=== PATIENT | female | born 1945 | race Caucasian/White ===

== ENCOUNTER 2018-07-29 05:48 | Day surgery (SDC) | payer MEDICARE, BC ==
[2018-07-29] MEDS ORDERED: DIPRIVAN 200 MG/20 ML IV ONE (05:49)
[2018-07-29] MEDS ORDERED: Lactated Ringers 1,000 ML IV SCH (06:00)
[2018-07-29 07:58] VITALS: BP 134/71; O2SAT 98
--- NOTE | 2018-07-29 08:02 | OP ---
SURGERY DATE/TIME: 07/29/2018 0703 PREOPERATIVE DIAGNOSIS: Screening exam. POSTOPERATIVE DIAGNOSIS: Ascending colon polyp measuring approximately 0.75 x 1.5 cm in the ascending colon. PROCEDURE: Colonoscopy with polypectomy by hot biopsy forceps. SURGEON: Dr. Alicea. ANESTHESIA: MAC. Medications given by anesthesia department. HISTORY: The patient is a 73 year-old white female presenting now for screening colonoscopy. She was appraised of the risks of the procedure including the risk of perforation, phlebitis, untoward reaction to medication, bleeding and missed lesions. The patient verbalized her understanding and desired to have the procedure performed. DESCRIPTION OF PROCEDURE: The patient was given the medications by the anesthesia department. She had continuous pulse oximetry, ECG monitoring, intermittent blood pressure monitoring and tidal CO2 monitoring during the examination. She was placed in the left lateral decubitus position. A digital rectal examination was performed and revealed normal anal sphincter tone and no masses. External hemorrhoids are present. The flexible Olympus pediatric colonoscope was used to intubate the rectum. A view of the colon was developed sequentially to the cecum. Upon insertion and withdrawal there was noted a sessile polyp in the ascending colon this was destroyed using multiple passes with hot biopsy forceps. Upon insertion and withdrawal including retroflex view in the rectum, no other mucosal lesions being encountered. The scope was removed from the patient who tolerated the procedure well and was sent back to OP recovery in good condition. The prep was noted to be fair.
[2018-07-29 08:47] VITALS: PULSE 66
== END 2018-07-29 08:53 | disposition home or self-care (01) ==
LOC: SDC 05:48
PROVIDERS: ATTEND Family Medicine
DX: Z12.11 Encounter for screening for malignant neoplasm of colon (principal); K63.5 Polyp of colon; I25.10 Atherosclerotic heart disease of native coronary artery without angina pectoris; I25.2 Old myocardial infarction
CPT/HCPCS: 88305; 94250; 99100; J2704

== ENCOUNTER 2020-01-05 10:06 | Day surgery (SDC) | payer MEDICARE, BC ==
[~2020-01-05 10:06] MED LIST: ACETAZOLAMIDE 250 MG TABLET PO ONE; Ak-Dilate OPHTHALMIC*** 1.065 ML, Cyclogyl 1% OPHTH SOL 5 ML 1.065 ML, GATIFLOXACIN 0.5... OP ONE; BETADINE 5% OPHTHALMIC 30 ML OP ONE; BSS 500 ML, Fortaz/Tazicef 1 GM** 0.2 G IO ONE; Epinephrine Preservative Free 1 MG/ML INTRAOP ONE; LIDOCAINE HCL 1% AMPUL 5 ML IJ ONE; Lactated Ringers 1,000 ML IV SCH; NON-FORMULARY ITEM OP ONE; TETRACAINE 0.5% STERI-UNIT SOL OP ONE; Zofran 4 MG/2 ML VIAL IV PRN
[2020-01-05] MEDS ORDERED: Lactated Ringers 1,000 ML IV ONE (10:31)
[2020-01-05 10:53] LABS: INR 1.16 (0.8-3.0); PROTIME 13.2 SECONDS (9.95-12.35)
[2020-01-05] MEDS: TETRACAINE 0.5% STERI-UNIT SOL OP ONE ×2 (11:34→12:01)
[2020-01-05] MEDS ORDERED: DIPRIVAN 200 MG/20 ML IV ONE (12:37)
[2020-01-05 13:38] VITALS: BP 159/75; PULSE 79; O2SAT 99
--- NOTE | 2020-01-05 14:00 | OP ---
DATE/TIME OF OPERATION: 01/05/2020 1236 TIME DICTATED: 1256 PREOPERATIVE DIAGNOSIS: Senile cataract of left eye. POSTOPERATIVE DIAGNOSIS: Senile cataract of left eye. SURGEON: Osmar Pang MD SPAR MACHINE OPERATOR HELPER: None. OPERATION: Cataract extraction of left eye with an intraocular lens implant. STANDARD __X___ COMPLEX ANESTHESIA: MAC. ___X___ Monitored anesthesia care in combination with topical and intra-cameral anesthesia (because of the established specific risk of reflux, arrhythmias, or an anxiety attack associated with ocular manipulation as well as difficulty of the job checker to manage such potentially catastrophic events while simultaneously attempting to complete the surgical procedure, it was deemed necessary for the patient's safety to have an anesthesiologist or a nurse supervisory cbp officer present during the procedure whenever possible. The anesthesiologist or the nurse supervisory cbp officer was utilized to monitor and regulate the intravenous sedation of the patient, so the patient was cooperative, relaxed, and comfortable). Topical anesthesia using Tetracaine eye drops together with intra cameral anesthesia using Lidocaine 1% MPF. The nurse was utilized to monitor the patient. ANESTHESIA PROVIDER: Jessee Ríos CRNA. COMPLICATIONS: None. BLOOD LOSS: None. INDICATIONS: The patient is undergoing cataract surgery in the hopes of eliminating the visual complaints and difficulty. PROCEDURE: After arriving at the facility's outpatient surgery area, an IV was started; the patient was given 5 mg of p.o. Versed. (If an anesthesia provider was not monitoring the patient) The patient was then given topical anesthetic Tetracaine eye drops. A cotton pellet was soaked into a solution of a combination of Zymaxid 0.5%, Nitin-Synephrine 2.5% and Ocufen (other drops might have been substituted referenced in the patient's record). The pellet was inserted by the RN into the lower conjunctival cul-de-sac with a sterile forceps and left for 20 minutes. The pellet was then removed by the RN with a sterile forceps before taking the patient to the operating room. The preoperative area nurse identified the patient and marked the correct eye to be operated on. I identified the correct eye to be operated on and marked it appropriately in the outpatient surgery area. The patient was then taken into the operating room. Tetracaine eye drops were installed again in the correct eye. The eyelids and the lashes and the lid margins were scrubbed with Betadine solution. One drop of the diluted Betadine solution was placed in the conjunctival cul-de-sac for 45 seconds and then was irrigated. A drop of Tetracaine Gel was placed in the conjunctival cul-de-sac. The patient's forehead was taped to secure it during the procedure. The patient was monitored. The patient was then draped in the usual way for this procedure. An eye speculum was used to separate the eyelids. The eye was then fixated and a temporal 2.5 mm incision was made in the clear cornea temporally at the limbus. Through the incision, 0.25 cc of 1% non-preserved lidocaine was injected into the anterior chamber for intracameral anesthesia. The anterior chamber was then filled with viscoelastic. The pupil was small. I felt that it would be safer to mechanically dilate the pupil. A Malyugin ring was used at this point which dilated the pupil. That was removed at the end of the procedure prior to aspiration of the viscoelastic from the anterior chamber and posterior to the intraocular lens implant. The cataract had a great amount of cortical changes. That rendered seeing the anterior capsule difficult for a safe performance of an anterior capsulotomy. I injected an air bubble into the anterior chamber. I then injected 1 ML of vision blue solution into the anterior chamber. The vision blue solution was irrigated from the anterior chamber after 30 seconds. The anterior capsule was stained which facilitated performing the anterior capsulotomy safely. After that was completed, a cystotome was introduced into the anterior chamber and a round anterior capsulotomy was performed. The capsule was removed by a forceps. Hydrodissection was next carried utilizing a 25-gauge cannula and balanced salt solution to delineate the cortical material from the capsule and the nucleus from the cortical material. The nucleus was rotated freely into the capsular bag with no difficulty. The phaco tip of the [employer] Phacoemulsifier was introduced into the anterior chamber and two grooves were made into the nucleus 90 degrees apart. Using two spatulas resulted into the nucleus being fractured into four quadrants. The phaco tip was then used to remove each quadrant of the nucleus. Viscoelastic was used during this process to protect the corneal endothelium. Once the entire nucleus was removed, the phaco tip then was removed and the irrigation tip was introduced into the eye and the cortex was removed. The posterior capsule was polished. It was noticed that there was a tear into the posterior capsule with few vitreous strands into the pupil plan. An anterior vitrectomy was performed. An 8.00 diopter, SN60WF, posterior chamber lens implant, was inspected and found to be grossly normal. The implant was inserted into the implant injector cartridge; Viscoelastic again was introduced into the anterior chamber, which filled the capsular bag. The implant injector's cartridge tip was placed at the limbal wound and the posterior chamber implant was released into the capsular bag and rotated appropriately. The implant was found to be into the capsular bag and it was centered. 0.2 ml of Tri-Moxi was introduced via 27 gauge cannula into the vitreous cavity through the ciliary processes. Viscoelastic was aspirated from the anterior chamber and posterior to the intraocular lens implant from the capsular bag using the irrigating tip. The anterior chamber was irrigated and filled with 5 cc antibiotic solution (500 cc of BSS plus 2 ml of Fortaz 100 mg/ml) ( if patient was not allergic to the medication). The lips of the corneal incision were hydrated using BSS solution. The anterior chamber was checked and found to be water tight. ___X___ One drop each of antibiotic, steroid and NSAID drops (refer to chart for drops used) were placed in the conjunctival cul-de-sac of the operated eye. Patient tolerated the procedure quite well and left the operating room in satisfactory condition. DISCHARGE SUMMARY: The patient was released in stable condition. The patient and those with the patient were given an instruction sheet as of how to care for the eye after surgery as well as counseling on any abnormal laboratory studies by the postoperative RN. The patient was also given an appointment card for follow-up in the office and is to call immediately for any difficulties including but not limited to pain in the eye, decreased vision, discharge from the eye, headache and or fever. DISCHARGE DIAGNOSIS: Pseudophakia of left eye.
== END 2020-01-05 13:50 | disposition home or self-care (01) ==
LOC: SDC 10:06
PROVIDERS: ATTEND Ophthalmology
DX: H25.9 Unspecified age-related cataract (principal); I10 Essential (primary) hypertension; I51.9 Heart disease, unspecified; E78.00 Pure hypercholesterolemia, unspecified; Z79.01 Long term (current) use of anticoagulants; Z79.899 Other long term (current) drug therapy
CPT/HCPCS: 36415; 85610; 99100; C1780; J0171; J2704; A9270-GY

== ENCOUNTER 2020-02-02 08:28 | Day surgery (SDC) | payer MEDICARE, BC ==
[~2020-02-02 08:28] MED LIST changes: -ACETAZOLAMIDE 250 MG TABLET PO ONE; -Ak-Dilate OPHTHALMIC*** 1.065 ML, Cyclogyl 1% OPHTH SOL 5 ML 1.065 ML, GATIFLOXACIN 0.5... OP ONE; -BETADINE 5% OPHTHALMIC 30 ML OP ONE; -BSS 500 ML, Fortaz/Tazicef 1 GM** 0.2 G IO ONE; -Epinephrine Preservative Free 1 MG/ML INTRAOP ONE; -LIDOCAINE HCL 1% AMPUL 5 ML IJ ONE; -Lactated Ringers 1,000 ML IV SCH; -TETRACAINE 0.5% STERI-UNIT SOL OP ONE; -Zofran 4 MG/2 ML VIAL IV PRN
[2020-02-02] MEDS ORDERED: Lactated Ringers 1,000 ML IV ONE (08:39)
[2020-02-02] MEDS ORDERED: Ak-Dilate OPHTHALMIC*** 1.065 ML, Cyclogyl 1% OPHTH SOL 5 ML 1.065 ML, GATIFLOXACIN 0.5... OP ONE ×4 (09:30)
[2020-02-02] MEDS ORDERED: Lactated Ringers 1,000 ML IV SCH (09:30)
[2020-02-02] MEDS ORDERED: TETRACAINE 0.5% STERI-UNIT SOL OP ONE ×2 (09:30)
[2020-02-02] MEDS ORDERED: Epinephrine Preservative Free 1 MG/ML INTRAOP ONE (10:00)
[2020-02-02] MEDS ORDERED: BETADINE 5% OPHTHALMIC 30 ML OP ONE (10:00)
[2020-02-02] MEDS ORDERED: ACETAZOLAMIDE 250 MG TABLET PO ONE (10:00)
[2020-02-02] MEDS ORDERED: Zofran 4 MG/2 ML VIAL IV PRN (10:00)
[2020-02-02] MEDS ORDERED: BSS 500 ML, Fortaz/Tazicef 1 GM** 0.2 G IO ONE ×2 (10:00)
[2020-02-02] MEDS ORDERED: LIDOCAINE HCL 1% 50 MG/5 ML VL PF IJ ONE (10:00)
[2020-02-02] MEDS ORDERED: DIPRIVAN 200 MG/20 ML IV ONE (11:20)
[2020-02-02] MEDS ORDERED: Versed 2 MG/2 ML Injection ONE (11:32)
[2020-02-02 12:28] VITALS: BP 153/63; PULSE 75; O2SAT 98
--- NOTE | 2020-02-02 13:53 | OP ---
DATE/TIME OF OPERATION: 02/02/2020 1127 TIME DICTATED: 1256 PREOPERATIVE DIAGNOSIS: Senile cataract of right eye. POSTOPERATIVE DIAGNOSIS: Senile cataract of right eye. SURGEON: Osmar Pang MD STREET SUPERVISOR: None. OPERATION: Cataract extraction of right eye with an intraocular lens implant. STANDARD __X___ COMPLEX ANESTHESIA: MAC. ___X___ Monitored anesthesia care in combination with topical and intra-cameral anesthesia (because of the established specific risk of reflux, arrhythmias, or an anxiety attack associated with ocular manipulation as well as difficulty of the publications sales representative to manage such potentially catastrophic events while simultaneously attempting to complete the surgical procedure, it was deemed necessary for the patient's safety to have an anesthesiologist or a nurse coffee roaster helper present during the procedure whenever possible. The anesthesiologist or the nurse coffee roaster helper was utilized to monitor and regulate the intravenous sedation of the patient, so the patient was cooperative, relaxed, and comfortable). Topical anesthesia using Tetracaine eye drops together with intra cameral anesthesia using Lidocaine 1% MPF. The nurse was utilized to monitor the patient. ANESTHESIA PROVIDER: Peng Suggs CRNA. COMPLICATIONS: None. BLOOD LOSS: None. INDICATIONS: The patient is undergoing cataract surgery in the hopes of eliminating the visual complaints and difficulty. PROCEDURE: After arriving at the facility's outpatient surgery area, an IV was started; the patient was given 5 mg of p.o. Versed. (If an anesthesia provider was not monitoring the patient) The patient was then given topical anesthetic Tetracaine eye drops. A cotton pellet was soaked into a solution of a combination of Zymaxid 0.5%, Nitin-Synephrine 2.5% and Ocufen (other drops might have been substituted referenced in the patient's record). The pellet was inserted by the RN into the lower conjunctival cul-de-sac with a sterile forceps and left for 20 minutes. The pellet was then removed by the RN with a sterile forceps before taking the patient to the operating room. The preoperative area nurse identified the patient and marked the correct eye to be operated on. I identified the correct eye to be operated on and marked it appropriately in the outpatient surgery area. The patient was then taken into the operating room. Tetracaine eye drops were installed again in the correct eye. The eyelids and the lashes and the lid margins were scrubbed with Betadine solution. One drop of the diluted Betadine solution was placed in the conjunctival cul-de-sac for 45 seconds and then was irrigated. A drop of Tetracaine Gel was placed in the conjunctival cul-de-sac. The patient's forehead was taped to secure it during the procedure. The patient was monitored. The patient was then draped in the usual way for this procedure. An eye speculum was used to separate the eyelids. The eye was then fixated and a temporal 2.5 mm incision was made in the clear cornea temporally at the limbus. Through the incision, 0.25 cc of 1% non-preserved lidocaine was injected into the anterior chamber for intracameral anesthesia. The anterior chamber was then filled with viscoelastic. The pupil was small. I felt that it would be safer to mechanically dilate the pupil. A Malyugin ring was used at this point which dilated the pupil. That was removed at the end of the procedure prior to aspiration of the viscoelastic from the anterior chamber and posterior to the intraocular lens implant. The cataract had a great amount of cortical changes. That rendered seeing the anterior capsule difficult for a safe performance of an anterior capsulotomy. I injected an air bubble into the anterior chamber. I then injected 1 ML of vision blue solution into the anterior chamber. The vision blue solution was irrigated from the anterior chamber after 30 seconds. The anterior capsule was stained which facilitated performing the anterior capsulotomy safely. After that was completed, a cystotome was introduced into the anterior chamber and a round anterior capsulotomy was performed. The capsule was removed by a forceps. Hydrodissection was next carried utilizing a 25-gauge cannula and balanced salt solution to delineate the cortical material from the capsule and the nucleus from the cortical material. The nucleus was rotated freely into the capsular bag with no difficulty. The phaco tip of the [employer] Phacoemulsifier was introduced into the anterior chamber and two grooves were made into the nucleus 90 degrees apart. Using two spatulas resulted into the nucleus being fractured into four quadrants. The phaco tip was then used to remove each quadrant of the nucleus. Viscoelastic was used during this process to protect the corneal endothelium. Once the entire nucleus was removed, the phaco tip then was removed and the irrigation tip was introduced into the eye and the cortex was removed. The posterior capsule was polished. It was noticed that there was a tear into the posterior capsule with few vitreous strands into the pupil plan. An anterior vitrectomy was performed. A 8.50 diopter, SN60WF, posterior chamber lens implant, was inspected and found to be grossly normal. The implant was inserted into the implant injector cartridge; Viscoelastic again was introduced into the anterior chamber, which filled the capsular bag. The implant injector's cartridge tip was placed at the limbal wound and the posterior chamber implant was released into the capsular bag and rotated appropriately. The implant was found to be into the capsular bag and it was centered. 0.2 ml of Tri-Moxi was introduced via 27 gauge cannula into the vitreous cavity through the ciliary processes. Viscoelastic was aspirated from the anterior chamber and posterior to the intraocular lens implant from the capsular bag using the irrigating tip. The anterior chamber was irrigated and filled with 5 cc antibiotic solution (500 cc of BSS plus 2 ml of Fortaz 100 mg/ml) ( if patient was not allergic to the medication). The lips of the corneal incision were hydrated using BSS solution. The anterior chamber was checked and found to be water tight. ___X__ One drop each of antibiotic, steroid and NSAID drops (refer to chart for drops used) were placed in the conjunctival cul-de-sac of the operated eye. Patient tolerated the procedure quite well and left the operating room in satisfactory condition. DISCHARGE SUMMARY: The patient was released in stable condition. The patient and those with the patient were given an instruction sheet as of how to care for the eye after surgery as well as counseling on any abnormal laboratory studies by the postoperative RN. The patient was also given an appointment card for follow-up in the office and is to call immediately for any difficulties including but not limited to pain in the eye, decreased vision, discharge from the eye, headache and or fever. DISCHARGE DIAGNOSIS: Pseudophakia of right eye.
== END 2020-02-02 12:30 | disposition hospice, home (50) ==
LOC: SDC 08:28
PROVIDERS: ATTEND Ophthalmology
DX: H25.811 Combined forms of age-related cataract, right eye (principal); I10 Essential (primary) hypertension; E78.00 Pure hypercholesterolemia, unspecified; I51.9 Heart disease, unspecified; Z79.899 Other long term (current) drug therapy
CPT/HCPCS: 99100; C1780; J0171; J2001; J2250; J2704; A9270-GY

== ENCOUNTER 2021-02-21 11:29 | Observation (INO) | payer MEDICARE, BC ==
--- NOTE | 2021-02-21 11:53 | ERPHSYRPT ---
- History of Present Illness Time Seen by Provider: 02/21/21 11:40 Historian: patient Exam Limitations: no limitations Patient Subjective Stated Complaint: Chest pain Triage Nursing Assessment: Patient ambulated back to ED and transferred self to bed. Patient A+O X3. Patient's skin pink, warm and dry. Patient complains of constant dull tight chest discomfort that started last night and hasn't went away. Patient complains of pain into left jaw and in between shoulder blades. Patient's lung clear a/p geena. Heart tones audible. Patient states she is occasional SOB with the pain. Physician History: Patient is a 75-year-old female presents to our ED with complaints of chest pain. Patient states that her symptoms started last night. Pain described as a pressure-like sensation that radiates to her left jaw and between her shoulder blades. Pain is associated with shortness of breath. Patient advised that she has 3 cardiac stents. Stents were placed approximately 9 years ago. Patient is on Xarelto. Patient has been taking all medications as prescribed. Symptoms are moderate in intensity. No specific worsening or improving factors. Patient denies fever. No nausea or vomiting. No diaphoresis. Patient voices no other complaints or concerns at this time. Timing/Duration: yesterday Activities at Onset: none Quality: pressure Location: substernal Chest Pain Radiation: jaw, back Severity of Pain-Max: moderate Severity of Pain-Current: mild Modifying Factors: Improves With: nothing Associated Symptoms: shortness of breath Prior Chest Pain/Cardiac Workup: cardiac cath Nitro Today/Relief: no nitro taken today Aspirin Treatment Today: no aspirin today Allergies/Adverse Reactions: No Known Drug Allergies Allergy (Verified 02/21/21 11:30) Home Medications: Losartan Potassium 100 mg PO HS 12/07/12 [History] Memantine HCl 5 mg [Namenda 5 MG] 5 mg PO DAILY 12/07/12 [History] Ascorbate Calcium [Vitamin C] 500 mg PO DAILY 03/16/13 [History] Atorvastatin Calcium [Lipitor] 40 mg PO HS 03/16/13 [History] Calcium Carbonate/Vitamin D3 [Calcium 600-Vit D3 200 Tablet] 1 each PO BID 03/16/13 [History] Sotalol HCl [Sotalol] 80 mg PO BID 03/16/13 [History] Hx Tetanus, Diphtheria Vaccination/Date Given: Yes Hx Influenza Vaccination/Date Given: Yes Hx Pneumococcal Vaccination/Date Given: No Immunizations Up to Date: Yes Travel Risk - International Travel Have you traveled outside of the country in past 3 weeks: No - Coronavirus Screening Are you exhibiting any of the following symptoms?: No Close contact with a COVID-19 positive Pt in past 14-21 Days: No - Vaccine Status Have you recieved a Covid-19 vaccination: Yes 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 - Vaccination Dates Date of 2cond Vaccination (if applicable): 01/14/2021 - Review of Systems Constitutional: No Symptoms, No Fever, No Chills Eyes: No Symptoms Ears, Nose, & Throat: No Symptoms Respiratory: No Symptoms, No Cough, No Dyspnea Cardiac: No Symptoms, No Chest Pain, No Edema, No Syncope Abdominal/Gastrointestinal: No Symptoms, No Abdominal Pain, No Nausea, No Vomiting, No Diarrhea Genitourinary Symptoms: No Symptoms, No Dysuria Musculoskeletal: No Symptoms, No Back Pain, No Neck Pain Skin: No Symptoms, No Rash Neurological: No Symptoms, No Dizziness, No Focal Weakness, No Sensory Changes Psychological: No Symptoms Endocrine: No Symptoms Hematologic/Lymphatic: No Symptoms Immunological/Allergic: No Symptoms All Other Systems: Reviewed and Negative - Past Medical History Pertinent Past Medical History: Yes Neurological History: No Pertinent History ENT History: No Pertinent History Cardiac History: Arrhythmia, Coronary Artery Disease, Hypertension, Myocardial Infarction (DE) Respiratory History: No Pertinent History Endocrine Medical History: No Pertinent History Musculoskeletal History: No Pertinent History GI Medical History: GERD History: No Pertinent History Psycho-Social History: No Pertinent History Female Reproductive Disorders: Breast Cancer Other Medical History: Hx of DE x 2 in 2012 with cardiac stents x 2. Pt reports hx of a-fib for about 1 year following her DE and is resolved now. Hx of HTN. Pt reports that she has been told that she snores. Denies sleep apnea. Hx of left breast cancer. No labs or b/p in left arm. - Past Surgical History Past Surgical History: Yes Neuro Surgical History: No Pertinent History Cardiac: Cardiac Catheterization, Cardiac Stent Respiratory: No Pertinent History Gastrointestinal: No Pertinent History Genitourinary: No Pertinent History Musculoskeletal: No Pertinent History Female Surgical History: Tubal Ligation, Lumpectomy Other Surgical History: Cath in 2012. Cardiac stents x 3. - Social History Smoking Status: Never smoker Exposure to second hand smoke: No Drug Use: none Patient Lives Alone: No - Female History Hx Now: No - Nursing Vital Signs Nursing Vital Signs: Initial Vital Signs Temperature 97.9 F 02/21/21 11:31 Pulse Rate 95 H 02/21/21 11:31 Respiratory Rate 18 02/21/21 11:31 Blood Pressure 137/102 02/21/21 11:31 O2 Sat by Pulse Oximetry 99 02/21/21 11:31 Pain Scale Pain Intensity 2 - Physical Exam General Appearance: no apparent distress, alert Eye Exam: PERRL/EOMI, eyes nml inspection Ears, Nose, Throat Exam: normal ENT inspection, moist mucous membranes Neck Exam: normal inspection, non-tender, supple, full range of motion Respiratory Exam: normal breath sounds, lungs clear, No respiratory distress Cardiovascular Exam: regular rate/rhythm, normal heart sounds Gastrointestinal/Abdomen Exam: soft, No tenderness, No mass Back Exam: normal inspection, No CVA tenderness, No vertebral tenderness Extremity Exam: normal inspection, normal range of motion Neurologic Exam: alert, oriented x 3, cooperative, normal mood/affect, sensation nml, No motor deficits Skin Exam: normal color, warm, dry SpO2 Interpretation: normal SpO2: 99 O2 Delivery: Room Air - Course Nursing assessment & vital signs reviewed: Yes EKG Interpreted by Me: RATE (107), A-fib, NORMAL AXIS, NORMAL INTERVALS - Radiology Exams Chest X-ray Interpretation: Teleradiologist Report (Heart normal lungs. Bony thorax intact. Axillary node dissection observed.) Ordered Tests: Active Orders 24 hr Category Date Time Status Trap Setter STAT Care 02/21/21 12:12 Active EKG-ER Only STAT Care 02/21/21 12:11 Active IV Insertion STAT Care 02/21/21 12:11 Active Pulse Oximetry (ED) STAT Care 02/21/21 12:11 Active CHEST 1 VIEW (PORTABLE) Stat Exams 02/21/21 12:12 Completed CBC W DIFF Stat Lab 02/21/21 12:11 Completed CMP Stat Lab 02/21/21 12:11 Completed D-DIMER QUANTITATIVE Stat Lab 02/21/21 13:00 Completed MAGNESIUM Stat Lab 02/21/21 12:11 Completed NT PRO BNP Stat Lab 02/21/21 12:11 Completed TROPONIN Q3H Lab 02/21/21 12:11 Completed TROPONIN Q3H Lab 02/21/21 15:15 Ordered TROPONIN Q3H Lab 02/21/21 18:15 Ordered TROPONIN Q3H Lab 02/21/21 21:15 Ordered TROPONIN Q3H Lab 02/22/21 00:15 Ordered UA W/RFX UR CULTURE Stat Lab 02/21/21 13:08 Completed Transfer Order Routine Transfer 02/21/21 Ordered Medication Summary Generic Name Dose Route Start Last Admin Trade Name Freq PRN Reason Stop Dose Admin Furosemide 20 mg 02/21/21 15:05 Lasix 20 Mg/2 Ml IV 02/21/21 15:06 ONCE STA Discontinued Medications Generic Name Dose Route Start Last Admin Trade Name Freq PRN Reason Stop Dose Admin Aspirin 324 mg 02/21/21 12:06 02/21/21 12:18 Baby Aspirin 81 Mg Chew PO 02/21/21 12:07 324 mg STAT ONE Administration Aspirin Confirm 02/21/21 12:10 Baby Aspirin 81 Mg Chew Administered 02/21/21 12:11 Dose 324 mg .ROUTE .STK-MED ONE Nitroglycerin 1 gm 02/21/21 12:06 02/21/21 12:19 Nitro-Bid 2% Ud Packets TOP 02/21/21 12:07 1 gm STAT ONE Administration Nitroglycerin Confirm 02/21/21 12:10 Nitro-Bid 2% Ud Packets Administered 02/21/21 12:11 Dose 1 gm .ROUTE .STK-MED ONE Lab/Rad Data: Laboratory Result Diagrams 02/21/21 12:11 02/21/21 12:11 Laboratory Results 02/21/21 02/21/21 02/21/21 Range/Units 13:55 13:08 13:00 WBC (4.0-10.5) K/mm3 RBC (4.1-5.4) M/mm3 Hgb (12.0-16.0) gm/dl Hct (35-47) % MCV (78-100) fl MCH (26-32) pg MCHC (32-36) g/dl RDW (11.5-14.0) % Plt Count (150-450) K/mm3 MPV (7.5-11.0) fl Gran % (36.0-66.0) % Eos # (Auto) (0-0.5) Absolute Lymphs (auto) (1.0-4.6) Absolute Monos (auto) (0.0-1.3) Lymphocytes % (24.0-44.0) % Monocytes % (0.0-12.0) % Eosinophils % (0.00-5.0) % Basophils % (0.0-0.4) % Absolute Granulocytes (1.4-6.9) Basophils # (0-0.4) D-Dimer < 215 L (215-500) ng/mL Sodium (137-145) mmol/L Potassium (3.5-5.1) mmol/L Chloride (98-107) mmol/L Carbon Dioxide (22-30) mmol/L Anion Gap (5-15) MEQ/L BUN (7-17) mg/dL Creatinine (0.52-1.04) mg/dL Estimated GFR ML/MIN Glucose (74-106) mg/dL Calcium (8.4-10.2) mg/dL Magnesium (1.6-2.3) mg/dL Total Bilirubin (0.2-1.3) mg/dL AST (14-36) U/L ALT (0-35) U/L Alkaline Phosphatase (38-126) U/L Troponin I (0.000-0.034) ng/mL NT-Pro-B Natriuret Pep (0-900) pg/mL Serum Total Protein (6.3-8.2) g/dL Albumin (3.5-5.0) g/dL Urine Color YELLOW (YELLOW) Urine Appearance CLEAR (CLEAR) Urine pH 6.0 (5-6) Ur Specific [place] 1.017 (1.005-1.025) Urine Protein NEGATIVE (Negative) Urine Ketones NEGATIVE (NEGATIVE) Urine Blood NEGATIVE (0-5) Sunny/ul Urine Nitrite NEGATIVE (NEGATIVE) Urine Bilirubin NEGATIVE (NEGATIVE) Urine Urobilinogen NEGATIVE (0-1) mg/dL Ur Leukocyte Esterase SMALL (NEGATIVE) Urine WBC (Auto) 3-5 (0-5) /HPF Urine RBC (Auto) NONE (0-2) /HPF U Epithel Cells (Auto) NONE (FEW) /HPF Urine Bacteria (Auto) NONE (NEGATIVE) /HPF Urine Mucus (Auto) SLIGHT (NEGATIVE) /HPF Urine Culture Reflexed NO (NO) Urine Glucose NEGATIVE (NEGATIVE) mg/dL Influenza Type A Ag NEGATIVE (NEGATIVE) Influenza Type B Ag NEGATIVE (NEGATIVE) RSV (PCR) NEGATIVE (Negative) SARS-CoV-2 (PCR) NEGATIVE (NEGATIVE) 02/21/21 02/21/21 02/21/21 Range/Units 12:11 12:11 12:11 WBC 5.9 (4.0-10.5) K/mm3 RBC 4.26 (4.1-5.4) M/mm3 Hgb 12.4 (12.0-16.0) gm/dl Hct 40.2 (35-47) % MCV 94.4 (78-100) fl MCH 29.1 (26-32) pg MCHC 30.8 L (32-36) g/dl RDW 14.2 H (11.5-14.0) % Plt Count 194 (150-450) K/mm3 MPV 12.4 H (7.5-11.0) fl Gran % 63.3 (36.0-66.0) % Eos # (Auto) 0.10 (0-0.5) Absolute Lymphs (auto) 1.44 (1.0-4.6) Absolute Monos (auto) 0.61 (0.0-1.3) Lymphocytes % 24.4 (24.0-44.0) % Monocytes % 10.3 (0.0-12.0) % Eosinophils % 1.7 (0.00-5.0) % Basophils % 0.3 (0.0-0.4) % Absolute Granulocytes 3.73 (1.4-6.9) Basophils # 0.02 (0-0.4) D-Dimer (215-500) ng/mL Sodium 143 (137-145) mmol/L Potassium 3.7 (3.5-5.1) mmol/L Chloride 106 (98-107) mmol/L Carbon Dioxide 27 (22-30) mmol/L Anion Gap 13.6 (5-15) MEQ/L BUN 25 H (7-17) mg/dL Creatinine 0.60 (0.52-1.04) mg/dL Estimated GFR > 60.0 ML/MIN Glucose 81 (74-106) mg/dL Calcium 10.1 (8.4-10.2) mg/dL Magnesium 1.9 (1.6-2.3) mg/dL Total Bilirubin 0.60 (0.2-1.3) mg/dL AST 24 (14-36) U/L ALT 20 (0-35) U/L Alkaline Phosphatase 53 (38-126) U/L Troponin I < 0.012 (0.000-0.034) ng/mL NT-Pro-B Natriuret Pep 3950 H (0-900) pg/mL Serum Total Protein 7.1 (6.3-8.2) g/dL Albumin 4.3 (3.5-5.0) g/dL Urine Color (YELLOW) Urine Appearance (CLEAR) Urine pH (5-6) Ur Specific [place] (1.005-1.025) Urine Protein (Negative) Urine Ketones (NEGATIVE) Urine Blood (0-5) Sunny/ul Urine Nitrite (NEGATIVE) Urine Bilirubin (NEGATIVE) Urine Urobilinogen (0-1) mg/dL Ur Leukocyte Esterase (NEGATIVE) Urine WBC (Auto) (0-5) /HPF Urine RBC (Auto) (0-2) /HPF U Epithel Cells (Auto) (FEW) /HPF Urine Bacteria (Auto) (NEGATIVE) /HPF Urine Mucus (Auto) (NEGATIVE) /HPF Urine Culture Reflexed (NO) Urine Glucose (NEGATIVE) mg/dL Influenza Type A Ag (NEGATIVE) Influenza Type B Ag (NEGATIVE) RSV (PCR) (Negative) SARS-CoV-2 (PCR) (NEGATIVE) - Progress Progress: improved Air Movement: good Progress Note: Patient reassessed. No active chest pain at this time. X-ray negative for acute pathology. Dr. Milton covering Dr. Arias. D-dimer negative. Covid negative. We will admit patient to the floor. Plan of care discussed with derrick epps. She agrees to admission [facility] for further evaluation and treatment. Dr. Milton accepts admission to observation. Admitting diagnosis acute coronary syndrome. 02/21/21 15:04 02/21/21 15:09 Blood Culture(s) Obtained: No Antibiotics given: No - Departure Departure Disposition: Observation Clinical Impression: ACS (acute coronary syndrome), Chest pain, Elevated brain natriuretic peptide (BNP) level Condition: Stable Critical Care Time: No Referrals: ANTHONY BHANDARI NP [Primary Care Provider] -
[2021-02-21] MEDS ORDERED: BABY ASPIRIN 81 MG CHEW PO ONE (12:06)
[2021-02-21] MEDS ORDERED: NITRO-BID 2% UD PACKETS TOP ONE (12:06)
[2021-02-21] MEDS ORDERED: BABY ASPIRIN 81 MG CHEW ONE (12:10)
[2021-02-21] MEDS ORDERED: NITRO-BID 2% UD PACKETS ONE (12:10)
--- NOTE | 2021-02-21 12:34 | XRAY ---
Indication: Short of breath. Arrhythmia. Comparison: December 17, 2012. Portable chest again demonstrates normal heart and lungs. Bony thorax intact again with left axillary davey dissection. No new/acute findings.
[2021-02-21 12:36] LABS: Absolute Neutrophil Ct (ANC) 3.73 (1.4-6.9); BASOPHIL % 0.3 % (0.0-0.4); Basophil (Absolute #) 0.02 (0-0.4); Eosinophil % 1.7 % (0.00-5.0); Hematocrit 40.2 % (35-47); Hemoglobin 12.4 gm/dl (12.0-16.0); Lymphocyte (Absolute #) 1.44 (1.0-4.6); Lymphocytes % 24.4 % (24.0-44.0); Mean Cell Volume 94.4 fl (78-100); Mean Corpuscular Hemoglobin 29.1 pg (26-32); Mean Corpuscular Hgb Concent. 30.8 g/dl (32-36); Mean Platelet Volume 12.4 fl (7.5-11.0); Monocyte (Absolute #) 0.61 (0.0-1.3); Monocytes % 10.3 % (0.0-12.0); Neutrophil % 63.3 % (36.0-66.0); Platelet Count 194 K/mm3 (150-450); Red Blood Count 4.26 M/mm3 (4.1-5.4); Red Cell Distribution Width 14.2 % (11.5-14.0); White Blood Count 5.9 K/mm3 (4.0-10.5)
[2021-02-21 12:52] LABS: ALBUMIN 4.3 g/dL (3.5-5.0); ALKALINE PHOSPHATASE 53 U/L (38-126); ANION GAP 13.6 MEQ/L (5-15); BLOOD UREA NITROGEN 25 mg/dL (7-17); CHLORIDE 106 mmol/L (98-107); Calcium 10.1 mg/dL (8.4-10.2); Carbon Dioxide 27 mmol/L (22-30); EST GLOMERULAR FILTRATION RATE > 60.0 ML/MIN; Glucose 81 mg/dL (74-106); MAGNESIUM 1.9 mg/dL (1.6-2.3); NT PRO BNP 3950 pg/mL (0-900); Potassium 3.7 mmol/L (3.5-5.1); SGOT/AST 24 U/L (14-36); SGPT/ALT 20 U/L (0-35); SODIUM 143 mmol/L (137-145); Total Protein 7.1 g/dL (6.3-8.2)
[2021-02-21 13:28] LABS: Appearance CLEAR (CLEAR); Bilirubin NEGATIVE (NEGATIVE); Blood NEGATIVE Ery/ul (0-5); Glucose NEGATIVE (NEGATIVE); Ketones NEGATIVE (NEGATIVE); Leukocyte Esterase SMALL (NEGATIVE); Mucus SLIGHT /HPF (NEGATIVE); Nitrite NEGATIVE (NEGATIVE); Protein,Urine Dip NEGATIVE (Negative); Specific Gravity 1.017 (1.005-1.025); Urobilinogen NEGATIVE mg/dL (0-1)
[2021-02-21 14:38] LABS: INFLUENZA A NEGATIVE (NEGATIVE); INFLUENZA B NEGATIVE (NEGATIVE); RESPIRATORY SYNCTIAL VIRUS NEGATIVE (Negative)
[2021-02-21] MEDS ORDERED: Lasix 20 MG/2 ML IV STA (15:05)
[2021-02-21] MEDS ORDERED: Lasix 40 MG/4 ML ONE (15:25)
[2021-02-21] MEDS ORDERED: MAALOX ES 30 ML UNIT DOSE PO PRN (15:37)
[2021-02-21] MEDS ORDERED: TYLENOL 325 MG PO PRN (15:37)
[2021-02-21] MEDS ORDERED: MILK OF MAGNESIA 30 ML PO PRN (15:37)
[2021-02-21] MEDS ORDERED: Senokot-S Tablet PO PRN (15:37)
[2021-02-21] MEDS ORDERED: Betapace 80 MG ONE (17:39)
[2021-02-21] MEDS: Namenda 5 MG PO SCH (21:21)
[2021-02-21] MEDS: LIPITOR 40MG PO SCH (21:21)
[2021-02-21] MEDS: Calcium 500MG W/Vit D Tablet PO SCH (21:21)
[2021-02-21] MEDS ORDERED: Betapace 80 MG PO SCH (22:00)
[2021-02-21] MEDS ORDERED: NON-FORMULARY ITEM (Calcium Carbonate/Vitamin D3 [Calcium 600-Vit D3 200 Tablet] 1 EACH) PO SCH (22:00)
[2021-02-21] MEDS ORDERED: NON-FORMULARY ITEM (Losartan Potassium [Losartan Potassium] 100 MG) PO SCH (22:00)
[2021-02-21] MEDS ORDERED: Cozaar 50 MG PO SCH (22:00)
[2021-02-22] MEDS ORDERED: Betapace 80 MG PO SCH (00:15)
[2021-02-22 05:08] LABS: Risk Ratio 2.6
[2021-02-22] MEDS ORDERED: Lanoxin 0.125MG TABLET PO ONE (09:13)
--- NOTE | 2021-02-22 09:18 | PCM.HP ---
History of Present Illness - Chief Complaint Chief Complaint: ACS History of Present Illness: is a 75 year old female who developed a squeezing sensation in her chest yesterday at rest, she took her bp and noted her heart rate to be 140 so came to ER, she still has some heaviness today but no pain in her chest. She has a history of cardiac arrest, resuscitation with 3 stents subsequently placed 9 years ago. 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 - Review of Systems Constitutional: No Fever, No Chills Respiratory: No Cough, No Short Of Breath Cardiac: Chest Pain Abdominal/Gastrointestinal: No Abdominal Pain, No Nausea, No Vomiting, No Diarrhea Genitourinary Symptoms: No Dysuria Skin: No Rash All Other Systems: Reviewed and Negative Medications & Allergies Home Medications: Home Medication List Losartan Potassium 100 mg PO HS 12/07/12 [History Confirmed 02/21/21] Memantine HCl 5 mg [Namenda 5 MG] 5 mg PO HS 12/07/12 [History Confirmed 02/21/21] Ascorbate Calcium [Vitamin C] 500 mg PO DAILY 03/16/13 [History Confirmed 02/21/21] Atorvastatin Calcium [Lipitor] 40 mg PO HS 03/16/13 [History Confirmed 02/21/21] Calcium Carbonate/Vitamin D3 [Calcium 600-Vit D3 200 Tablet] 1 each PO BID 03/16/13 [History Confirmed 02/21/21] Sotalol HCl [Sotalol] 80 mg PO BID 03/16/13 [History Confirmed 02/21/21] Rivaroxaban [Xarelto] 20 mg PO DAILY #0 07/29/18 [Rx Confirmed 02/21/21] Alendronate Sodium 70 mg [Fosamax 70 MG] 70 mg PO Q7D 02/21/21 [History Confirmed 02/21/21] Allergies/Adverse Reactions: Allergies Allergy/AdvReac Type Severity Reaction Status Date / Time No Known Drug Allergies Allergy Verified 02/21/21 11:30 - Past Medical History Past Medical History: Yes Neurological History: No Pertinent History ENT History: No Pertinent History Cardiac History: Arrhythmia, Coronary Artery Disease, Hypertension, Myocardial Infarction ([place]) Respiratory History: No Pertinent History Endocrine Medical History: No Pertinent History Musculoskelatal History: No Pertinent History GI Medical History: GERD History: No Pertinent History Pyscho-Social History: No Pertinent History Reproductive Disorders: Breast Cancer Comment: Hx of WI x 2 in 2012 with cardiac stents x 2. Pt reports hx of a-fib for about 1 year following her WI and is resolved now. Hx of HTN. Pt reports that she has been told that she snores. Denies sleep apnea. Hx of left breast cancer. No labs or b/p in left arm. - Female History Are you now?: No - Past Surgical History Past Surgical History: Yes Neuro Surgical History: No Pertinent History Cardiac History: Cardiac Catheterization, Cardiac Stent Respiratory Surgery: No Pertinent History GI Surgical History: No Pertinent History Genitourinary Surgical Hx: No Pertinent History Musculskeletal Surgical Hx: No Pertinent History Female Surgical History: Tubal Ligation, Lumpectomy Other Surgical History: Cath in 2011. Cardiac stents x 3. - Social History Smoking Status: Never smoker Exposure to second hand smoke: No Alcohol: None Drug Use: none - Physical Exam Vital Signs: Vital Signs - 24 hr Temp Pulse Resp BP Pulse Ox 02/22/21 07:27 98.1 F 110 H 20 108/78 95 02/22/21 03:48 97.8 F 111 H 16 79/52 93 L 02/21/21 23:44 97.0 F 112 H 18 109/69 95 02/21/21 20:12 95 02/21/21 20:00 95 02/21/21 19:44 96.7 F 98 H 16 118/65 95 02/21/21 16:00 96 02/21/21 15:59 97 02/21/21 15:54 96.0 F 108 H 20 140/80 96 02/21/21 15:20 97.8 F 103 H 20 144/96 98 02/21/21 15:14 99 02/21/21 14:05 123 H 20 118/90 98 02/21/21 13:00 97.8 F 103 H 20 153/95 98 02/21/21 12:25 97 02/21/21 11:31 97.9 F 95 H 18 137/102 99 General Appearance: no apparent distress, alert Respiratory Exam: normal breath sounds, lungs clear, No respiratory distress Cardiovascular Exam: tachycardia, irregular Gastrointestinal/Abdomen Exam: soft, normal bowel sounds, No tenderness, No mass Extremity Exam: normal inspection, normal range of motion, pelvis stable Skin Exam: normal color, warm, dry, No rash Results - Labs Lab/Micro Results: Lab Results-Last 24 Hours 02/21/21 02/21/21 02/21/21 Range/Units 12:11 12:11 12:11 WBC 5.9 (4.0-10.5) K/mm3 RBC 4.26 (4.1-5.4) M/mm3 Hgb 12.4 (12.0-16.0) gm/dl Hct 40.2 (35-47) % MCV 94.4 (78-100) fl MCH 29.1 (26-32) pg MCHC 30.8 L (32-36) g/dl RDW 14.2 H (11.5-14.0) % Plt Count 194 (150-450) K/mm3 MPV 12.4 H (7.5-11.0) fl Gran % 63.3 (36.0-66.0) % Eos # (Auto) 0.10 (0-0.5) Absolute Lymphs (auto) 1.44 (1.0-4.6) Absolute Monos (auto) 0.61 (0.0-1.3) Lymphocytes % 24.4 (24.0-44.0) % Monocytes % 10.3 (0.0-12.0) % Eosinophils % 1.7 (0.00-5.0) % Basophils % 0.3 (0.0-0.4) % Absolute Granulocytes 3.73 (1.4-6.9) Basophils # 0.02 (0-0.4) D-Dimer (215-500) ng/mL Sodium 143 (137-145) mmol/L Potassium 3.7 (3.5-5.1) mmol/L Chloride 106 (98-107) mmol/L Carbon Dioxide 27 (22-30) mmol/L Anion Gap 13.6 (5-15) MEQ/L BUN 25 H (7-17) mg/dL Creatinine 0.60 (0.52-1.04) mg/dL Estimated GFR > 60.0 ML/MIN Glucose 81 (74-106) mg/dL Calcium 10.1 (8.4-10.2) mg/dL Magnesium 1.9 (1.6-2.3) mg/dL Total Bilirubin 0.60 (0.2-1.3) mg/dL AST 24 (14-36) U/L ALT 20 (0-35) U/L Alkaline Phosphatase 53 (38-126) U/L Troponin I < 0.012 (0.000-0.034) ng/mL NT-Pro-B Natriuret Pep 3950 H (0-900) pg/mL Serum Total Protein 7.1 (6.3-8.2) g/dL Albumin 4.3 (3.5-5.0) g/dL Triglycerides (30-150) mg/dL Cholesterol (50-200) mg/dL LDL Cholesterol (30-100) mg/dL HDL Cholesterol (40-60) mg/dL Heart Disease Risk Ratio Urine Color (YELLOW) Urine Appearance (CLEAR) Urine pH (5-6) Ur Specific Sinclair (1.005-1.025) Urine Protein (Negative) Urine Ketones (NEGATIVE) Urine Blood (0-5) Sunny/ul Urine Nitrite (NEGATIVE) Urine Bilirubin (NEGATIVE) Urine Urobilinogen (0-1) mg/dL Ur Leukocyte Esterase (NEGATIVE) Urine WBC (Auto) (0-5) /HPF Urine RBC (Auto) (0-2) /HPF U Epithel Cells (Auto) (FEW) /HPF Urine Bacteria (Auto) (NEGATIVE) /HPF Urine Mucus (Auto) (NEGATIVE) /HPF Urine Culture Reflexed (NO) Urine Glucose (NEGATIVE) mg/dL Influenza Type A Ag (NEGATIVE) Influenza Type B Ag (NEGATIVE) RSV (PCR) (Negative) SARS-CoV-2 (PCR) (NEGATIVE) 02/21/21 02/21/21 02/21/21 Range/Units 13:00 13:08 13:55 WBC (4.0-10.5) K/mm3 RBC (4.1-5.4) M/mm3 Hgb (12.0-16.0) gm/dl Hct (35-47) % MCV (78-100) fl MCH (26-32) pg MCHC (32-36) g/dl RDW (11.5-14.0) % Plt Count (150-450) K/mm3 MPV (7.5-11.0) fl Gran % (36.0-66.0) % Eos # (Auto) (0-0.5) Absolute Lymphs (auto) (1.0-4.6) Absolute Monos (auto) (0.0-1.3) Lymphocytes % (24.0-44.0) % Monocytes % (0.0-12.0) % Eosinophils % (0.00-5.0) % Basophils % (0.0-0.4) % Absolute Granulocytes (1.4-6.9) Basophils # (0-0.4) D-Dimer < 215 L (215-500) ng/mL Sodium (137-145) mmol/L Potassium (3.5-5.1) mmol/L Chloride (98-107) mmol/L Carbon Dioxide (22-30) mmol/L Anion Gap (5-15) MEQ/L BUN (7-17) mg/dL Creatinine (0.52-1.04) mg/dL Estimated GFR ML/MIN Glucose (74-106) mg/dL Calcium (8.4-10.2) mg/dL Magnesium (1.6-2.3) mg/dL Total Bilirubin (0.2-1.3) mg/dL AST (14-36) U/L ALT (0-35) U/L Alkaline Phosphatase (38-126) U/L Troponin I (0.000-0.034) ng/mL NT-Pro-B Natriuret Pep (0-900) pg/mL Serum Total Protein (6.3-8.2) g/dL Albumin (3.5-5.0) g/dL Triglycerides (30-150) mg/dL Cholesterol (50-200) mg/dL LDL Cholesterol (30-100) mg/dL HDL Cholesterol (40-60) mg/dL Heart Disease Risk Ratio Urine Color YELLOW (YELLOW) Urine Appearance CLEAR (CLEAR) Urine pH 6.0 (5-6) Ur Specific Sinclair 1.017 (1.005-1.025) Urine Protein NEGATIVE (Negative) Urine Ketones NEGATIVE (NEGATIVE) Urine Blood NEGATIVE (0-5) Sunny/ul Urine Nitrite NEGATIVE (NEGATIVE) Urine Bilirubin NEGATIVE (NEGATIVE) Urine Urobilinogen NEGATIVE (0-1) mg/dL Ur Leukocyte Esterase SMALL (NEGATIVE) Urine WBC (Auto) 3-5 (0-5) /HPF Urine RBC (Auto) NONE (0-2) /HPF U Epithel Cells (Auto) NONE (FEW) /HPF Urine Bacteria (Auto) NONE (NEGATIVE) /HPF Urine Mucus (Auto) SLIGHT (NEGATIVE) /HPF Urine Culture Reflexed NO (NO) Urine Glucose NEGATIVE (NEGATIVE) mg/dL Influenza Type A Ag NEGATIVE (NEGATIVE) Influenza Type B Ag NEGATIVE (NEGATIVE) RSV (PCR) NEGATIVE (Negative) SARS-CoV-2 (PCR) NEGATIVE (NEGATIVE) 02/21/21 02/21/21 02/21/21 Range/Units 15:20 18:45 21:53 WBC (4.0-10.5) K/mm3 RBC (4.1-5.4) M/mm3 Hgb (12.0-16.0) gm/dl Hct (35-47) % MCV (78-100) fl MCH (26-32) pg MCHC (32-36) g/dl RDW (11.5-14.0) % Plt Count (150-450) K/mm3 MPV (7.5-11.0) fl Gran % (36.0-66.0) % Eos # (Auto) (0-0.5) Absolute Lymphs (auto) (1.0-4.6) Absolute Monos (auto) (0.0-1.3) Lymphocytes % (24.0-44.0) % Monocytes % (0.0-12.0) % Eosinophils % (0.00-5.0) % Basophils % (0.0-0.4) % Absolute Granulocytes (1.4-6.9) Basophils # (0-0.4) D-Dimer (215-500) ng/mL Sodium (137-145) mmol/L Potassium (3.5-5.1) mmol/L Chloride (98-107) mmol/L Carbon Dioxide (22-30) mmol/L Anion Gap (5-15) MEQ/L BUN (7-17) mg/dL Creatinine (0.52-1.04) mg/dL Estimated GFR ML/MIN Glucose (74-106) mg/dL Calcium (8.4-10.2) mg/dL Magnesium (1.6-2.3) mg/dL Total Bilirubin (0.2-1.3) mg/dL AST (14-36) U/L ALT (0-35) U/L Alkaline Phosphatase (38-126) U/L Troponin I < 0.012 < 0.012 < 0.012 (0.000-0.034) ng/mL NT-Pro-B Natriuret Pep (0-900) pg/mL Serum Total Protein (6.3-8.2) g/dL Albumin (3.5-5.0) g/dL Triglycerides (30-150) mg/dL Cholesterol (50-200) mg/dL LDL Cholesterol (30-100) mg/dL HDL Cholesterol (40-60) mg/dL Heart Disease Risk Ratio Urine Color (YELLOW) Urine Appearance (CLEAR) Urine pH (5-6) Ur Specific Sinclair (1.005-1.025) Urine Protein (Negative) Urine Ketones (NEGATIVE) Urine Blood (0-5) Sunny/ul Urine Nitrite (NEGATIVE) Urine Bilirubin (NEGATIVE) Urine Urobilinogen (0-1) mg/dL Ur Leukocyte Esterase (NEGATIVE) Urine WBC (Auto) (0-5) /HPF Urine RBC (Auto) (0-2) /HPF U Epithel Cells (Auto) (FEW) /HPF Urine Bacteria (Auto) (NEGATIVE) /HPF Urine Mucus (Auto) (NEGATIVE) /HPF Urine Culture Reflexed (NO) Urine Glucose (NEGATIVE) mg/dL Influenza Type A Ag (NEGATIVE) Influenza Type B Ag (NEGATIVE) RSV (PCR) (Negative) SARS-CoV-2 (PCR) (NEGATIVE) 02/22/21 02/22/21 Range/Units 00:15 04:30 WBC (4.0-10.5) K/mm3 RBC (4.1-5.4) M/mm3 Hgb (12.0-16.0) gm/dl Hct (35-47) % MCV (78-100) fl MCH (26-32) pg MCHC (32-36) g/dl RDW (11.5-14.0) % Plt Count (150-450) K/mm3 MPV (7.5-11.0) fl Gran % (36.0-66.0) % Eos # (Auto) (0-0.5) Absolute Lymphs (auto) (1.0-4.6) Absolute Monos (auto) (0.0-1.3) Lymphocytes % (24.0-44.0) % Monocytes % (0.0-12.0) % Eosinophils % (0.00-5.0) % Basophils % (0.0-0.4) % Absolute Granulocytes (1.4-6.9) Basophils # (0-0.4) D-Dimer (215-500) ng/mL Sodium (137-145) mmol/L Potassium (3.5-5.1) mmol/L Chloride (98-107) mmol/L Carbon Dioxide (22-30) mmol/L Anion Gap (5-15) MEQ/L BUN (7-17) mg/dL Creatinine (0.52-1.04) mg/dL Estimated GFR ML/MIN Glucose (74-106) mg/dL Calcium (8.4-10.2) mg/dL Magnesium (1.6-2.3) mg/dL Total Bilirubin (0.2-1.3) mg/dL AST (14-36) U/L ALT (0-35) U/L Alkaline Phosphatase (38-126) U/L Troponin I < 0.012 (0.000-0.034) ng/mL NT-Pro-B Natriuret Pep (0-900) pg/mL Serum Total Protein (6.3-8.2) g/dL Albumin (3.5-5.0) g/dL Triglycerides 72 (30-150) mg/dL Cholesterol 91 (50-200) mg/dL LDL Cholesterol 37 (30-100) mg/dL HDL Cholesterol 35 L (40-60) mg/dL Heart Disease Risk Ratio 2.6 Urine Color (YELLOW) Urine Appearance (CLEAR) Urine pH (5-6) Ur Specific Sinclair (1.005-1.025) Urine Protein (Negative) Urine Ketones (NEGATIVE) Urine Blood (0-5) Sunny/ul Urine Nitrite (NEGATIVE) Urine Bilirubin (NEGATIVE) Urine Urobilinogen (0-1) mg/dL Ur Leukocyte Esterase (NEGATIVE) Urine WBC (Auto) (0-5) /HPF Urine RBC (Auto) (0-2) /HPF U Epithel Cells (Auto) (FEW) /HPF Urine Bacteria (Auto) (NEGATIVE) /HPF Urine Mucus (Auto) (NEGATIVE) /HPF Urine Culture Reflexed (NO) Urine Glucose (NEGATIVE) mg/dL Influenza Type A Ag (NEGATIVE) Influenza Type B Ag (NEGATIVE) RSV (PCR) (Negative) SARS-CoV-2 (PCR) (NEGATIVE) - Radiology Impressions Radiology Exams & Impressions: Radiology Procedures Category Date Time Status CHEST 1 VIEW (PORTABLE) Stat Exams 02/21/21 12:12 Completed ECHO W/2D AND DOPPLER [US] Routine Exams 02/21/21 15:37 Taken - Other Procedures and Tests Respiratory Therapy 02/23/21 05:00 EKG ONCE 02/24/21 05:00 EKG ONCE Assessment/Plan (1) Atrial fibrillation with rapid ventricular response Current Visit: Yes Status: Acute Assessment & Plan: adding po digoxin for rate control, beta kimi and calcium channel kimi contraindicated due to relative hypotension. will load with 0.5mg po x 1 then 0.25mg po q6 hours for total of 1.5mg loading to attempt to achieve rate control. Code(s): I48.91 - UNSPECIFIED ATRIAL FIBRILLATION (2) Chest pain Current Visit: Yes Status: Acute Assessment & Plan: WI ruled out, patient is clinically stable Code(s): R07.9 - CHEST PAIN, UNSPECIFIED
[2021-02-22] MEDS: XARELTO 10 MG TABLET PO SCH (09:41)
[2021-02-22] MEDS: Calcium 500MG W/Vit D Tablet PO SCH ×2 (09:41→21:20)
[2021-02-22] MEDS: Vitamin C 500 MG PO SCH (09:42)
[2021-02-22] MEDS ORDERED: NON-FORMULARY ITEM (Ascorbate Calcium [Vitamin C] 500 MG) PO SCH (10:00)
[2021-02-22] MEDS: Lanoxin 0.125MG TABLET PO SCH ×3 (11:56→23:54)
[2021-02-22] MEDS: Namenda 5 MG PO SCH (21:20)
[2021-02-22] MEDS: LIPITOR 40MG PO SCH (21:21)
[2021-02-23 04:14] VITALS: O2SAT 96
[2021-02-23] MEDS: Lanoxin 0.125MG TABLET PO SCH (05:32)
[2021-02-23 07:29] VITALS: BP 138/66; PULSE 70
--- NOTE | 2021-02-23 09:02 | PCM.DS ---
Discharge Summary Date of Admission: 02/21/21 15:35 Admitting Physician: CAYLA WEINBERG DO Primary Care Provider: ANTHONY BHANDARI Allergies Allergies No Known Drug Allergies Allergy (Verified 02/21/21 11:30) Hospital Summary - Hospital Course Hospital Course: patient was admitted with chest pain, UT was ruled out and she was found to be in a fib with RVR, has hx of CAD and cardiac arrest with 3 stents placed. on xarelto on arrival with previous history of a fib, has converted after loading with po digoxin as she was hypotensive mildly with heart rate 130-140. 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 operations support manager in [place] on Saturday - Vitals & Intake/Output Vital Signs: Vital Signs Temperature 98.9 F 02/23/21 07:27 Pulse Rate 70 02/23/21 07:27 Respiratory Rate 16 02/23/21 07:27 Blood Pressure 138/66 02/23/21 07:27 O2 Sat by Pulse Oximetry 96 02/23/21 07:27 Intake & Output: Intake & Output 02/20/21 02/21/21 02/22/21 02/23/21 11:59 11:59 11:59 11:59 Intake Total 480 1300 Output Total 1950 Balance -1470 1300 Weight 64.41 kg 63.9 kg 64.8 kg - Lab Result Diagrams: 02/21/21 12:11 02/21/21 12:11 - Radiology Exams Ordered Rad Exams-Entire Visit: Radiology Procedures Category Date Time Status CHEST 1 VIEW (PORTABLE) Stat Exams 02/21/21 12:12 Completed ECHO W/2D AND DOPPLER [US] Routine Exams 02/21/21 15:37 Taken - Procedures and Test Procedures and Tests throughout Hospitalization: Therapy Orders & Screens 02/21/21 15:37 EKG [id number],PRN Comment: 02/21/21 20:00 EKG ONCE Comment: Diagnosis: ACS 02/22/21 05:00 EKG ONCE Comment: Diagnosis: ACS 02/23/21 05:00 EKG ONCE Comment: Diagnosis: ACS 02/24/21 05:00 EKG ONCE Comment: Diagnosis: ACS Discharge Exam General Appearance: no apparent distress, alert Respiratory Exam: normal breath sounds, lungs clear, No respiratory distress Cardiovascular Exam: regular rate/rhythm, normal heart sounds Gastrointestinal/Abdomen Exam: soft, No tenderness, No mass Extremity Exam: normal inspection, normal range of motion Skin Exam: normal color, warm, dry Final Diagnosis/Problem List - Final Discharge Diagnosis/Problem (1) Atrial fibrillation with rapid ventricular response Current Visit: Yes Status: Acute Assessment & Plan: converted with digoxin, will continue on discharge with cardiology f/u next week Code(s): I48.91 - UNSPECIFIED ATRIAL FIBRILLATION (2) Chest pain Current Visit: Yes Status: Acute Assessment & Plan: UT ruled out, will f/u next week with cardiology Code(s): R07.9 - CHEST PAIN, UNSPECIFIED - Discharge Disposition: Home, Self-Care Condition: Good Prescriptions: New Digoxin 0.125 mg Tablet [Lanoxin 0.125MG TABLET] 0.125 mg PO DAILY #10 tablet Continue Memantine HCl 5 mg [Namenda 5 MG] 5 mg PO HS Calcium Carbonate/Vitamin D3 [Calcium 600-Vit D3 200 Tablet] 1 each PO BID Ascorbate Calcium [Vitamin C] 500 mg PO DAILY Atorvastatin Calcium [Lipitor] 40 mg PO HS Sotalol HCl [Sotalol] 80 mg PO BID Rivaroxaban [Xarelto] 20 mg PO DAILY #0 Alendronate Sodium 70 mg [Fosamax 70 MG] 70 mg PO Q7D Discontinued Losartan Potassium 100 mg PO HS Follow up with: GRICELDA KINNEY MD [ACTIVE STAFF] - 03/02/21 3:30 pm
[2021-02-23] MEDS: XARELTO 10 MG TABLET PO SCH (09:25)
[2021-02-23] MEDS: Vitamin C 500 MG PO SCH (09:25)
[2021-02-23] MEDS: Calcium 500MG W/Vit D Tablet PO SCH (09:25)
--- NOTE | 2021-02-23 11:36 | ECHO ---
Transthoracic echocardiographic examination and color Doppler was done on 02/21/2021. INDICATION: Chest pains, atrial fibrillation. IMPRESSION: 1) NO DEFINITE REGIONAL WALL MOTION ABNORMALITY. ESTIMATED GLOBAL LEFT VENTRICULAR EJECTION FRACTION AROUND 60%. 2) MILD MITRAL REGURGITATION. 3) LEFT VENTRICULAR HYPERTROPHY. 4) LEFT ATRIAL ENLARGEMENT. The left ventricle is visualized and demonstrated adequate motion of all the segments. Estimated global left ventricular ejection fraction around 60%. There is some mild left ventricular hypertrophy. The mitral valve is seen and this opens adequately. There is mild mitral regurgitation. The left atrium is mildly enlarged. The aortic valve opens adequately. There is no significant gradient across the left ventricular outflow tract. The right side chambers appear to be normal.
[2021-02-28] MEDS ORDERED: Fosamax 70 MG PO SCH (06:00)
== END 2021-02-23 10:38 | disposition home or self-care (01) ==
LOC: ED 11:29 → MED SURG 15:35
PROVIDERS: ADMIT Family Medicine; ATTEND Family Medicine
DX: I48.91 Unspecified atrial fibrillation (principal); R07.9 Chest pain, unspecified; R06.02 Shortness of breath; Z79.899 Other long term (current) drug therapy; Z85.3 Personal history of malignant neoplasm of breast; I10 Essential (primary) hypertension; I25.2 Old myocardial infarction; Z20.822 Contact with and (suspected) exposure to COVID-19; Z86.74 Personal history of sudden cardiac arrest
CPT/HCPCS: 0241U; 36000; 36415; 71045; 80053; 80061; 81001; 83721; 83735; 83880; 84484; 85025; 85379; 93005; 93041; 93268; 93306; 94760; 96374; 99285; G0378; 96375; J1940; A9270-GY

== ENCOUNTER 2021-07-16 09:21 | Emergency (ER) | payer MEDICARE, BC ==
--- NOTE | 2021-07-16 09:50 | ERPHSYRPT ---
- History of Present Illness Time Seen by Provider: 07/16/21 09:47 Source: patient, family Exam Limitations: no limitations Patient Subjective Stated Complaint: Complications after hysterectomy Triage Nursing Assessment: Patient ambulated slowly back to ED and transferred to bed. Patient A+O X3. Patient's skin pink, warm and dry. Patient states she had hysterectomy with bladder tie up on 07/07/[address] Trevin Bedolla. Patient has steri strips to lower abdomen. Patient's daughter states yesterday her bandage was saturated with bright red blood. Patient complains of occasional sharp pain when walking to lower abdomen. Patient started having bloody drainage yesterday. Steri strips noted to be blood soaked to left side of abdomen. Patient also complains of constipation. Physician History: Patient states she had hysterectomy with bladder tie up on 07/07/[address] Trevin Bedolla. Patient has steri strips to lower abdomen. Patient's daughter states yesterday her bandage was saturated with bright red blood. Patient complains of occasional sharp pain when walking to lower abdomen. Patient started having bloody drainage yesterday. Steri strips noted to be blood soaked to left side of abdomen. Patient also complains of constipation. Denies any fever, chills, nausea vomiting. C/o tenderness on right side of s utures site Severity: moderate Associated Symptoms: denies symptoms Allergies/Adverse Reactions: No Known Drug Allergies Allergy (Verified 07/16/21 09:30) Home Medications: Memantine HCl 5 mg [Namenda 5 MG] 5 mg PO HS 12/07/12 [History] Ascorbate Calcium [Vitamin C] 500 mg PO DAILY 03/16/13 [History] Atorvastatin Calcium [Lipitor] 40 mg PO HS 03/16/13 [History] Calcium Carbonate/Vitamin D3 [Calcium 600-Vit D3 200 Tablet] 1 each PO BID 03/16/13 [History] Sotalol HCl [Sotalol] 80 mg PO BID 03/16/13 [History] Alendronate Sodium 70 mg [Fosamax 70 MG] 70 mg PO Q7D 02/21/21 [History] Hx Tetanus, Diphtheria Vaccination/Date Given: Yes Hx Influenza Vaccination/Date Given: Yes Hx Pneumococcal Vaccination/Date Given: No Immunizations Up to Date: Yes Travel Risk - International Travel Have you traveled outside of the country in past 3 weeks: No - Coronavirus Screening Are you exhibiting any of the following symptoms?: No Close contact with a COVID-19 positive Pt in past 14-21 Days: No - Vaccine Status Have you recieved a Covid-19 vaccination: Yes Sm[employer]house [employer]: Moderna - Vaccination Dates Date of 2cond Vaccination (if applicable): 01/14/2021 - Review of Systems Constitutional: No Fever, No Chills Eyes: No Symptoms Ears, Nose, & Throat: No Symptoms Respiratory: No Cough, No Dyspnea Cardiac: No Chest Pain, No Edema, No Syncope Abdominal/Gastrointestinal: No Abdominal Pain, No Nausea, No Vomiting, No Diarrhea Genitourinary Symptoms: No Dysuria Musculoskeletal: No Back Pain, No Neck Pain Skin: No Rash Neurological: No Dizziness, No Focal Weakness, No Sensory Changes Psychological: No Symptoms Endocrine: No Symptoms All Other Systems: Reviewed and Negative - Past Medical History Pertinent Past Medical History: Yes Neurological History: No Pertinent History ENT History: No Pertinent History Cardiac History: Arrhythmia, Coronary Artery Disease, Hypertension, Myocardial Infarction (DE) Respiratory History: No Pertinent History Endocrine Medical History: No Pertinent History Musculoskeletal History: No Pertinent History GI Medical History: GERD History: No Pertinent History Psycho-Social History: No Pertinent History Female Reproductive Disorders: Breast Cancer Other Medical History: Hx of DE x 2 in 2012 with cardiac stents x 2. Pt reports hx of a-fib for about 1 year following her DE and is resolved now. Hx of HTN. Pt reports that she has been told that she snores. Denies sleep apnea. Hx of left breast cancer. No labs or b/p in left arm. - Past Surgical History Past Surgical History: Yes Neuro Surgical History: No Pertinent History Cardiac: Cardiac Catheterization, Cardiac Stent Respiratory: No Pertinent History Gastrointestinal: No Pertinent History Genitourinary: No Pertinent History Musculoskeletal: No Pertinent History Female Surgical History: Hysterectomy, Tubal Ligation, Lumpectomy Other Surgical History: Cath in 2011. Cardiac stents x 3. hysterctomy with bladder tie up 07/07/2021 - Social History Smoking Status: Never smoker Exposure to second hand smoke: No Drug Use: none Patient Lives Alone: Yes - Female History Hx Now: No - Nursing Vital Signs Nursing Vital Signs: Initial Vital Signs Temperature 97.9 F 07/16/21 09:32 Pulse Rate 91 H 08/29/21 09:32 Respiratory Rate 18 07/16/21 09:32 Blood Pressure 175/73 07/16/21 09:32 O2 Sat by Pulse Oximetry 99 07/16/21 09:32 Pain Scale Pain Intensity 3 - Physical Exam General Appearance: no apparent distress, alert Eye Exam: PERRL/EOMI, eyes nml inspection Ears, Nose, Throat Exam: normal ENT inspection, TMs normal, pharynx normal, moist mucous membranes Neck Exam: normal inspection, non-tender, supple, full range of motion Respiratory Exam: normal breath sounds, lungs clear, No respiratory distress Cardiovascular Exam: regular rate/rhythm, normal heart sounds, normal peripheral pulses Gastrointestinal/Abdomen Exam: soft, normal bowel sounds, tenderness (around right side of sutures area), No mass Back Exam: normal inspection, normal range of motion, No CVA tenderness, No vertebral tenderness Extremity Exam: normal inspection, normal range of motion, pelvis stable Neurologic Exam: alert, oriented x 3, cooperative, normal mood/affect, nml cerebellar function, nml station & gait, sensation nml, No motor deficits Skin Exam: normal color, warm, dry, No rash Lymphatic Exam: No adenopathy SpO2: 99 - Course Nursing assessment & vital signs reviewed: Yes - CT Exams Abdomen/Pelvis CT Interpretation: Tele-radiologist Report Ordered Tests: Active Orders 24 hr Category Date Time Status ABDOMEN AND PELVIS W/0 CONTRAS [CT] Stat Exams 07/16/21 09:51 Taken CBC W DIFF Stat Lab 07/16/21 09:51 Completed CMP Stat Lab 07/16/21 09:51 Completed Lab/Rad Data: Laboratory Result Diagrams 07/16/21 09:51 07/16/21 09:51 Laboratory Results 07/16/21 07/16/21 Range/Units 09:51 09:51 WBC 9.3 (4.0-10.5) K/mm3 RBC 2.97 L (4.1-5.4) M/mm3 Hgb 9.0 L (12.0-16.0) gm/dl Hct 29.4 L (35-47) % MCV 99.0 (78-100) fl MCH 30.3 (26-32) pg MCHC 30.6 L (32-36) g/dl RDW 16.7 H (11.5-14.0) % Plt Count 228 (150-450) K/mm3 MPV 11.8 H (7.5-11.0) fl Gran % 76.8 H (36.0-66.0) % Eos # (Auto) 0.15 (0-0.5) Absolute Lymphs (auto) 1.02 (1.0-4.6) Absolute Monos (auto) 0.97 (0.0-1.3) Lymphocytes % 11.0 L (24.0-44.0) % Monocytes % 10.4 (0.0-12.0) % Eosinophils % 1.6 (0.00-5.0) % Basophils % 0.2 (0.0-0.4) % Absolute Granulocytes 7.14 H (1.4-6.9) Basophils # 0.02 (0-0.4) Sodium 136 L (137-145) mmol/L Potassium 4.5 (3.5-5.1) mmol/L Chloride 103 (98-107) mmol/L Carbon Dioxide 25 (22-30) mmol/L Anion Gap 13.2 (5-15) MEQ/L BUN 18 H (7-17) mg/dL Creatinine 0.41 L (0.52-1.04) mg/dL Estimated GFR > 60.0 ML/MIN Glucose 119 H (74-106) mg/dL Calcium 8.7 (8.4-10.2) mg/dL Total Bilirubin 2.30 H (0.2-1.3) mg/dL AST 39 H (14-36) U/L ALT 18 (0-35) U/L Alkaline Phosphatase 49 (38-126) U/L Serum Total Protein 6.6 (6.3-8.2) g/dL Albumin 3.8 (3.5-5.0) g/dL - Progress Progress: improved, pain not gone completely Progress Note: 07/16/21 12:01 Patient and her daughter informed about CAT scan report which is preliminary. She is advised to notify Dr. Bedolla about getting the final report at the time of appointment so that he can review with him. Preliminary report does show some hematoma and rectal wall thickening as well as large hiatal hernia. 07/16/21 12:02 Patient is advised to continue Xarelto for now. Advised to keep dry dressing. Advised to put some ice pack. She is also advised to take Metamucil 1 tablespoon with water twice a day to prevent further constipation. Counseled pt/family regarding: lab results, diagnosis, need for follow-up, rad results - Departure Departure Disposition: Home Clinical Impression: Postprocedural hematoma of abdominal wall Condition: Stable Critical Care Time: Yes Critical Care Time(excluding separately billable procedures): Critical 30-74 mins Referrals: ANTHONY BHANDARI, CHANDLER [Primary Care Provider] - Follow Up with PCP/3 days TREVIN BEDOLLA [ACTIVE STAFF] - Follow Up with PCP/3 days Instructions: Bleeding After Surgery, Managing Pain After Surgery Additional Instructions: Patient and her daughter informed about CAT scan report which is preliminary. She is advised to notify Dr. Bedolla about getting the final report at the time of appointment so that he can review with him. Preliminary report does show some hematoma and rectal wall thickening as well as large hiatal hernia. Patient is advised to continue Xarelto for now. Advised to keep dry dressing. Advised to put some ice pack. She is also advised to take Metamucil 1 tablespoo n with water twice a day to prevent further constipation. Discharge/Care Plan MAURICIO SINGH was seen on 07/16/21 in the Emergency Room. The patient was counseled regarding Diagnosis,Lab results, Imaging studies, need for follow up and when to return to the Emergency Room. Prescriptions given: Discharge Note I have spoken with the patient and/or caregivers. I have explained the patient's condition, diagnosis and treatment plan based on the information available to me at this time. I have answered the patient's and/or caregiver's questions and addressed any concerns. The patient and/or caregivers have as good understanding of the patient's diagnosis, condition and treatment plan as can be expected at this point. The vital signs have been stable. The patient's condition is stable and appropriate for discharge from the emergency department. The patient will pursue further outpatient evaluation with the primary care physician or other designated or consulting physician as outlined in the discharge instructions. The patient and/or caregivers are agreeable to this plan of care and follow-up instructions have been explained in detail. The patient an d/or caregivers have received these instruction. The patient/and or caregivers are aware that any significant change in condition or worsening of symptoms should prompt an immediate return to this or the closest emergency department or call 911. MAURICIO SINGH was seen on 07/16/21 n the Emergency Room. At that time you were treated for an emergent condition, during your visit Laboratory, Radiology and/or other procedures may have been ordered. It is very important that you follow-up with your Primary Care Physician ANTHONY BHANDARI within the next 24-48 hours to review your Emergency Room visit and the final results of testing that was ordered. Some test results such as Urine Cultures, Blood Cultures, and other cultures if ordered will not be finalized for 24-48 hours. If you do not have a Primary Care Provider please call the medical records department at [phone] to obtain a copy of your results or you may sign into our patient portal to obtain these results by visiting us @ [email or web address] and completing the following steps: 1. Click on the Patient Portal link 2. Click the Patient Self Enrollment Link to complete the enrollment form and entering your 3. Once the enrollment form is completed you will receive an email with a temporary ID and password at the email address you provided. 4. Next choose a user name and password. Your user name must be at least 4 characters long and your password must be at least 4 characters long. 5. Choose a security question from the list and provide your answer to the question. If you already have signed into the Health Portal you may access your Health Care Information 10/06 by the following steps: 1. Login to our website @ [email or web address] 2. Enter your original user name and password. FAQS The [facility] Health Portal is an online tool that contains your Lab Results, Radiology Reports, Visit History, Discharge Instructions and Health Summary Lab and Radiology Results will not be available for 72 hours on the portal. The Portal is a secure site, passwords are encryted and URLs are re-written so they cannot be copied and pasted. You and authorized family members are the only ones who can access your Portal. Also there is a timeout feature that protects your information if you leave the Portal page open. If you have technical difficulty please use the Contact Us link on the page this will allow you to submit any questions you have regarding the Portal or you may contact the Medical Record Department at [phone].
[2021-07-16 10:33] LABS: Absolute Neutrophil Ct (ANC) 7.14 (1.4-6.9); BASOPHIL % 0.2 % (0.0-0.4); Basophil (Absolute #) 0.02 (0-0.4); Eosinophil % 1.6 % (0.00-5.0); Eosinophil (Absolute #) 0.15 (0-0.5); Hematocrit 29.4 % (35-47); Lymphocyte (Absolute #) 1.02 (1.0-4.6); Mean Corpuscular Hemoglobin 30.3 pg (26-32); Mean Corpuscular Hgb Concent. 30.6 g/dl (32-36); Mean Platelet Volume 11.8 fl (7.5-11.0); Monocyte (Absolute #) 0.97 (0.0-1.3); Monocytes % 10.4 % (0.0-12.0); Neutrophil % 76.8 % (36.0-66.0); Platelet Count 228 K/mm3 (150-450); Red Blood Count 2.97 M/mm3 (4.1-5.4); Red Cell Distribution Width 16.7 % (11.5-14.0); White Blood Count 9.3 K/mm3 (4.0-10.5)
[2021-07-16 10:41] LABS: ALBUMIN 3.8 g/dL (3.5-5.0); ALKALINE PHOSPHATASE 49 U/L (38-126); ANION GAP 13.2 MEQ/L (5-15); BLOOD UREA NITROGEN 18 mg/dL (7-17); CHLORIDE 103 mmol/L (98-107); Calcium 8.7 mg/dL (8.4-10.2); Carbon Dioxide 25 mmol/L (22-30); Creatinine 1 0.41 mg/dL (0.52-1.04); EST GLOMERULAR FILTRATION RATE > 60.0 ML/MIN; Glucose 119 mg/dL (74-106); Potassium 4.5 mmol/L (3.5-5.1); SGOT/AST 39 U/L (14-36); SGPT/ALT 18 U/L (0-35); SODIUM 136 mmol/L (137-145); Total Protein 6.6 g/dL (6.3-8.2)
[2021-07-16 12:06] VITALS: BP 146/79; PULSE 83; O2SAT 99
--- NOTE | 2021-07-16 18:44 | XRAY ---
Indication: Right lower quadrant pain. Status post hysterectomy July 07, 2021. Multiple contiguous axial images obtained through the abdomen and pelvis without contrast. Comparison: None. Lung bases demonstrates 5 mm right lower lobe noncalcified nodule. No infiltrate or effusion. Heart not enlarged. Moderate size hiatal hernia. Noncontrasted stomach and bowel loops appear nonobstructed. Small descending duodenal diverticulum. Normal appendix. A few bilateral renal cysts. Small pelvic free fluid presumed related to clinically reported hysterectomy. The anterior abdominal wall demonstrates a large 15.4 x 5.2 x 5.6 cm subcutaneous hematoma and tiny subcutaneous air presumed postsurgical. Remaining liver, gallbladder, pancreas, spleen, adrenal glands, kidneys, ureters, and bladder are unremarkable for noncontrast exam. Minimal aortoiliac calcifications without AAA. Osseous structures intact with bilateral L5 spondylolysis and minimal 2 mm spondylolisthesis. Also mild L5-S1 degenerative disc disease. Impression: 1. Status post hysterectomy with small pelvic free fluid. Large intra-abdominal wall hematoma with tiny subcutaneous air presumed postoperative. 2. 5 mm right lower lobe noncalcified nodule. Finding unchanged with respect to CT chest January 18, 2012 and favored to be benign. 3. Incidental moderate size hiatal hernia, small duodenal diverticulum, and chronic bony findings. Comment: Preliminary interpretation made by [facility]. No critical discrepancy.
== END 2021-07-16 12:22 | disposition home or self-care (01) ==
LOC: ED 09:21
DX: K91.871 Postprocedural hematoma of a digestive system organ or structure following other procedure (principal); Z90.710 Acquired absence of both cervix and uterus
CPT/HCPCS: 36415; 74176; 80053; 85025; 99284; 99291; L0625

== ENCOUNTER 2021-07-20 16:28 | Observation (INO) | payer MEDICARE, BC ==
--- NOTE | 2021-07-20 17:17 | ERPHSYRPT ---
- History of Present Illness Time Seen by Provider: 07/20/21 16:35 Historian: patient, family Patient Subjective Stated Complaint: PT states "I had a hysterectomy on the and a bladder lift and I was at Dr. Bedolla office today and I was having chest pain again. IT hurts when I breath and it goes through to my back." Triage Nursing Assessment: Pt presented alert and oriented X 3, skin pwd Pt ambulates with an upright slow gait, able to speak in clear full sentences pt in no apparent respiratory distress. Pt resting comfortably on the bed. Physician History: Patient is a 76-year-old white female presents with a complaint of chest pain w hich is substernal in location going through to the back. She was at her surgeon's office today for a postop visit after a hysterectomy and bladder suspension surgery she also has a complication of a hematoma on the abdominal incision. She developed atrial fib while in the hospital was treated with a Cardizem drip and discharged home a normal sinus rhythm she has been having chest tightness on and off for 2 to 3 days been short of breath for a week she has had decreased p.o. intake and she has nausea that has been present since the time of her surgery. Timing/Duration: today Activities at Onset: none Quality: pressure Location: substernal Chest Pain Radiation: back Severity of Pain-Max: moderate Severity of Pain-Current: moderate Modifying Factors: Improves With: breathing, movement Associated Symptoms: hurts to breathe Prior Chest Pain/Cardiac Workup: recently seen/treated, recent hospitalization Nitro Today/Relief: no nitro taken today Aspirin Treatment Today: no aspirin today Allergies/Adverse Reactions: No Known Drug Allergies Allergy (Verified 07/16/21 09:30) Home Medications: Memantine HCl 5 mg [Namenda 5 MG] 5 mg PO HS 12/07/12 [History] Ascorbate Calcium [Vitamin C] 500 mg PO DAILY 03/16/13 [History] Atorvastatin Calcium [Lipitor] 40 mg PO HS 03/16/13 [History] Calcium Carbonate/Vitamin D3 [Calcium 600-Vit D3 200 Tablet] 1 each PO BID 03/16/13 [History] Sotalol HCl [Sotalol] 80 mg PO BID 03/16/13 [History] Alendronate Sodium 70 mg [Fosamax 70 MG] 70 mg PO Q7D 02/21/21 [History] Hx Tetanus, Diphtheria Vaccination/Date Given: Yes Hx Influenza Vaccination/Date Given: Yes Hx Pneumococcal Vaccination/Date Given: No Immunizations Up to Date: Yes Travel Risk - International Travel Have you traveled outside of the country in past 3 weeks: No - Coronavirus Screening Are you exhibiting any of the following symptoms?: No Close contact with a COVID-19 positive Pt in past 14-21 Days: No - Vaccine Status Have you recieved a Covid-19 vaccination: Yes [employer]: Moderna - Vaccination Dates Date of 2cond Vaccination (if applicable): 01/14/2021 - Review of Systems Constitutional: No Fever, No Chills Eyes: No Symptoms Ears, Nose, & Throat: No Symptoms Respiratory: Dyspnea, Dyspnea on Exertion (OLIVERA), No Cough Cardiac: Chest Pain, Palpitations, No Edema, No Syncope Abdominal/Gastrointestinal: Abdominal Pain, Nausea, Appetite Changes, No Vomiting, No Diarrhea Genitourinary Symptoms: No Dysuria Musculoskeletal: No Back Pain, No Neck Pain Skin: No Rash Neurological: No Dizziness, No Focal Weakness, No Sensory Changes Psychological: No Symptoms Endocrine: No Symptoms All Other Systems: Reviewed and Negative - Past Medical History Pertinent Past Medical History: Yes Neurological History: No Pertinent History ENT History: No Pertinent History Cardiac History: Arrhythmia, Coronary Artery Disease, Hypertension, Myocardial Infarction (MN) Respiratory History: No Pertinent History Endocrine Medical History: No Pertinent History Musculoskeletal History: No Pertinent History GI Medical History: GERD History: No Pertinent History Psycho-Social History: No Pertinent History Female Reproductive Disorders: Breast Cancer Other Medical History: Hx of MN x 2 in 2012 with cardiac stents x 2. Pt reports hx of a-fib for about 1 year following her MN and is resolved now. Hx of HTN. Pt reports that she has been told that she snores. Denies sleep apnea. Hx of left breast cancer. No labs or b/p in left arm. - Past Surgical History Past Surgical History: Yes Neuro Surgical History: No Pertinent History Cardiac: Cardiac Catheterization, Cardiac Stent Respiratory: No Pertinent History Gastrointestinal: No Pertinent History Genitourinary: No Pertinent History Musculoskeletal: No Pertinent History Female Surgical History: Hysterectomy, Tubal Ligation, Lumpectomy Other Surgical History: Cath in 2011. Cardiac stents x 3. hysterctomy with bladder tie up 07/07/2021 - Social History Smoking Status: Never smoker Exposure to second hand smoke: No Drug Use: none Patient Lives Alone: Yes - Nursing Vital Signs Nursing Vital Signs: Initial Vital Signs Temperature 97.8 F 07/20/21 16:29 Pulse Rate 84 07/20/21 16:29 Respiratory Rate 20 07/20/21 16:29 Blood Pressure 179/81 07/20/21 16:29 O2 Sat by Pulse Oximetry 96 07/20/21 16:29 Pain Scale Pain Intensity 3 - Physical Exam General Appearance: mild distress, alert Eye Exam: PERRL/EOMI, eyes nml inspection, pale conjunctivae Ears, Nose, Throat Exam: normal ENT inspection, moist mucous membranes Neck Exam: normal inspection, non-tender, supple, full range of motion Respiratory Exam: respiratory distress (Mild), crackles/rales Cardiovascular Exam: regular rate/rhythm, normal heart sounds Gastrointestinal/Abdomen Exam: soft, normal bowel sounds, tenderness, other (Hematoma palpable in incision), No mass Back Exam: normal inspection, No CVA tenderness, No vertebral tenderness Extremity Exam: normal inspection, normal range of motion Neurologic Exam: alert, oriented x 3, cooperative, normal mood/affect, sensation nml, No motor deficits Skin Exam: normal color, warm, dry SpO2: 96 Ordered Tests: Active Orders 24 hr Category Date Time Status EKG-ER Only STAT Care 07/20/21 17:12 Active IV Insertion STAT Care 07/20/21 17:12 Active ABDOMEN AND PELVIS W CONTRAST [CT] Stat Exams 07/20/21 17:11 Taken CHEST WITH CONTRAST [CT] Stat Exams 07/20/21 17:11 Taken AMYLASE Stat Lab 07/20/21 17:28 Completed CBC W DIFF Stat Lab 07/20/21 17:28 Completed CMP Stat Lab 07/20/21 17:28 Completed D-DIMER QUANTITATIVE Stat Lab 07/20/21 20:08 Ordered LIPASE Stat Lab 07/20/21 17:28 Completed Lactic Acid Stat Lab 07/20/21 17:12 Completed MAGNESIUM Stat Lab 07/20/21 17:28 Completed NT PRO BNP Stat Lab 07/20/21 17:28 Completed PROTIME WITH INR Stat Lab 07/20/21 17:28 Completed PTT Stat Lab 07/20/21 17:28 Completed TROPONIN Q3H Lab 07/20/21 17:28 Completed TROPONIN Q3H Lab 07/20/21 20:15 Ordered TROPONIN Q3H Lab 07/20/21 23:15 Ordered TROPONIN Q3H Lab 07/21/21 02:15 Ordered TROPONIN Q3H Lab 07/21/21 05:15 Ordered UA W/RFX UR CULTURE Stat Lab 07/20/21 18:09 Completed Medication Summary Generic Name Dose Route Start Last Admin Trade Name Adis PRN Reason Stop Dose Admin Sodium Chloride 1,000 mls @ 100 mls/hr 07/20/21 17:15 07/20/21 17:25 Sodium Chloride 0.9% 1000 Ml IV 08/19/21 17:14 100 mls/hr .Q10H PINO Administration Lab/Rad Data: Laboratory Result Diagrams 07/20/21 17:28 07/20/21 17:28 Laboratory Results 07/20/21 07/20/21 07/20/21 Range/Units 18:09 17:28 17:28 WBC (4.0-10.5) K/mm3 RBC (4.1-5.4) M/mm3 Hgb (12.0-16.0) gm/dl Hct (35-47) % MCV (78-100) fl MCH (26-32) pg MCHC (32-36) g/dl RDW (11.5-14.0) % Plt Count (150-450) K/mm3 MPV (7.5-11.0) fl Gran % (36.0-66.0) % Eos # (Auto) (0-0.5) Absolute Lymphs (auto) (1.0-4.6) Absolute Monos (auto) (0.0-1.3) Lymphocytes % (24.0-44.0) % Monocytes % (0.0-12.0) % Eosinophils % (0.00-5.0) % Basophils % (0.0-0.4) % Absolute Granulocytes (1.4-6.9) Basophils # (0-0.4) PT 31.0 H (9.4-12.5) SECONDS INR 2.63 (0.8-3.0) APTT 40.0 H (25.1-36.5) SECONDS Sodium (137-145) mmol/L Potassium (3.5-5.1) mmol/L Chloride (98-107) mmol/L Carbon Dioxide (22-30) mmol/L Anion Gap (5-15) MEQ/L BUN (7-17) mg/dL Creatinine (0.52-1.04) mg/dL Estimated GFR ML/MIN Glucose (74-106) mg/dL Lactic Acid (0.4-2.0) Calcium (8.4-10.2) mg/dL Magnesium (1.6-2.3) mg/dL Total Bilirubin (0.2-1.3) mg/dL AST (14-36) U/L ALT (0-35) U/L Alkaline Phosphatase (38-126) U/L Troponin I < 0.012 (0.000-0.034) ng/mL NT-Pro-B Natriuret Pep (0-900) pg/mL Serum Total Protein (6.3-8.2) g/dL Albumin (3.5-5.0) g/dL Amylase (30-110) U/L Lipase (23-300) U/L Urine Color YELLOW (YELLOW) Urine Appearance SLIGHTLY CLOUDY (CLEAR) Urine pH 7.0 (5-6) Ur Specific Marcella 1.016 (1.005-1.025) Urine Protein NEGATIVE (Negative) Urine Ketones MODERATE (NEGATIVE) Urine Blood NEGATIVE (0-5) Sunny/ul Urine Nitrite NEGATIVE (NEGATIVE) Urine Bilirubin NEGATIVE (NEGATIVE) Urine Urobilinogen NEGATIVE (0-1) mg/dL Ur Leukocyte Esterase NEGATIVE (NEGATIVE) Urine WBC (Auto) 0-2 (0-5) /HPF Urine RBC (Auto) NONE (0-2) /HPF U Epithel Cells (Auto) RARE (FEW) /HPF Urine Mucus (Auto) SLIGHT (NEGATIVE) /HPF Urine Culture Reflexed NO (NO) Urine Glucose NEGATIVE (NEGATIVE) mg/dL 07/20/21 07/20/21 07/20/21 Range/Units 17:28 17:28 17:12 WBC 8.2 (4.0-10.5) K/mm3 RBC 2.86 L (4.1-5.4) M/mm3 Hgb 8.6 L (12.0-16.0) gm/dl Hct 28.8 L (35-47) % MCV 100.7 H (78-100) fl MCH 30.1 (26-32) pg MCHC 29.9 L (32-36) g/dl RDW 17.7 H (11.5-14.0) % Plt Count 316 (150-450) K/mm3 MPV 11.2 H (7.5-11.0) fl Gran % 78.9 H (36.0-66.0) % Eos # (Auto) 0.10 (0-0.5) Absolute Lymphs (auto) 0.99 L (1.0-4.6) Absolute Monos (auto) 0.63 (0.0-1.3) Lymphocytes % 12.0 L (24.0-44.0) % Monocytes % 7.7 (0.0-12.0) % Eosinophils % 1.2 (0.00-5.0) % Basophils % 0.2 (0.0-0.4) % Absolute Granulocytes 6.48 (1.4-6.9) Basophils # 0.02 (0-0.4) PT (9.4-12.5) SECONDS INR (0.8-3.0) APTT (25.1-36.5) SECONDS Sodium 139 (137-145) mmol/L Potassium 4.7 (3.5-5.1) mmol/L Chloride 105 (98-107) mmol/L Carbon Dioxide 28 (22-30) mmol/L Anion Gap 11.6 (5-15) MEQ/L BUN 17 (7-17) mg/dL Creatinine 0.51 L (0.52-1.04) mg/dL Estimated GFR > 60.0 ML/MIN Glucose 95 (74-106) mg/dL Lactic Acid 0.9 (0.4-2.0) Calcium 9.3 (8.4-10.2) mg/dL Magnesium 2.0 (1.6-2.3) mg/dL Total Bilirubin 1.50 H (0.2-1.3) mg/dL AST 44 H (14-36) U/L ALT 22 (0-35) U/L Alkaline Phosphatase 60 (38-126) U/L Troponin I (0.000-0.034) ng/mL NT-Pro-B Natriuret Pep 745 (0-900) pg/mL Serum Total Protein 6.6 (6.3-8.2) g/dL Albumin 3.8 (3.5-5.0) g/dL Amylase 31 (30-110) U/L Lipase 22 L (23-300) U/L Urine Color (YELLOW) Urine Appearance (CLEAR) Urine pH (5-6) Ur Specific Marcella (1.005-1.025) Urine Protein (Negative) Urine Ketones (NEGATIVE) Urine Blood (0-5) Sunny/ul Urine Nitrite (NEGATIVE) Urine Bilirubin (NEGATIVE) Urine Urobilinogen (0-1) mg/dL Ur Leukocyte Esterase (NEGATIVE) Urine WBC (Auto) (0-5) /HPF Urine RBC (Auto) (0-2) /HPF U Epithel Cells (Auto) (FEW) /HPF Urine Mucus (Auto) (NEGATIVE) /HPF Urine Culture Reflexed (NO) Urine Glucose (NEGATIVE) mg/dL - Progress Will see patient in: hospital (observation) - Departure Departure Disposition: Observation Clinical Impression: Chest pain, Chest pain, rule out acute myocardial infarction Condition: Fair Critical Care Time: Yes Critical Care Time(excluding separately billable procedures): Critical 30-74 mins Referrals: ANTHONY BHANDARI NP [Primary Care Provider] -
[2021-07-20] MEDS: Sodium Chloride 0.9% 1000 ML 1,000 ML IV SCH (17:25)
[2021-07-20 17:43] LABS: Absolute Neutrophil Ct (ANC) 6.48 (1.4-6.9); BASOPHIL % 0.2 % (0.0-0.4); Basophil (Absolute #) 0.02 (0-0.4); Eosinophil % 1.2 % (0.00-5.0); Hematocrit 28.8 % (35-47); Hemoglobin 8.6 gm/dl (12.0-16.0); INR 2.63 (0.8-3.0); Lymphocyte (Absolute #) 0.99 (1.0-4.6); Mean Cell Volume 100.7 fl (78-100); Mean Corpuscular Hemoglobin 30.1 pg (26-32); Mean Corpuscular Hgb Concent. 29.9 g/dl (32-36); Mean Platelet Volume 11.2 fl (7.5-11.0); Monocyte (Absolute #) 0.63 (0.0-1.3); Monocytes % 7.7 % (0.0-12.0); Neutrophil % 78.9 % (36.0-66.0); Platelet Count 316 K/mm3 (150-450); Red Blood Count 2.86 M/mm3 (4.1-5.4); Red Cell Distribution Width 17.7 % (11.5-14.0); White Blood Count 8.2 K/mm3 (4.0-10.5)
[2021-07-20 17:58] LABS: ALBUMIN 3.8 g/dL (3.5-5.0); ALKALINE PHOSPHATASE 60 U/L (38-126); AMYLASE 31 U/L (30-110); ANION GAP 11.6 MEQ/L (5-15); BLOOD UREA NITROGEN 17 mg/dL (7-17); CHLORIDE 105 mmol/L (98-107); Calcium 9.3 mg/dL (8.4-10.2); Carbon Dioxide 28 mmol/L (22-30); Creatinine 1 0.51 mg/dL (0.52-1.04); EST GLOMERULAR FILTRATION RATE > 60.0 ML/MIN; Glucose 95 mg/dL (74-106); LIPASE 22 U/L (23-300); NT PRO BNP 745 pg/mL (0-900); Potassium 4.7 mmol/L (3.5-5.1); SGOT/AST 44 U/L (14-36); SGPT/ALT 22 U/L (0-35); SODIUM 139 mmol/L (137-145); Total Protein 6.6 g/dL (6.3-8.2)
[2021-07-20 18:27] LABS: Appearance SLIGHTLY CLOUDY (CLEAR); Bilirubin NEGATIVE (NEGATIVE); Blood NEGATIVE Ery/ul (0-5); Epithelial Cells RARE /HPF (FEW); Glucose NEGATIVE (NEGATIVE); Ketones MODERATE (NEGATIVE); Leukocyte Esterase NEGATIVE (NEGATIVE); Mucus SLIGHT /HPF (NEGATIVE); Nitrite NEGATIVE (NEGATIVE); Protein,Urine Dip NEGATIVE (Negative); Specific Gravity 1.016 (1.005-1.025); Urobilinogen NEGATIVE mg/dL (0-1); WBC 0-2 /HPF (0-5)
[2021-07-20] MEDS ORDERED: Senokot-S Tablet PO PRN (20:13)
[2021-07-20] MEDS ORDERED: MAALOX ES 30 ML UNIT DOSE PO PRN (20:13)
[2021-07-20] MEDS ORDERED: TYLENOL 325 MG PO PRN (20:13)
[2021-07-20] MEDS ORDERED: Nitrostat 0.4 MG Tablet SL PRN (20:13)
[2021-07-20] MEDS ORDERED: MILK OF MAGNESIA 30 ML PO PRN (20:13)
[2021-07-20] MEDS ORDERED: Zofran 4 MG/2 ML VIAL IV PRN (20:13)
[2021-07-20] MEDS ORDERED: Sodium Chloride 0.9% 500 ML 500 ML IV SCH (20:15)
[2021-07-20] MEDS ORDERED: Betapace 80 MG PO ONE (20:19)
[2021-07-20] MEDS ORDERED: BENADRYL 50 MG/ML IV ONE (20:57)
[2021-07-20] MEDS ORDERED: BENADRYL 50 MG/ML ONE (20:58)
[2021-07-20 23:09] VITALS: O2SAT 96
[2021-07-20] MEDS ORDERED: Namenda 5 MG PO ONE (23:35)
[2021-07-20] MEDS ORDERED: ZOCOR 20MG PO ONE (23:36)
[2021-07-20] MEDS ORDERED: Vitamin C 500 MG PO ONE (23:37)
[2021-07-20] MEDS: Pepcid 20 MG PO SCH (23:49)
[2021-07-20] MEDS: xanAX 0.5 MG PO PRN (23:50)
[2021-07-21 03:43] LABS: Cholesterol 70 mg/dL (50-200); HDL CHOLESTEROL 24 mg/dL (40-60); LDL, DIRECT < 36 mg/dL (30-100); Risk Ratio 2.9; TRIGLYCERIDE 82 mg/dL (30-150)
[2021-07-21] MEDS ORDERED: Sodium Chloride 0.9% 1000 ML 1,000 ML ONE (05:23)
[2021-07-21] MEDS: Sodium Chloride 0.9% 1000 ML 1,000 ML IV SCH (05:24)
[2021-07-21 08:41] VITALS: BP 151/69; PULSE 84
--- NOTE | 2021-07-21 08:59 | XRAY ---
Indication: Chest tightness and short of breath. History of breast cancer. Multiple contiguous images obtained through the chest using 100 cc Isovue 370 contrast and PE protocol. Comparison: January 18, 2012. Good opacification of the pulmonary arteries to include the lobar and segmental branches. No pulmonary embolus. Heart is not enlarged. Aorta is normal in course and caliber with again minimal arteriosclerotic calcifications. No pathologic mediastinal/hilar lymphadenopathy. New moderate sized hiatal hernia. Lungs again demonstrates minimal biapical pleural-parenchymal scarring/thickening and 5 mm benign right lower lobe noncalcified nodule. No new pulmonary mass/nodule, infiltrate, or effusion. Bony thorax intact with minimal degenerative changes throughout the spine. CT abdomen/pelvis reported separately. Impression: 1. Continued negative pulmonary embolus. No acute cardiopulmonary abnormalities. 2. New moderate size hiatal hernia. 3. Stable biapical scarring/thickening and benign right lower lobe noncalcified micronodule.
--- NOTE | 2021-07-21 09:03 | XRAY ---
Indication: Pelvic pain. Status post hysterectomy. Multiple contiguous axial images obtained through the abdomen and pelvis using 100 cc Isovue 370 contrast. Comparison: July 16, 2021. CT chest reported separately. Pelvis demonstrates stable postsurgical changes related to hysterectomy. Specifically stable tiny pelvic free fluid and large anterior abdominal wall subcutaneous/left rectus abdominis hematomas with tiny subcutaneous air. Noncontrasted stomach and bowel loops nonobstructed again with small duodenal diverticulum and normal appendix. Both kidneys enhance and excrete with stable bilateral renal cysts. Remaining liver, gallbladder, pancreas, spleen, adrenal glands, kidneys, ureters, and bladder are unremarkable. Stable minimal aortoiliac calcifications without AAA. No pathologic retroperitoneal lymphadenopathy. Impression: 1. Stable postsurgical changes related to recent hysterectomy including a tiny pelvic free fluid and large abdominal wall hematomas. 2. Again incidental duodenal diverticulum and bilateral renal cysts. 3. No new intra-abdominal/pelvic abnormalities.
--- NOTE | 2021-07-21 09:30 | SSS ---
ADMISSION DIAGNOSES: 1) Chest pain. 2) Postoperative status post hysterectomy. 3) Atrial fibrillation. DISCHARGE DIAGNOSES: 1) CHEST PAIN. 2) POSTOPERATIVE STATUS POST HYSTERECTOMY. 3) ATRIAL FIBRILLATION. HOSPITAL COURSE: This patient is a 76-year-old female who is normally followed by Jeanne Bullock NP in the office. On 07/07/2021, she underwent total abdominal hysterectomy with bladder lift by Dr. Bedolla. She has had a complicated postoperative course where she developed atrial fibrillation and has a large hematoma in the incisional area. She was apparently seen in the office yesterday complaining of chest pain which she had previously. She reported it hurt when she took a deep breath and goes through to her back. Therefore, he directed her to the emergency department. She was found to be in sinus rhythm and work up was essentially negative in emergency department but she was admitted for myocardial infarction rule out and further care. PAST MEDICAL HISTORY: Includes atrial fibrillation, recent hysterectomy, hyperlipidemia, coronary artery disease, prior history of myocardial infarction, history of breast cancer, hypertension. PAST SURGICAL HISTORY: She has history of cardiac stent placement with past catheterization. She has a history of total hysterectomy recently. History of lumpectomy. SOCIAL HISTORY: She is a nonsmoker. She lives independently and cares for herself. CURRENT MEDICATIONS: Fosamax 70 mg weekly, vitamin C 500 mg daily, Lipitor 40 mg at bedtime, calcium with vitamin D 1 tablet twice a day, digoxin 0.125 mg p.o. daily, memantine 5 mg p.o. q.h.s., Xarelto 20 mg p.o. daily, Sotalol 80 mg p.o. b.i.d. REVIEW OF SYSTEMS: She has reported chest pain on arrival which has resolved since admission. She has some postoperative incisional abdominal pain which is currently well controlled. She is tolerating p.o. intake. She is able to ambulate and has no pain in her chest. No cough. No other complaints today. PHYSICAL EXAM: She is alert. She is no apparent distress. CVS: Regular rate and rhythm. No murmur, gallop or rub. RESPIRATORY: Clear to auscultation bilaterally. ABDOMEN: She has a large hematoma with healing incision. No fluctuance, warmth or drainage present. Abdomen is soft with good bowel sounds. EXTREMITIES: She has no significant clubbing, cyanosis or edema. LAB DATA AND TESTS: On review of labs the troponin I is negative less than 0.012 x4. Total cholesterol was 70, LDL 24, triglycerides 82. COVID swab was negative. Renal functions are good. INR 2.63. CT of the chest is negative for pulmonary embolism. CT abdomen and pelvis with no acute changes per Dr. Ovidio Sol, Radiologist. EKG showed sinus rhythm, no acute ST or T wave changes. Her rate has been controlled in a sinus rhythm with telemetry. ASSESSMENT AND PLAN: Lamar Arcos has a history of atrial fibrillation admitted with chest pain and postoperative hematoma. 1) Chest pain. Myocardial infarction has been ruled out. She has no pulmonary embolism on chest CT. Her pain appears to be pleuritic and noncardiac per the history and negative work up. She will be discharged home today. Advised her to follow up with her head animal keeper. 2) Postoperative incisional hematoma. Does not appear to require any intervention at this time. She was seen by the surgeon yesterday and will continue to follow with him. 3) Atrial fibrillation. She is currently in sinus rhythm. I have made no changes to her current medication. She is fully anticoagulated on her Xarelto currently and I have made no changes.
[2021-07-21] MEDS ORDERED: Calcium 500MG W/Vit D Tablet PO SCH (10:00)
[2021-07-21] MEDS ORDERED: NON-FORMULARY ITEM (Calcium Carbonate/Vitamin D3 [Calcium 600-Vit D3 200 Tablet] 1 EACH) PO SCH (10:00)
[2021-07-21] MEDS ORDERED: NON-FORMULARY ITEM (Ascorbate Calcium [Vitamin C] 500 MG) PO SCH (10:00)
[2021-07-21] MEDS ORDERED: Fosamax 70 MG PO SCH (10:00)
[2021-07-21] MEDS ORDERED: XARELTO 10 MG TABLET PO SCH (10:00)
[2021-07-21] MEDS ORDERED: Betapace 80 MG PO SCH (10:00)
[2021-07-21] MEDS ORDERED: Vitamin C 500 MG PO SCH (10:00)
[2021-07-21] MEDS ORDERED: Lanoxin 0.125MG TABLET PO SCH (10:00)
[2021-07-21] MEDS: Pepcid 20 MG PO SCH (11:16)
[2021-07-21] MEDS: xanAX 0.5 MG PO PRN (13:04)
[2021-07-21] MEDS ORDERED: Namenda 5 MG PO SCH (22:00)
[2021-07-21] MEDS ORDERED: LIPITOR 40MG PO SCH (22:00)
[2021-07-21] MEDS ORDERED: ZOCOR 20MG PO SCH (22:00)
== END 2021-07-21 13:20 | disposition home or self-care (01) ==
LOC: ED 16:28 → MED SURG 22:37
PROVIDERS: ADMIT Family Medicine; ATTEND Family Medicine
DX: R07.9 Chest pain, unspecified (principal); Z98.890 Other specified postprocedural states; R06.02 Shortness of breath; Z79.899 Other long term (current) drug therapy; I10 Essential (primary) hypertension; Z85.3 Personal history of malignant neoplasm of breast; I48.91 Unspecified atrial fibrillation; Z79.01 Long term (current) use of anticoagulants; L76.32 Postprocedural hematoma of skin and subcutaneous tissue following other procedure; Z20.822 Contact with and (suspected) exposure to COVID-19
CPT/HCPCS: 36000; 36415; 71260; 74177; 80053; 80061; 81001; 82150; 83605; 83690; 83721; 83735; 83880; 84484; 85025; 85379; 85610; 85730; 93005; 96374; 96375; 99285; U0003; 93268; J1200; J2405; A9270-GY; G0378

== ENCOUNTER 2022-02-01 06:26 | Day surgery (SDC) | payer MEDICARE, BC ==
--- NOTE | 2021-12-15 14:52 | HP ---
DATE OF SURGERY: 12/21/2021 HISTORY OF PRESENT ILLNESS: The patient presents for a three year follow up colonoscopy. The patient has a twin brother that had colon cancer at age 63. The patient denies any GI signs and symptoms at this time. I do not believe the patient had any polyps on her last exam. PAST MEDICAL HISTORY: Hyperlipidemia, atrial fibrillation, osteoporosis. PAST SURGICAL HISTORY: Total abdominal hysterectomy with vaginal sacropexy with mesh. Haile. Breast surgery. ALLERGIES: NKDA. MEDICATIONS: Atorvastatin, calcium, vitamin C, Sotalol, Fosamax, Xarelto. FAMILY HISTORY: Colon cancer. Heart disease. SOCIAL HISTORY: None reported. REVIEW OF SYSTEMS: CONSTITUTIONAL: Denies fever or chills. CHEST: Denies shortness of breath. CVS: Denies chest pain. ABDOMEN: Denies abdominal pain, nausea, vomiting, diarrhea, constipation or rectal bleeding. PHYSICAL EXAMINATION: GENERAL: No acute distress. CHEST: Nonlabored. No shortness of breath. CVS: Regular rate and rhythm. ABDOMEN: Soft, nontender. IMPRESSION: Screening and positive family history of colon cancer. PLAN: Colonoscopy with Dr. Leonardo Bedolla. As dictated by Estefany Correa NP.
--- NOTE | 2022-01-26 11:53 | HP ---
DATE OF SURGERY: 02/01/2022 HISTORY OF PRESENT ILLNESS: The patient presents for colonoscopy. The last scope was three years ago. The patient denies any GI signs and symptoms at this time. The patient has a twin brother with colon cancer diagnosed at age 53. I do not believe the patient had any polyps on her last exam. PAST MEDICAL HISTORY: Hypertension, hyperlipidemia, atrial fibrillation. PAST SURGICAL HISTORY: Total abdominal hysterectomy bilateral salpingo-oophorectomy. Haile. Breast procedure for breast cancer. ALLERGIES: NKDA. MEDICATIONS: Losartan, iron, atorvastatin, calcium, Sotalol, Xarelto. FAMILY HISTORY: Colon cancer. Heart disease. SOCIAL HISTORY: None. REVIEW OF SYSTEMS: CONSTITUTIONAL: Denies fever or chills. CHEST: Denies shortness of breath. CVS: Denies chest pain. ABDOMEN: Denies abdominal pain, nausea, vomiting, diarrhea, constipation or rectal bleeding. PHYSICAL EXAMINATION: GENERAL: No acute distress. CHEST: Nonlabored. No shortness of breath. CVS: Regular rate and rhythm. ABDOMEN: Soft, nontender. IMPRESSION: Screening and positive family history of colon cancer. PLAN: Colonoscopy with Dr. Leonardo Bedolla. As dictated by Estefany Correa NP.
[~2022-02-01 06:26] MED LIST changes: +Lactated Ringers 1,000 ML IV SCH; -NON-FORMULARY ITEM OP ONE
[2022-02-01] MEDS ORDERED: DIPRIVAN 200 MG/20 ML IV ONE (09:53)
[2022-02-01] MEDS ORDERED: Versed 2 MG/2 ML Injection ONE (09:53)
[2022-02-01 11:02] VITALS: BP 157/77; PULSE 78; O2SAT 97
--- NOTE | 2022-02-01 13:04 | OP ---
SURGERY DATE/TIME: 02/01/2022 0955 PREOPERATIVE DIAGNOSIS: Follow up, screening. The patient has a personal history of polyps. She has a family history of colon cancer with brother dying of colon cancer. POSTOPERATIVE DIAGNOSIS: Moderate internal hemorrhoids, moderate diverticulosis. No mucosal lesions. Excellent prep. Satisfactory exam. Satisfactory withdrawal. The appendiceal orifice is clearly identified. Ileocecal valve clearly identified. PROCEDURE: Colonoscopy complete to cecum. SURGEON: Leonardo Bedolla M.D. ANESTHESIA: MAC. COMPLICATIONS: None. INDICATION: A patient with the above noted. DESCRIPTION OF PROCEDURE: Taken to endoscopy. Left lateral decubitus position. Anal digital examination. There is no anal tone. Scope introduced. The scope advanced to the cecum. Base of the cecum, ileocecal valve, appendiceal orifice all normal. Ascending, hepatic, transverse, splenic, descending normal. Moderate diverticulosis sigmoid. Moderate internal hemorrhoids. No bleeding. No mucosal lesions. The patient is 76 and 81 would be the next thought of exam. I think she is ready to stop having screening exams. I think this is quite appropriate. PLAN: Follow up C-scope only with symptoms or patient/physician concern.
== END 2022-02-01 11:18 | disposition home or self-care (01) ==
LOC: SDC 06:26
PROVIDERS: ATTEND Surgery
DX: Z12.11 Encounter for screening for malignant neoplasm of colon (principal); Z09 Encounter for follow-up examination after completed treatment for conditions other than malignant neoplasm; Z86.010 Personal history of colon polyps; Z80.0 Family history of malignant neoplasm of digestive organs; K64.8 Other hemorrhoids; K57.30 Diverticulosis of large intestine without perforation or abscess without bleeding
CPT/HCPCS: 93005; G0121; 99100; J2250; J2704

== ENCOUNTER 2022-03-19 08:13 | Observation (INO) | payer MEDICARE, BC ==
--- NOTE | 2022-03-19 08:27 | ERPHSYRPT ---
- History of Present Illness Time Seen by Provider: 03/19/22 08:22 Historian: patient Exam Limitations: no limitations Physician History: Patient is a 76-year-old white female who presents with a complaint of not feeling well for 1 week. Initially her symptoms consisted of head congestion and cough and [facility] and was given a steroid shot at t hat time she did test negative for COVID and flu. This morning she started with tightness in the chest she has had some shortness of breath some nausea and some diaphoresis. She is followed by Dr. Mccord, a bias binding cutter, in [place]. 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 Risk factors include hypertension hyperlipidemia but is negative for family history of smoking or diabetes. She has not taken any aspirin today but she is on Xarelto. The daughter states that while she is normally very active in the last few days she has not gotten out of her pajamas to dress and she has had a 5 pound weight loss over the past week. Timing/Duration: week(s) (1) Activities at Onset: none Quality: tightness Location: substernal Chest Pain Radiation: no radiation Severity of Pain-Max: moderate Severity of Pain-Current: moderate Associated Symptoms: nausea, shortness of breath, diaphoresis Prior Chest Pain/Cardiac Workup: heart attack Nitro Today/Relief: no nitro taken today Aspirin Treatment Today: no aspirin today Allergies/Adverse Reactions: No Known Drug Allergies Allergy (Verified 03/19/22 08:23) Home Medications: Memantine HCl 5 mg [Namenda 5 MG] 5 mg PO HS 12/07/12 [History] Ascorbate Calcium [Vitamin C] 500 mg PO DAILY 03/16/13 [History] Atorvastatin Calcium [Lipitor] 40 mg PO HS 03/16/13 [History] Calcium Carbonate/Vitamin D3 [Calcium 600-Vit D3 200 Tablet] 1 each PO BID 03/16/13 [History] Alendronate Sodium 70 mg [Fosamax 70 MG] 70 mg PO Q7D 02/21/21 [History] Losartan Potassium [Cozaar] 50 mg PO DAILY 12/15/21 [History] Nitroglycerin 0.4 mg Tablet [Nitrostat 0.4 MG Tablet] 0.4 mg SL UD 12/15/21 [History] Hx Tetanus, Diphtheria Vaccination/Date Given: Yes Hx Influenza Vaccination/Date Given: Yes Hx Pneumococcal Vaccination/Date Given: No Travel Risk - Vaccine Status Have you recieved a Covid-19 vaccination: Yes Postpartum Nurse: Moderna - Vaccination Dates Date of 2cond Vaccination (if applicable): 01/14/2021 - Review of Systems Constitutional: No Fever, No Chills Eyes: No Symptoms Ears, Nose, & Throat: Nose Congestion Respiratory: Cough, No Dyspnea Cardiac: No Chest Pain, No Edema, No Syncope Abdominal/Gastrointestinal: Nausea, No Abdominal Pain, No Vomiting, No Diarrhea Genitourinary Symptoms: No Dysuria Musculoskeletal: No Back Pain, No Neck Pain Skin: No Rash Neurological: No Dizziness, No Focal Weakness, No Sensory Changes Psychological: No Symptoms Endocrine: No Symptoms All Other Systems: Reviewed and Negative - Past Medical History Pertinent Past Medical History: Yes Neurological History: Stroke ENT History: No Pertinent History Cardiac History: Coronary Artery Disease, High Cholesterol, Hypertension, Myocardial Infarction ([place]) Respiratory History: No Pertinent History Endocrine Medical History: No Pertinent History Musculoskeletal History: No Pertinent History GI Medical History: GERD History: No Pertinent History Psycho-Social History: No Pertinent History Female Reproductive Disorders: Breast Cancer Other Medical History: [place] WITH CVA IN 2011; - Past Surgical History Past Surgical History: Yes Neuro Surgical History: No Pertinent History Cardiac: Cardiac Catheterization, Cardiac Stent Respiratory: No Pertinent History Gastrointestinal: No Pertinent History Genitourinary: No Pertinent History Musculoskeletal: No Pertinent History Female Surgical History: Hysterectomy, Tubal Ligation, Lumpectomy Other Surgical History: Cath in 2011. Cardiac stents x 3. hysterctomy with bladder tie up 07/07/2021 - Social History Smoking Status: Never smoker Exposure to second hand smoke: No Drug Use: none Patient Lives Alone: Yes - Nursing Vital Signs Nursing Vital Signs: Initial Vital Signs Pulse Rate 70 03/19/22 08:14 Pain Scale Pain Intensity 6 - Physical Exam General Appearance: mild distress, alert Eye Exam: PERRL/EOMI, eyes nml inspection Ears, Nose, Throat Exam: normal ENT inspection, moist mucous membranes Neck Exam: normal inspection, non-tender, supple, full range of motion Respiratory Exam: normal breath sounds, lungs clear, No respiratory distress Cardiovascular Exam: regular rate/rhythm, normal heart sounds Gastrointestinal/Abdomen Exam: soft, No tenderness, No mass Back Exam: normal inspection, No CVA tenderness, No vertebral tenderness Extremity Exam: normal inspection, normal range of motion Neurologic Exam: alert, oriented x 3, cooperative, normal mood/affect, sensation nml, No motor deficits Skin Exam: normal color, warm, dry - Course Nursing assessment & vital signs reviewed: Yes EKG Interpreted by Me: RATE ([id number]), Sinus Rhythm, NORMAL AXIS, NORMAL INTERVALS, NORMAL QRS, NORMAL ST-T - Radiology Exams Chest X-ray Interpretation: Negative Ordered Tests: Active Orders 24 hr Category Date Time Status Rapid Outsole Stitcher STAT Care 03/19/22 08:18 Active EKG-ER Only STAT Care 03/19/22 08:17 Active IV Insertion STAT Care 03/19/22 08:17 Active CHEST 1 VIEW (PORTABLE) Stat Exams 03/19/22 08:53 Completed AMYLASE Stat Lab 03/19/22 08:45 Completed BLOOD CULTURE Stat Lab 03/19/22 10:25 Received CBC W DIFF Stat Lab 03/19/22 08:45 Completed CMP Stat Lab 03/19/22 08:45 Completed D-DIMER QUANTITATIVE Stat Lab 03/19/22 08:45 Completed Erythrocyte Sedimentation Rate Stat Lab 03/19/22 08:45 Completed LIPASE Stat Lab 03/19/22 08:45 Completed Lactic Acid Stat Lab 03/19/22 08:45 Completed MAGNESIUM Stat Lab 03/19/22 08:45 Completed NT PRO BNP Stat Lab 03/19/22 08:45 Completed PROTIME WITH INR Stat Lab 03/19/22 08:45 Completed PTT Stat Lab 03/19/22 08:45 Completed TROPONIN Q3H Lab 03/19/22 08:45 Completed TROPONIN Q3H Lab 03/19/22 11:20 Received TROPONIN Q3H Lab 03/19/22 14:30 Ordered TROPONIN Q3H Lab 03/19/22 17:30 Ordered TROPONIN Q3H Lab 03/19/22 20:30 Ordered UA W/RFX CULTURE Stat Lab 03/19/22 09:43 Completed Medication Summary Generic Name Dose Route Start Last Admin Trade Name Freq PRN Reason Stop Dose Admin Sodium Chloride 1,000 mls @ 200 mls/hr 03/19/22 10:30 03/19/22 10:19 Sodium Chloride 0.9% 1000 Ml IV 04/18/22 10:29 200 mls/hr .Q5H PINO Administration Lab/Rad Data: Laboratory Result Diagrams 03/19/22 08:45 03/19/22 08:45 Laboratory Results 03/19/22 03/19/22 03/19/22 Range/Units 09:43 08:45 08:45 WBC (4.0-10.5) K/mm3 RBC (4.1-5.4) M/mm3 Hgb (12.0-16.0) gm/dl Hct (35-47) % MCV (78-100) fl MCH (26-32) pg MCHC (32-36) g/dl RDW (11.5-14.0) % Plt Count (150-450) K/mm3 MPV (7.5-11.0) fl Gran % (36.0-66.0) % Eos # (Auto) (0-0.5) Absolute Lymphs (auto) (1.0-4.6) Absolute Monos (auto) (0.0-1.3) Lymphocytes % (24.0-44.0) % Monocytes % (0.0-12.0) % Eosinophils % (0.00-5.0) % Basophils % (0.0-0.4) % Absolute Granulocytes (1.4-6.9) Basophils # (0-0.4) ESR (0-20) mm/hr PT 15.9 H (9.4-12.5) SECONDS INR 1.35 (0.8-3.0) APTT 38.3 H (25.1-36.5) SECONDS D-Dimer < 215 L (215-500) ng/mL Sodium (137-145) mmol/L Potassium (3.5-5.1) mmol/L Chloride (98-107) mmol/L Carbon Dioxide (22-30) mmol/L Anion Gap (5-15) MEQ/L BUN (7-17) mg/dL Creatinine (0.52-1.04) mg/dL Estimated GFR ML/MIN Glucose (74-106) mg/dL Lactic Acid (0.4-2.0) Calcium (8.4-10.2) mg/dL Magnesium (1.6-2.3) mg/dL Total Bilirubin (0.2-1.3) mg/dL AST (14-36) U/L ALT (0-35) U/L Alkaline Phosphatase (38-126) U/L Troponin I < 0.012 (0.000-0.034) ng/mL NT-Pro-B Natriuret Pep (0-900) pg/mL Serum Total Protein (6.3-8.2) g/dL Albumin (3.5-5.0) g/dL Amylase (30-110) U/L Lipase (23-300) U/L Urinalys Dipstick Clnc MAIN LAB Urine Color YELLOW (YELLOW) Urine Appearance CLEAR (CLEAR) Urine pH 7.0 (5-6) Ur Specific [place] 1.025 (1.005-1.025) POC Urine Protein Conf NEGATIVE (Negative) Urine Ketones NEGATIVE (NEGATIVE) Urine Nitrite NEGATIVE (NEGATIVE) Urine Bilirubin NEGATIVE (NEGATIVE) Urine Urobilinogen 0.2 (0-1) mg/dL Urine Leukocytes NEGATIVE (NEGATIVE) Urine WBC (Auto) 0-2 (0-5) /HPF Urine RBC (Auto) NONE (0-2) /HPF U Epithel Cells (Auto) RARE (FEW) /HPF Urine Bacteria (Auto) NONE (NEGATIVE) /HPF Urine RBC NEGATIVE (0-5) Sunny/ul Urine Mucus (Auto) SLIGHT (NEGATIVE) /HPF Ur Culture Indicated? NO Urine Glucose NEGATIVE (NEGATIVE) mg/dL Influenza Type A Ag (NEGATIVE) Influenza Type B Ag (NEGATIVE) RSV (PCR) (Negative) SARS-CoV-2 (PCR) (NEGATIVE) 03/19/22 03/19/22 03/19/22 Range/Units 08:45 08:45 08:45 WBC 11.5 H (4.0-10.5) K/mm3 RBC 4.43 (4.1-5.4) M/mm3 Hgb 13.5 (12.0-16.0) gm/dl Hct 42.5 (35-47) % MCV 95.9 (78-100) fl MCH 30.5 (26-32) pg MCHC 31.8 L (32-36) g/dl RDW 13.3 (11.5-14.0) % Plt Count 235 (150-450) K/mm3 MPV 11.4 H (7.5-11.0) fl Gran % 80.6 H (36.0-66.0) % Eos # (Auto) 0.17 (0-0.5) Absolute Lymphs (auto) 1.15 (1.0-4.6) Absolute Monos (auto) 0.89 (0.0-1.3) Lymphocytes % 10.0 L (24.0-44.0) % Monocytes % 7.7 (0.0-12.0) % Eosinophils % 1.5 (0.00-5.0) % Basophils % 0.2 (0.0-0.4) % Absolute Granulocytes 9.30 H (1.4-6.9) Basophils # 0.02 (0-0.4) ESR 10 (0-20) mm/hr PT (9.4-12.5) SECONDS INR (0.8-3.0) APTT (25.1-36.5) SECONDS D-Dimer (215-500) ng/mL Sodium 143 (137-145) mmol/L Potassium 4.1 (3.5-5.1) mmol/L Chloride 109 H (98-107) mmol/L Carbon Dioxide 26 (22-30) mmol/L Anion Gap 10.8 (5-15) MEQ/L BUN 22 H (7-17) mg/dL Creatinine 0.51 L (0.52-1.04) mg/dL Estimated GFR > 60.0 ML/MIN Glucose 112 H (74-106) mg/dL Lactic Acid 1.2 (0.4-2.0) Calcium 9.8 (8.4-10.2) mg/dL Magnesium 1.9 (1.6-2.3) mg/dL Total Bilirubin 0.80 (0.2-1.3) mg/dL AST 22 (14-36) U/L ALT 17 (0-35) U/L Alkaline Phosphatase 64 (38-126) U/L Troponin I (0.000-0.034) ng/mL NT-Pro-B Natriuret Pep 300 (0-900) pg/mL Serum Total Protein 6.6 (6.3-8.2) g/dL Albumin 4.1 (3.5-5.0) g/dL Amylase 48 (30-110) U/L Lipase 35 (23-300) U/L Urinalys Dipstick Clnc Urine Color (YELLOW) Urine Appearance (CLEAR) Urine pH (5-6) Ur Specific [place] (1.005-1.025) POC Urine Protein Conf (Negative) Urine Ketones (NEGATIVE) Urine Nitrite (NEGATIVE) Urine Bilirubin (NEGATIVE) Urine Urobilinogen (0-1) mg/dL Urine Leukocytes (NEGATIVE) Urine WBC (Auto) (0-5) /HPF Urine RBC (Auto) (0-2) /HPF U Epithel Cells (Auto) (FEW) /HPF Urine Bacteria (Auto) (NEGATIVE) /HPF Urine RBC (0-5) Sunny/ul Urine Mucus (Auto) (NEGATIVE) /HPF Ur Culture Indicated? Urine Glucose (NEGATIVE) mg/dL Influenza Type A Ag (NEGATIVE) Influenza Type B Ag (NEGATIVE) RSV (PCR) (Negative) SARS-CoV-2 (PCR) (NEGATIVE) 03/19/22 Range/Units 08:40 WBC (4.0-10.5) K/mm3 RBC (4.1-5.4) M/mm3 Hgb (12.0-16.0) gm/dl Hct (35-47) % MCV (78-100) fl MCH (26-32) pg MCHC (32-36) g/dl RDW (11.5-14.0) % Plt Count (150-450) K/mm3 MPV (7.5-11.0) fl Gran % (36.0-66.0) % Eos # (Auto) (0-0.5) Absolute Lymphs (auto) (1.0-4.6) Absolute Monos (auto) (0.0-1.3) Lymphocytes % (24.0-44.0) % Monocytes % (0.0-12.0) % Eosinophils % (0.00-5.0) % Basophils % (0.0-0.4) % Absolute Granulocytes (1.4-6.9) Basophils # (0-0.4) ESR (0-20) mm/hr PT (9.4-12.5) SECONDS INR (0.8-3.0) APTT (25.1-36.5) SECONDS D-Dimer (215-500) ng/mL Sodium (137-145) mmol/L Potassium (3.5-5.1) mmol/L Chloride (98-107) mmol/L Carbon Dioxide (22-30) mmol/L Anion Gap (5-15) MEQ/L BUN (7-17) mg/dL Creatinine (0.52-1.04) mg/dL Estimated GFR ML/MIN Glucose (74-106) mg/dL Lactic Acid (0.4-2.0) Calcium (8.4-10.2) mg/dL Magnesium (1.6-2.3) mg/dL Total Bilirubin (0.2-1.3) mg/dL AST (14-36) U/L ALT (0-35) U/L Alkaline Phosphatase (38-126) U/L Troponin I (0.000-0.034) ng/mL NT-Pro-B Natriuret Pep (0-900) pg/mL Serum Total Protein (6.3-8.2) g/dL Albumin (3.5-5.0) g/dL Amylase (30-110) U/L Lipase (23-300) U/L Urinalys Dipstick Clnc Urine Color (YELLOW) Urine Appearance (CLEAR) Urine pH (5-6) Ur Specific [place] (1.005-1.025) POC Urine Protein Conf (Negative) Urine Ketones (NEGATIVE) Urine Nitrite (NEGATIVE) Urine Bilirubin (NEGATIVE) Urine Urobilinogen (0-1) mg/dL Urine Leukocytes (NEGATIVE) Urine WBC (Auto) (0-5) /HPF Urine RBC (Auto) (0-2) /HPF U Epithel Cells (Auto) (FEW) /HPF Urine Bacteria (Auto) (NEGATIVE) /HPF Urine RBC (0-5) Sunny/ul Urine Mucus (Auto) (NEGATIVE) /HPF Ur Culture Indicated? Urine Glucose (NEGATIVE) mg/dL Influenza Type A Ag NEGATIVE (NEGATIVE) Influenza Type B Ag NEGATIVE (NEGATIVE) RSV (PCR) NEGATIVE (Negative) SARS-CoV-2 (PCR) NEGATIVE (NEGATIVE) - Progress Progress: unchanged Air Movement: fair Blood Culture(s) Obtained: Yes Antibiotics given: No Discussed with DrAyleen: Rachel Will see patient in: hospital (observation) - Departure Departure Disposition: Observation Clinical Impression: Weight loss, Weakness, Chest pain Condition: Stable Critical Care Time: No Referrals: ANTHONY BHANDARI, IT PROGRAM AUDITOR [Primary Care Provider] - Follow up/PCP as directed
[2022-03-19 09:00] LABS: INR 1.35 (0.8-3.0); PROTIME 15.9 SECONDS (9.4-12.5)
[2022-03-19 09:03] LABS: PTT 38.3 SECONDS (25.1-36.5)
[2022-03-19 09:04] LABS: Basophil (Absolute #) 0.02 (0-0.4); Eosinophil % 1.5 % (0.00-5.0); Eosinophil (Absolute #) 0.17 (0-0.5); Hematocrit 42.5 % (35-47); Hemoglobin 13.5 gm/dl (12.0-16.0); Lymphocyte (Absolute #) 1.15 (1.0-4.6); Mean Cell Volume 95.9 fl (78-100); Mean Corpuscular Hemoglobin 30.5 pg (26-32); Mean Corpuscular Hgb Concent. 31.8 g/dl (32-36); Mean Platelet Volume 11.4 fl (7.5-11.0); Monocyte (Absolute #) 0.89 (0.0-1.3); Monocytes % 7.7 % (0.0-12.0); Neutrophil % 80.6 % (36.0-66.0); Platelet Count 235 K/mm3 (150-450); Red Blood Count 4.43 M/mm3 (4.1-5.4); Red Cell Distribution Width 13.3 % (11.5-14.0); White Blood Count 11.5 K/mm3 (4.0-10.5)
[2022-03-19 09:06] LABS: ALBUMIN 4.1 g/dL (3.5-5.0); ALKALINE PHOSPHATASE 64 U/L (38-126); AMYLASE 48 U/L (30-110); ANION GAP 10.8 MEQ/L (5-15); BLOOD UREA NITROGEN 22 mg/dL (7-17); CHLORIDE 109 mmol/L (98-107); Calcium 9.8 mg/dL (8.4-10.2); Carbon Dioxide 26 mmol/L (22-30); Creatinine 1 0.51 mg/dL (0.52-1.04); EST GLOMERULAR FILTRATION RATE > 60.0 ML/MIN; Glucose 112 mg/dL (74-106); LIPASE 35 U/L (23-300); MAGNESIUM 1.9 mg/dL (1.6-2.3); Potassium 4.1 mmol/L (3.5-5.1); SGOT/AST 22 U/L (14-36); SGPT/ALT 17 U/L (0-35); SODIUM 143 mmol/L (137-145); Total Protein 6.6 g/dL (6.3-8.2)
[2022-03-19 09:08] LABS: D-DIMER QUANTITATIVE < 215 ng/mL (215-500)
[2022-03-19 09:14] LABS: NT PRO BNP 300 pg/mL (0-900)
--- NOTE | 2022-03-19 09:16 | XRAY ---
Indication: Cough, chest pain, and weakness. Comparison: February 21, 2021. Portable chest remains clear with incidental tiny left base calcified granuloma. Heart not enlarged again with coronary stent graft. Bony thorax intact again with mild osteopenia, scoliosis, and left axillary davey dissection. Impression: Continued nonacute chest with chronic features.
[2022-03-19 09:32] LABS: INFLUENZA A NEGATIVE (NEGATIVE); INFLUENZA B NEGATIVE (NEGATIVE); RESPIRATORY SYNCTIAL VIRUS NEGATIVE (Negative); SARS-CoV-2 Xpert Express NEGATIVE (NEGATIVE)
[2022-03-19 09:51] LABS: Appearance CLEAR (CLEAR); Bilirubin NEGATIVE (NEGATIVE); Dipstick done @ ? MAIN LAB; Glucose NEGATIVE (NEGATIVE); Ketones NEGATIVE (NEGATIVE); Nitrite NEGATIVE (NEGATIVE); Protein,Urine Dip NEGATIVE (Negative); RBC NEGATIVE Ery/ul (0-5); Specific Gravity 1.025 (1.005-1.025); Urobilinogen 0.2 mg/dL (0-1)
[2022-03-19 09:53] LABS: Epithelial Cells RARE /HPF (FEW); Mucus SLIGHT /HPF (NEGATIVE); WBC 0-2 /HPF (0-5)
[2022-03-19 09:55] LABS: Erythrocyte Sedimentation Rate 10 mm/hr (0-20)
[2022-03-19] MEDS: Sodium Chloride 0.9% 1000 ML 1,000 ML IV SCH ×3 (10:19→20:39)
[2022-03-19 11:12] LABS: Urine Cultured Indicated? NO
[2022-03-19] MEDS ORDERED: Sodium Chloride 0.9% 1000 ML 1,000 ML IV SCH (11:45)
[2022-03-19] MEDS ORDERED: NORCO 5/325 MG PO PRN (16:07)
[2022-03-19] MEDS ORDERED: Nitrostat 0.4 MG Tablet SL PRN (16:15)
--- NOTE | 2022-03-19 16:49 | PCM.HP ---
History of Present Illness - Chief Complaint Chief Complaint: Chest Pain History of Present Illness: is a 76 year old female admitted with chest pain, she relays a 2 week history of illness, she has had sinus symptoms with cough and congested, seen in [facility] care 1 week ago and got a steroid shot and advised to take mucinex, now feels tight in her chest, dry nonproductive cough, no fever. if she takes a deep breath she coughs and feels tight in her chest. no pnd or orthopnea, no di aphoresis, pain is sharp. - Review of Systems Constitutional: No Fever, No Chills Respiratory: Cough, Short Of Breath Cardiac: No Chest Pain, No Edema, No Syncope Abdominal/Gastrointestinal: No Abdominal Pain, No Nausea, No Vomiting, No Diarrhea Genitourinary Symptoms: No Dysuria Skin: No Rash All Other Systems: Reviewed and Negative Medications & Allergies Home Medications: Home Medication List Memantine HCl 5 mg [Namenda 5 MG] 5 mg PO HS 12/07/12 [History Confirmed 03/19/22] Ascorbate Calcium [Vitamin C] 500 mg PO DAILY 03/16/13 [History Confirmed 03/19] Atorvastatin Calcium [Lipitor] 40 mg PO HS 03/16/13 [History Confirmed 03/19/22] Calcium Carbonate/Vitamin D3 [Calcium 600-Vit D3 200 Tablet] 1 each PO BID 03/16/13 [History Confirmed 03/19/22] Alendronate Sodium 70 mg [Fosamax 70 MG] 70 mg PO Q7D 02/21/21 [History Confirmed 03/19/22] Losartan Potassium [Cozaar] 100 mg PO DAILY 12/15/21 [History Confirmed 03/19/22] Nitroglycerin 0.4 mg Tablet [Nitrostat 0.4 MG Tablet] 0.4 mg SL UD 12/15/21 [History Confirmed 03/19/22] Rivaroxaban [Xarelto] 20 mg PO DAILY #0 02/01/22 [Rx Confirmed 03/19/22] Hydrocodone/Acetaminophen [Hydrocodone-Acetamin 5-325 mg] 1 tab PO Q6HPRN PRN MDD 4 03/19/22 [History Confirmed 03/19/22] Sotalol HCl 80 mg [Betapace 80 MG] 80 mg PO BID 03/19/22 [History Confirmed 03/19/22] Allergies/Adverse Reactions: Allergies Allergy/AdvReac Type Severity Reaction Status Date / Time No Known Drug Allergies Allergy Verified 03/19/22 08:23 - Past Medical History Past Medical History: Yes Neurological History: Stroke ENT History: No Pertinent History Cardiac History: Coronary Artery Disease, High Cholesterol, Hypertension, Myocardial Infarction ([place]) Respiratory History: No Pertinent History Endocrine Medical History: No Pertinent History Musculoskelatal History: No Pertinent History GI Medical History: GERD History: No Pertinent History Pyscho-Social History: No Pertinent History Reproductive Disorders: Breast Cancer Comment: [place] WITH CVA IN 2011; - Female History Are you now?: No - Past Surgical History Past Surgical History: Yes Neuro Surgical History: No Pertinent History Cardiac History: Cardiac Catheterization, Cardiac Stent Respiratory Surgery: No Pertinent History GI Surgical History: No Pertinent History Genitourinary Surgical Hx: No Pertinent History Musculskeletal Surgical Hx: No Pertinent History Female Surgical History: Hysterectomy, Tubal Ligation, Lumpectomy Other Surgical History: Cath in 2011. Cardiac stents x 3. hysterctomy with bladder tie up 07/07/2021 - Social History Smoking Status: Never smoker Exposure to second hand smoke: No Alcohol: None Drug Use: none - Physical Exam Vital Signs: Vital Signs - 24 hr Temp Pulse Pulse Resp BP Pulse Ox 03/19/22 16:00 97.9 F 75 16 178/86 96 03/19/22 12:01 98.0 F 73 16 194/85 98 03/19/22 11:51 98.0 F 73 16 194/85 98 03/19/22 11:32 98.0 F 73 16 194/85 98 03/19/22 11:11 68 15 169/78 97 03/19/22 10:06 71 15 156/90 96 03/19/22 09:59 70 16 163/88 98 03/19/22 08:47 75 16 97 03/19/22 08:14 70 General Appearance: no apparent distress Neurologic Exam: alert, oriented x 3, cooperative Respiratory Exam: lungs clear, No respiratory distress, No rhonchi, No wheezing Cardiovascular Exam: regular rate/rhythm, normal heart sounds, normal peripheral pulses Gastrointestinal/Abdomen Exam: soft, normal bowel sounds, No tenderness, No mass Extremity Exam: normal inspection, normal range of motion, pelvis stable Skin Exam: normal color, warm, dry, No rash Results - Labs Lab/Micro Results: Lab Results-Last 24 Hours 03/19/22 03/19/22 03/19/22 Range/Units 08:40 08:45 08:45 WBC 11.5 H (4.0-10.5) K/mm3 RBC 4.43 (4.1-5.4) M/mm3 Hgb 13.5 (12.0-16.0) gm/dl Hct 42.5 (35-47) % MCV 95.9 (78-100) fl MCH 30.5 (26-32) pg MCHC 31.8 L (32-36) g/dl RDW 13.3 (11.5-14.0) % Plt Count 235 (150-450) K/mm3 MPV 11.4 H (7.5-11.0) fl Gran % 80.6 H (36.0-66.0) % Eos # (Auto) 0.17 (0-0.5) Absolute Lymphs (auto) 1.15 (1.0-4.6) Absolute Monos (auto) 0.89 (0.0-1.3) Lymphocytes % 10.0 L (24.0-44.0) % Monocytes % 7.7 (0.0-12.0) % Eosinophils % 1.5 (0.00-5.0) % Basophils % 0.2 (0.0-0.4) % Absolute Granulocytes 9.30 H (1.4-6.9) Basophils # 0.02 (0-0.4) ESR 10 (0-20) mm/hr PT (9.4-12.5) SECONDS INR (0.8-3.0) APTT (25.1-36.5) SECONDS D-Dimer (215-500) ng/mL Sodium (137-145) mmol/L Potassium (3.5-5.1) mmol/L Chloride (98-107) mmol/L Carbon Dioxide (22-30) mmol/L Anion Gap (5-15) MEQ/L BUN (7-17) mg/dL Creatinine (0.52-1.04) mg/dL Estimated GFR ML/MIN Glucose (74-106) mg/dL Lactic Acid 1.2 (0.4-2.0) Calcium (8.4-10.2) mg/dL Magnesium (1.6-2.3) mg/dL Total Bilirubin (0.2-1.3) mg/dL AST (14-36) U/L ALT (0-35) U/L Alkaline Phosphatase (38-126) U/L Troponin I (0.000-0.034) ng/mL NT-Pro-B Natriuret Pep (0-900) pg/mL Serum Total Protein (6.3-8.2) g/dL Albumin (3.5-5.0) g/dL Amylase (30-110) U/L Lipase (23-300) U/L Urinalys Dipstick Clnc Urine Color (YELLOW) Urine Appearance (CLEAR) Urine pH (5-6) Ur Specific [place] (1.005-1.025) POC Urine Protein Conf (Negative) Urine Ketones (NEGATIVE) Urine Nitrite (NEGATIVE) Urine Bilirubin (NEGATIVE) Urine Urobilinogen (0-1) mg/dL Urine Leukocytes (NEGATIVE) Urine WBC (Auto) (0-5) /HPF Urine RBC (Auto) (0-2) /HPF U Epithel Cells (Auto) (FEW) /HPF Urine Bacteria (Auto) (NEGATIVE) /HPF Urine RBC (0-5) Sunny/ul Urine Mucus (Auto) (NEGATIVE) /HPF Ur Culture Indicated? Urine Glucose (NEGATIVE) mg/dL Influenza Type A Ag NEGATIVE (NEGATIVE) Influenza Type B Ag NEGATIVE (NEGATIVE) RSV (PCR) NEGATIVE (Negative) SARS-CoV-2 (PCR) NEGATIVE (NEGATIVE) 03/19/22 03/19/22 03/19/22 Range/Units 08:45 08:45 08:45 WBC (4.0-10.5) K/mm3 RBC (4.1-5.4) M/mm3 Hgb (12.0-16.0) gm/dl Hct (35-47) % MCV (78-100) fl MCH (26-32) pg MCHC (32-36) g/dl RDW (11.5-14.0) % Plt Count (150-450) K/mm3 MPV (7.5-11.0) fl Gran % (36.0-66.0) % Eos # (Auto) (0-0.5) Absolute Lymphs (auto) (1.0-4.6) Absolute Monos (auto) (0.0-1.3) Lymphocytes % (24.0-44.0) % Monocytes % (0.0-12.0) % Eosinophils % (0.00-5.0) % Basophils % (0.0-0.4) % Absolute Granulocytes (1.4-6.9) Basophils # (0-0.4) ESR (0-20) mm/hr PT 15.9 H (9.4-12.5) SECONDS INR 1.35 (0.8-3.0) APTT 38.3 H (25.1-36.5) SECONDS D-Dimer < 215 L (215-500) ng/mL Sodium 143 (137-145) mmol/L Potassium 4.1 (3.5-5.1) mmol/L Chloride 109 H (98-107) mmol/L Carbon Dioxide 26 (22-30) mmol/L Anion Gap 10.8 (5-15) MEQ/L BUN 22 H (7-17) mg/dL Creatinine 0.51 L (0.52-1.04) mg/dL Estimated GFR > 60.0 ML/MIN Glucose 112 H (74-106) mg/dL Lactic Acid (0.4-2.0) Calcium 9.8 (8.4-10.2) mg/dL Magnesium 1.9 (1.6-2.3) mg/dL Total Bilirubin 0.80 (0.2-1.3) mg/dL AST 22 (14-36) U/L ALT 17 (0-35) U/L Alkaline Phosphatase 64 (38-126) U/L Troponin I < 0.012 (0.000-0.034) ng/mL NT-Pro-B Natriuret Pep 300 (0-900) pg/mL Serum Total Protein 6.6 (6.3-8.2) g/dL Albumin 4.1 (3.5-5.0) g/dL Amylase 48 (30-110) U/L Lipase 35 (23-300) U/L Urinalys Dipstick Clnc Urine Color (YELLOW) Urine Appearance (CLEAR) Urine pH (5-6) Ur Specific [place] (1.005-1.025) POC Urine Protein Conf (Negative) Urine Ketones (NEGATIVE) Urine Nitrite (NEGATIVE) Urine Bilirubin (NEGATIVE) Urine Urobilinogen (0-1) mg/dL Urine Leukocytes (NEGATIVE) Urine WBC (Auto) (0-5) /HPF Urine RBC (Auto) (0-2) /HPF U Epithel Cells (Auto) (FEW) /HPF Urine Bacteria (Auto) (NEGATIVE) /HPF Urine RBC (0-5) Sunny/ul Urine Mucus (Auto) (NEGATIVE) /HPF Ur Culture Indicated? Urine Glucose (NEGATIVE) mg/dL Influenza Type A Ag (NEGATIVE) Influenza Type B Ag (NEGATIVE) RSV (PCR) (Negative) SARS-CoV-2 (PCR) (NEGATIVE) 03/19/22 03/19/22 03/19/22 Range/Units 09:43 11:20 15:05 WBC (4.0-10.5) K/mm3 RBC (4.1-5.4) M/mm3 Hgb (12.0-16.0) gm/dl Hct (35-47) % MCV (78-100) fl MCH (26-32) pg MCHC (32-36) g/dl RDW (11.5-14.0) % Plt Count (150-450) K/mm3 MPV (7.5-11.0) fl Gran % (36.0-66.0) % Eos # (Auto) (0-0.5) Absolute Lymphs (auto) (1.0-4.6) Absolute Monos (auto) (0.0-1.3) Lymphocytes % (24.0-44.0) % Monocytes % (0.0-12.0) % Eosinophils % (0.00-5.0) % Basophils % (0.0-0.4) % Absolute Granulocytes (1.4-6.9) Basophils # (0-0.4) ESR (0-20) mm/hr PT (9.4-12.5) SECONDS INR (0.8-3.0) APTT (25.1-36.5) SECONDS D-Dimer (215-500) ng/mL Sodium (137-145) mmol/L Potassium (3.5-5.1) mmol/L Chloride (98-107) mmol/L Carbon Dioxide (22-30) mmol/L Anion Gap (5-15) MEQ/L BUN (7-17) mg/dL Creatinine (0.52-1.04) mg/dL Estimated GFR ML/MIN Glucose (74-106) mg/dL Lactic Acid (0.4-2.0) Calcium (8.4-10.2) mg/dL Magnesium (1.6-2.3) mg/dL Total Bilirubin (0.2-1.3) mg/dL AST (14-36) U/L ALT (0-35) U/L Alkaline Phosphatase (38-126) U/L Troponin I < 0.012 < 0.012 (0.000-0.034) ng/mL NT-Pro-B Natriuret Pep (0-900) pg/mL Serum Total Protein (6.3-8.2) g/dL Albumin (3.5-5.0) g/dL Amylase (30-110) U/L Lipase (23-300) U/L Urinalys Dipstick Clnc MAIN LAB Urine Color YELLOW (YELLOW) Urine Appearance CLEAR (CLEAR) Urine pH 7.0 (5-6) Ur Specific Dorris 1.025 (1.005-1.025) POC Urine Protein Conf NEGATIVE (Negative) Urine Ketones NEGATIVE (NEGATIVE) Urine Nitrite NEGATIVE (NEGATIVE) Urine Bilirubin NEGATIVE (NEGATIVE) Urine Urobilinogen 0.2 (0-1) mg/dL Urine Leukocytes NEGATIVE (NEGATIVE) Urine WBC (Auto) 0-2 (0-5) /HPF Urine RBC (Auto) NONE (0-2) /HPF U Epithel Cells (Auto) RARE (FEW) /HPF Urine Bacteria (Auto) NONE (NEGATIVE) /HPF Urine RBC NEGATIVE (0-5) Sunny/ul Urine Mucus (Auto) SLIGHT (NEGATIVE) /HPF Ur Culture Indicated? NO Urine Glucose NEGATIVE (NEGATIVE) mg/dL Influenza Type A Ag (NEGATIVE) Influenza Type B Ag (NEGATIVE) RSV (PCR) (Negative) SARS-CoV-2 (PCR) (NEGATIVE) - Radiology Impressions Radiology Exams & Impressions: Radiology Procedures Category Date Time Status CHEST 1 VIEW (PORTABLE) Stat Exams 03/19/22 08:53 Completed Assessment/Plan (1) Chest pain Current Visit: Yes Status: Acute Assessment & Plan: seems pleuritic/noncardiac. previous NV, will r/o NV and treat for bronchitis. Code(s): R07.9 - CHEST PAIN, UNSPECIFIED (2) Acute bronchitis Current Visit: Yes Status: Acute Assessment & Plan: start on levaquin po and po prednisone. Code(s): J20.9 - ACUTE BRONCHITIS, UNSPECIFIED
[2022-03-19] MEDS: XARELTO 10 MG TABLET PO SCH (17:51)
[2022-03-19] MEDS: Cozaar 50 MG PO SCH (17:51)
[2022-03-19] MEDS: DELTASONE 20 MG PO SCH (17:52)
[2022-03-19] MEDS ORDERED: Levofloxacin 250MG Tablet PO SCH (18:00)
[2022-03-19] MEDS: Betapace 80 MG PO SCH (21:47)
[2022-03-19] MEDS ORDERED: ZOCOR 20MG PO SCH (22:00)
[2022-03-19] MEDS ORDERED: Namenda 5 MG PO SCH (22:00)
[2022-03-19] MEDS ORDERED: LIPITOR 40MG PO SCH (22:00)
[2022-03-20] MEDS: Sodium Chloride 0.9% 1000 ML 1,000 ML IV SCH ×2 (01:40→06:36)
[2022-03-20 04:59] LABS: Absolute Neutrophil Ct (ANC) 11.66 (1.4-6.9); Basophil (Absolute #) 0 (0-0.4); Eosinophil (Absolute #) 0 (0-0.5); Hematocrit 38.8 % (35-47); Hemoglobin 12.2 gm/dl (12.0-16.0); Lymphocyte (Absolute #) 0.63 (1.0-4.6); Mean Corpuscular Hemoglobin 30.8 pg (26-32); Mean Corpuscular Hgb Concent. 31.4 g/dl (32-36); Monocyte (Absolute #) 0.38 (0.0-1.3); Platelet Count 204 K/mm3 (150-450); Red Blood Count 3.96 M/mm3 (4.1-5.4); Red Cell Distribution Width 13.1 % (11.5-14.0); White Blood Count 12.7 K/mm3 (4.0-10.5)
[2022-03-20 05:18] LABS: ALBUMIN 3.4 g/dL (3.5-5.0); ALKALINE PHOSPHATASE 51 U/L (38-126); ANION GAP 12.9 MEQ/L (5-15); BLOOD UREA NITROGEN 15 mg/dL (7-17); CHLORIDE 111 mmol/L (98-107); Calcium 8.4 mg/dL (8.4-10.2); Carbon Dioxide 19 mmol/L (22-30); Creatinine 1 0.44 mg/dL (0.52-1.04); EST GLOMERULAR FILTRATION RATE > 60.0 ML/MIN; Glucose 144 mg/dL (74-106); Potassium 4.2 mmol/L (3.5-5.1); SGOT/AST 21 U/L (14-36); SGPT/ALT 17 U/L (0-35); SODIUM 139 mmol/L (137-145); Total Protein 5.9 g/dL (6.3-8.2)
[2022-03-20 07:05] VITALS: O2SAT 98
[2022-03-20] MEDS ORDERED: Robitussin AC Syrup Unit Dose Cup PO PRN (08:29)
[2022-03-20] MEDS ORDERED: APRESOLINE 20 MG/ML INJ IV PRN (08:34)
--- NOTE | 2022-03-20 08:34 | PCM.NOTE ---
Date and Time: 03/20/22829 Subjective Assessment: Pt is not feeling well, states "I have no energy - none." Is up to bathroom by herself. Liliya po. Lives at home alone - interested in [facility] (daughter works for visiting nurses in ). C/o cough, difficult to produce any sputum. Some BP to 190s yesterday. - Review of Systems Constitutional: Weakness, No Fever Respiratory: Cough All Other Systems: Reviewed and Negative Objective Exam General Appearance: no apparent distress, alert Neurologic Exam: oriented x 3, cooperative Skin Exam: normal color, warm, dry, No rash Eye Exam: eyes nml inspection Ears, Nose, Throat Exam: moist mucous membranes Neck Exam: normal inspection Respiratory Exam: normal breath sounds, lungs clear, No crackles/rales, No rhonchi, No wheezing Cardiovascular Exam: regular rate/rhythm, normal heart sounds, No murmur Gastrointestinal/Abdomen Exam: soft, normal bowel sounds, No tenderness, No distention, No mass, No guarding, No rebound Extremity Exam: normal inspection, No pedal edema, No swelling Back Exam: normal inspection, No rash OBJECTIVE DATA Vital Signs: Vital Signs - 24 hr Temp Pulse Resp BP Pulse Ox 03/20/22 07:04 97.7 F 84 16 124/58 98 03/20/22 04:00 98.9 F 74 15 142/68 97 03/19/22 23:31 98.3 F 75 18 156/74 03/19/22 19:53 97.2 F 80 148/68 95 03/19/22 16:00 97.9 F 75 16 178/86 96 03/19/22 12:01 98.0 F 73 16 194/85 98 03/19/22 11:51 98.0 F 73 16 194/85 98 03/19/22 11:32 98.0 F 73 16 194/85 98 03/19/22 11:11 68 15 169/78 97 03/19/22 10:06 71 15 156/90 96 03/19/22 09:59 70 16 163/88 98 03/19/22 08:47 75 16 97 Pain Assessment - Last Documented Pain Intensity 0 Intake and Output: Intake & Output 03/17/22 03/18/22 03/19/22 03/20/22 11:59 11:59 11:59 11:59 Intake Total 1925 Balance 1925 Weight 59.9 kg 60 kg Lab Results: Lab Results-Last 24 Hours 03/19/22 03/19/22 03/19/22 Range/Units 08:40 08:45 08:45 WBC 11.5 H (4.0-10.5) K/mm3 RBC 4.43 (4.1-5.4) M/mm3 Hgb 13.5 (12.0-16.0) gm/dl Hct 42.5 (35-47) % MCV 95.9 (78-100) fl MCH 30.5 (26-32) pg MCHC 31.8 L (32-36) g/dl RDW 13.3 (11.5-14.0) % Plt Count 235 (150-450) K/mm3 MPV 11.4 H (7.5-11.0) fl Gran % 80.6 H (36.0-66.0) % Eos # (Auto) 0.17 (0-0.5) Absolute Lymphs (auto) 1.15 (1.0-4.6) Absolute Monos (auto) 0.89 (0.0-1.3) Lymphocytes % 10.0 L (24.0-44.0) % Monocytes % 7.7 (0.0-12.0) % Eosinophils % 1.5 (0.00-5.0) % Basophils % 0.2 (0.0-0.4) % Absolute Granulocytes 9.30 H (1.4-6.9) Basophils # 0.02 (0-0.4) ESR 10 (0-20) mm/hr PT (9.4-12.5) SECONDS INR (0.8-3.0) APTT (25.1-36.5) SECONDS D-Dimer (215-500) ng/mL Sodium (137-145) mmol/L Potassium (3.5-5.1) mmol/L Chloride (98-107) mmol/L Carbon Dioxide (22-30) mmol/L Anion Gap (5-15) MEQ/L BUN (7-17) mg/dL Creatinine (0.52-1.04) mg/dL Estimated GFR ML/MIN Glucose (74-106) mg/dL Lactic Acid 1.2 (0.4-2.0) Calcium (8.4-10.2) mg/dL Magnesium (1.6-2.3) mg/dL Total Bilirubin (0.2-1.3) mg/dL AST (14-36) U/L ALT (0-35) U/L Alkaline Phosphatase (38-126) U/L Troponin I (0.000-0.034) ng/mL NT-Pro-B Natriuret Pep (0-900) pg/mL Serum Total Protein (6.3-8.2) g/dL Albumin (3.5-5.0) g/dL Amylase (30-110) U/L Lipase (23-300) U/L Urinalys Dipstick Clnc Urine Color (YELLOW) Urine Appearance (CLEAR) Urine pH (5-6) Ur Specific [place] (1.005-1.025) POC Urine Protein Conf (Negative) Urine Ketones (NEGATIVE) Urine Nitrite (NEGATIVE) Urine Bilirubin (NEGATIVE) Urine Urobilinogen (0-1) mg/dL Urine Leukocytes (NEGATIVE) Urine WBC (Auto) (0-5) /HPF Urine RBC (Auto) (0-2) /HPF U Epithel Cells (Auto) (FEW) /HPF Urine Bacteria (Auto) (NEGATIVE) /HPF Urine RBC (0-5) Sunny/ul Urine Mucus (Auto) (NEGATIVE) /HPF Ur Culture Indicated? Urine Glucose (NEGATIVE) mg/dL Influenza Type A Ag NEGATIVE (NEGATIVE) Influenza Type B Ag NEGATIVE (NEGATIVE) RSV (PCR) NEGATIVE (Negative) SARS-CoV-2 (PCR) NEGATIVE (NEGATIVE) 03/19/22 03/19/22 03/19/22 Range/Units 08:45 08:45 08:45 WBC (4.0-10.5) K/mm3 RBC (4.1-5.4) M/mm3 Hgb (12.0-16.0) gm/dl Hct (35-47) % MCV (78-100) fl MCH (26-32) pg MCHC (32-36) g/dl RDW (11.5-14.0) % Plt Count (150-450) K/mm3 MPV (7.5-11.0) fl Gran % (36.0-66.0) % Eos # (Auto) (0-0.5) Absolute Lymphs (auto) (1.0-4.6) Absolute Monos (auto) (0.0-1.3) Lymphocytes % (24.0-44.0) % Monocytes % (0.0-12.0) % Eosinophils % (0.00-5.0) % Basophils % (0.0-0.4) % Absolute Granulocytes (1.4-6.9) Basophils # (0-0.4) ESR (0-20) mm/hr PT 15.9 H (9.4-12.5) SECONDS INR 1.35 (0.8-3.0) APTT 38.3 H (25.1-36.5) SECONDS D-Dimer < 215 L (215-500) ng/mL Sodium 143 (137-145) mmol/L Potassium 4.1 (3.5-5.1) mmol/L Chloride 109 H (98-107) mmol/L Carbon Dioxide 26 (22-30) mmol/L Anion Gap 10.8 (5-15) MEQ/L BUN 22 H (7-17) mg/dL Creatinine 0.51 L (0.52-1.04) mg/dL Estimated GFR > 60.0 ML/MIN Glucose 112 H (74-106) mg/dL Lactic Acid (0.4-2.0) Calcium 9.8 (8.4-10.2) mg/dL Magnesium 1.9 (1.6-2.3) mg/dL Total Bilirubin 0.80 (0.2-1.3) mg/dL AST 22 (14-36) U/L ALT 17 (0-35) U/L Alkaline Phosphatase 64 (38-126) U/L Troponin I < 0.012 (0.000-0.034) ng/mL NT-Pro-B Natriuret Pep 300 (0-900) pg/mL Serum Total Protein 6.6 (6.3-8.2) g/dL Albumin 4.1 (3.5-5.0) g/dL Amylase 48 (30-110) U/L Lipase 35 (23-300) U/L Urinalys Dipstick Clnc Urine Color (YELLOW) Urine Appearance (CLEAR) Urine pH (5-6) Ur Specific [place] (1.005-1.025) POC Urine Protein Conf (Negative) Urine Ketones (NEGATIVE) Urine Nitrite (NEGATIVE) Urine Bilirubin (NEGATIVE) Urine Urobilinogen (0-1) mg/dL Urine Leukocytes (NEGATIVE) Urine WBC (Auto) (0-5) /HPF Urine RBC (Auto) (0-2) /HPF U Epithel Cells (Auto) (FEW) /HPF Urine Bacteria (Auto) (NEGATIVE) /HPF Urine RBC (0-5) Sunny/ul Urine Mucus (Auto) (NEGATIVE) /HPF Ur Culture Indicated? Urine Glucose (NEGATIVE) mg/dL Influenza Type A Ag (NEGATIVE) Influenza Type B Ag (NEGATIVE) RSV (PCR) (Negative) SARS-CoV-2 (PCR) (NEGATIVE) 03/19/22 03/19/22 03/19/22 Range/Units 09:43 11:20 15:05 WBC (4.0-10.5) K/mm3 RBC (4.1-5.4) M/mm3 Hgb (12.0-16.0) gm/dl Hct (35-47) % MCV (78-100) fl MCH (26-32) pg MCHC (32-36) g/dl RDW (11.5-14.0) % Plt Count (150-450) K/mm3 MPV (7.5-11.0) fl Gran % (36.0-66.0) % Eos # (Auto) (0-0.5) Absolute Lymphs (auto) (1.0-4.6) Absolute Monos (auto) (0.0-1.3) Lymphocytes % (24.0-44.0) % Monocytes % (0.0-12.0) % Eosinophils % (0.00-5.0) % Basophils % (0.0-0.4) % Absolute Granulocytes (1.4-6.9) Basophils # (0-0.4) ESR (0-20) mm/hr PT (9.4-12.5) SECONDS INR (0.8-3.0) APTT (25.1-36.5) SECONDS D-Dimer (215-500) ng/mL Sodium (137-145) mmol/L Potassium (3.5-5.1) mmol/L Chloride (98-107) mmol/L Carbon Dioxide (22-30) mmol/L Anion Gap (5-15) MEQ/L BUN (7-17) mg/dL Creatinine (0.52-1.04) mg/dL Estimated GFR ML/MIN Glucose (74-106) mg/dL Lactic Acid (0.4-2.0) Calcium (8.4-10.2) mg/dL Magnesium (1.6-2.3) mg/dL Total Bilirubin (0.2-1.3) mg/dL AST (14-36) U/L ALT (0-35) U/L Alkaline Phosphatase (38-126) U/L Troponin I < 0.012 < 0.012 (0.000-0.034) ng/mL NT-Pro-B Natriuret Pep (0-900) pg/mL Serum Total Protein (6.3-8.2) g/dL Albumin (3.5-5.0) g/dL Amylase (30-110) U/L Lipase (23-300) U/L Urinalys Dipstick Clnc MAIN LAB Urine Color YELLOW (YELLOW) Urine Appearance CLEAR (CLEAR) Urine pH 7.0 (5-6) Ur Specific [place] 1.025 (1.005-1.025) POC Urine Protein Conf NEGATIVE (Negative) Urine Ketones NEGATIVE (NEGATIVE) Urine Nitrite NEGATIVE (NEGATIVE) Urine Bilirubin NEGATIVE (NEGATIVE) Urine Urobilinogen 0.2 (0-1) mg/dL Urine Leukocytes NEGATIVE (NEGATIVE) Urine WBC (Auto) 0-2 (0-5) /HPF Urine RBC (Auto) NONE (0-2) /HPF U Epithel Cells (Auto) RARE (FEW) /HPF Urine Bacteria (Auto) NONE (NEGATIVE) /HPF Urine RBC NEGATIVE (0-5) Sunny/ul Urine Mucus (Auto) SLIGHT (NEGATIVE) /HPF Ur Culture Indicated? NO Urine Glucose NEGATIVE (NEGATIVE) mg/dL Influenza Type A Ag (NEGATIVE) Influenza Type B Ag (NEGATIVE) RSV (PCR) (Negative) SARS-CoV-2 (PCR) (NEGATIVE) 03/19/22 03/20/22 03/20/22 Range/Units 17:45 04:35 04:35 WBC 12.7 H (4.0-10.5) K/mm3 RBC 3.96 L (4.1-5.4) M/mm3 Hgb 12.2 (12.0-16.0) gm/dl Hct 38.8 (35-47) % MCV 98.0 (78-100) fl MCH 30.8 (26-32) pg MCHC 31.4 L (32-36) g/dl RDW 13.1 (11.5-14.0) % Plt Count 204 (150-450) K/mm3 MPV 12.0 H (7.5-11.0) fl Gran % 92.0 H (36.0-66.0) % Eos # (Auto) 0 (0-0.5) Absolute Lymphs (auto) 0.63 L (1.0-4.6) Absolute Monos (auto) 0.38 (0.0-1.3) Lymphocytes % 5.0 L (24.0-44.0) % Monocytes % 3.0 (0.0-12.0) % Eosinophils % 0.0 (0.00-5.0) % Basophils % 0.0 (0.0-0.4) % Absolute Granulocytes 11.66 H (1.4-6.9) Basophils # 0 (0-0.4) ESR (0-20) mm/hr PT (9.4-12.5) SECONDS INR (0.8-3.0) APTT (25.1-36.5) SECONDS D-Dimer (215-500) ng/mL Sodium 139 (137-145) mmol/L Potassium 4.2 (3.5-5.1) mmol/L Chloride 111 H (98-107) mmol/L Carbon Dioxide 19 L (22-30) mmol/L Anion Gap 12.9 (5-15) MEQ/L BUN 15 (7-17) mg/dL Creatinine 0.44 L (0.52-1.04) mg/dL Estimated GFR > 60.0 ML/MIN Glucose 144 H (74-106) mg/dL Lactic Acid (0.4-2.0) Calcium 8.4 (8.4-10.2) mg/dL Magnesium (1.6-2.3) mg/dL Total Bilirubin 0.50 (0.2-1.3) mg/dL AST 21 (14-36) U/L ALT 17 (0-35) U/L Alkaline Phosphatase 51 (38-126) U/L Troponin I < 0.012 (0.000-0.034) ng/mL NT-Pro-B Natriuret Pep (0-900) pg/mL Serum Total Protein 5.9 L (6.3-8.2) g/dL Albumin 3.4 L (3.5-5.0) g/dL Amylase (30-110) U/L Lipase (23-300) U/L Urinalys Dipstick Clnc Urine Color (YELLOW) Urine Appearance (CLEAR) Urine pH (5-6) Ur Specific [place] (1.005-1.025) POC Urine Protein Conf (Negative) Urine Ketones (NEGATIVE) Urine Nitrite (NEGATIVE) Urine Bilirubin (NEGATIVE) Urine Urobilinogen (0-1) mg/dL Urine Leukocytes (NEGATIVE) Urine WBC (Auto) (0-5) /HPF Urine RBC (Auto) (0-2) /HPF U Epithel Cells (Auto) (FEW) /HPF Urine Bacteria (Auto) (NEGATIVE) /HPF Urine RBC (0-5) Sunny/ul Urine Mucus (Auto) (NEGATIVE) /HPF Ur Culture Indicated? Urine Glucose (NEGATIVE) mg/dL Influenza Type A Ag (NEGATIVE) Influenza Type B Ag (NEGATIVE) RSV (PCR) (Negative) SARS-CoV-2 (PCR) (NEGATIVE) 03/20/22 Range/Units 05:00 WBC (4.0-10.5) K/mm3 RBC (4.1-5.4) M/mm3 Hgb (12.0-16.0) gm/dl Hct (35-47) % MCV (78-100) fl MCH (26-32) pg MCHC (32-36) g/dl RDW (11.5-14.0) % Plt Count (150-450) K/mm3 MPV (7.5-11.0) fl Gran % (36.0-66.0) % Eos # (Auto) (0-0.5) Absolute Lymphs (auto) (1.0-4.6) Absolute Monos (auto) (0.0-1.3) Lymphocytes % (24.0-44.0) % Monocytes % (0.0-12.0) % Eosinophils % (0.00-5.0) % Basophils % (0.0-0.4) % Absolute Granulocytes (1.4-6.9) Basophils # (0-0.4) ESR (0-20) mm/hr PT (9.4-12.5) SECONDS INR (0.8-3.0) APTT (25.1-36.5) SECONDS D-Dimer (215-500) ng/mL Sodium (137-145) mmol/L Potassium (3.5-5.1) mmol/L Chloride (98-107) mmol/L Carbon Dioxide (22-30) mmol/L Anion Gap (5-15) MEQ/L BUN (7-17) mg/dL Creatinine (0.52-1.04) mg/dL Estimated GFR ML/MIN Glucose (74-106) mg/dL Lactic Acid 1.8 (0.4-2.0) Calcium (8.4-10.2) mg/dL Magnesium (1.6-2.3) mg/dL Total Bilirubin (0.2-1.3) mg/dL AST (14-36) U/L ALT (0-35) U/L Alkaline Phosphatase (38-126) U/L Troponin I (0.000-0.034) ng/mL NT-Pro-B Natriuret Pep (0-900) pg/mL Serum Total Protein (6.3-8.2) g/dL Albumin (3.5-5.0) g/dL Amylase (30-110) U/L Lipase (23-300) U/L Urinalys Dipstick Clnc Urine Color (YELLOW) Urine Appearance (CLEAR) Urine pH (5-6) Ur Specific [place] (1.005-1.025) POC Urine Protein Conf (Negative) Urine Ketones (NEGATIVE) Urine Nitrite (NEGATIVE) Urine Bilirubin (NEGATIVE) Urine Urobilinogen (0-1) mg/dL Urine Leukocytes (NEGATIVE) Urine WBC (Auto) (0-5) /HPF Urine RBC (Auto) (0-2) /HPF U Epithel Cells (Auto) (FEW) /HPF Urine Bacteria (Auto) (NEGATIVE) /HPF Urine RBC (0-5) Sunny/ul Urine Mucus (Auto) (NEGATIVE) /HPF Ur Culture Indicated? Urine Glucose (NEGATIVE) mg/dL Influenza Type A Ag (NEGATIVE) Influenza Type B Ag (NEGATIVE) RSV (PCR) (Negative) SARS-CoV-2 (PCR) (NEGATIVE) Radiology Exams: Radiology Procedures Category Date Time Status CHEST 1 VIEW (PORTABLE) Stat Exams 03/19/22 08:53 Completed Assessment/Plan (1) Atypical pneumonia Current Visit: Yes Status: Acute Assessment & Plan: on levaquin po and prednisone. WBC mildly elevated today, which could be d/t the prednisone. Code(s): J18.9 - PNEUMONIA, UNSPECIFIED ORGANISM (2) Weakness Current Visit: Yes Status: Acute Assessment & Plan: consult PT. Code(s): R53.1 - WEAKNESS (3) Chest pain Current Visit: Yes Status: Acute Qualifiers: Chest pain type: other chest pain Qualified Code(s): R07.89 - Other chest pain; R07.8 - Other chest pain Assessment & Plan: Likely related to her current illness. [place] ruled out. Code(s): R07.9 - CHEST PAIN, UNSPECIFIED (4) CAD (coronary artery disease) Current Visit: Yes Status: Chronic Code(s): I25.10 - ATHSCL HEART DISEASE OF [place] CORONARY ARTERY W/O ANG PCTRS (5) HTN (hypertension) Current Visit: Yes Status: Chronic Qualifiers: Hypertension type: primary hypertension Qualified Code(s): I10 - Essential (primary) hypertension Assessment & Plan: Will add prn bp meds Code(s): I10 - ESSENTIAL (PRIMARY) HYPERTENSION
[2022-03-20] MEDS: Cozaar 50 MG PO SCH (09:26)
[2022-03-20] MEDS: DELTASONE 20 MG PO SCH (09:26)
[2022-03-20] MEDS: Betapace 80 MG PO SCH (09:26)
[2022-03-20] MEDS: XARELTO 10 MG TABLET PO SCH (09:28)
[2022-03-20] MEDS ORDERED: Levofloxacin 500 MG Tablet PO SCH (10:00)
[2022-03-20] MEDS ORDERED: NON-FORMULARY ITEM (Losartan Potassium [Cozaar] 100 MG Tablet) PO SCH (10:00)
[2022-03-20] MEDS ORDERED: NON-FORMULARY ITEM (Rivaroxaban [Xarelto] 20 MG Tablet) PO SCH (10:00)
[2022-03-20 11:13] VITALS: BP 147/67; PULSE 70
--- NOTE | 2022-03-20 14:11 | PCM.DS ---
Discharge Summary Date of Admission: 03/19/22 11:47 Admitting Physician: GRICELDA KINNEY Primary Care Provider: ANTHONY BHANDARI Allergies Allergies No Known Drug Allergies Allergy (Verified 03/19/22 08:23) Hospital Summary - Hospital Course Hospital Course: Pt is 76 yo female pt with hx CAD and IN, dementia, HTN, and hyperlipidemia admitted through ER with cough and chest tightness. [place] ruled out. CXR nonacute. Pt was started tx for atypical pneumonia/bronchitis with po steroid and po levofloxacin. This morning she was complaining of extreme weakness but was able to ambulate to the bathroom without any assistance. She was tolerating po. C/o cough; was prescribed cough med but never asked for any. PT saw pt and was concerned about early onset Parkinson's disease. Will be discharged to home on po levaquin and po prednisone. - Vitals & Intake/Output Vital Signs: Vital Signs Temperature 97.9 F 03/20/22 11:11 Pulse Rate 70 03/20/22 11:11 Respiratory Rate 16 03/20/22 11:11 Blood Pressure 147/67 03/20/22 11:11 O2 Sat by Pulse Oximetry 98 03/20/22 11:11 Intake & Output: Intake & Output 03/18/22 03/19/22 03/20/22 03/21/22 11:59 11:59 11:59 11:59 Intake Total 2406 240 Balance 2406 240 Weight 59.9 kg 60 kg - Lab Result Diagrams: 03/20/22 04:35 03/20/22 04:35 Lab Results-Last 24 Hrs: Lab Results-Last 24 Hours 03/19/22 03/19/22 03/20/22 Range/Units 15:05 17:45 04:35 WBC 12.7 H (4.0-10.5) K/mm3 RBC 3.96 L (4.1-5.4) M/mm3 Hgb 12.2 (12.0-16.0) gm/dl Hct 38.8 (35-47) % MCV 98.0 (78-100) fl MCH 30.8 (26-32) pg MCHC 31.4 L (32-36) g/dl RDW 13.1 (11.5-14.0) % Plt Count 204 (150-450) K/mm3 MPV 12.0 H (7.5-11.0) fl Gran % 92.0 H (36.0-66.0) % Eos # (Auto) 0 (0-0.5) Absolute Lymphs (auto) 0.63 L (1.0-4.6) Absolute Monos (auto) 0.38 (0.0-1.3) Lymphocytes % 5.0 L (24.0-44.0) % Monocytes % 3.0 (0.0-12.0) % Eosinophils % 0.0 (0.00-5.0) % Basophils % 0.0 (0.0-0.4) % Absolute Granulocytes 11.66 H (1.4-6.9) Basophils # 0 (0-0.4) Sodium (137-145) mmol/L Potassium (3.5-5.1) mmol/L Chloride (98-107) mmol/L Carbon Dioxide (22-30) mmol/L Anion Gap (5-15) MEQ/L BUN (7-17) mg/dL Creatinine (0.52-1.04) mg/dL Estimated GFR ML/MIN Glucose (74-106) mg/dL Lactic Acid (0.4-2.0) Calcium (8.4-10.2) mg/dL Total Bilirubin (0.2-1.3) mg/dL AST (14-36) U/L ALT (0-35) U/L Alkaline Phosphatase (38-126) U/L Troponin I < 0.012 < 0.012 (0.000-0.034) ng/mL Serum Total Protein (6.3-8.2) g/dL Albumin (3.5-5.0) g/dL 03/20/22 03/20/22 Range/Units 04:35 05:00 WBC (4.0-10.5) K/mm3 RBC (4.1-5.4) M/mm3 Hgb (12.0-16.0) gm/dl Hct (35-47) % MCV (78-100) fl MCH (26-32) pg MCHC (32-36) g/dl RDW (11.5-14.0) % Plt Count (150-450) K/mm3 MPV (7.5-11.0) fl Gran % (36.0-66.0) % Eos # (Auto) (0-0.5) Absolute Lymphs (auto) (1.0-4.6) Absolute Monos (auto) (0.0-1.3) Lymphocytes % (24.0-44.0) % Monocytes % (0.0-12.0) % Eosinophils % (0.00-5.0) % Basophils % (0.0-0.4) % Absolute Granulocytes (1.4-6.9) Basophils # (0-0.4) Sodium 139 (137-145) mmol/L Potassium 4.2 (3.5-5.1) mmol/L Chloride 111 H (98-107) mmol/L Carbon Dioxide 19 L (22-30) mmol/L Anion Gap 12.9 (5-15) MEQ/L BUN 15 (7-17) mg/dL Creatinine 0.44 L (0.52-1.04) mg/dL Estimated GFR > 60.0 ML/MIN Glucose 144 H (74-106) mg/dL Lactic Acid 1.8 (0.4-2.0) Calcium 8.4 (8.4-10.2) mg/dL Total Bilirubin 0.50 (0.2-1.3) mg/dL AST 21 (14-36) U/L ALT 17 (0-35) U/L Alkaline Phosphatase 51 (38-126) U/L Troponin I (0.000-0.034) ng/mL Serum Total Protein 5.9 L (6.3-8.2) g/dL Albumin 3.4 L (3.5-5.0) g/dL - Radiology Exams Ordered Rad Exams-Entire Visit: Radiology Procedures Category Date Time Status CHEST 1 VIEW (PORTABLE) Stat Exams 03/19/22 08:53 Completed - Procedures and Test Procedures and Tests throughout Hospitalization: Therapy Orders & Screens 03/20/22 08:28 PT Eval & Treat ( Order) ONCE Reason for Eval:: pt feels weak Diagnosis: Chest Pain Discharge Exam General Appearance: no apparent distress, alert, other (exam done this morning) Neurologic Exam: oriented x 3, cooperative Eye Exam: eyes nml inspection Ears, Nose, Throat Exam: moist mucous membranes Neck Exam: normal inspection Respiratory Exam: normal breath sounds, lungs clear, No crackles/rales, No rhonchi, No wheezing Cardiovascular Exam: regular rate/rhythm, normal heart sounds, No murmur Gastrointestinal/Abdomen Exam: soft, normal bowel sounds, No tenderness, No distention, No mass, No guarding, No rebound Back Exam: normal inspection, No rash Extremity Exam: normal inspection, No pedal edema, No swelling Skin Exam: normal color, warm, dry, No rash Final Diagnosis/Problem List - Final Discharge Diagnosis/Problem (1) Atypical pneumonia Current Visit: Yes Status: Acute Assessment & Plan: Home on levaquin to finish 7d (5 more days) and prednisone 20mg/d x 5 more days. Code(s): J18.9 - PNEUMONIA, UNSPECIFIED ORGANISM (2) Weakness Current Visit: Yes Status: Resolved Assessment & Plan: Pt was complaining but was seen by me up to bathroom by herself, noted by staff to be doing well, & eval by PT. Code(s): R53.1 - WEAKNESS (3) Chest pain Current Visit: Yes Status: Acute Assessment & Plan: Likely related to current illness. Needs to continue regular f/u with cardiology. Code(s): R07.9 - CHEST PAIN, UNSPECIFIED (4) CAD (coronary artery disease) Current Visit: Yes Status: Chronic Code(s): I25.10 - ATHSCL HEART DISEASE OF [place] CORONARY ARTERY W/O ANG PCTRS (5) HTN (hypertension) Current Visit: Yes Status: Chronic Code(s): I10 - ESSENTIAL (PRIMARY) HYPERTENSION - Discharge Disposition: Home, Self-Care Condition: Stable Prescriptions: New Prednisone 20 mg [Deltasone 20 mg] 20 mg PO DAILY #5 tablet Lactobacillus Acidophilus [Acidophilus TABLET] 1 tab PO TID #30 tablet Amox Tr/Potass Clav. 875 mg [Augmentin 875-125 Tablet] 875 mg PO BID #10 tablet Continue Memantine HCl 5 mg [Namenda 5 MG] 5 mg PO HS Calcium Carbonate/Vitamin D3 [Calcium 600-Vit D3 200 Tablet] 1 each PO BID Ascorbate Calcium [Vitamin C] 500 mg PO DAILY Atorvastatin Calcium [Lipitor] 40 mg PO HS Alendronate Sodium 70 mg [Fosamax 70 MG] 70 mg PO Q7D Losartan Potassium [Cozaar] 100 mg PO DAILY Nitroglycerin 0.4 mg Tablet [Nitrostat 0.4 MG Tablet] 0.4 mg SL UD Rivaroxaban [Xarelto] 20 mg PO DAILY #0 Hydrocodone/Acetaminophen [Hydrocodone-Acetamin 5-325 mg] 1 tab PO Q6HPRN PRN MDD 4 PRN Reason: Pain Sotalol HCl 80 mg [Betapace 80 MG] 80 mg PO BID Additional Instructions: REFERRAL SENT TO [facility]. THEY WILL MAKE CONTACT TO COME SEE YOU. THEIR PHONE NUMBER IS [phone] Follow up with: GRICELDA KINNEY MD [ACTIVE STAFF] - 03/30/22 9:45 am
== END 2022-03-20 14:41 | disposition home health service (06) ==
LOC: ED 08:13 → MED SURG 11:47
PROVIDERS: ADMIT Family Medicine; ATTEND Family Medicine
DX: J18.9 Pneumonia, unspecified organism (principal); R53.1 Weakness; R07.9 Chest pain, unspecified; J02.9 Acute pharyngitis, unspecified; I25.10 Atherosclerotic heart disease of native coronary artery without angina pectoris; I10 Essential (primary) hypertension; E78.00 Pure hypercholesterolemia, unspecified; I25.2 Old myocardial infarction; Z79.899 Other long term (current) drug therapy; Z20.828 Contact with and (suspected) exposure to other viral communicable diseases
CPT/HCPCS: 0241U; 36000; 36415; 71045; 80053; 81015; 82150; 83605; 83690; 83735; 83880; 84484; 85025; 85379; 85610; 85652; 85730; 87040; 93005; 93041; 93268; 97161; 99285; G0378; A9270-GY

== ENCOUNTER 2022-07-17 08:02 | Emergency (ER) | payer MEDICARE, BC ==
[2022-07-17 08:44] LABS: Absolute Neutrophil Ct (ANC) 4.79 x10^3/uL (1.4-6.9); Basophil (Absolute #) 0.03 x10^3/uL (0-0.4); Eosinophil % 1.1 % (0.00-5.0); Eosinophil (Absolute #) 0.07 x10^3/uL (0-0.5); Hematocrit 39.2 % (35-47); Hemoglobin 12.3 g/dL (12.0-16.0); Lymphocyte (Absolute #) 1.07 x10^3/uL (1.0-4.6); Lymphocytes % 16.5 % (24.0-44.0); Mean Cell Volume 98.2 fL (78-100); Mean Corpuscular Hemoglobin 30.8 pg (26-32); Mean Corpuscular Hgb Concent. 31.4 g/dL (32-36); Mean Platelet Volume 11.7 fL (7.5-11.0); Monocyte (Absolute #) 0.49 x10^3/uL (0.0-1.3); Monocytes % 7.6 % (0.0-12.0); Platelet Count 173 x10^3/uL (150-450); Red Blood Count 3.99 x10^6/uL (4.1-5.4); Red Cell Distribution Width 13.5 % (11.5-14.0); White Blood Count 6.5 x10^3/uL (4.0-10.5)
--- NOTE | 2022-07-17 08:52 | ERPHSYRPT ---
- History of Present Illness Source: patient Exam Limitations: other (Poor historian) Patient Subjective Stated Complaint: SOB Triage Nursing Assessment: Patient brought back to ED and transferred self to bed. Patient A+OX 3. Patient's skin pink, warm and dry. Patient complains of increased SOB that started at 0200. Patient has hx of Afib and states he heart has been "pounding". Patient complains of intermittent chest tightness 2/10. Lungs clear a/p geena. Physician History: 77 yo wf cc of chronic dyspnea which is worse x1 day. Pt states that dyspnea is worse w exertion. She has a h/o chronic Afib which she states that the rate has been somewhat uncontrolled. Pt also has some mid-sternal chest tightness w radiation to her back which she currently rates 6/10. She has had some nausea wo vomiting/diaphoresis. Cough/coryza/melena/hematochezia/fever are all denied. Timing/Duration: yesterday Activities at Onset: rest Severity of Dyspnea-Max: moderate Severity of Dyspnea-Current: mild Possible Cause: chronic episodes (Pt has chronic dyspnea) Modifying Factors: Improves With: activity Associated Symptoms: chest pain/discomfort, tightness, No anxiety, No cough, No edema, No fever, No insomnia, No loss of appetite, No lightheadedness, No wheezing, No weakness, No ankle swelling, No chills, No hemoptysis, No calf pain, No dizziness, No heaviness, No heart racing, No lightheadedness, No leg swelling, No muscle spasms feet, No muscle spasms hands, No painful breathing, No productive cough, No sweating, No tingling face, No tingling hands Allergies/Adverse Reactions: No Known Drug Allergies Allergy (Verified 07/17/22 08:06) Home Medications: Memantine HCl 5 mg [Namenda 5 MG] 5 mg PO HS 12/07/12 [History] Ascorbate Calcium [Vitamin C] 500 mg PO DAILY 03/16/13 [History] Atorvastatin Calcium [Lipitor] 40 mg PO HS 03/16/13 [History] Calcium Carbonate/Vitamin D3 [Calcium 600-Vit D3 200 Tablet] 1 each PO BID 03/16/13 [History] Alendronate Sodium 70 mg [Fosamax 70 MG] 70 mg PO Q7D 02/21/21 [History] Losartan Potassium [Cozaar] 100 mg PO DAILY 12/15/21 [History] Nitroglycerin 0.4 mg Tablet [Nitrostat 0.4 MG Tablet] 0.4 mg SL UD 12/15/21 [History] Hydrocodone/Acetaminophen [Hydrocodone-Acetamin 5-325 mg] 1 tab PO Q6HPRN PRN MDD 4 03/19/22 [History] Sotalol HCl 80 mg [Betapace 80 MG] 80 mg PO BID 03/19/22 [History] Hx Tetanus, Diphtheria Vaccination/Date Given: Yes Hx Influenza Vaccination/Date Given: Yes Hx Pneumococcal Vaccination/Date Given: No Immunizations Up to Date: Yes Travel Risk - International Travel Have you traveled outside of the country in past 3 weeks: No - Coronavirus Screening Are you exhibiting any of the following symptoms?: No Close contact with a COVID-19 positive Pt in past 14-21 Days: No - Vaccine Status Have you recieved a Covid-19 vaccination: Yes [place]: Moderna - Vaccination Dates Date of 2cond Vaccination (if applicable): Dec 2020 - Review of Systems Constitutional: No Symptoms, Fatigue, Lethargy, Malaise Eyes: No Symptoms Ears, Nose, & Throat: No Symptoms Respiratory: No Symptoms, Dyspnea, Dyspnea on Exertion ([place]) Cardiac: No Symptoms, Chest Pain Abdominal/Gastrointestinal: No Symptoms, Nausea Genitourinary Symptoms: No Symptoms Musculoskeletal: No Symptoms Skin: No Symptoms Neurological: No Symptoms Psychological: No Symptoms Endocrine: No Symptoms Hematologic/Lymphatic: No Symptoms Immunological/Allergic: No Symptoms - Past Medical History Pertinent Past Medical History: Yes Neurological History: Stroke ENT History: No Pertinent History Cardiac History: Coronary Artery Disease, High Cholesterol, Hypertension, Myocardial Infarction ([place]) Respiratory History: No Pertinent History Endocrine Medical History: No Pertinent History Musculoskeletal History: No Pertinent History GI Medical History: GERD History: No Pertinent History Psycho-Social History: No Pertinent History Female Reproductive Disorders: Breast Cancer Other Medical History: [place] WITH CVA IN 2011;. issues with thyroid going on. Seeing endocrinlogist next week Jul 2022 - Past Surgical History Past Surgical History: Yes Neuro Surgical History: No Pertinent History Cardiac: Cardiac Catheterization, Cardiac Stent Respiratory: No Pertinent History Gastrointestinal: No Pertinent History Genitourinary: No Pertinent History Musculoskeletal: No Pertinent History Female Surgical History: Hysterectomy, Tubal Ligation, Lumpectomy Other Surgical History: Cath in 2012. Cardiac stents x 3. hysterctomy with bladder tie up 07/07/2021 - Social History Smoking Status: Never smoker Exposure to second hand smoke: No Drug Use: none Patient Lives Alone: Yes - Nursing Vital Signs Nursing Vital Signs: Initial Vital Signs Pulse Rate 111 H 07/17/22 08:06 Respiratory Rate 15 07/17/22 08:06 Blood Pressure 117/79 07/17/22 08:06 O2 Sat by Pulse Oximetry 100 07/17/22 08:06 Pain Scale Pain Intensity 0 Tachy - Physical Exam General Appearance: no apparent distress, anxiety Eye Exam: PERRL/EOMI, eyes nml inspection Ears, Nose, Throat Exam: hearing grossly normal, normal ENT inspection, normal pharynx, No abnormal TM (R), No abnormal TM (L) Neck Exam: normal inspection, non-tender, supple, full range of motion, No Brudzinski, No Kernig's, No meningismus, No carotid bruit Respiratory Exam: airway intact, crackles/rales (Very faint rales at R base) Cardiovascular/Chest Exam: tachycardia (Afib), No murmur Abdominal/Gastrointestinal Exam: soft, normal bowel sounds, No tenderness Extremity Exam: non-tender, normal range of motion, normal inspection, normal capillary refill, no calf tenderness, no pedal edema Peripheral Pulses Exam: carotid (R): 2+, carotid (L): 2+ Neurologic Exam: alert, oriented x 3, cooperative, staff readiness officer II-XII nml as tested, normal mood/affect, nml station & gait, sensation nml, No motor deficits, No sensory deficit Skin Exam: normal color, warm, dry Lymphatic Exam: No adenopathy SpO2 Interpretation: normal SpO2: 100 O2 Delivery: Room Air - Course Nursing assessment & vital signs reviewed: Yes EKG Interpreted by Me: RATE (Afib/Rate 107/Prolonged QTc/Low voltage/Flat Twaves/No acute ST changes) - Radiology Exams Chest X-ray Interpretation: Discussed w/ radiologist (CXR-nothing acute) Ordered Tests: Active Orders 24 hr Category Date Time Status EKG-ER Only STAT Care 07/17/22 08:20 Completed CHEST 1 VIEW (PORTABLE) Stat Exams 07/17/22 08:21 Completed CBC W DIFF Stat Lab 07/17/22 08:34 Completed CMP Stat Lab 07/17/22 08:34 Completed D-DIMER QUANTITATIVE Stat Lab 07/17/22 08:34 Completed MAGNESIUM Stat Lab 07/17/22 08:34 Completed NT PRO BNP Stat Lab 07/17/22 08:34 Completed PROTIME WITH INR Stat Lab 07/17/22 08:34 Completed PTT Stat Lab 07/17/22 08:34 Completed TROPONIN Q4H Lab 07/17/22 08:34 Completed TROPONIN Q4H Lab 07/17/22 10:18 Completed Medication Summary Discontinued Medications Generic Name Dose Route Start Last Admin Trade Name Freq PRN Reason Stop Dose Admin Diltiazem HCl 15 mg 07/17/22 10:57 07/17/22 11:04 Diltiazem Hcl Iv 5 Mg/Ml Vial IV 07/17/22 10:58 Not Given STAT ONE Diltiazem HCl 100 mls @ 5 mls/hr 07/17/22 10:57 Cardizem Drip 100 Mg/100 Ml D5w IV 08/16/22 10:56 .Q20H PRN HEART RATE/ A-FIB Protocol 5 MG/HR Lab/Rad Data: Laboratory Result Diagrams 07/17/22 08:34 07/17/22 08:34 Laboratory Results 07/17/22 07/17/22 07/17/22 Range/Units 10:18 08:34 08:34 WBC (4.0-10.5) x10^3/uL RBC (4.1-5.4) x10^6/uL Hgb (12.0-16.0) g/dL Hct (35-47) % MCV (78-100) fL MCH (26-32) pg MCHC (32-36) g/dL RDW (11.5-14.0) % Plt Count (150-450) x10^3/uL MPV (7.5-11.0) fL Gran % (36.0-66.0) % Immature Gran % (Auto) (0.00-0.4) % Nucleat RBC Rel Count (0.00-0.1) % Eos # (Auto) (0-0.5) x10^3/uL Immature Gran # (Auto) (0.00-0.03) x10^3u/L Absolute Lymphs (auto) (1.0-4.6) x10^3/uL Absolute Monos (auto) (0.0-1.3) x10^3/uL Absolute Nucleated RBC (0.00-0.01) x10^3u/L Lymphocytes % (24.0-44.0) % Monocytes % (0.0-12.0) % Eosinophils % (0.00-5.0) % Basophils % (0.0-0.4) % Absolute Granulocytes (1.4-6.9) x10^3/uL Basophils # (0-0.4) x10^3/uL PT (9.4-12.5) SECONDS INR (0.8-3.0) APTT (25.1-36.5) SECONDS D-Dimer < 0.19 (0.0-0.50) mg/L Sodium (137-145) mmol/L Potassium (3.5-5.1) mmol/L Chloride (98-107) mmol/L Carbon Dioxide (22-30) mmol/L Anion Gap (5-15) MEQ/L BUN (7-17) mg/dL Creatinine (0.52-1.04) mg/dL Estimated GFR ML/MIN Glucose (74-106) mg/dL Calcium (8.4-10.2) mg/dL Magnesium (1.6-2.3) mg/dL Total Bilirubin (0.2-1.3) mg/dL AST (14-36) U/L ALT (0-35) U/L Alkaline Phosphatase (38-126) U/L Troponin I < 0.012 (0.000-0.034) ng/mL NT-Pro-B Natriuret Pep (0-1800) pg/mL Serum Total Protein (6.3-8.2) g/dL Albumin (3.5-5.0) g/dL Influenza Type A Ag NEGATIVE (NEGATIVE) Influenza Type B Ag NEGATIVE (NEGATIVE) RSV (PCR) NEGATIVE (Negative) SARS-CoV-2 (PCR) NEGATIVE (NEGATIVE) 07/17/22 07/17/22 07/17/22 Range/Units 08:34 08:34 08:34 WBC (4.0-10.5) x10^3/uL RBC (4.1-5.4) x10^6/uL Hgb (12.0-16.0) g/dL Hct (35-47) % MCV (78-100) fL MCH (26-32) pg MCHC (32-36) g/dL RDW (11.5-14.0) % Plt Count (150-450) x10^3/uL MPV (7.5-11.0) fL Gran % (36.0-66.0) % Immature Gran % (Auto) (0.00-0.4) % Nucleat RBC Rel Count (0.00-0.1) % Eos # (Auto) (0-0.5) x10^3/uL Immature Gran # (Auto) (0.00-0.03) x10^3u/L Absolute Lymphs (auto) (1.0-4.6) x10^3/uL Absolute Monos (auto) (0.0-1.3) x10^3/uL Absolute Nucleated RBC (0.00-0.01) x10^3u/L Lymphocytes % (24.0-44.0) % Monocytes % (0.0-12.0) % Eosinophils % (0.00-5.0) % Basophils % (0.0-0.4) % Absolute Granulocytes (1.4-6.9) x10^3/uL Basophils # (0-0.4) x10^3/uL PT 12.5 (9.4-12.5) SECONDS INR 1.20 (0.8-3.0) APTT 30.6 (25.1-36.5) SECONDS D-Dimer (0.0-0.50) mg/L Sodium 142 (137-145) mmol/L Potassium 4.5 (3.5-5.1) mmol/L Chloride 108 H (98-107) mmol/L Carbon Dioxide 26 (22-30) mmol/L Anion Gap 11.3 (5-15) MEQ/L BUN 28 H (7-17) mg/dL Creatinine 0.58 (0.52-1.04) mg/dL Estimated GFR > 60.0 ML/MIN Glucose 114 H (74-106) mg/dL Calcium 9.3 (8.4-10.2) mg/dL Magnesium 1.9 (1.6-2.3) mg/dL Total Bilirubin 0.60 (0.2-1.3) mg/dL AST 31 (14-36) U/L ALT 35 (0-35) U/L Alkaline Phosphatase 56 (38-126) U/L Troponin I < 0.012 (0.000-0.034) ng/mL NT-Pro-B Natriuret Pep 2980 H (0-1800) pg/mL Serum Total Protein 6.5 (6.3-8.2) g/dL Albumin 4.1 (3.5-5.0) g/dL Influenza Type A Ag (NEGATIVE) Influenza Type B Ag (NEGATIVE) RSV (PCR) (Negative) SARS-CoV-2 (PCR) (NEGATIVE) 07/17/22 Range/Units 08:34 WBC 6.5 (4.0-10.5) x10^3/uL RBC 3.99 L (4.1-5.4) x10^6/uL Hgb 12.3 (12.0-16.0) g/dL Hct 39.2 (35-47) % MCV 98.2 (78-100) fL MCH 30.8 (26-32) pg MCHC 31.4 L (32-36) g/dL RDW 13.5 (11.5-14.0) % Plt Count 173 (150-450) x10^3/uL MPV 11.7 H (7.5-11.0) fL Gran % 74.0 H (36.0-66.0) % Immature Gran % (Auto) 0.3 (0.00-0.4) % Nucleat RBC Rel Count 0.0 (0.00-0.1) % Eos # (Auto) 0.07 (0-0.5) x10^3/uL Immature Gran # (Auto) 0.02 (0.00-0.03) x10^3u/L Absolute Lymphs (auto) 1.07 (1.0-4.6) x10^3/uL Absolute Monos (auto) 0.49 (0.0-1.3) x10^3/uL Absolute Nucleated RBC 0.00 (0.00-0.01) x10^3u/L Lymphocytes % 16.5 L (24.0-44.0) % Monocytes % 7.6 (0.0-12.0) % Eosinophils % 1.1 (0.00-5.0) % Basophils % 0.5 (0.0-0.4) % Absolute Granulocytes 4.79 (1.4-6.9) x10^3/uL Basophils # 0.03 (0-0.4) x10^3/uL PT (9.4-12.5) SECONDS INR (0.8-3.0) APTT (25.1-36.5) SECONDS D-Dimer (0.0-0.50) mg/L Sodium (137-145) mmol/L Potassium (3.5-5.1) mmol/L Chloride (98-107) mmol/L Carbon Dioxide (22-30) mmol/L Anion Gap (5-15) MEQ/L BUN (7-17) mg/dL Creatinine (0.52-1.04) mg/dL Estimated GFR ML/MIN Glucose (74-106) mg/dL Calcium (8.4-10.2) mg/dL Magnesium (1.6-2.3) mg/dL Total Bilirubin (0.2-1.3) mg/dL AST (14-36) U/L ALT (0-35) U/L Alkaline Phosphatase (38-126) U/L Troponin I (0.000-0.034) ng/mL NT-Pro-B Natriuret Pep (0-1800) pg/mL Serum Total Protein (6.3-8.2) g/dL Albumin (3.5-5.0) g/dL Influenza Type A Ag (NEGATIVE) Influenza Type B Ag (NEGATIVE) RSV (PCR) (Negative) SARS-CoV-2 (PCR) (NEGATIVE) - Progress Progress: improved Progress Note: 07/17/22 13:[address] 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 Flex MOSER Return to ER for increasing chest pain, increasing shortness of breath, or sustained heart rat greater than 115 Prescriptions: Sotalol HCl [Betapace] 120 mg PO BID #60 tablet
[2022-07-17 08:54] LABS: INR 1.2 (0.8-3.0); PROTIME 12.5 SECONDS (9.4-12.5); PTT 30.6 SECONDS (25.1-36.5)
[2022-07-17 09:00] LABS: ALBUMIN 4.1 g/dL (3.5-5.0); ALKALINE PHOSPHATASE 56 U/L (38-126); ANION GAP 11.3 MEQ/L (5-15); BLOOD UREA NITROGEN 28 mg/dL (7-17); CHLORIDE 108 mmol/L (98-107); Calcium 9.3 mg/dL (8.4-10.2); Carbon Dioxide 26 mmol/L (22-30); Creatinine 1 0.58 mg/dL (0.52-1.04); EST GLOMERULAR FILTRATION RATE > 60.0 ML/MIN; Glucose 114 mg/dL (74-106); MAGNESIUM 1.9 mg/dL (1.6-2.3); NT PRO BNP 2980 pg/mL (0-1800); Potassium 4.5 mmol/L (3.5-5.1); SGOT/AST 31 U/L (14-36); SGPT/ALT 35 U/L (0-35); SODIUM 142 mmol/L (137-145); Total Protein 6.5 g/dL (6.3-8.2)
[2022-07-17 09:17] LABS: INFLUENZA A NEGATIVE (NEGATIVE); INFLUENZA B NEGATIVE (NEGATIVE); RESPIRATORY SYNCTIAL VIRUS NEGATIVE (Negative); SARS-CoV-2 Xpert Express NEGATIVE (NEGATIVE)
--- NOTE | 2022-07-17 09:18 | XRAY ---
Indication: Tachycardia and short of breath. History atrial fibrillation. Comparison: July 10, 2022 Portable chest unchanged again inflated and clear. Heart not enlarged again with coronary stent. No new/acute cardiopulmonary abnormalities.
[2022-07-17] MEDS ORDERED: Cardizem IV 50 MG/10 ML IV ONE (10:57)
[2022-07-17] MEDS ORDERED: CARDIZEM DRIP 100 MG/100 ML D5W 100 ML IV PRN (10:57)
[2022-07-17 13:03] VITALS: BP 100/77; PULSE 125
[2022-07-17 13:30] VITALS: O2SAT 100
== END 2022-07-17 13:38 | disposition home or self-care (01) ==
LOC: ED 08:02
DX: I48.91 Unspecified atrial fibrillation (principal); Z79.01 Long term (current) use of anticoagulants; R06.00 Dyspnea, unspecified; R07.9 Chest pain, unspecified; R11.0 Nausea; E78.5 Hyperlipidemia, unspecified; I10 Essential (primary) hypertension; Z79.899 Other long term (current) drug therapy; Z20.828 Contact with and (suspected) exposure to other viral communicable diseases
CPT/HCPCS: 0241U; 36415; 71045; 80053; 83735; 83880; 84484; 85025; 85379; 85610; 85730; 93005; 99283

== ENCOUNTER 2023-05-27 11:04 | Emergency (ER) | payer MEDICARE, BC ==
--- NOTE | 2023-05-27 11:47 | ERPHSYRPT ---
- History of Present Illness Source: patient, other (Daughter) Exam Limitations: other (Poor historian) Patient Subjective Stated Complaint: PT states "I am getting weaker and weaker. I can barely lift my legs when I lay down or sit, my voice is off and I am just weak and tired." Triage Nursing Assessment: Pt presented alert and oriented X 3, skin pwd. Pt ambulates with a slow shuffling hunched over gait. pt able to move all extremities, bilat lower leg +1 pitting edema. Physician History: 78 yo WF w worsening generalized lethargy x 2 weeks. Pt has some dyspnea upon exertion but denies cough/coryza/chest pain/focal weakness/fever/melena/ hematochezia/nausea/vomiting/dysuria/hematuria/abdominal pain. She has a h/o HTN/CO/Stents/CVA wo deficits. She has seen her PCP about this problem. Timing/Duration: other (2+ wks) Modifying Factors: Improves With: nothing Associated Symptoms: denies symptoms Allergies/Adverse Reactions: No Known Drug Allergies Allergy (Verified 07/17/22 08:06) Home Medications: Memantine HCl 5 mg [Namenda 5 MG] 5 mg PO HS 12/07/12 [History] Ascorbate Calcium [Vitamin C] 500 mg PO DAILY 03/16/13 [History] Losartan Potassium [Cozaar] 100 mg PO DAILY 12/15/21 [History] Nitroglycerin 0.4 mg Tablet [Nitrostat 0.4 MG Tablet] 0.4 mg SL UD 12/15/21 [History] Sotalol HCl 80 mg [Betapace 80 MG] 80 mg PO BID 03/19/22 [History] Hx Tetanus, Diphtheria Vaccination/Date Given: Yes Hx Influenza Vaccination/Date Given: Yes Hx Pneumococcal Vaccination/Date Given: No Immunizations Up to Date: Yes Travel Risk - International Travel Have you traveled outside of the country in past 3 weeks: No - Coronavirus Screening Are you exhibiting any of the following symptoms?: No Close contact with a COVID-19 positive Pt in past 14-21 Days: No - Vaccine Status Have you recieved a Covid-19 vaccination: Yes Roving Technician: Moderna - Vaccination Dates Date of 2cond Vaccination (if applicable): Dec 2020 - Review of Systems Constitutional: No Symptoms, Lethargy, Malaise, Weakness Eyes: No Symptoms Ears, Nose, & Throat: No Symptoms Respiratory: No Symptoms, Dyspnea on Exertion (OLIVERA) Cardiac: No Symptoms Abdominal/Gastrointestinal: No Symptoms Genitourinary Symptoms: No Symptoms Musculoskeletal: No Symptoms Skin: No Symptoms Neurological: No Symptoms Psychological: No Symptoms Endocrine: No Symptoms Hematologic/Lymphatic: No Symptoms Immunological/Allergic: No Symptoms - Past Medical History Pertinent Past Medical History: Yes Neurological History: Stroke ENT History: No Pertinent History Cardiac History: Coronary Artery Disease, High Cholesterol, Hypertension, Myocardial Infarction (CO) Respiratory History: No Pertinent History Endocrine Medical History: No Pertinent History Musculoskeletal History: No Pertinent History GI Medical History: GERD History: No Pertinent History Psycho-Social History: No Pertinent History Female Reproductive Disorders: Breast Cancer Other Medical History: CO WITH CVA IN 2011;. L side breast CA - Past Surgical History Past Surgical History: Yes Neuro Surgical History: No Pertinent History Cardiac: Cardiac Catheterization, Cardiac Stent Respiratory: No Pertinent History Gastrointestinal: No Pertinent History Genitourinary: No Pertinent History Musculoskeletal: No Pertinent History Female Surgical History: Hysterectomy, Tubal Ligation, Lumpectomy Other Surgical History: Cath in 2011. Cardiac stents x 3. hysterctomy with bladder tie up 07/07/2021 - Social History Smoking Status: Never smoker Exposure to second hand smoke: No Drug Use: none Patient Lives Alone: Yes - Nursing Vital Signs Nursing Vital Signs: Initial Vital Signs Temperature 97.9 F 05/27/23 11:14 Pulse Rate 66 05/27/23 11:14 Respiratory Rate 20 05/27/23 11:14 Blood Pressure 173/79 05/27/23 11:14 O2 Sat by Pulse Oximetry 98 05/27/23 11:14 Pain Scale Pain Intensity 0 Hypertensive - Physical Exam General Appearance: no apparent distress Eye Exam: PERRL/EOMI, eyes nml inspection Ears, Nose, Throat Exam: normal ENT inspection, TMs normal, pharynx normal, moist mucous membranes Neck Exam: normal inspection, non-tender, supple, full range of motion, No meningismus, No mass, No Brudzinski, No Kernig's, No carotid bruit Respiratory Exam: normal breath sounds, lungs clear, airway intact, No respiratory distress Cardiovascular Exam: regular rate/rhythm, normal heart sounds, normal peripheral pulses, capillary refill <2 sec, No murmur Gastrointestinal/Abdomen Exam: soft, normal bowel sounds, No tenderness Back Exam: normal inspection, normal range of motion Extremity Exam: normal inspection, normal range of motion Neurologic Exam: alert, oriented x 3, cooperative, squilgeer II-XII nml as tested, normal mood/affect, sensation nml, motor weakness (Symmetric LE weakness(4/5 B)), No motor deficits, No sensory deficit Skin Exam: normal color, warm, dry Lymphatic Exam: No adenopathy SpO2 Interpretation: normal SpO2: 98 O2 Delivery: Room Air - Course Nursing assessment & vital signs reviewed: Yes EKG Interpreted by Me: RATE (NSR/Rate 66/Normal QT-QTc/Flat Twaves/Poor Rwave progression V2-V3) - CT Exams Head CT Interpretation: Tele-radiologist Report (Possible normal pressure hydrocephalus) Ordered Tests: Active Orders 24 hr Category Date Time Status EKG-ER Only STAT Care 05/27/23 11:38 Completed CHEST 1 VIEW (PORTABLE) Stat Exams 05/27/23 12:23 Completed HEAD WITHOUT CONTRAST [CT] Stat Exams 05/27/23 12:12 Completed MRI BRAIN W/O CONTRAST [MRI] Stat Exams 05/27/23 15:19 Completed CBC W DIFF Stat Lab 05/27/23 12:06 Completed CMP Stat Lab 05/27/23 12:06 Completed CULTURE,URINE Stat Lab 05/27/23 13:49 Received Lactic Acid Stat Lab 05/27/23 11:47 Completed NT PRO BNPII Stat Lab 05/27/23 12:06 Completed PROTIME WITH INR Stat Lab 05/27/23 12:06 Completed PTT Stat Lab 05/27/23 12:06 Completed T4 (Thyroxine) Stat Lab 05/27/23 12:06 Completed TROPONIN Q4H Lab 05/27/23 12:06 Completed TROPONIN Q4H Lab 05/27/23 16:25 Completed TSH [TSH, 3RD Generation] Stat Lab 05/27/23 12:06 Completed UA W/RFX UR CULTURE Stat Lab 05/27/23 13:49 Completed Medication Summary Discontinued Medications Generic Name Dose Route Start Last Admin Trade Name Freq PRN Reason Stop Dose Admin Ceftriaxone Sodium/Dextrose 1 g in 50 mls @ 100 mls/hr 05/27/23 14:51 05/27/23 15:30 Rocephin 1 Gm-D5w 50 Ml Bag IV 05/27/23 15:20 Infused STAT STA Infusion Ceftriaxone Sodium/Dextrose Confirm 05/27/23 14:57 Rocephin 1 Gm-D5w 50 Ml Bag Administered 05/27/23 14:58 Dose 1 g in 50 mls @ ud IV .STK-MED ONE Lab/Rad Data: Laboratory Result Diagrams 05/27/23 12:06 05/27/23 12:06 Laboratory Results 05/27/23 05/27/23 05/27/23 Range/Units 16:25 13:49 12:06 WBC (4.0-10.5) x10^3/uL RBC (4.1-5.4) x10^6/uL Hgb (12.0-16.0) g/dL Hct (35-47) % MCV (78-100) fL MCH (26-32) pg MCHC (32-36) g/dL RDW (11.5-14.0) % Plt Count (150-450) x10^3/uL MPV (7.5-11.0) fL Gran % (36.0-66.0) % Immature Gran % (Auto) (0.00-0.4) % Nucleat RBC Rel Count (0.00-0.1) % Eos # (Auto) (0-0.5) x10^3/uL Immature Gran # (Auto) (0.00-0.03) x10^3u/L Absolute Lymphs (auto) (1.0-4.6) x10^3/uL Absolute Monos (auto) (0.0-1.3) x10^3/uL Absolute Nucleated RBC (0.00-0.01) x10^3u/L Lymphocytes % (24.0-44.0) % Monocytes % (0.0-12.0) % Eosinophils % (0.00-5.0) % Basophils % (0.0-0.4) % Absolute Granulocytes (1.4-6.9) x10^3/uL Basophils # (0-0.4) x10^3/uL PT (9.4-12.5) SECONDS INR (0.8-3.0) APTT (25.1-36.5) SECONDS Sodium (137-145) mmol/L Potassium (3.5-5.1) mmol/L Chloride (98-107) mmol/L Carbon Dioxide (22-30) mmol/L Anion Gap (5-15) MEQ/L BUN (7-17) mg/dL Creatinine (0.52-1.04) mg/dL Estimated GFR ML/MIN Glucose (74-106) mg/dL Lactic Acid (0.4-2.0) Calcium (8.4-10.2) mg/dL Total Bilirubin (0.2-1.3) mg/dL AST (14-36) U/L ALT (0-35) U/L Alkaline Phosphatase (38-126) U/L Troponin I < 0.012 (0.000-0.034) ng/mL NT-Pro-B Natriuret Pep (<300) pg/mL Serum Total Protein (6.3-8.2) g/dL Albumin (3.5-5.0) g/dL Thyroxine (T4) (5.53-10.96) ug/dL TSH 3rd Generation (0.47-4.68) mIU/L Urine Color Yellow (Yellow) Urine Appearance Cloudy A (Clear) Urine pH 6.5 (4.6-8.0) Ur Specific [place] >=1.030 A (1.005-1.030) Urine Protein Trace A (Negative) Urine Glucose (UA) Negative (Negative) mg/dL Urine Ketones Trace A (Negative) Urine Blood Negative (Negative) Urine Nitrite Negative (Negative) Urine Bilirubin Negative (Negative) Urine Urobilinogen 1.0 A (0.2) mg/dL Ur Leukocyte Esterase Small A (Negative) U Hyaline Cast (Auto) NONE SEEN (0-2) /LPF Urine Microscopic RBC 0-2 (0-5) /HPF Urine Microscopic WBC 3-5 (0-5) /HPF Ur Epithelial Cells Moderate A (None Seen) /HPF Urine Bacteria Few A (None Seen) /HPF Urine Culture Reflexed YES (NO) Influenza Type A Ag NEGATIVE (NEGATIVE) Influenza Type B Ag NEGATIVE (NEGATIVE) RSV (PCR) NEGATIVE (NEGATIVE) SARS-CoV-2 (PCR) NEGATIVE (NEGATIVE) 05/27/23 05/27/23 05/27/23 Range/Units 12:06 12:06 12:06 WBC (4.0-10.5) x10^3/uL RBC (4.1-5.4) x10^6/uL Hgb (12.0-16.0) g/dL Hct (35-47) % MCV (78-100) fL MCH (26-32) pg MCHC (32-36) g/dL RDW (11.5-14.0) % Plt Count (150-450) x10^3/uL MPV (7.5-11.0) fL Gran % (36.0-66.0) % Immature Gran % (Auto) (0.00-0.4) % Nucleat RBC Rel Count (0.00-0.1) % Eos # (Auto) (0-0.5) x10^3/uL Immature Gran # (Auto) (0.00-0.03) x10^3u/L Absolute Lymphs (auto) (1.0-4.6) x10^3/uL Absolute Monos (auto) (0.0-1.3) x10^3/uL Absolute Nucleated RBC (0.00-0.01) x10^3u/L Lymphocytes % (24.0-44.0) % Monocytes % (0.0-12.0) % Eosinophils % (0.00-5.0) % Basophils % (0.0-0.4) % Absolute Granulocytes (1.4-6.9) x10^3/uL Basophils # (0-0.4) x10^3/uL PT (9.4-12.5) SECONDS INR (0.8-3.0) APTT (25.1-36.5) SECONDS Sodium (137-145) mmol/L Potassium (3.5-5.1) mmol/L Chloride (98-107) mmol/L Carbon Dioxide (22-30) mmol/L Anion Gap (5-15) MEQ/L BUN (7-17) mg/dL Creatinine (0.52-1.04) mg/dL Estimated GFR ML/MIN Glucose (74-106) mg/dL Lactic Acid (0.4-2.0) Calcium (8.4-10.2) mg/dL Total Bilirubin (0.2-1.3) mg/dL AST (14-36) U/L ALT (0-35) U/L Alkaline Phosphatase (38-126) U/L Troponin I < 0.012 (0.000-0.034) ng/mL NT-Pro-B Natriuret Pep 565 (<300) pg/mL Serum Total Protein (6.3-8.2) g/dL Albumin (3.5-5.0) g/dL Thyroxine (T4) 7.87 (5.53-10.96) ug/dL TSH 3rd Generation 1.380 (0.47-4.68) mIU/L Urine Color (Yellow) Urine Appearance (Clear) Urine pH (4.6-8.0) Ur Specific [place] (1.005-1.030) Urine Protein (Negative) Urine Glucose (UA) (Negative) mg/dL Urine Ketones (Negative) Urine Blood (Negative) Urine Nitrite (Negative) Urine Bilirubin (Negative) Urine Urobilinogen (0.2) mg/dL Ur Leukocyte Esterase (Negative) U Hyaline Cast (Auto) (0-2) /LPF Urine Microscopic RBC (0-5) /HPF Urine Microscopic WBC (0-5) /HPF Ur Epithelial Cells (None Seen) /HPF Urine Bacteria (None Seen) /HPF Urine Culture Reflexed (NO) Influenza Type A Ag (NEGATIVE) Influenza Type B Ag (NEGATIVE) RSV (PCR) (NEGATIVE) SARS-CoV-2 (PCR) (NEGATIVE) 05/27/23 05/27/23 05/27/23 Range/Units 12:06 12:06 12:06 WBC 5.7 (4.0-10.5) x10^3/uL RBC 4.27 (4.1-5.4) x10^6/uL Hgb 12.7 (12.0-16.0) g/dL Hct 40.5 (35-47) % MCV 94.8 (78-100) fL MCH 29.7 (26-32) pg MCHC 31.4 L (32-36) g/dL RDW 13.8 (11.5-14.0) % Plt Count 174 (150-450) x10^3/uL MPV 11.6 H (7.5-11.0) fL Gran % 75.7 H (36.0-66.0) % Immature Gran % (Auto) 0.4 (0.00-0.4) % Nucleat RBC Rel Count 0.0 (0.00-0.1) % Eos # (Auto) 0.07 (0-0.5) x10^3/uL Immature Gran # (Auto) 0.02 (0.00-0.03) x10^3u/L Absolute Lymphs (auto) 0.82 L (1.0-4.6) x10^3/uL Absolute Monos (auto) 0.44 (0.0-1.3) x10^3/uL Absolute Nucleated RBC 0.00 (0.00-0.01) x10^3u/L Lymphocytes % 14.5 L (24.0-44.0) % Monocytes % 7.8 (0.0-12.0) % Eosinophils % 1.2 (0.00-5.0) % Basophils % 0.4 (0.0-0.4) % Absolute Granulocytes 4.30 (1.4-6.9) x10^3/uL Basophils # 0.02 (0-0.4) x10^3/uL PT 13.7 H (9.4-12.5) SECONDS INR 1.28 (0.8-3.0) APTT 31.9 (25.1-36.5) SECONDS Sodium 142 (137-145) mmol/L Potassium 4.0 (3.5-5.1) mmol/L Chloride 108 H (98-107) mmol/L Carbon Dioxide 26 (22-30) mmol/L Anion Gap 11.6 (5-15) MEQ/L BUN 26 H (7-17) mg/dL Creatinine 0.63 (0.52-1.04) mg/dL Estimated GFR > 60.0 ML/MIN Glucose 117 H (74-106) mg/dL Lactic Acid (0.4-2.0) Calcium 9.0 (8.4-10.2) mg/dL Total Bilirubin 1.00 (0.2-1.3) mg/dL AST 26 (14-36) U/L ALT 23 (0-35) U/L Alkaline Phosphatase 47 (38-126) U/L Troponin I (0.000-0.034) ng/mL NT-Pro-B Natriuret Pep (<300) pg/mL Serum Total Protein 7.1 (6.3-8.2) g/dL Albumin 4.1 (3.5-5.0) g/dL Thyroxine (T4) (5.53-10.96) ug/dL TSH 3rd Generation (0.47-4.68) mIU/L Urine Color (Yellow) Urine Appearance (Clear) Urine pH (4.6-8.0) Ur Specific [place] (1.005-1.030) Urine Protein (Negative) Urine Glucose (UA) (Negative) mg/dL Urine Ketones (Negative) Urine Blood (Negative) Urine Nitrite (Negative) Urine Bilirubin (Negative) Urine Urobilinogen (0.2) mg/dL Ur Leukocyte Esterase (Negative) U Hyaline Cast (Auto) (0-2) /LPF Urine Microscopic RBC (0-5) /HPF Urine Microscopic WBC (0-5) /HPF Ur Epithelial Cells (None Seen) /HPF Urine Bacteria (None Seen) /HPF Urine Culture Reflexed (NO) Influenza Type A Ag (NEGATIVE) Influenza Type B Ag (NEGATIVE) RSV (PCR) (NEGATIVE) SARS-CoV-2 (PCR) (NEGATIVE) 05/27/23 Range/Units 11:47 WBC (4.0-10.5) x10^3/uL RBC (4.1-5.4) x10^6/uL Hgb (12.0-16.0) g/dL Hct (35-47) % MCV (78-100) fL MCH (26-32) pg MCHC (32-36) g/dL RDW (11.5-14.0) % Plt Count (150-450) x10^3/uL MPV (7.5-11.0) fL Gran % (36.0-66.0) % Immature Gran % (Auto) (0.00-0.4) % Nucleat RBC Rel Count (0.00-0.1) % Eos # (Auto) (0-0.5) x10^3/uL Immature Gran # (Auto) (0.00-0.03) x10^3u/L Absolute Lymphs (auto) (1.0-4.6) x10^3/uL Absolute Monos (auto) (0.0-1.3) x10^3/uL Absolute Nucleated RBC (0.00-0.01) x10^3u/L Lymphocytes % (24.0-44.0) % Monocytes % (0.0-12.0) % Eosinophils % (0.00-5.0) % Basophils % (0.0-0.4) % Absolute Granulocytes (1.4-6.9) x10^3/uL Basophils # (0-0.4) x10^3/uL PT (9.4-12.5) SECONDS INR (0.8-3.0) APTT (25.1-36.5) SECONDS Sodium (137-145) mmol/L Potassium (3.5-5.1) mmol/L Chloride (98-107) mmol/L Carbon Dioxide (22-30) mmol/L Anion Gap (5-15) MEQ/L BUN (7-17) mg/dL Creatinine (0.52-1.04) mg/dL Estimated GFR ML/MIN Glucose (74-106) mg/dL Lactic Acid 1.6 (0.4-2.0) Calcium (8.4-10.2) mg/dL Total Bilirubin (0.2-1.3) mg/dL AST (14-36) U/L ALT (0-35) U/L Alkaline Phosphatase (38-126) U/L Troponin I (0.000-0.034) ng/mL NT-Pro-B Natriuret Pep (<300) pg/mL Serum Total Protein (6.3-8.2) g/dL Albumin (3.5-5.0) g/dL Thyroxine (T4) (5.53-10.96) ug/dL TSH 3rd Generation (0.47-4.68) mIU/L Urine Color (Yellow) Urine Appearance (Clear) Urine pH (4.6-8.0) Ur Specific [place] (1.005-1.030) Urine Protein (Negative) Urine Glucose (UA) (Negative) mg/dL Urine Ketones (Negative) Urine Blood (Negative) Urine Nitrite (Negative) Urine Bilirubin (Negative) Urine Urobilinogen (0.2) mg/dL Ur Leukocyte Esterase (Negative) U Hyaline Cast (Auto) (0-2) /LPF Urine Microscopic RBC (0-5) /HPF Urine Microscopic WBC (0-5) /HPF Ur Epithelial Cells (None Seen) /HPF Urine Bacteria (None Seen) /HPF Urine Culture Reflexed (NO) Influenza Type A Ag (NEGATIVE) Influenza Type B Ag (NEGATIVE) RSV (PCR) (NEGATIVE) SARS-CoV-2 (PCR) (NEGATIVE) - Progress Progress Note: 05/27/23 21:30 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 So, Neurosurgery, thought juarez pt would be better served w neurology consult Tele-neuro consult, believes that pt has Parkinson's disease vs NPH. Thinks that pt needs outpt neurology consult w Sinemet trial. 1gm IV Rocephin for possible UTI Pt/daughter to call Dr. Jamison dominguez in AM for neuro consult Counseled pt/family regarding: lab results, diagnosis, need for follow-up, rad results - Departure Departure Disposition: Home Clinical Impression: Weakness, UTI (urinary tract infection) Condition: Stable Critical Care Time: No Referrals: ANTHONY BHANDARI, CHANDLER [Primary Care Provider] - Follow up/PCP as directed Instructions: Generalized Weakness (DC) Additional Instructions: Follow up with a neurologist EHSAN
[2023-05-27 12:06] LABS: BASOPHIL % 0.4 % (0.0-0.4); Basophil (Absolute #) 0.02 x10^3/uL (0-0.4); Eosinophil % 1.2 % (0.00-5.0); Eosinophil (Absolute #) 0.07 x10^3/uL (0-0.5); Hematocrit 40.5 % (35-47); Hemoglobin 12.7 g/dL (12.0-16.0); IMMATURE GRAN # 0.02 x10^3u/L (0.00-0.03); IMMATURE GRAN % 0.4 % (0.00-0.4); Lymphocyte (Absolute #) 0.82 x10^3/uL (1.0-4.6); Lymphocytes % 14.5 % (24.0-44.0); Mean Cell Volume 94.8 fL (78-100); Mean Corpuscular Hemoglobin 29.7 pg (26-32); Mean Corpuscular Hgb Concent. 31.4 g/dL (32-36); Mean Platelet Volume 11.6 fL (7.5-11.0); Monocyte (Absolute #) 0.44 x10^3/uL (0.0-1.3); Monocytes % 7.8 % (0.0-12.0); Neutrophil % 75.7 % (36.0-66.0); Platelet Count 174 x10^3/uL (150-450); Red Blood Count 4.27 x10^6/uL (4.1-5.4); Red Cell Distribution Width 13.8 % (11.5-14.0); White Blood Count 5.7 x10^3/uL (4.0-10.5)
[2023-05-27 12:19] LABS: ALBUMIN 4.1 g/dL (3.5-5.0); ALKALINE PHOSPHATASE 47 U/L (38-126); ANION GAP 11.6 MEQ/L (5-15); BLOOD UREA NITROGEN 26 mg/dL (7-17); CHLORIDE 108 mmol/L (98-107); Carbon Dioxide 26 mmol/L (22-30); Creatinine 1 0.63 mg/dL (0.52-1.04); EST GLOMERULAR FILTRATION RATE > 60.0 ML/MIN; Glucose 117 mg/dL (74-106); SGOT/AST 26 U/L (14-36); SGPT/ALT 23 U/L (0-35); SODIUM 142 mmol/L (137-145); Total Protein 7.1 g/dL (6.3-8.2)
[2023-05-27 12:21] LABS: INR 1.28 (0.8-3.0); PROTIME 13.7 SECONDS (9.4-12.5); PTT 31.9 SECONDS (25.1-36.5)
[2023-05-27 12:47] LABS: INFLUENZA A NEGATIVE (NEGATIVE); INFLUENZA B NEGATIVE (NEGATIVE); RESPIRATORY SYNCTIAL VIRUS NEGATIVE (NEGATIVE); SARS-CoV-2 Xpert Express NEGATIVE (NEGATIVE)
[2023-05-27 12:50] LABS: T4 (Thyroxine) 7.87 ug/dL (5.53-10.96); TSH, 3RD Generation 1.38 mIU/L (0.47-4.68)
--- NOTE | 2023-05-27 13:02 | XRAY ---
CLINICAL HISTORY:lethargy. COMPARISON:None. TECHNIQUES:X-ray of the chest in AP view. FINDINGS: Cardiac size is within normal limits. No major collapse or consolidation. Small nodular opacities seen in both upper lung zones representing calcified granulomas. Aortic arch calcification noted. Normal configuration of the mediastinum. The samy are normal in size and position. Costophrenic and cardiophrenic angles are clear. Surgical mayra are seen overlying left chest wall, likely status post-operative. Faint nodular opacity projecting in both lower zones mostly from nipple shadowing. Coronary artery stent seen Bony thorax is unremarkable. IMPRESSION: No acute cardiopulmonary pathology seen. Electronically Signed by: Patricio Calix MD. (05/27/2023 11:56:44 [employer])
--- NOTE | 2023-05-27 13:04 | XRAY ---
CLINICAL HISTORY:lethargy. COMPARISON:None. TECHNIQUES:Axial non-contrast CT scan of the brain was performed from the skull base to the high parietal region. CTDI: 53.92 mGy, DLP: 1016.25 mGy*cm. FINDINGS: Moderately dilated ventricular system, not matching with extra-axial CSF spaces. Periventricular ill-defined hypodense areas noted bilaterally, suggestive of white matter ischemic changes. Fernando-white matter differentiation is maintained. No midline shifts or deformity. No intracerebral or extra axial hematoma. Normal CT appearance of the posterior fossa structures namely the cerebellar hemispheres, brainstem and cerebellar peduncles. The IACs are unremarkable. The cerebello-pontine angles are clear. The pituitary gland, the pineal gland, the optic chiasm is unremarkable. The osseous structures in the skull base are unremarkable. No definite calvarium fractures. The scanned paranasal sinuses are clear. IMPRESSION: 1. Moderately dilated ventricular system, not matching with extra-axial CSF spaces. Normal pressure hydrocephalus to be excluded. 2. Periventricular ill-defined hypodense areas noted bilaterally, suggestive of white matter ischemic changes. Electronically Signed by: Patricio Calix MD. (05/27/2023 12:00:[address] [address] [employer])
[2023-05-27 14:27] LABS: ADD URINE CULTURE? YES (NO); Appearance Cloudy (Clear); Bacteria Few /HPF (None Seen); Bilirubin Negative (Negative); Blood Negative (Negative); Epithelial Cells Moderate /HPF (None Seen); Glucose, Urine Negative (Negative); Hyaline Casts NONE SEEN /LPF (0-2); Ketones Trace (Negative); Leukocyte Esterase Small (Negative); Nitrite Negative (Negative); Ph 6.5 (4.6-8.0); Protein,Urine Dip Trace (Negative); RBC 0-2 /HPF (0-5); Specific Gravity >=1.030 (1.005-1.030)
[2023-05-27 14:28] VITALS: O2SAT 98
[2023-05-27] MEDS ORDERED: ROCEPHIN 1 Gm-D5w 50 ml Bag** 1 G/50 ML IVPB IV STA (14:51)
[2023-05-27] MEDS ORDERED: ROCEPHIN 1 Gm-D5w 50 ml Bag** 1 G/50 ML IVPB IV ONE (14:57)
[2023-05-27 15:11] VITALS: PULSE 59
--- NOTE | 2023-05-27 16:46 | XRAY ---
CLINICAL HISTORY:Lethargy. COMPARISON:CT brain of the same date reviewed. TECHNIQUES:Different pulse sequences were performed in different planes without contrast injection for the brain. Images were sent through PACs for interpretation. FINDINGS: Multiple patchy confluent areas of abnormal high T2 / FLAIR signal are seen within the deep cerebral white matter surrounding the lateral ventricles. They show no diffusion restriction. Multiple tiny foci of abnormal high T2 / FLAIR signal also seen scattered within the centrum semiovale, and lima radiata with no related perifocal edema or mass effect. No intracerebral or extra-axial hematomas or masses. No territorial infarctions could be depicted. Moderately dilated ventricular system with no deformity. Enlarged extra-axial CSF spaces including cortical sulci, fissures and basal cisterns. Normal MRI appearance of different anatomical parts of the brain stem namely the midbrain, anel and medulla oblongata. Normal MRI appearance of the petrous temporal bones. Normal pituitary gland with no definite masses. No shift of midline structures. Normal MRI appearance of orbital structures. Clear para-nasal sinuses. IMPRESSION: 1. 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 2. Advanced senile diffuse brain atrophy. 3. The possibility of normal pressure hydrocephalus should be considered. Electronically Signed by: Patricio Calix MD. (05/27/2023 15:40:14 GRANULATING BLENDER)
[2023-05-27 17:10] VITALS: BP 165/73
== END 2023-05-27 18:07 | disposition home or self-care (01) ==
LOC: ED 11:04
DX: R53.1 Weakness (principal); N39.0 Urinary tract infection, site not specified; R26.89 Other abnormalities of gait and mobility; R53.83 Other fatigue; R06.09 Other forms of dyspnea; I10 Essential (primary) hypertension; E78.5 Hyperlipidemia, unspecified; Z79.899 Other long term (current) drug therapy; Z20.828 Contact with and (suspected) exposure to other viral communicable diseases
CPT/HCPCS: 0241U; 36415; 70450; 70551; 71045; 80053; 81001; 83605; 83880; 84436; 84443; 84484; 85025; 85610; 85730; 87086; 93005; 96365; 99284; J0696

== ENCOUNTER 2023-11-07 11:22 | Day surgery (SDC) | payer MEDICARE, BC ==
--- NOTE | 2023-11-06 09:12 | HP ---
DATE OF SURGERY: 11/07/2023 HISTORY OF PRESENT ILLNESS: The patient is a 78-year-old female who present with an atypical lesion on her right cheek and getting bigger. She does see Dr. Demetrio Atkinson occasionally. She has a history of breast cancer and radiation. The lesion is irregular with a small horn on it. It looks consistent with a skin cancer. PAST MEDICAL HISTORY: Breast cancer. Hypertension. Hyperlipidemia. Heart disease. Atrial fibrillation. PAST SURGICAL HISTORY: Lumpectomy. Tubal ligation. Cataracts. Hysterectomy. ALLERGIES: NKDA. MEDICATIONS: Nitro, calcium, memantine, rivaroxaban, sotalol, losartan, carbidopa/levodopa. FAMILY HISTORY: None reported. SOCIAL HISTORY: Negative. REVIEW OF SYSTEMS: CONSTITUTIONAL: Denies fever or chills. CHEST: Denies shortness of breath. CVS: Denies chest pain. ABDOMEN: Denies abdominal pain. PHYSICAL EXAMINATION: GENERAL: No acute distress. CHEST: Nonlabored. No shortness of breath. CVS: Regular rate and rhythm. ABDOMEN: Soft. INTEGUMENTARY: A 3 mm raised lesion in the right cheek with a horn. IMPRESSION: Atypical right cheek lesion. PLAN: Excision of right cheek lesion with Dr. Leonardo Bedolla. As dictated by Estefany Correa NP.
[~2023-11-07 11:22] MED LIST changes: -Lactated Ringers 1,000 ML IV SCH; +Sensorcaine 0.25% 10 ML ONE
[2023-11-07] MEDS ORDERED: Xylocaine 1% Vial 30 ML PF IJ ONE (12:14)
[2023-11-07 12:17] VITALS: RESP 16
[2023-11-07] MEDS ORDERED: Triple Antibiotic Ointment ONE (13:37)
--- NOTE | 2023-11-07 13:57 | OP ---
SURGERY DATE/TIME: 11/07/2023 1313 PREOPERATIVE DIAGNOSIS: Atypical lesion right cheek 1.5 cm. POSTOPERATIVE DIAGNOSIS: Atypical lesion right cheek 1.5 cm. PROCEDURE: Excision of right cheek lesion. SURGEON: Leonardo Bedolla M.D. ANESTHESIA: Local. COMPLICATIONS: None. CONDITION: Stable. DESCRIPTION OF PROCEDURE: It does have what looks like a keratotic horn on it. It is elliptically excised on the skin line and then it was closed with simple interrupted suture #4-0 and 5-0 Prolene. Sterile ointment applied. Pathology pending.
[2023-11-07 14:06] VITALS: PULSE 68; TEMP 98.8; O2SAT 95
[2023-11-07 14:17] VITALS: BP 176/72
== END 2023-11-07 14:30 | disposition home or self-care (01) ==
LOC: SDC 11:22
PROVIDERS: ATTEND Surgery
DX: C76.0 Malignant neoplasm of head, face and neck (principal)
CPT/HCPCS: J2001; A9270-GY

== ENCOUNTER 2024-02-24 10:42 | Observation (INO) | payer MEDICARE, BC ==
[2024-02-24 11:13] LABS: Absolute Neutrophil Ct (ANC) 4.72 x10^3/uL (1.4-6.9); BASOPHIL % 0.6 % (0.0-0.4); Basophil (Absolute #) 0.04 x10^3/uL (0-0.4); Eosinophil % 1.5 % (0.00-5.0); Hematocrit 40.5 % (35-47); Hemoglobin 13.4 g/dL (12.0-16.0); IMMATURE GRAN # 0.01 x10^3u/L (0.00-0.03); IMMATURE GRAN % 0.2 % (0.00-0.4); Lymphocyte (Absolute #) 1.16 x10^3/uL (1.0-4.6); Lymphocytes % 17.7 % (24.0-44.0); Mean Cell Volume 92.3 fL (78-100); Mean Corpuscular Hemoglobin 30.5 pg (26-32); Mean Corpuscular Hgb Concent. 33.1 g/dL (32-36); Mean Platelet Volume 11.3 fL (7.5-11.0); Monocyte (Absolute #) 0.51 x10^3/uL (0.0-1.3); Monocytes % 7.8 % (0.0-12.0); Neutrophil % 72.2 % (36.0-66.0); Platelet Count 195 x10^3/uL (150-450); Red Blood Count 4.39 x10^6/uL (4.1-5.4); White Blood Count 6.5 x10^3/uL (4.0-10.5)
--- NOTE | 2024-02-24 11:23 | ERPHSYRPT ---
- History of Present Illness Source: patient, family Exam Limitations: no limitations Patient Subjective Stated Complaint: Chest pain Triage Nursing Assessment: Patient brought back to ED per w/c and transferred to bed with assist of 1. Patient A+O X 3. Patient's skin pink, warm and dry. Patient complains of Chest pain on and off for 1 week. Patient states today she woke up with CP and increased SOB and took Nitro X 2 with no relief. Patient complains of Chest pain, face and jaw pain on both sides. 03/27. Lungs clear a/p geena. Physician History: Patient is here with chest pain. Midsternal. Has been going on for 1 week. Patient does have a history of coronary artery disease, stents, A-fib. Patient currently is in A-fib with a rate of 123. No falls or trauma. She has taken 2 nitros prior to arrival. 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 She has no fever, chills, systemic signs of illness today. She is brought in by her adult daughter who also provides history. Patient states that she had her first heart attack and stents in 2013. Also had a stroke during that time. Patient is on Pradaxa for her A-fib, history of these problems. Allergies/Adverse Reactions: No Known Drug Allergies Allergy (Verified 02/24/24 10:46) Home Medications: Memantine HCl 5 mg [Namenda 5 MG] 5 mg PO HS 12/07/12 [History] Ascorbate Calcium [Vitamin C] 500 mg PO DAILY 03/16/13 [History] Losartan Potassium [Cozaar] 100 mg PO DAILY 12/15/21 [History] Nitroglycerin 0.4 mg Tablet [Nitrostat 0.4 MG Tablet] 0.4 mg SL UD 12/15/21 [History] Ascorbic Acid 500 mg [Vitamin C 500 MG] 500 mg PO DAILY 09/26/23 [History] Carbidopa/Levodopa [Carbidopa-Levo 25-250 mg Odt] 1 tab PO BID 09/26/23 [History] Carbidopa/Levodopa [Carbidopa-Levo 25-100 mg Odt] 1 each PO HS 11/07/23 [History] Dabigatran Etexilate Mesylate [Pradaxa] 75 mg PO DAILY 11/07/23 [History] Hydrochlorothiazide 25 mg [hydroDIURIL 25 MG] 25 mg PO DAILY 11/07/23 [History] Valsartan [Diovan] 320 mg PO DAILY 11/07/23 [History] Hx Tetanus, Diphtheria Vaccination/Date Given: Yes Hx Influenza Vaccination/Date Given: Yes Hx Pneumococcal Vaccination/Date Given: No Immunizations Up to Date: Yes Travel Risk - International Travel Have you traveled outside of the country in past 3 weeks: No - Emerging Infectious Disease Are you exhibiting symptoms associated with any current EIDs: No - Past Medical History Pertinent Past Medical History: Yes Neurological History: Stroke ENT History: No Pertinent History Cardiac History: Arrhythmia, Coronary Artery Disease, High Cholesterol, Hypertension, Myocardial Infarction ([place]) Respiratory History: No Pertinent History Endocrine Medical History: No Pertinent History Musculoskeletal History: No Pertinent History GI Medical History: GERD History: No Pertinent History Psycho-Social History: No Pertinent History Female Reproductive Disorders: Breast Cancer Other Medical History: [place] WITH CVA IN 2011; parkinsons. L side breast CA - Past Surgical History Past Surgical History: Yes Neuro Surgical History: No Pertinent History Cardiac: Cardiac Catheterization, Cardiac Stent Respiratory: No Pertinent History Gastrointestinal: No Pertinent History Genitourinary: No Pertinent History Musculoskeletal: No Pertinent History Female Surgical History: Hysterectomy, Tubal Ligation, Lumpectomy Other Surgical History: Cath in 2011. Cardiac stents x 3. hysterctomy with bladder tie up 07/07/2021 - Social History Smoking Status: Never smoker Exposure to second hand smoke: No Drug Use: none Patient Lives Alone: Yes - Nursing Vital Signs Nursing Vital Signs: Initial Vital Signs Temperature 97.9 F 02/24/24 10:48 Pulse Rate 121 H 02/24/24 10:48 Respiratory Rate 16 02/24/24 10:48 Blood Pressure 112/84 02/24/24 10:48 O2 Sat by Pulse Oximetry 97 02/24/24 10:48 Pain Scale Pain Intensity 5 - Physical Exam SpO2 Interpretation: normal SpO2: 97 Comments: 02/24/24 11:21 Review of Systems Constitutional: Negative for fever. HENT: Negative for congestion. Respiratory: Chest pain and shortness of breath Gastrointestinal: Negative for abdominal pain. Genitourinary: Negative for dysuria. Musculoskeletal: Negative for back pain. Skin: Negative for rash. Neurological: Negative for headaches. Psychiatric/Behavioral: Negative for behavioral problems. All other systems reviewed and are negative. Physical Exam Vitals signs and nursing note reviewed. Constitutional: Appearance: Patient is well-developed. HENT: Head: Normocephalic and atraumatic. Eyes: Conjunctiva/sclera: Conjunctivae normal. Neck: Musculoskeletal: Normal range of motion. Trachea: No tracheal deviation. Cardiovascular: Rate and Rhythm: A-fib with RVR Pulmonary: Effort: Pulmonary effort is normal. No respiratory distress. Abdominal: Palpations: Abdomen is soft. Musculoskeletal: General: No deformity. Skin: General: Skin is warm and dry. Neurological/ Psychiatric: Mental Status: Mental status, behavior, interaction with environment is appropriate for patient's age and condition - Course Nursing assessment & vital signs reviewed: Yes EKG Interpreted by Me: Carter-justin (Patient is in atrial fibrillation, rate of 123, QRS 76, QTc is 477, no STEMI, no other ST changes) Ordered Tests: Active Orders 24 hr Category Date Time Status Call Admit Doctor for Orders ON ADMISSION Care 02/24/24 14:34 Active Hvac/R Instructor STAT Care 02/24/24 10:56 Active Cath for Specimen-Straight STAT Care 02/24/24 10:56 Active Code Status Order ROUTINE Care 02/24/24 14:34 Active EKG-ER Only STAT Care 02/24/24 10:55 Active IV Insertion STAT Care 02/24/24 10:[address] in Observation ROUTINE Care 02/24/24 14:34 Active House Regular Diet Diet 02/25/24 Breakfast Active CHEST 1 VIEW (PORTABLE) Stat Exams 02/24/24 10:56 Completed CHEST WITH CONTRAST [CT] Stat Exams 02/24/24 12:24 Completed CBC W DIFF Stat Lab 02/24/24 11:00 Completed CMP Stat Lab 02/24/24 11:00 Completed CULTURE,URINE Stat Lab 02/24/24 11:16 Received LIPASE Stat Lab 02/24/24 11:00 Completed NT PRO BNPII Stat Lab 02/24/24 11:00 Completed TROPONIN Q4H Lab 02/24/24 11:00 Completed TROPONIN Q4H Lab 02/24/24 13:18 Completed TROPONIN Q4H Lab 02/24/24 19:00 Ordered UA W/RFX UR CULTURE Stat Lab 02/24/24 11:16 Completed Pulse Oximetry CONTINUOUS RT 02/24/24 14:34 Active Medication Summary Discontinued Medications Generic Name Dose Route Start Last Admin Trade Name Adis PRN Reason Stop Dose Admin Aspirin 324 mg 02/24/24 10:55 02/24/24 11:29 Aspirin 81 Mg Tab.Chew PO 02/24/24 10:56 324 mg STAT ONE Administration Aspirin Confirm 02/24/24 11:25 Aspirin 81 Mg Tab.Chew Administered 02/24/24 11:26 Dose 324 mg .ROUTE .STK-MED ONE Diltiazem HCl 10 mg 02/24/24 10:55 02/24/24 11:29 Diltiazem Hcl Iv 5 Mg/Ml Vial IV 02/24/24 10:56 10 mg STAT ONE Administration Diltiazem HCl Confirm 02/24/24 11:26 Diltiazem Hcl Iv 5 Mg/Ml Vial Administered 02/24/24 11:27 Dose 50 mg IV .STK-MED ONE Lab/Rad Data: Laboratory Result Diagrams 02/24/24 11:00 02/24/24 11:00 Laboratory Results 02/24/24 02/24/24 02/24/24 Range/Units 13:18 11:16 11:00 WBC (4.0-10.5) x10^3/uL RBC (4.1-5.4) x10^6/uL Hgb (12.0-16.0) g/dL Hct (35-47) % MCV (78-100) fL MCH (26-32) pg MCHC (32-36) g/dL RDW (11.5-14.0) % Plt Count (150-450) x10^3/uL MPV (7.5-11.0) fL Gran % (36.0-66.0) % Immature Gran % (Auto) (0.00-0.4) % Nucleat RBC Rel Count (0.00-0.1) % Eos # (Auto) (0-0.5) x10^3/uL Immature Gran # (Auto) (0.00-0.03) x10^3u/L Absolute Lymphs (auto) (1.0-4.6) x10^3/uL Absolute Monos (auto) (0.0-1.3) x10^3/uL Absolute Nucleated RBC (0.00-0.01) x10^3u/L Lymphocytes % (24.0-44.0) % Monocytes % (0.0-12.0) % Eosinophils % (0.00-5.0) % Basophils % (0.0-0.4) % Absolute Granulocytes (1.4-6.9) x10^3/uL Basophils # (0-0.4) x10^3/uL Sodium (135-145) mmol/L Potassium (3.5-5.1) mmol/L Chloride (98-107) mmol/L Carbon Dioxide (22-30) mmol/L Anion Gap (5-15) MEQ/L BUN (7-17) mg/dL Creatinine (0.52-1.04) mg/dL Estimated GFR ML/MIN Glucose (74-106) mg/dL Calcium (8.4-10.2) mg/dL Total Bilirubin (0.2-1.3) mg/dL AST (14-36) U/L ALT (0-35) U/L Alkaline Phosphatase (38-126) U/L Troponin I < 0.012 < 0.012 (0.000-0.033) ng/mL NT-Pro-B Natriuret Pep (<300) pg/mL Serum Total Protein (6.3-8.2) g/dL Albumin (3.5-5.0) g/dL Lipase (23-300) U/L Urine Color Yellow (Yellow) Urine Appearance Clear (Clear) Urine pH 5.5 (4.6-8.0) Ur Specific [place] 1.025 (1.005-1.030) Urine Protein Negative (Negative) Urine Glucose (UA) Negative (Negative) mg/dL Urine Ketones Negative (Negative) Urine Blood Negative (Negative) Urine Nitrite Negative (Negative) Urine Bilirubin Negative (Negative) Urine Urobilinogen 1.0 A (0.2) mg/dL Ur Leukocyte Esterase Negative (Negative) U Hyaline Cast (Auto) NONE SEEN (0-2) /LPF Urine Microscopic RBC 0-2 (0-5) /HPF Urine Microscopic WBC 0-2 (0-5) /HPF Ur Epithelial Cells None Seen (None Seen) /HPF Urine Bacteria None Seen (None Seen) /HPF Urine Culture Reflexed NO (NO) 02/24/24 02/24/24 Range/Units 11:00 11:00 WBC 6.5 (4.0-10.5) x10^3/uL RBC 4.39 (4.1-5.4) x10^6/uL Hgb 13.4 (12.0-16.0) g/dL Hct 40.5 (35-47) % MCV 92.3 (78-100) fL MCH 30.5 (26-32) pg MCHC 33.1 (32-36) g/dL RDW 14.0 (11.5-14.0) % Plt Count 195 (150-450) x10^3/uL MPV 11.3 H (7.5-11.0) fL Gran % 72.2 H (36.0-66.0) % Immature Gran % (Auto) 0.2 (0.00-0.4) % Nucleat RBC Rel Count 0.0 (0.00-0.1) % Eos # (Auto) 0.10 (0-0.5) x10^3/uL Immature Gran # (Auto) 0.01 (0.00-0.03) x10^3u/L Absolute Lymphs (auto) 1.16 (1.0-4.6) x10^3/uL Absolute Monos (auto) 0.51 (0.0-1.3) x10^3/uL Absolute Nucleated RBC 0.00 (0.00-0.01) x10^3u/L Lymphocytes % 17.7 L (24.0-44.0) % Monocytes % 7.8 (0.0-12.0) % Eosinophils % 1.5 (0.00-5.0) % Basophils % 0.6 (0.0-0.4) % Absolute Granulocytes 4.72 (1.4-6.9) x10^3/uL Basophils # 0.04 (0-0.4) x10^3/uL Sodium 140 (135-145) mmol/L Potassium 3.9 (3.5-5.1) mmol/L Chloride 107 (98-107) mmol/L Carbon Dioxide 26 (22-30) mmol/L Anion Gap 11.8 (5-15) MEQ/L BUN 23 H (7-17) mg/dL Creatinine 0.53 (0.52-1.04) mg/dL Estimated GFR 95.8 ML/MIN Glucose 147 H (74-106) mg/dL Calcium 9.8 (8.4-10.2) mg/dL Total Bilirubin 1.10 (0.2-1.3) mg/dL AST 33 (14-36) U/L ALT 15 (0-35) U/L Alkaline Phosphatase 52 (38-126) U/L Troponin I (0.000-0.033) ng/mL NT-Pro-B Natriuret Pep 2340 (<300) pg/mL Serum Total Protein 6.4 (6.3-8.2) g/dL Albumin 3.8 (3.5-5.0) g/dL Lipase 31 (23-300) U/L Urine Color (Yellow) Urine Appearance (Clear) Urine pH (4.6-8.0) Ur Specific [place] (1.005-1.030) Urine Protein (Negative) Urine Glucose (UA) (Negative) mg/dL Urine Ketones (Negative) Urine Blood (Negative) Urine Nitrite (Negative) Urine Bilirubin (Negative) Urine Urobilinogen (0.2) mg/dL Ur Leukocyte Esterase (Negative) U Hyaline Cast (Auto) (0-2) /LPF Urine Microscopic RBC (0-5) /HPF Urine Microscopic WBC (0-5) /HPF Ur Epithelial Cells (None Seen) /HPF Urine Bacteria (None Seen) /HPF Urine Culture Reflexed (NO) - Progress Progress: improved Progress Note: 02/24/24 11:23 Differential diagnosis includes: PNA, STEMI, NSTEMI, other infection, musculoskeletal pain, pneumothorax - We'll obtain basic labs, fluids, EKG, troponin, chest x-ray - EKG shows A-fib with RVR - O2 saturations consistently greater than 95%. - CXR shows no pneumonia, pneumothorax - my read 02/24/24 14:40 Patient given 1 dose of diltiazem. Initial heart rate came down to 60s and 70s. Repeat troponin remained negative. However patient had a heart rate that continued to creep up. It is now at 100. We did obtain a CTA looking for any pulmonary embolism, congestive heart failure. This was negative. Patient's BNP is 2000. Given overall picture, I did feel patient needed a full cardiac rule out, continue close monitoring, potential diuresis given the BMP. Therefore I did discuss with on-call hospitalist, Dr. Blakely. He did admit the patient to the hospitalist service. Patient hemodynamically stable, blood pressure is 155/87. Heart rate 105, 97% on room air. Counseled pt/family regarding: lab results, diagnosis, need for follow-up, rad results Medical Desision Making - Independent Historian Additional History obtained from: Child - External Record(s) Reviewed Records reviewed as a part of evaluation & management: Discharge Summary - Discussion of managment Care discussed with:: hospitalist Reviewed:: Test results, Need for additional workup Agreed on:: need for follow-up, place in obs Will see patient: in hospital - Diagnostic Testing Diagnostic test were ordered, analyzed, and reviewed by me: Yes Radiological Interpretation: Interpreted by me - Departure Departure Disposition: Observation Clinical Impression: Chest pain, Atrial fibrillation with RVR Condition: Stable Critical Care Time: No Referrals: ANTHONY BHANDARI, BLACK ASH BURNER OPERATOR [Primary Care Provider] - Follow up/PCP as directed
[2024-02-24] MEDS ORDERED: BABY ASPIRIN 81 MG CHEW ONE (11:25)
[2024-02-24] MEDS ORDERED: Cardizem IV 50 MG/10 ML IV ONE (11:26)
[2024-02-24] MEDS: BABY ASPIRIN 81 MG CHEW PO ONE (11:29)
[2024-02-24] MEDS: Cardizem IV 50 MG/10 ML IV ONE (11:29)
--- NOTE | 2024-02-24 11:35 | XRAY ---
Indication: Pneumonia. Comparison: May 27, 2023 Portable chest unchanged again hyperinflated and clear. Heart not enlarged again with coronary stent grafts. Bony thorax intact again with osteopenia, degenerative changes, scoliosis, and left axillary davey dissection. Impression: Continued nonacute chest with chronic features.
[2024-02-24 11:40] LABS: Appearance Clear (Clear); Bacteria None Seen /HPF (None Seen); Bilirubin Negative (Negative); Blood Negative (Negative); Epithelial Cells None Seen /HPF (None Seen); Glucose, Urine Negative (Negative); Hyaline Casts NONE SEEN /LPF (0-2); Ketones Negative (Negative); Leukocyte Esterase Negative (Negative); Nitrite Negative (Negative); Ph 5.5 (4.6-8.0); Protein,Urine Dip Negative (Negative); RBC 0-2 /HPF (0-5); Specific Gravity 1.025 (1.005-1.030); WBC 0-2 /HPF (0-5)
[2024-02-24 11:47] LABS: ALBUMIN 3.8 g/dL (3.5-5.0); ANION GAP 11.8 MEQ/L (5-15); BILIRUBIN,TOTAL 1.1 mg/dL (0.2-1.3); Calcium 9.8 mg/dL (8.4-10.2); Creatinine 1 0.53 mg/dL (0.52-1.04); EST GLOMERULAR FILTRATION RATE 95.8 ML/MIN; Potassium 3.9 mmol/L (3.5-5.1); Total Protein 6.4 g/dL (6.3-8.2)
[2024-02-24 11:54] LABS: ADD URINE CULTURE? NO (NO)
--- NOTE | 2024-02-24 13:25 | XRAY ---
Indication: Chest pain. Pulmonary embolus. Multiple contiguous axial images obtained through the chest using 80 cc Isovue 370 contrast and PE protocol. Comparison: July 20, 2021 Good opacification of the pulmonary arteries to include the lobar and segmental branches. No pulmonary embolus. Heart not enlarged. Aorta mildly arteriosclerotic without aneurysm/dissection. No pathologic mediastinal lymphadenopathy. Again moderate sized hiatal hernia with partial intrathoracic stomach. Lungs again demonstrates minimal biapical pleural parenchymal scarring/thickening. Stable 5 mm medial right lower lobe noncalcified nodule favored to be benign given stability over the years. No new pulmonary mass/nodule, infiltrate, or effusion. Bony thorax intact again with minimal degenerative changes throughout the spine. Limited upper abdomen again demonstrates bilateral renal cysts. Impression: 1. Continued negative for pulmonary embolus. No new/acute cardiopulmonary abnormalities. 2. Again chronic findings including hiatal hernia with partial intrathoracic stomach, benign right lower lobe noncalcified micronodule, biapical scarring/thickening, and bilateral renal cysts.
--- NOTE | 2024-02-24 16:49 | PCM.HP ---
History of Present Illness - Chief Complaint Chief Complaint: chest pain Date: 02/24/24 History of Present Illness: is a 78 year old female with PMHX of history of HTN, hyperlipidemia, GERD, breast cancer, coronary artery disease, PA with stents in 2013, A-fib, and stroke. Patient is on Pradaxa. Patient is here with chest pain, midsternal that has been ongoing for 1 week. Patient states today she woke up with CP and increased SOB and took Nitro X 2 with no relief. She continued to have face and jaw pain on both sides in ER 03/27. When arrived to ER she was found to be in A-fib RVR with a HR of 123. 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 They do not consult at this hospital. Trop x2 negative will continue to trend. In ER she was given 325 mg ASA, and cardizem 10mg IV - HR dropped to 87. However back up to 130 on monitor in continued a-fib RVR. CXR and CT chest negative. Echo from 02/21/21 reviewed, will order new one. Will consult cardiology, most likely will not be done until tomorrow as it is now after office hours. BNP is 2340- CHF, IV lasix x1. Will start cardizem gtt and place pt in the ICU. She denies CP, SOB, abd. pain, N/V/D at this time. - Review of Systems Constitutional: No Fever, No Chills Eyes: No Symptoms Ears, Nose, & Throat: No Symptoms Respiratory: Short Of Breath, No Cough Cardiac: Chest Pain, No Edema, No Syncope Abdominal/Gastrointestinal: No Abdominal Pain, No Nausea, No Vomiting, No Diarrhea Genitourinary Symptoms: No Dysuria Musculoskeletal: No Back Pain, No Neck Pain Skin: No Rash Neurological: No Dizziness, No Focal Weakness, No Sensory Changes Psychological: No Symptoms Endocrine: No Symptoms Hematologic/Lymphatic: No Symptoms Immunological/Allergic: No Symptoms Medications & Allergies Home Medications: Home Medication List Memantine HCl 5 mg [Namenda 5 MG] 5 mg PO HS 12/07/12 [History Confirmed 02/24/24] Ascorbate Calcium [Vitamin C] 500 mg PO DAILY 03/16/13 [History Confirmed 02/24/24] Losartan Potassium [Cozaar] 100 mg PO HS 12/15/21 [History Confirmed 02/24/24] Nitroglycerin 0.4 mg Tablet [Nitrostat 0.4 MG Tablet] 0.4 mg SL UD 12/15/21 [History Confirmed 02/24/24] Ascorbic Acid 500 mg [Vitamin C 500 MG] 500 mg PO DAILY 09/26/23 [History Confirmed 02/24/24] Carbidopa/Levodopa [Carbidopa-Levo 25-250 mg Odt] 1 tab PO BID 09/26/23 [History Confirmed 02/24/24] Carbidopa/Levodopa [Carbidopa-Levo 25-100 mg Odt] 0.5 tab PO BID 11/07/23 [History Confirmed 02/24/24] Valsartan [Diovan] 320 mg PO DAILY 11/07/23 [History Confirmed 02/24/24] Atorvastatin Calcium [Lipitor] 1 tab PO HS 02/24/24 [History Confirmed 02/24/24] Calcium Carb/Vit D3/Minerals [Calcium 600+D Plus Minerals Tb] 1 tab PO BID 02/24/24 [History Confirmed 02/24/24] Carbidopa/Levodopa [Carbidopa-Levo ER 25-100 Tab] 1 tab PO HS 02/24/24 [History Confirmed 02/24/24] Dabigatran Etexilate Mesylate [Pradaxa] 1 cap PO BID 02/24/24 [History Confirmed 02/24/24] Sotalol HCl [Sotalol] 1 tab PO BID 02/24/24 [History Confirmed 02/24/24] Allergies/Adverse Reactions: Allergies Allergy/AdvReac Type Severity Reaction Status Date / Time No Known Drug Allergies Allergy Verified 02/24/24 10:46 - Past Medical History Past Medical History: Yes Neurological History: Stroke ENT History: No Pertinent History Cardiac History: Arrhythmia, Coronary Artery Disease, High Cholesterol, Hypertension, Myocardial Infarction (PA) Respiratory History: No Pertinent History Endocrine Medical History: No Pertinent History Musculoskelatal History: No Pertinent History GI Medical History: GERD History: No Pertinent History Pyscho-Social History: No Pertinent History Reproductive Disorders: Breast Cancer Comment: PA WITH CVA IN 2011; parkinsons. L side breast CA - Past Surgical History Past Surgical History: Yes Neuro Surgical History: No Pertinent History Cardiac History: Cardiac Catheterization, Cardiac Stent Respiratory Surgery: No Pertinent History GI Surgical History: No Pertinent History Genitourinary Surgical Hx: No Pertinent History Musculskeletal Surgical Hx: No Pertinent History Female Surgical History: Hysterectomy, Tubal Ligation, Lumpectomy Other Surgical History: Cath in 2011. Cardiac stents x 3. hysterctomy with bladder tie up 07/07/2021 - Social History Smoking Status: Never smoker Exposure to second hand smoke: No Alcohol: None Drug Use: none - Social Determinants of Health Will the patient participate in the screening: Yes Do you worry about a steady place to live?: No Do you have any problems with any of the following?: No known problems In the past 12 months,have you had to go without utilities?: No Have you or anyone in your house had to go without enough: No Transportation Issues: No Has anyone in your support network made you feel unsafe?: No - Physical Exam Vital Signs: Vital Signs - 24 hr Temp Pulse Resp BP Pulse Ox 02/24/24 15:17 118 H 16 143/98 98 02/24/24 14:43 87 18 145/95 95 02/24/24 14:41 97 02/24/24 14:34 96 02/24/24 12:43 65 20 139/86 96 02/24/24 11:30 86 18 146/105 96 02/24/24 10:48 97.9 F 121 H 16 112/84 97 General Appearance: no apparent distress, alert Neurologic Exam: alert, oriented x 3, cooperative, normal mood/affect, nml cerebellar function, nml station & gait, sensation nml, No motor deficits Eye Exam: PERRL/EOMI, eyes nml inspection Ears, Nose, Throat Exam: normal ENT inspection, TMs normal, pharynx normal, moist mucous membranes Neck Exam: normal inspection, non-tender, supple, full range of motion Respiratory Exam: normal breath sounds, lungs clear, No respiratory distress Cardiovascular Exam: regular rate/rhythm, normal heart sounds, normal peripheral pulses Gastrointestinal/Abdomen Exam: soft, normal bowel sounds, No tenderness, No mass Back Exam: normal inspection, normal range of motion, No CVA tenderness, No vertebral tenderness Extremity Exam: normal inspection, normal range of motion, pelvis stable Skin Exam: normal color, warm, dry, No rash Lymphatic Exam: No adenopathy Results - Labs Lab/Micro Results: Lab Results-Last 24 Hours 02/24/24 02/24/24 02/24/24 Range/Units 11:00 11:00 11:00 WBC 6.5 (4.0-10.5) x10^3/uL RBC 4.39 (4.1-5.4) x10^6/uL Hgb 13.4 (12.0-16.0) g/dL Hct 40.5 (35-47) % MCV 92.3 (78-100) fL MCH 30.5 (26-32) pg MCHC 33.1 (32-36) g/dL RDW 14.0 (11.5-14.0) % Plt Count 195 (150-450) x10^3/uL MPV 11.3 H (7.5-11.0) fL Gran % 72.2 H (36.0-66.0) % Immature Gran % (Auto) 0.2 (0.00-0.4) % Nucleat RBC Rel Count 0.0 (0.00-0.1) % Eos # (Auto) 0.10 (0-0.5) x10^3/uL Immature Gran # (Auto) 0.01 (0.00-0.03) x10^3u/L Absolute Lymphs (auto) 1.16 (1.0-4.6) x10^3/uL Absolute Monos (auto) 0.51 (0.0-1.3) x10^3/uL Absolute Nucleated RBC 0.00 (0.00-0.01) x10^3u/L Lymphocytes % 17.7 L (24.0-44.0) % Monocytes % 7.8 (0.0-12.0) % Eosinophils % 1.5 (0.00-5.0) % Basophils % 0.6 (0.0-0.4) % Absolute Granulocytes 4.72 (1.4-6.9) x10^3/uL Basophils # 0.04 (0-0.4) x10^3/uL Sodium 140 (135-145) mmol/L Potassium 3.9 (3.5-5.1) mmol/L Chloride 107 (98-107) mmol/L Carbon Dioxide 26 (22-30) mmol/L Anion Gap 11.8 (5-15) MEQ/L BUN 23 H (7-17) mg/dL Creatinine 0.53 (0.52-1.04) mg/dL Estimated GFR 95.8 ML/MIN Glucose 147 H (74-106) mg/dL Calcium 9.8 (8.4-10.2) mg/dL Total Bilirubin 1.10 (0.2-1.3) mg/dL AST 33 (14-36) U/L ALT 15 (0-35) U/L Alkaline Phosphatase 52 (38-126) U/L Troponin I < 0.012 (0.000-0.033) ng/mL NT-Pro-B Natriuret Pep 2340 (<300) pg/mL Serum Total Protein 6.4 (6.3-8.2) g/dL Albumin 3.8 (3.5-5.0) g/dL Lipase 31 (23-300) U/L Urine Color (Yellow) Urine Appearance (Clear) Urine pH (4.6-8.0) Ur Specific [place] (1.005-1.030) Urine Protein (Negative) Urine Glucose (UA) (Negative) mg/dL Urine Ketones (Negative) Urine Blood (Negative) Urine Nitrite (Negative) Urine Bilirubin (Negative) Urine Urobilinogen (0.2) mg/dL Ur Leukocyte Esterase (Negative) U Hyaline Cast (Auto) (0-2) /LPF Urine Microscopic RBC (0-5) /HPF Urine Microscopic WBC (0-5) /HPF Ur Epithelial Cells (None Seen) /HPF Urine Bacteria (None Seen) /HPF Urine Culture Reflexed (NO) 02/24/24 02/24/24 Range/Units 11:16 13:18 WBC (4.0-10.5) x10^3/uL RBC (4.1-5.4) x10^6/uL Hgb (12.0-16.0) g/dL Hct (35-47) % MCV (78-100) fL MCH (26-32) pg MCHC (32-36) g/dL RDW (11.5-14.0) % Plt Count (150-450) x10^3/uL MPV (7.5-11.0) fL Gran % (36.0-66.0) % Immature Gran % (Auto) (0.00-0.4) % Nucleat RBC Rel Count (0.00-0.1) % Eos # (Auto) (0-0.5) x10^3/uL Immature Gran # (Auto) (0.00-0.03) x10^3u/L Absolute Lymphs (auto) (1.0-4.6) x10^3/uL Absolute Monos (auto) (0.0-1.3) x10^3/uL Absolute Nucleated RBC (0.00-0.01) x10^3u/L Lymphocytes % (24.0-44.0) % Monocytes % (0.0-12.0) % Eosinophils % (0.00-5.0) % Basophils % (0.0-0.4) % Absolute Granulocytes (1.4-6.9) x10^3/uL Basophils # (0-0.4) x10^3/uL Sodium (135-145) mmol/L Potassium (3.5-5.1) mmol/L Chloride (98-107) mmol/L Carbon Dioxide (22-30) mmol/L Anion Gap (5-15) MEQ/L BUN (7-17) mg/dL Creatinine (0.52-1.04) mg/dL Estimated GFR ML/MIN Glucose (74-106) mg/dL Calcium (8.4-10.2) mg/dL Total Bilirubin (0.2-1.3) mg/dL AST (14-36) U/L ALT (0-35) U/L Alkaline Phosphatase (38-126) U/L Troponin I < 0.012 (0.000-0.033) ng/mL NT-Pro-B Natriuret Pep (<300) pg/mL Serum Total Protein (6.3-8.2) g/dL Albumin (3.5-5.0) g/dL Lipase (23-300) U/L Urine Color Yellow (Yellow) Urine Appearance Clear (Clear) Urine pH 5.5 (4.6-8.0) Ur Specific [place] 1.025 (1.005-1.030) Urine Protein Negative (Negative) Urine Glucose (UA) Negative (Negative) mg/dL Urine Ketones Negative (Negative) Urine Blood Negative (Negative) Urine Nitrite Negative (Negative) Urine Bilirubin Negative (Negative) Urine Urobilinogen 1.0 A (0.2) mg/dL Ur Leukocyte Esterase Negative (Negative) U Hyaline Cast (Auto) NONE SEEN (0-2) /LPF Urine Microscopic RBC 0-2 (0-5) /HPF Urine Microscopic WBC 0-2 (0-5) /HPF Ur Epithelial Cells None Seen (None Seen) /HPF Urine Bacteria None Seen (None Seen) /HPF Urine Culture Reflexed NO (NO) - Radiology Impressions Radiology Exams & Impressions: Radiology Procedures Category Date Time Status CHEST 1 VIEW (PORTABLE) Stat Exams 02/24/24 10:56 Completed CHEST WITH CONTRAST [CT] Stat Exams 02/24/24 12:24 Completed Assessment/Plan (1) Atrial fibrillation with rapid ventricular response Current Visit: Yes Status: Acute Assessment & Plan: - Cardizem IVP X1 gave in ER- HR reduced to 87 - When arrived to floor HR increased to 130 - cardizem gtt started, when HR maintained <100 can start oral cardizem. - Echo from 02/21/21 EF 60% 1) NO DEFINITE REGIONAL WALL MOTION ABNORMALITY. ESTIMATED GLOBAL LEFT VENTRICULAR EJECTION FRACTION AROUND 60%. 2) MILD MITRAL REGURGITATION. 3) LEFT VENTRICULAR HYPERTROPHY. 4) LEFT ATRIAL ENLARGEMENT - 324mg ASA gave in ER - Cardiology consult tomorrow - echo tomorrow - Denies CP on admission to floor - Trop x2 negative- trend - ICU- Tele - no edema - RA - Chest XR and CT chest negative - CT chest negative for PE - 2:2 CHF, BNP 2340 - Keep K+ > 4, Mg+ >2 - will check TSH in am when fasting. - Continue Pradaxa - Lipid panel from 10/29/23 reviewed all labs looked good- continue statin - K+ 3.9 - replaced- will recheck in AM Code(s): I48.91 - UNSPECIFIED ATRIAL FIBRILLATION (2) CHF (congestive heart failure) Current Visit: Yes Status: Acute Assessment & Plan: -BNP 2340 - recheck in AM - Lasix 40 IVP x1 now - see above plan for a-fib RVR Code(s): I50.9 - HEART FAILURE, UNSPECIFIED (3) SOB (shortness of breath) Current Visit: Yes Status: Resolved Assessment & Plan: - resolved - RA 96% Code(s): R06.02 - SHORTNESS OF BREATH (4) Chest pain Current Visit: Yes Status: Acute Qualifiers: Assessment & Plan: - resolved with laying, chest pressure when up and heart rate increases. - Trop x2 negative- trend - 2:2 a-fib RVR VTE: Pradaxa Next of Kin: Soledad Vance [phone] D/C plan: 1-2 days Code status: Full Code(s): R07.9 - CHEST PAIN, UNSPECIFIED Telemedicine Encounter - Telemedicine Encounter Telemedicine Encounter: The entirety of this encounter was performed via Telemedicine"
[2024-02-24] MEDS: CARDIZEM DRIP 100 MG/100 ML D5W 100 ML IV PRN (17:44)
[2024-02-24] MEDS: Lasix 40 MG/4 ML IV ONE (17:56)
[2024-02-24] MEDS ORDERED: Nitrostat 0.4 MG Tablet SL PRN (18:00)
[2024-02-24] MEDS: Klor Con PO ONE (18:02)
[2024-02-24] MEDS: PRADAXA 75 MG PO SCH (20:50)
[2024-02-24] MEDS: Betapace 80 MG PO SCH (20:50)
[2024-02-24] MEDS: Sinemet CR 50/200 MG PO SCH (20:51)
[2024-02-24] MEDS: Cozaar 50 MG PO SCH (20:51)
[2024-02-24] MEDS: ZOCOR 20MG PO SCH (20:51)
[2024-02-24] MEDS: Namenda 5 MG PO SCH (20:51)
[2024-02-24] MEDS: Calcium 500MG W/Vit D Tablet PO SCH (20:52)
[2024-02-24] MEDS: NON-FORMULARY ITEM (Carbidopa/Levodopa [Carbidopa-Levo 25-100 Mg Odt] 1 EACH Tab.Rapdis) PO SCH (21:08)
[2024-02-24] MEDS ORDERED: MINERALS PO SCH (22:00)
[2024-02-24] MEDS ORDERED: DABIGATRAN ETEXILATE MESYLATE 150 MG PO SCH (22:00)
[2024-02-24] MEDS ORDERED: [UNRECOGNIZED DRUG - OTHER] PO SCH (22:00)
[2024-02-24] MEDS ORDERED: NON-FORMULARY ITEM (Losartan Potassium [Cozaar] 100 MG Tablet) PO SCH (22:00)
[2024-02-24] MEDS ORDERED: NON-FORMULARY ITEM (Carbidopa/Levodopa [Carbidopa-Levo Er 25-100 Tab] 1 EACH Tablet.Er) PO SCH (22:00)
[2024-02-24] MEDS ORDERED: LEVODOPA PO SCH (22:00)
[2024-02-24] MEDS ORDERED: CALCIUM CARB PO SCH (22:00)
[2024-02-24] MEDS ORDERED: [UNRECOGNIZED DRUG - OTHER] PO SCH (22:00)
[2024-02-24] MEDS ORDERED: CARBIDOPA PO SCH (22:00)
[2024-02-24] MEDS ORDERED: VIT D3 PO SCH (22:00)
[2024-02-25 05:36] LABS: ANION GAP 11.4 MEQ/L (5-15); BILIRUBIN,TOTAL 0.9 mg/dL (0.2-1.3); Calcium 9.8 mg/dL (8.4-10.2); Creatinine 1 0.62 mg/dL (0.52-1.04); EST GLOMERULAR FILTRATION RATE 92.2 ML/MIN; Potassium 3.8 mmol/L (3.5-5.1); Total Protein 6.6 g/dL (6.3-8.2)
[2024-02-25] MEDS: Cardizem 30 MG PO ONE (05:37)
[2024-02-25] MEDS: Cardizem CD PO ONE (05:41)
[2024-02-25 05:45] LABS: TSH, 3RD Generation 2.88 mIU/L (0.47-4.68)
[2024-02-25 06:39] VITALS: O2SAT 95
[2024-02-25 08:08] LABS: Hemoglobin 13.9 g/dL (12.0-16.0); Mean Cell Volume 92.7 fL (78-100); Mean Corpuscular Hgb Concent. 32.3 g/dL (32-36); Mean Platelet Volume 11.2 fL (7.5-11.0); Platelet Count 209 x10^3/uL (150-450); Red Blood Count 4.64 x10^6/uL (4.1-5.4); White Blood Count 8.9 x10^3/uL (4.0-10.5)
--- NOTE | 2024-02-25 08:44 | PCM.DS ---
Discharge Summary Date of Admission: 02/24/24 16:15 Date of Discharge: 02/25/24 Admitting Physician: MELLISA URIBE MD Consults: Consults on Case 02/24/24 16:57 Consult Cardiology ROUTINE Primary Care Provider: ANTHONY BHANDARI Allergies Allergies No Known Drug Allergies Allergy (Verified 02/24/24 10:46) Hospital Summary - Hospital Course Hospital Course: 02/24/24 is a 78 year old female with PMHX of history of HTN, hyperlipidemia, GERD, breast cancer, coronary artery disease, PR with stents in 2013, A-fib, and stroke. Patient is on Pradaxa. Patient is here with chest pain, midsternal that has been ongoing for 1 week. Patient states today she woke up with CP and increased SOB and took Nitro X 2 with no relief. She continued to have face and jaw pain on both sides in ER 03/27. When arrived to ER she was found to be in A-fib RVR with a HR of 123. 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 They do not consult at this hospital. Trop x2 negative will continue to trend. In ER she was given 325 mg ASA, and cardizem 10mg IV - HR dropped to 87. However back up to 130 on monitor in continued a-fib RVR. CXR and CT chest negative. Echo from 02/21/21 reviewed, will order new one. Will consult cardiology, most likely will not be done until tomorrow as it is now after office hours. BNP is 2340- CHF, IV lasix x1. Will start cardizem gtt and place pt in the ICU. She denies CP, SOB, abd. pain, N/V/D at this time. 02/25/24 Pt resting in bed. Rhythm is a-fib with HR in the 70's Cardizem gtt stopped last night and PO dose gave. Cardiology consult and echo pending. Pt is feeling much better. She continues to have some SOB. Will give another dose of lasix this AM. BNP - pending. She denies CP, abd. pain, N/V/D. - Vitals & Intake/Output Vital Signs: Vital Signs Temperature 97.6 F 02/25/24 06:38 Pulse Rate 111 H 02/25/24 06:38 Respiratory Rate 23 02/25/24 06:38 Blood Pressure 118/78 02/25/24 06:38 O2 Sat by Pulse Oximetry 95 02/25/24 06:38 Intake & Output: Intake & Output 02/22/24 02/23/24 02/24/24 02/25/24 11:59 11:59 11:59 11:59 Intake Total 480 Output Total 600 Balance -120 Weight 56.9 kg 56.9 kg - Lab Result Diagrams: 02/25/24 04:45 02/25/24 04:45 Lab Results-Last 24 Hrs: Lab Results-Last 24 Hours 02/24/24 02/24/24 02/24/24 Range/Units 11:00 11:00 11:00 WBC 6.5 (4.0-10.5) x10^3/uL RBC 4.39 (4.1-5.4) x10^6/uL Hgb 13.4 (12.0-16.0) g/dL Hct 40.5 (35-47) % MCV 92.3 (78-100) fL MCH 30.5 (26-32) pg MCHC 33.1 (32-36) g/dL RDW 14.0 (11.5-14.0) % Plt Count 195 (150-450) x10^3/uL MPV 11.3 H (7.5-11.0) fL Gran % 72.2 H (36.0-66.0) % Immature Gran % (Auto) 0.2 (0.00-0.4) % Nucleat RBC Rel Count 0.0 (0.00-0.1) % Eos # (Auto) 0.10 (0-0.5) x10^3/uL Immature Gran # (Auto) 0.01 (0.00-0.03) x10^3u/L Absolute Lymphs (auto) 1.16 (1.0-4.6) x10^3/uL Absolute Monos (auto) 0.51 (0.0-1.3) x10^3/uL Absolute Nucleated RBC 0.00 (0.00-0.01) x10^3u/L Lymphocytes % 17.7 L (24.0-44.0) % Monocytes % 7.8 (0.0-12.0) % Eosinophils % 1.5 (0.00-5.0) % Basophils % 0.6 (0.0-0.4) % Absolute Granulocytes 4.72 (1.4-6.9) x10^3/uL Basophils # 0.04 (0-0.4) x10^3/uL Sodium 140 (135-145) mmol/L Potassium 3.9 (3.5-5.1) mmol/L Chloride 107 (98-107) mmol/L Carbon Dioxide 26 (22-30) mmol/L Anion Gap 11.8 (5-15) MEQ/L BUN 23 H (7-17) mg/dL Creatinine 0.53 (0.52-1.04) mg/dL Estimated GFR 95.8 ML/MIN Glucose 147 H (74-106) mg/dL Calcium 9.8 (8.4-10.2) mg/dL Total Bilirubin 1.10 (0.2-1.3) mg/dL AST 33 (14-36) U/L ALT 15 (0-35) U/L Alkaline Phosphatase 52 (38-126) U/L Troponin I < 0.012 (0.000-0.033) ng/mL NT-Pro-B Natriuret Pep 2340 (<300) pg/mL Serum Total Protein 6.4 (6.3-8.2) g/dL Albumin 3.8 (3.5-5.0) g/dL Lipase 31 (23-300) U/L TSH 3rd Generation (0.47-4.68) mIU/L Urine Color (Yellow) Urine Appearance (Clear) Urine pH (4.6-8.0) Ur Specific Presto (1.005-1.030) Urine Protein (Negative) Urine Glucose (UA) (Negative) mg/dL Urine Ketones (Negative) Urine Blood (Negative) Urine Nitrite (Negative) Urine Bilirubin (Negative) Urine Urobilinogen (0.2) mg/dL Ur Leukocyte Esterase (Negative) U Hyaline Cast (Auto) (0-2) /LPF Urine Microscopic RBC (0-5) /HPF Urine Microscopic WBC (0-5) /HPF Ur Epithelial Cells (None Seen) /HPF Urine Bacteria (None Seen) /HPF Urine Culture Reflexed (NO) 02/24/24 02/24/24 02/24/24 Range/Units 11:16 13:18 19:00 WBC (4.0-10.5) x10^3/uL RBC (4.1-5.4) x10^6/uL Hgb (12.0-16.0) g/dL Hct (35-47) % MCV (78-100) fL MCH (26-32) pg MCHC (32-36) g/dL RDW (11.5-14.0) % Plt Count (150-450) x10^3/uL MPV (7.5-11.0) fL Gran % (36.0-66.0) % Immature Gran % (Auto) (0.00-0.4) % Nucleat RBC Rel Count (0.00-0.1) % Eos # (Auto) (0-0.5) x10^3/uL Immature Gran # (Auto) (0.00-0.03) x10^3u/L Absolute Lymphs (auto) (1.0-4.6) x10^3/uL Absolute Monos (auto) (0.0-1.3) x10^3/uL Absolute Nucleated RBC (0.00-0.01) x10^3u/L Lymphocytes % (24.0-44.0) % Monocytes % (0.0-12.0) % Eosinophils % (0.00-5.0) % Basophils % (0.0-0.4) % Absolute Granulocytes (1.4-6.9) x10^3/uL Basophils # (0-0.4) x10^3/uL Sodium (135-145) mmol/L Potassium (3.5-5.1) mmol/L Chloride (98-107) mmol/L Carbon Dioxide (22-30) mmol/L Anion Gap (5-15) MEQ/L BUN (7-17) mg/dL Creatinine (0.52-1.04) mg/dL Estimated GFR ML/MIN Glucose (74-106) mg/dL Calcium (8.4-10.2) mg/dL Total Bilirubin (0.2-1.3) mg/dL AST (14-36) U/L ALT (0-35) U/L Alkaline Phosphatase (38-126) U/L Troponin I < 0.012 < 0.012 (0.000-0.033) ng/mL NT-Pro-B Natriuret Pep (<300) pg/mL Serum Total Protein (6.3-8.2) g/dL Albumin (3.5-5.0) g/dL Lipase (23-300) U/L TSH 3rd Generation (0.47-4.68) mIU/L Urine Color Yellow (Yellow) Urine Appearance Clear (Clear) Urine pH 5.5 (4.6-8.0) Ur Specific Presto 1.025 (1.005-1.030) Urine Protein Negative (Negative) Urine Glucose (UA) Negative (Negative) mg/dL Urine Ketones Negative (Negative) Urine Blood Negative (Negative) Urine Nitrite Negative (Negative) Urine Bilirubin Negative (Negative) Urine Urobilinogen 1.0 A (0.2) mg/dL Ur Leukocyte Esterase Negative (Negative) U Hyaline Cast (Auto) NONE SEEN (0-2) /LPF Urine Microscopic RBC 0-2 (0-5) /HPF Urine Microscopic WBC 0-2 (0-5) /HPF Ur Epithelial Cells None Seen (None Seen) /HPF Urine Bacteria None Seen (None Seen) /HPF Urine Culture Reflexed NO (NO) 02/25/24 02/25/24 Range/Units 04:45 04:45 WBC 8.9 (4.0-10.5) x10^3/uL RBC 4.64 (4.1-5.4) x10^6/uL Hgb 13.9 (12.0-16.0) g/dL Hct 43.0 (35-47) % MCV 92.7 (78-100) fL MCH 30.0 (26-32) pg MCHC 32.3 (32-36) g/dL RDW 14.0 (11.5-14.0) % Plt Count 209 (150-450) x10^3/uL MPV 11.2 H (7.5-11.0) fL Gran % (36.0-66.0) % Immature Gran % (Auto) (0.00-0.4) % Nucleat RBC Rel Count (0.00-0.1) % Eos # (Auto) (0-0.5) x10^3/uL Immature Gran # (Auto) (0.00-0.03) x10^3u/L Absolute Lymphs (auto) (1.0-4.6) x10^3/uL Absolute Monos (auto) (0.0-1.3) x10^3/uL Absolute Nucleated RBC (0.00-0.01) x10^3u/L Lymphocytes % (24.0-44.0) % Monocytes % (0.0-12.0) % Eosinophils % (0.00-5.0) % Basophils % (0.0-0.4) % Absolute Granulocytes (1.4-6.9) x10^3/uL Basophils # (0-0.4) x10^3/uL Sodium 140 (135-145) mmol/L Potassium 3.8 (3.5-5.1) mmol/L Chloride 107 (98-107) mmol/L Carbon Dioxide 25 (22-30) mmol/L Anion Gap 11.4 (5-15) MEQ/L BUN 28 H (7-17) mg/dL Creatinine 0.62 (0.52-1.04) mg/dL Estimated GFR 92.2 ML/MIN Glucose 109 H (74-106) mg/dL Calcium 9.8 (8.4-10.2) mg/dL Total Bilirubin 0.90 (0.2-1.3) mg/dL AST 33 (14-36) U/L ALT 12 (0-35) U/L Alkaline Phosphatase 55 (38-126) U/L Troponin I (0.000-0.033) ng/mL NT-Pro-B Natriuret Pep (<300) pg/mL Serum Total Protein 6.6 (6.3-8.2) g/dL Albumin 4.0 (3.5-5.0) g/dL Lipase (23-300) U/L TSH 3rd Generation 2.880 (0.47-4.68) mIU/L Urine Color (Yellow) Urine Appearance (Clear) Urine pH (4.6-8.0) Ur Specific Presto (1.005-1.030) Urine Protein (Negative) Urine Glucose (UA) (Negative) mg/dL Urine Ketones (Negative) Urine Blood (Negative) Urine Nitrite (Negative) Urine Bilirubin (Negative) Urine Urobilinogen (0.2) mg/dL Ur Leukocyte Esterase (Negative) U Hyaline Cast (Auto) (0-2) /LPF Urine Microscopic RBC (0-5) /HPF Urine Microscopic WBC (0-5) /HPF Ur Epithelial Cells (None Seen) /HPF Urine Bacteria (None Seen) /HPF Urine Culture Reflexed (NO) Micro Results-Entire Visit: Microbiology 02/24/24 11:16 Urine Culture - Preliminary Catherized NO GROWTH TO DATE - Radiology Exams Ordered Rad Exams-Entire Visit: Radiology Procedures Category Date Time Status CHEST 1 VIEW (PORTABLE) Stat Exams 02/24/24 10:56 Completed CHEST WITH CONTRAST [CT] Stat Exams 02/24/24 12:24 Completed ECHO W/2D AND DOPPLER [US] Routine Exams 02/25/24 08:00 Ordered Discharge Exam General Appearance: no apparent distress, alert Neurologic Exam: alert, oriented x 3, cooperative, normal mood/affect, nml cerebellar function, sensation nml, No motor deficits Eye Exam: PERRL, EOMI, eyes nml inspection Ears, Nose, Throat Exam: normal ENT inspection, pharynx normal, moist mucous membranes Neck Exam: normal inspection, non-tender, supple, full range of motion Respiratory Exam: normal breath sounds, lungs clear, No respiratory distress Cardiovascular Exam: normal heart sounds, irregular Gastrointestinal/Abdomen Exam: soft, No tenderness, No mass Pelvic Exam: deferred Rectal Exam: deferred Back Exam: normal inspection, normal range of motion, No CVA tenderness, No vertebral tenderness Extremity Exam: normal inspection, normal range of motion Skin Exam: normal color, warm, dry Final Diagnosis/Problem List - Final Discharge Diagnosis/Problem (1) Atrial fibrillation with rapid ventricular response Current Visit: Yes Status: Acute Code(s): I48.91 - UNSPECIFIED ATRIAL F IBRILLATION (2) CHF (congestive heart failure) Current Visit: Yes Status: Acute Code(s): I50.9 - HEART FAILURE, UNSPECIFIED (3) SOB (shortness of breath) Current Visit: Yes Status: Resolved Code(s): R06.02 - SHORTNESS OF BREATH (4) Chest pain Current Visit: Yes Status: Acute Assessment & Plan: (1) Atrial fibrillation with rapid ventricular response Current Visit: Yes Status: Acute Assessment & Plan: - Cardizem IVP X1 gave in ER- HR reduced to 87 - When arrived to floor HR increased to 130 - cardizem gtt started, when HR maintained <100 can start oral cardizem. - Echo from 02/21/21 EF 60% 1) NO DEFINITE REGIONAL WALL MOTION ABNORMALITY. ESTIMATED GLOBAL LEFT VENTRICULAR EJECTION FRACTION AROUND 60%. 2) MILD MITRAL REGURGITATION. 3) LEFT VENTRICULAR HYPERTROPHY. 4) LEFT ATRIAL ENLARGEMENT - 324mg ASA gave in ER - Cardiology consult tomorrow - echo tomorrow - Denies CP on admission to floor - Trop x2 negative- trend - ICU- Tele - no edema - RA - Chest XR and CT chest negative - CT chest negative for PE - 2:2 CHF, BNP 2340 - Keep K+ > 4, Mg+ >2 - will check TSH in am when fasting. - Continue Pradaxa - Lipid panel from 10/29/23 reviewed all labs looked good- continue statin - K+ 3.9 - replaced- will recheck in AM 02/24 - K+ 3.8 replaced - Mg+ pending - TSH WNL - Echo: EF 44% per geodetic technician, awaiting official read - card recs: Diltiazem ER 120 mg daily, ok to d/c and f/u with cardiology OP as scheduled. Code(s): I48.91 - UNSPECIFIED ATRIAL FIBRILLATION (2) CHF (congestive heart failure) Current Visit: Yes Status: Acute Assessment & Plan: - Left sided heart failure - BNP 2340 - recheck in AM - Lasix 40 IVP x1 now - see above plan for a-fib RVR 02/24 - Lasix PO, pt has continued SOB - RA Code(s): I50.9 - HEART FAILURE, UNSPECIFIED (3) SOB (shortness of breath) Current Visit: Yes Status: Resolved Assessment & Plan: - RA 96% Code(s): R06.02 - SHORTNESS OF BREATH (4) Chest pain Current Visit: Yes Status: Acute Qualifiers: Assessment & Plan: - resolved with laying, chest pressure when up and heart rate increases. - Trop x2 negative- trend - 2:2 a-fib RVR 02/24 - resolved - Trop x3 negative Code(s): R07.9 - CHEST PAIN, UNSPECIFIED - Discharge Discharge Date: 02/25/24 Disposition: Home, Self-Care Condition: Stable Prescriptions: Continue Memantine HCl 5 mg [Namenda 5 MG] 5 mg PO HS Losartan Potassium [Cozaar] 100 mg PO HS Nitroglycerin 0.4 mg Tablet [Nitrostat 0.4 MG Tablet] 0.4 mg SL Q5MIN PRN MR X 3 PRN PRN Reason: Chest Pain Ascorbic Acid 500 mg [Vitamin C 500 MG] 500 mg PO DAILY Valsartan [Diovan] 320 mg PO DAILY Calcium Carb/Vit D3/Minerals [Calcium 600+D Plus Minerals Tb] 1 tab PO BID Atorvastatin Calcium [Lipitor] 40 mg PO HS Dabigatran Etexilate Mesylate [Pradaxa] 150 mg PO BID Sotalol HCl [Sotalol] 120 mg PO BID Carbidopa/Levodopa [Carbidopa-Levo ER 25-100 Tab] 1 tab PO HS Carbidopa/Levodopa [Carbidopa-Levodopa 25-100 Tab] 0.5 tab PO 0900,1700 Follow up with: ANTHONY BHANDARI NP [Primary Care Provider] -
[2024-02-25] MEDS: Vitamin C 500 MG PO SCH (09:41)
[2024-02-25] MEDS: Lasix 40 MG PO ONE (09:41)
[2024-02-25] MEDS: Klor Con PO ONE (09:41)
[2024-02-25] MEDS: DIOVAN 80 MG PO SCH (09:42)
[2024-02-25] MEDS: Sinemet 25/100 MG PO SCH (09:43)
[2024-02-25] MEDS ORDERED: NON-FORMULARY ITEM (Valsartan [Diovan] 320 MG Tablet) PO SCH (10:00)
[2024-02-25 11:54] VITALS: BP 120/70; PULSE 85; RESP 16; TEMP 97.7
[2024-02-25] MEDS ORDERED: ZOCOR 20MG PO SCH (22:00)
--- NOTE | 2024-02-26 15:17 | ECHO ---
DATE OF PROCEDURE: 02/25/2024 CLINICAL INFORMATION: Atrial fibrillation with rapid ventricular response. The M-mode 2D, and Doppler echocardiogram including color flow Doppler shows the heart rate 73 beats/minute. The left ventricle is normal in size. There is mild concentric left ventricular hypertrophy. There is normal contractility of the left ventricle. The ejection fraction is estimated to be 55 to 60%. There is calcification of the tip of the posterior papillary muscle. The right ventricle is grossly normal. The left atrium is normal in size. The interatrial septum is intact. The right atrium is normal. The aortic valve opens well. There is mitral valve leaflet thickening associated with mild mitral regurgitation. There is mild tricuspid regurgitation. The right ventricular systolic pressure is calculated to be 32 mm of Mercury. The pulmonic valve is not well visualized. The aortic root is normal. There is a small pericardial effusion. IMPRESSION: 1) NORMAL CONTRACTILITY OF THE LEFT VENTRICLE. 2) MILD CONCENTRIC LEFT VENTRICULAR HYPERTROPHY. 3) CALCIFICATION OF POSTERIOR PAPILLARY MUSCLE. 4) MILD MITRAL REGURGITATION. 5) MILD TRICUSPID REGURGITATION. 6) MILD PULMONARY HYPERTENSION. 7) SMALL PERICARDIAL EFFUSION.
== END 2024-02-25 13:36 | disposition home or self-care (01) ==
LOC: ED 10:42 → ICU 16:15
PROVIDERS: ADMIT Internal Medicine; ATTEND Internal Medicine
DX: I48.20 Chronic atrial fibrillation, unspecified (principal); I11.0 Hypertensive heart disease with heart failure; I50.9 Heart failure, unspecified; R07.9 Chest pain, unspecified; R06.02 Shortness of breath; I25.10 Atherosclerotic heart disease of native coronary artery without angina pectoris; I25.2 Old myocardial infarction; Z85.3 Personal history of malignant neoplasm of breast; Z86.79 Personal history of other diseases of the circulatory system; Z79.899 Other long term (current) drug therapy; E78.5 Hyperlipidemia, unspecified; Z79.01 Long term (current) use of anticoagulants
CPT/HCPCS: 36000; 36415; 71045; 71260; 80053; 81001; 83690; 83735; 83880; 84443; 84484; 85025; 85027; 87086; 93005; 93041; 93306; 96374; 99285; P9612; 93268; J1940; Q3014; A9270-GY; G0378

== ENCOUNTER 2024-10-14 17:58 | Observation (INO) | payer MEDICARE, BC ==
--- NOTE | 2024-10-14 18:08 | ERPHSYRPT ---
<SHEEBA IBRAHIM - Last Filed: 10/14/24 18:44> - History of Present Illness Time Seen by Provider: 10/14/24 18:07 Historian: patient, family Exam Limitations: no limitations Physician History: This is a 79-year-old white female patient of nurse practitioner Ara who arrives by private vehicle to the emergency department accompanied by her daughter with a complaint of intermittent chest pain and shortness of breath for the last several days. Patient has a history of atrial fibrillation on sotalol and Pradaxa. Today, the symptoms were present and has been persistent despite her taking an extra dose of the sotalol. Patient's heart rate is in the 110s to low 130s. She is maintaining her blood pressure. Patient has a history of h ypertension, Parkinson's disease, hyperlipidemia, gastroesophageal reflux disease and has coronary artery disease (myocardial infarction, cardiac stents x 3). Timing/Duration: today Activities at Onset: none Quality: dullness, pressure Location: substernal, central Severity of Pain-Max: mild Severity of Pain-Current: mild Associated Symptoms: palpitations, shortness of breath, No nausea, No abdominal pain Prior Chest Pain/Cardiac Workup: cardiac cath, echocardiography, heart attack Nitro Today/Relief: no nitro taken today Aspirin Treatment Today: no aspirin today Allergies/Adverse Reactions: No Known Drug Allergies Allergy (Verified 10/14/24 18:00) Home Medications: Memantine HCl 5 mg [Namenda 5 MG] 5 mg PO HS 12/07/12 [History] Losartan Potassium [Cozaar] 100 mg PO HS 12/15/21 [History] Nitroglycerin 0.4 mg Tablet [Nitrostat 0.4 MG Tablet] 0.4 mg SL Q5MIN PRN MR X 3 PRN 12/15/21 [History] Ascorbic Acid 500 mg [Vitamin C 500 MG] 500 mg PO DAILY 09/26/23 [History] Valsartan [Diovan] 320 mg PO DAILY 11/07/23 [History] Atorvastatin Calcium [Lipitor] 40 mg PO HS 02/24/24 [History] Calcium Carb/Vit D3/Minerals [Calcium 600+D Plus Minerals Tb] 1 tab PO BID 07/11 [History] Carbidopa/Levodopa [Carbidopa-Levo ER 25-100 Tab] 1 tab PO HS 02/24/24 [History] Carbidopa/Levodopa [Carbidopa-Levodopa 25-100 Tab] 0.5 tab PO 0900,1700 02/24/24 [History] Dabigatran Etexilate Mesylate [Pradaxa] 150 mg PO BID 02/24/24 [History] Sotalol HCl [Sotalol] 120 mg PO BID 02/24/24 [History] Hx Tetanus, Diphtheria Vaccination/Date Given: Yes Hx Influenza Vaccination/Date Given: Yes Hx Pneumococcal Vaccination/Date Given: No Travel Risk - International Travel Have you traveled outside of the country in past 3 weeks: No - Emerging Infectious Disease Are you exhibiting symptoms associated with any current EIDs: No - Review of Systems Constitutional: No Symptoms Eyes: No Symptoms Ears, Nose, & Throat: No Symptoms Respiratory: Dyspnea Cardiac: Chest Pain, Palpitations Abdominal/Gastrointestinal: No Symptoms Genitourinary Symptoms: No Symptoms Musculoskeletal: No Symptoms Skin: No Symptoms Neurological: No Symptoms Psychological: No Symptoms Endocrine: No Symptoms Hematologic/Lymphatic: No Symptoms Immunological/Allergic: No Symptoms All Other Systems: Reviewed and Negative - Past Medical History Pertinent Past Medical History: Yes Neurological History: Stroke ENT History: No Pertinent History Cardiac History: Arrhythmia, Coronary Artery Disease, High Cholesterol, Hypertension, Myocardial Infarction ([place]) Respiratory History: No Pertinent History Endocrine Medical History: No Pertinent History Musculoskeletal History: No Pertinent History GI Medical History: GERD History: No Pertinent History Psycho-Social History: No Pertinent History Female Reproductive Disorders: Breast Cancer Other Medical History: [place] WITH CVA IN 2011; parkinsons. L side breast CA - Past Surgical History Past Surgical History: Yes Neuro Surgical History: No Pertinent History Cardiac: Cardiac Catheterization, Cardiac Stent Respiratory: No Pertinent History Gastrointestinal: No Pertinent History Genitourinary: No Pertinent History Musculoskeletal: No Pertinent History Female Surgical History: Hysterectomy, Tubal Ligation, Lumpectomy Other Surgical History: Cath in 2011. Cardiac stents x 3. hysterctomy with bladder tie up 07/07/2021 - Social History Smoking Status: Never smoker Exposure to second hand smoke: No Drug Use: none Patient Lives Alone: Yes - Social Determinants of Health Will the patient participate in the screening: Yes Do you worry about a steady place to live?: No In the past 12 months,have you had to go without utilities?: No Transportation Issues: No Has anyone in your support network made you feel unsafe?: No Have you or anyone in your house had to go without enough: No - Physical Exam General Appearance: no apparent distress, alert, anxiety, thin Eye Exam: PERRL/EOMI, eyes nml inspection Ears, Nose, Throat Exam: normal ENT inspection, moist mucous membranes Neck Exam: normal inspection, non-tender, supple, full range of motion Respiratory Exam: normal breath sounds, chest tenderness, lungs clear, airway intact, No respiratory distress Cardiovascular Exam: tachycardia, irregular Gastrointestinal/Abdomen Exam: soft, normal bowel sounds, No tenderness Pelvic Exam: not done Rectal Exam: not done Back Exam: normal inspection, normal range of motion, No CVA tenderness, No vertebral tenderness Extremity Exam: normal inspection, normal range of motion, pelvis stable Neurologic Exam: alert, oriented x 3, cooperative, automatic operator II-XII nml as tested, nml cerebellar function, nml station & gait, sensation nml Skin Exam: normal color, warm, dry Lymphatic Exam: No adenopathy SpO2 Interpretation: normal O2 Delivery: Room Air - Course Nursing assessment & vital signs reviewed: Yes EKG Interpreted by Me: RATE (122), A-fib, NORMAL AXIS, prolonged QT interval, NORMAL QRS, Other (No acute ischemic changes on today's twelve-lead EKG. QTc is prolonged at 527) - Progress Progress: improved, re-examined Air Movement: good Progress Note: 10/14/24 18:21 My medical decision making and the assignment of at least moderate complexity is based on review of the patient's past medical history, review the patient's medication list, reviewed patient drug allergy list, history present illness and physical findings on examination. The workup in this patient includes placement of intravenous line, infusion of 10 mg intravenous Cardizem, twelve- lead EKG, troponin level, BNP, chest x-ray, CBC, CMP, magnesium level. Differential diagnosis includes but is not limited to myocardial infarction, congestive heart failure, electrolyte abnormalities, arrhythmia 10/14/24 18:45 I am transferring the care of this patient to Dr. Ashley Townsend at shift change. He will follow-up on pending studies and make final disposition. - Departure Departure Disposition: Observation Clinical Impression: Chest pain, Atrial fibrillation with RVR Condition: Stable Critical Care Time: Yes Critical Care Time(excluding separately billable procedures): Critical 30-74 mins (45) Referrals: ANTHONY BHANDARI NP [Primary Care Provider] - Follow up/PCP as directed <ASHLEY TOWNSEND - Last Filed: 10/14/24 20:29> - Nursing Vital Signs Nursing Vital Signs: Initial Vital Signs Temperature 97.5 F 10/14/24 17:59 Pulse Rate 113 H 10/14/24 17:59 Respiratory Rate 22 10/14/24 17:59 Blood Pressure 88/69 10/14/24 17:59 O2 Sat by Pulse Oximetry 99 10/14/24 17:59 Pain Scale Pain Intensity 3 Ordered Tests: Active Orders 24 hr Category Date Time Status Crust Sorter STAT Care 10/14/24 18:10 Active EKG-ER Only STAT Care 10/14/24 18:10 Active IV Insertion STAT Care 10/14/24 18:10 Active Pulse Oximetry (ED) STAT Care 10/14/24 18:10 Active CHEST 1 VIEW (PORTABLE) Stat Exams 10/14/24 18:11 Taken CBC W DIFF Stat Lab 10/14/24 18:10 Completed CMP Stat Lab 10/14/24 18:10 Completed MAGNESIUM Stat Lab 10/14/24 18:10 Completed NT PRO BNPII Stat Lab 10/14/24 18:10 Completed TROPONIN Q4H Lab 10/14/24 18:10 Completed TROPONIN Q4H Lab 10/14/24 22:15 Ordered TROPONIN Q4H Lab 10/15/24 02:15 Ordered TSH [TSH, 3RD Generation] Stat Lab 10/14/24 20:10 Ordered Transfer Order Routine Transfer 10/14/24 Ordered Medication Summary Generic Name Dose Route Start Last Admin Trade Name Freq PRN Reason Stop Dose Admin Diltiazem HCl 100 mls @ 5 mls/hr 10/14/24 20:05 Cardizem Drip 100 Mg/100 Ml D5w IV 11/13/24 20:04 .Q20H PRN HEART RATE/ A-FIB Protocol 5 MG/HR Discontinued Medications Generic Name Dose Route Start Last Admin Trade Name Freq PRN Reason Stop Dose Admin Aspirin 324 mg 10/14/24 18:10 10/14/24 18:18 Aspirin 81 Mg Tab.Chew PO 10/14/24 18:11 324 mg STAT ONE Administration Aspirin Confirm 10/14/24 18:17 Aspirin 81 Mg Tab.Chew Administered 10/14/24 18:18 Dose 324 mg .ROUTE .STK-MED ONE Diltiazem HCl 10 mg 10/14/24 18:16 10/14/24 18:22 Diltiazem Hcl Iv 5 Mg/Ml Vial IV 10/14/24 18:17 10 mg STAT ONE Administration Diltiazem HCl Confirm 10/14/24 18:21 Diltiazem Hcl Iv 5 Mg/Ml Vial Administered 10/14/24 18:22 Dose 50 mg IV .STK-MED ONE Lab/Rad Data: Laboratory Result Diagrams 10/14/24 18:10 10/14/24 18:10 Laboratory Results 10/14/24 10/14/24 10/14/24 Range/Units 18:10 18:10 18:10 WBC 8.0 (3.98-10.04) x10^3/uL RBC 4.67 (3.93-5.22) x10^6/uL Hgb 14.2 (11.2-15.7) g/dL Hct 43.4 (34.1-44.9) % MCV 92.9 (79.4-94.8) fL MCH 30.4 (25.6-32.2) pg MCHC 32.7 (32.2-35.5) g/dL RDW 13.4 (11.7-14.4) % Plt Count 196 (182-369) x10^3/uL MPV 11.1 (9.4-12.3) fL Gran % 77.6 H (34.0-71.1) % Immature Gran % (Auto) 0.2 (0.001-0.429) % Nucleat RBC Rel Count 0.0 (0.00-0.2) % Eos # (Auto) 0.14 (0.04-0.36) x10^3/uL Immature Gran # (Auto) 0.02 (0.001-0.031) x10^3u/L Absolute Lymphs (auto) 1.03 L (1.18-3.74) x10^3/uL Absolute Monos (auto) 0.58 (0.24-0.86) x10^3/uL Absolute Nucleated RBC 0.00 (0.00-0.012) x10^3u/L Lymphocytes % 12.8 L (19.3-51.7) % Monocytes % 7.2 (4.7-12.5) % Eosinophils % 1.7 (0.7-5.8) % Basophils % 0.5 (0.1-1.2) % Absolute Granulocytes 6.23 H (1.56-6.13) x10^3/uL Basophils # 0.04 (0.01-0.08) x10^3/uL Sodium 141 (135-145) mmol/L Potassium 4.1 (3.5-5.1) mmol/L Chloride 106 (98-107) mmol/L Carbon Dioxide 24 (22-30) mmol/L Anion Gap 15.0 (5-15) MEQ/L BUN 33 H (7-17) mg/dL Creatinine 0.78 (0.52-1.04) mg/dL Estimated GFR 78.2 ML/MIN Glucose 103 (74-106) mg/dL Calcium 9.7 (8.4-10.2) mg/dL Magnesium 2.2 (1.6-2.3) mg/dL Total Bilirubin 0.70 (0.2-1.3) mg/dL AST 30 (14-36) U/L ALT 6 (0-35) U/L Alkaline Phosphatase 54 (38-126) U/L Troponin I < 0.012 (0.000-0.033) ng/mL NT-Pro-B Natriuret Pep 377 (<300) pg/mL Serum Total Protein 7.3 (6.3-8.2) g/dL Albumin 4.6 (3.5-5.0) g/dL - Progress Progress Note: 79-year-old female presents to the emergency department for evaluation. Patient evaluated by Dr. Ibrahim. Patient diagnosed with A-fib with RVR. Patient received a bolus dose of Cardizem. Heart rate improved transiently however patient is back into A-fib with RVR. Patient endorsed to Dr. Townsend at approximately 7 PM. Cardizem drip ordered. Patient currently anticoagulated on Pradaxa per her single needle operator. Laboratory workup/electrolytes appear to be within normal limits. Case discussed with Dr. Nassar hospitalist who accepts admission to observation at 8:11 PM. Plan of care discussed with patient. She agrees to admission [facility] for further evaluation and treatment. Portions of this note were created with voice recognition technology. There may be grammatical, spelling, punctuation or sound alike errors 10/14/24 20:17
[2024-10-14] MEDS ORDERED: BABY ASPIRIN 81 MG CHEW ONE (18:17)
[2024-10-14] MEDS: BABY ASPIRIN 81 MG CHEW PO ONE (18:18)
[2024-10-14 18:19] LABS: Absolute Neutrophil Ct (ANC) 6.23 x10^3/uL (1.56-6.13); BASOPHIL % 0.5 % (0.1-1.2); Basophil (Absolute #) 0.04 x10^3/uL (0.01-0.08); Eosinophil % 1.7 % (0.7-5.8); Eosinophil (Absolute #) 0.14 x10^3/uL (0.04-0.36); Hematocrit 43.4 % (34.1-44.9); Hemoglobin 14.2 g/dL (11.2-15.7); IMMATURE GRAN # 0.02 x10^3u/L (0.001-0.031); IMMATURE GRAN % 0.2 % (0.001-0.429); Lymphocyte (Absolute #) 1.03 x10^3/uL (1.18-3.74); Lymphocytes % 12.8 % (19.3-51.7); Mean Cell Volume 92.9 fL (79.4-94.8); Mean Corpuscular Hemoglobin 30.4 pg (25.6-32.2); Mean Corpuscular Hgb Concent. 32.7 g/dL (32.2-35.5); Mean Platelet Volume 11.1 fL (9.4-12.3); Monocyte (Absolute #) 0.58 x10^3/uL (0.24-0.86); Monocytes % 7.2 % (4.7-12.5); Neutrophil % 77.6 % (34.0-71.1); Platelet Count 196 x10^3/uL (182-369); Red Blood Count 4.67 x10^6/uL (3.93-5.22); Red Cell Distribution Width 13.4 % (11.7-14.4)
[2024-10-14] MEDS ORDERED: Cardizem IV 50 MG/10 ML IV ONE (18:21)
[2024-10-14] MEDS: Cardizem IV 50 MG/10 ML IV ONE (18:22)
[2024-10-14 19:07] LABS: ALBUMIN 4.6 g/dL (3.5-5.0); BILIRUBIN,TOTAL 0.7 mg/dL (0.2-1.3); Calcium 9.7 mg/dL (8.4-10.2); Creatinine 1 0.78 mg/dL (0.52-1.04); EST GLOMERULAR FILTRATION RATE 78.2 ML/MIN; MAGNESIUM 2.2 mg/dL (1.6-2.3); Potassium 4.1 mmol/L (3.5-5.1); Total Protein 7.3 g/dL (6.3-8.2)
[2024-10-14] MEDS: CARDIZEM DRIP 100 MG/100 ML D5W 100 ML IV PRN (20:49)
--- NOTE | 2024-10-14 20:58 | XRAY ---
Indication: Chest pain. Short of breath. Comparison: February 24, 2024 Portable chest again hyperinflated and clear. Heart not enlarged. Bony thorax intact again with osteopenia, degenerative changes, dextroscoliosis, and left axillary davey dissection. Impression: Continued nonacute chest with chronic features.
--- NOTE | 2024-10-14 21:07 | PCM.HP ---
History of Present Illness - Chief Complaint Chief Complaint: chest pain/afib Date: 10/14/24 History of Present Illness: Ms. SINGH is a 79 year old female with a past medical history significant for hypertension, hyperlipidemia and atrial fibrillation on sotalol and pradaxa as per lead electrician who presents to the hospital with complaints of chest pain for the past couple days. The pain radiated to the back and she had an episode of nausea and vomiting. She was tachycardic so she took an extra dose of sotalol, but it did not help. Upon arrival, she was found to be in afib with RVR with heart rates in the 120-130s. She was given IV Cardizem which initially decreased her rate, but it increased again. She has been recommended for admission. No fever/chills. No shortness of breath or palpitations. No current nausea, vomiting or diarrhea. No dysuria, hematuria or urinary urgency. - Review of Systems Constitutional: No Fever, No Chills Eyes: No Vision Changes Ears, Nose, & Throat: No Sinus Drainage Respiratory: No Short Of Breath, No Stridor, No Wheezing Cardiac: Chest Pain, No Edema, No Palpitations Abdominal/Gastrointestinal: No Nausea, No Vomiting, No Diarrhea Genitourinary Symptoms: No Dysuria, No Frequency, No Hematuria Musculoskeletal: No Joint Pain, No Joint Swelling Skin: No Rash Neurological: Lethargy, No Focal Weakness Psychological: No Suicidal Ideations Endocrine: No Polyuria, No Polydipsia Hematologic/Lymphatic: No Blood Clots Medications & Allergies Home Medications: Home Medication List Memantine HCl 5 mg [Namenda 5 MG] 5 mg PO HS 12/07/12 [History Confirmed 08/10/24] Losartan Potassium [Cozaar] 100 mg PO HS 12/15/21 [History Confirmed 08/10/24] Nitroglycerin 0.4 mg Tablet [Nitrostat 0.4 MG Tablet] 0.4 mg SL Q5MIN PRN MR X 3 PRN 12/15/21 [History Confirmed 08/10/24] Ascorbic Acid 500 mg [Vitamin C 500 MG] 500 mg PO DAILY 09/26/23 [History Confirmed 08/10/24] Valsartan [Diovan] 320 mg PO DAILY 11/07/23 [History Confirmed 08/10/24] Atorvastatin Calcium [Lipitor] 40 mg PO HS 02/24/24 [History Confirmed 08/10/24] Calcium Carb/Vit D3/Minerals [Calcium 600+D Plus Minerals Tb] 1 tab PO BID 02/24/24 [History Confirmed 08/10/24] Carbidopa/Levodopa [Carbidopa-Levo ER 25-100 Tab] 1 tab PO HS 02/24/24 [History Confirmed 08/10/24] Carbidopa/Levodopa [Carbidopa-Levodopa 25-100 Tab] 0.5 tab PO 0900,1700 02/24/24 [History Confirmed 08/10/24] Dabigatran Etexilate Mesylate [Pradaxa] 150 mg PO BID 02/24/24 [History Confirmed 08/10/24] Sotalol HCl [Sotalol] 120 mg PO BID 02/24/24 [History Confirmed 08/10/24] dilTIAZem HCL [Diltiazem 12Hr ER] 120 mg PO DAILY 14 Days #14 cap 02/25/24 [Rx Confirmed 08/10/24] Allergies/Adverse Reactions: Allergies Allergy/AdvReac Type Severity Reaction Status Date / Time No Known Drug Allergies Allergy Verified 10/14/24 18:00 - Past Medical History Past Medical History: Yes Neurological History: Stroke ENT History: No Pertinent History Cardiac History: Arrhythmia, Coronary Artery Disease, High Cholesterol, Hypertension, Myocardial Infarction ([place]) Respiratory History: No Pertinent History Endocrine Medical History: No Pertinent History Musculoskelatal History: No Pertinent History GI Medical History: GERD History: No Pertinent History Pyscho-Social History: No Pertinent History Reproductive Disorders: Breast Cancer Comment: [place] WITH CVA IN 2011; parkinsons. L side breast CA - Past Surgical History Past Surgical History: Yes Neuro Surgical History: No Pertinent History Cardiac History: Cardiac Catheterization, Cardiac Stent Respiratory Surgery: No Pertinent History GI Surgical History: No Pertinent History Genitourinary Surgical Hx: No Pertinent History Musculskeletal Surgical Hx: No Pertinent History Female Surgical History: Hysterectomy, Tubal Ligation, Lumpectomy Other Surgical History: Cath in 2011. Cardiac stents x 3. hysterctomy with bladder tie up 07/07/2021 - Social History Smoking Status: Never smoker Exposure to second hand smoke: No Alcohol: None Drug Use: none - Social Determinants of Health Will the patient participate in the screening: Yes Do you worry about a steady place to live?: No Do you have any problems with any of the following?: No known problems In the past 12 months,have you had to go without utilities?: No Have you or anyone in your house had to go without enough: No Transportation Issues: No Has anyone in your support network made you feel unsafe?: No Does the patient want assistance with any of the above?: No - Physical Exam Vital Signs: Vital Signs - 24 hr Temp Pulse Pulse Resp BP BP Pulse Ox 10/14/24 20:49 127 H 22 128/80 10/14/24 20:00 104 H 19 112/77 98 10/14/24 19:45 114 H 17 114/80 97 10/14/24 19:30 98 H 22 108/87 97 10/14/24 19:15 101 H 20 116/70 98 10/14/24 19:00 87 20 106/75 99 10/14/24 18:45 94 H 21 100/65 99 10/14/24 18:30 107 H 17 100/70 98 10/14/24 18:19 99 10/14/24 18:15 120 H 22 118/75 97 10/14/24 18:08 128 H 20 123/85 99 10/14/24 18:00 112 H 10/14/24 17:59 97.5 F 113 H 22 88/69 99 General Appearance: mild distress Neurologic Exam: alert Ears, Nose, Throat Exam: dry mucous membranes Neck Exam: supple Respiratory Exam: No respiratory distress Cardiovascular Exam: irregular Gastrointestinal/Abdomen Exam: soft Extremity Exam: pedal edema, swelling Skin Exam: normal color, No rash Results - Labs Lab/Micro Results: Lab Results-Last 24 Hours 10/14/24 10/14/24 10/14/24 Range/Units 18:10 18:10 18:10 WBC 8.0 (3.98-10.04) x10^3/uL RBC 4.67 (3.93-5.22) x10^6/uL Hgb 14.2 (11.2-15.7) g/dL Hct 43.4 (34.1-44.9) % MCV 92.9 (79.4-94.8) fL MCH 30.4 (25.6-32.2) pg MCHC 32.7 (32.2-35.5) g/dL RDW 13.4 (11.7-14.4) % Plt Count 196 (182-369) x10^3/uL MPV 11.1 (9.4-12.3) fL Gran % 77.6 H (34.0-71.1) % Immature Gran % (Auto) 0.2 (0.001-0.429) % Nucleat RBC Rel Count 0.0 (0.00-0.2) % Eos # (Auto) 0.14 (0.04-0.36) x10^3/uL Immature Gran # (Auto) 0.02 (0.001-0.031) x10^3u/L Absolute Lymphs (auto) 1.03 L (1.18-3.74) x10^3/uL Absolute Monos (auto) 0.58 (0.24-0.86) x10^3/uL Absolute Nucleated RBC 0.00 (0.00-0.012) x10^3u/L Lymphocytes % 12.8 L (19.3-51.7) % Monocytes % 7.2 (4.7-12.5) % Eosinophils % 1.7 (0.7-5.8) % Basophils % 0.5 (0.1-1.2) % Absolute Granulocytes 6.23 H (1.56-6.13) x10^3/uL Basophils # 0.04 (0.01-0.08) x10^3/uL Sodium 141 (135-145) mmol/L Potassium 4.1 (3.5-5.1) mmol/L Chloride 106 (98-107) mmol/L Carbon Dioxide 24 (22-30) mmol/L Anion Gap 15.0 (5-15) MEQ/L BUN 33 H (7-17) mg/dL Creatinine 0.78 (0.52-1.04) mg/dL Estimated GFR 78.2 ML/MIN Glucose 103 (74-106) mg/dL Calcium 9.7 (8.4-10.2) mg/dL Magnesium 2.2 (1.6-2.3) mg/dL Total Bilirubin 0.70 (0.2-1.3) mg/dL AST 30 (14-36) U/L ALT 6 (0-35) U/L Alkaline Phosphatase 54 (38-126) U/L Troponin I < 0.012 (0.000-0.033) ng/mL NT-Pro-B Natriuret Pep 377 (<300) pg/mL Serum Total Protein 7.3 (6.3-8.2) g/dL Albumin 4.6 (3.5-5.0) g/dL TSH 3rd Generation (0.470-4.680) mIU/L 10/14/24 Range/Units 18:30 WBC (3.98-10.04) x10^3/uL RBC (3.93-5.22) x10^6/uL Hgb (11.2-15.7) g/dL Hct (34.1-44.9) % MCV (79.4-94.8) fL MCH (25.6-32.2) pg MCHC (32.2-35.5) g/dL RDW (11.7-14.4) % Plt Count (182-369) x10^3/uL MPV (9.4-12.3) fL Gran % (34.0-71.1) % Immature Gran % (Auto) (0.001-0.429) % Nucleat RBC Rel Count (0.00-0.2) % Eos # (Auto) (0.04-0.36) x10^3/uL Immature Gran # (Auto) (0.001-0.031) x10^3u/L Absolute Lymphs (auto) (1.18-3.74) x10^3/uL Absolute Monos (auto) (0.24-0.86) x10^3/uL Absolute Nucleated RBC (0.00-0.012) x10^3u/L Lymphocytes % (19.3-51.7) % Monocytes % (4.7-12.5) % Eosinophils % (0.7-5.8) % Basophils % (0.1-1.2) % Absolute Granulocytes (1.56-6.13) x10^3/uL Basophils # (0.01-0.08) x10^3/uL Sodium (135-145) mmol/L Potassium (3.5-5.1) mmol/L Chloride (98-107) mmol/L Carbon Dioxide (22-30) mmol/L Anion Gap (5-15) MEQ/L BUN (7-17) mg/dL Creatinine (0.52-1.04) mg/dL Estimated GFR ML/MIN Glucose (74-106) mg/dL Calcium (8.4-10.2) mg/dL Magnesium (1.6-2.3) mg/dL Total Bilirubin (0.2-1.3) mg/dL AST (14-36) U/L ALT (0-35) U/L Alkaline Phosphatase (38-126) U/L Troponin I (0.000-0.033) ng/mL NT-Pro-B Natriuret Pep (<300) pg/mL Serum Total Protein (6.3-8.2) g/dL Albumin (3.5-5.0) g/dL TSH 3rd Generation 1.145 (0.470-4.680) mIU/L - Radiology Impressions Radiology Exams & Impressions: Radiology Procedures Category Date Time Status CHEST 1 VIEW (PORTABLE) Stat Exams 10/14/24 18:11 Completed Assessment/Plan (1) Atrial fibrillation with rapid ventricular response Current Visit: Yes Status: Acute Assessment & Plan: Afib under suboptimal control despite sotalol 1. Will admit under telemetry 2. Trend cardiac enzymes 3. Continue Sotalol/Pradaxa 4. Will start Cardizem for rate control 5. Cardiology consult 6. Monitor heart rate/rhythm Code(s): I48.91 - UNSPECIFIED ATRIAL FIBRILLATION (2) HTN (hypertension) Current Visit: No Status: Chronic Qualifiers: Hypertension type: primary hypertension Qualified Code(s): I10 - Essential (primary) hypertension Assessment & Plan: Blood pressure under reasonable control 1. Will continue bp meds - will pick losartan and hold valsartan 2. Low Na diet 3. Monitor blood pressure readings Code(s): I10 - ESSENTIAL (PRIMARY) HYPERTENSION (3) Azotemia Current Visit: Yes Status: Acute Assessment & Plan: Likely a little prerenal with elevated BUN:Cr ratio 1. Gentle IVFs 2. Check urine lytes, urine creatinine 3. Follow I/Os 4. Watch electrolytes, creatinine closely Code(s): R79.89 - OTHER SPECIFIED ABNORMAL FINDINGS OF BLOOD CHEMISTRY Telemedicine Encounter - Telemedicine Encounter Telemedicine Encounter: "The entirety of this encounter was performed via Telemedicine" This visit was performed using real-time audio and video connection between my location and thepatients locationwith the assistance of a surrogateat the patients location. Written or verbal consent was obtained from the patient/guardian to [facility]. Any patient questions regarding the telemedicine interaction were answered.
[2024-10-14] MEDS ORDERED: Docusate Sodium 100 MG PO PRN (22:50)
[2024-10-14] MEDS: Sodium Chloride 0.9% 1000 ML 1,000 ML IV SCH (23:02)
[2024-10-15] MEDS: TYLENOL 325 MG PO PRN (03:08)
[2024-10-15 03:51] LABS: Hematocrit 42.5 % (34.1-44.9); Mean Cell Volume 92.8 fL (79.4-94.8); Mean Corpuscular Hemoglobin 30.6 pg (25.6-32.2); Mean Corpuscular Hgb Concent. 32.9 g/dL (32.2-35.5); Mean Platelet Volume 11.3 fL (9.4-12.3); Platelet Count 194 x10^3/uL (182-369); Red Blood Count 4.58 x10^6/uL (3.93-5.22); Red Cell Distribution Width 13.4 % (11.7-14.4)
[2024-10-15 04:16] LABS: ALBUMIN 4.2 g/dL (3.5-5.0); ANION GAP 13.7 MEQ/L (5-15); BILIRUBIN,TOTAL 0.9 mg/dL (0.2-1.3); Calcium 9.5 mg/dL (8.4-10.2); Creatinine 1 0.67 mg/dL (0.52-1.04); Potassium 4.3 mmol/L (3.5-5.1); Total Protein 6.8 g/dL (6.3-8.2)
[2024-10-15] MEDS: PRADAXA 75 MG PO SCH (10:06)
[2024-10-15] MEDS: Betapace 80 MG PO SCH (10:07)
[2024-10-15] MEDS: Protonix 40MG Tablet PO SCH (10:08)
--- NOTE | 2024-10-15 11:04 | PCM.CONS ---
History of Present Illness - Date of Consult Date of Encounter: 10/15/24 Consulting Reading Aide: JURGEN JUÁREZ MD Requesting Provider: Attending Provider: DI HERNANDEZ MD Primary Care Provider: PCP: ANTHONY BHANDARI - Consult Narrative Reason for Consult: A fib RVR HPI: Patient is a 79F hypertension, hyperlipidemia and atrial fibrillation on sotalol and pradaxa as per building performance consultant who presents to the hospital with complaints of chest pain for the past couple days. The pain radiated to the back and she had an episode of nausea and vomiting. She usually suspects AFib and takes an extra dose of sotalol, but did not realize it this time. Upon arrival, she was found to be in afib with RVR with heart rates in the 120-130s. She was given IV Cardizem which initially decreased her rate, but it increased again. Overnight she was maintained on a cardizem gtt, now at 5 mg/hr. Heart rates have improved to the 70s, still in Afib. Denies chest pains or shortness of breath at this moment. cc:: The requesting physician will be sent a copy of the consult. Review of Systems - Review of Systems All systems: as per HPI - Past Medical History Past Medical History: Yes Neurological History: Stroke ENT History: No Pertinent History Cardiac History: Arrhythmia, Coronary Artery Disease, High Cholesterol, Hypertension, Myocardial Infarction (RI) Respiratory History: No Pertinent History Endocrine Medical History: No Pertinent History Musculoskelatal History: No Pertinent History GI Medical History: GERD History: No Pertinent History Pyscho-Social History: No Pertinent History Reproductive Disorders: Breast Cancer Comment: [place] WITH CVA IN 2011; parkinsons. L side breast CA - Past Surgical History Past Surgical History: Yes Neuro Surgical History: No Pertinent History Cardiac History: Cardiac Catheterization, Cardiac Stent Respiratory Surgery: No Pertinent History GI Surgical History: No Pertinent History Genitourinary Surgical Hx: No Pertinent History Musculskeletal Surgical Hx: No Pertinent History Female Surgical History: Hysterectomy, Tubal Ligation, Lumpectomy Other Surgical History: Cath in 2011. Cardiac stents x 3. hysterctomy with bladder tie up 07/07/2021 - Social History Smoking Status: Never smoker Exposure to second hand smoke: No Alcohol: None Drug Use: none - Social Determinants of Health Will the patient participate in the screening: Yes Do you worry about a steady place to live?: No Do you have any problems with any of the following?: No known problems In the past 12 months,have you had to go without utilities?: No Have you or anyone in your house had to go without enough: No Transportation Issues: No Has anyone in your support network made you feel unsafe?: No Does the patient want assistance with any of the above?: No Medications & Allergies Home Medications: Home Medication List Memantine HCl 5 mg [Namenda 5 MG] 5 mg PO HS 12/07/12 [History Confirmed 10/15/24] Ascorbic Acid 500 mg [Vitamin C 500 MG] 500 mg PO DAILY 09/26/23 [History Confirmed 10/15/24] Valsartan [Diovan] 320 mg PO DAILY 11/07/23 [History Confirmed 10/15/24] Dabigatran Etexilate Mesylate [Pradaxa] 150 mg PO BID 02/24/24 [History Confirmed 10/15/24] Sotalol HCl [Sotalol] 120 mg PO BID 02/24/24 [History Confirmed 10/15/24] Carbidopa/Levodopa [Carbidopa-Levo ER 25-100 Tab] 1 tab PO HS 10/15/24 [History Confirmed 10/15/24] Chlorthalidone 25 mg PO DAILY 10/15/24 [History Confirmed 10/15/24] Allergies/Adverse Reactions: Allergies Allergy/AdvReac Type Severity Reaction Status Date / Time No Known Drug Allergies Allergy Verified 10/14/24 18:00 Exam - Vitals Vital Signs: Vital Signs - 24 hr Temp Pulse Pulse Resp BP BP Pulse Ox 10/15/24 10:30 75 15 128/60 98 10/15/24 10:00 72 16 120/57 98 10/15/24 09:30 77 13 121/71 98 10/15/24 09:00 76 19 125/96 98 10/15/24 08:30 89 23 159/74 10/15/24 08:00 75 19 137/89 10/15/24 07:30 73 15 137/72 98 10/15/24 07:01 85 17 131/80 99 10/15/24 06:30 84 22 117/64 98 10/15/24 06:00 78 21 136/68 99 10/15/24 05:31 81 23 128/64 96 10/15/24 05:00 86 14 146/80 97 10/15/24 04:30 86 13 153/73 97 10/15/24 04:01 87 14 136/78 98 10/15/24 04:00 97.7 F 10/15/24 03:44 82 10/15/24 03:30 90 14 105/71 10/15/24 03:09 82 15 129/72 99 10/15/24 02:30 64 17 81/50 99 10/15/24 02:00 61 12 103/58 99 10/15/24 01:30 67 14 111/63 99 10/15/24 01:00 76 18 110/60 98 10/15/24 00:30 80 19 137/92 98 10/15/24 00:01 83 10/15/24 00:00 83 12 108/51 98 10/14/24 23:30 82 17 117/79 98 10/14/24 23:00 92 H 17 111/81 99 10/14/24 22:36 101 H 18 116/87 100 10/14/24 22:30 102 H 19 116/87 98 10/14/24 22:00 103 H 17 108/81 97 10/14/24 21:49 113 H 10/14/24 21:30 111 H 24 124/93 98 10/14/24 21:27 97.9 F 115 H 18 116/91 98 10/14/24 20:49 127 H 22 128/80 10/14/24 20:45 128/80 10/14/24 20:30 108 H 21 105/81 97 10/14/24 20:15 122 H 26 H 98/80 10/14/24 20:00 104 H 19 112/77 98 10/14/24 19:45 114 H 17 114/80 97 10/14/24 19:30 98 H 22 108/87 97 10/14/24 19:15 101 H 20 116/70 98 10/14/24 19:00 87 20 106/75 99 10/14/24 18:45 94 H 21 100/65 99 10/14/24 18:30 107 H 17 100/70 98 10/14/24 18:19 99 10/14/24 18:15 120 H 22 118/75 97 10/14/24 18:08 128 H 20 123/85 99 10/14/24 18:00 112 H 10/14/24 17:59 97.5 F 113 H 22 88/69 99 General:: alert and oriented x 4, no acute distress HEENT: PERRLA, EOMI Cardiovascular Exam: other (irregularly irregular) SpO2: 98 Gastrointestinal/Abdomen Exam: soft, normal bowel sounds Results Vital Signs: Vital Signs - 24 hr Temp Pulse Pulse Resp BP BP Pulse Ox 10/15/24 10:30 75 15 128/60 98 10/15/24 10:00 72 16 120/57 98 10/15/24 09:30 77 13 121/71 98 10/15/24 09:00 76 19 125/96 98 10/15/24 08:30 89 23 159/74 10/15/24 08:00 75 19 137/89 10/15/24 07:30 73 15 137/72 98 10/15/24 07:01 85 17 131/80 99 10/15/24 06:30 84 22 117/64 98 10/15/24 06:00 78 21 136/68 99 10/15/24 05:31 81 23 128/64 96 10/15/24 05:00 86 14 146/80 97 10/15/24 04:30 86 13 153/73 97 10/15/24 04:01 87 14 136/78 98 10/15/24 04:00 97.7 F 10/15/24 03:44 82 10/15/24 03:30 90 14 105/71 10/15/24 03:09 82 15 129/72 99 10/15/24 02:30 64 17 81/50 99 10/15/24 02:00 61 12 103/58 99 10/15/24 01:30 67 14 111/63 99 10/15/24 01:00 76 18 110/60 98 10/15/24 00:30 80 19 137/92 98 10/15/24 00:01 83 10/15/24 00:00 83 12 108/51 98 10/14/24 23:30 82 17 117/79 98 10/14/24 23:00 92 H 17 111/81 99 10/14/24 22:36 101 H 18 116/87 100 10/14/24 22:30 102 H 19 116/87 98 10/14/24 22:00 103 H 17 108/81 97 10/14/24 21:49 113 H 10/14/24 21:30 111 H 24 124/93 98 10/14/24 21:27 97.9 F 115 H 18 116/91 98 10/14/24 20:49 127 H 22 128/80 10/14/24 20:45 128/80 10/14/24 20:30 108 H 21 105/81 97 10/14/24 20:15 122 H 26 H 98/80 10/14/24 20:00 104 H 19 112/77 98 10/14/24 19:45 114 H 17 114/80 97 10/14/24 19:30 98 H 22 108/87 97 10/14/24 19:15 101 H 20 116/70 98 10/14/24 19:00 87 20 106/75 99 10/14/24 18:45 94 H 21 100/65 99 10/14/24 18:30 107 H 17 100/70 98 10/14/24 18:19 99 10/14/24 18:15 120 H 22 118/75 97 10/14/24 18:08 128 H 20 123/85 99 10/14/24 18:00 112 H 10/14/24 17:59 97.5 F 113 H 22 88/69 99 Pain Assessment - Last Documented Pain Intensity 0 Pain Scale Used 0-10 Pain Scale Intake and Output: Intake & Output 10/12/24 10/13/24 10/14/24 10/15/24 11:59 11:59 11:59 11:59 Intake Total 384 Balance 384 Weight 55 kg LAB: I have reviewed the Labs in [place]. Radiology Exams: Radiology Procedures Category Date Time Status CHEST 1 VIEW (PORTABLE) Stat Exams 10/14/24 18:11 Completed - ECHO Echo: report reviewed by me (EF 55-60% moderate PAH) Assessment & Plan (1) Atrial fibrillation with rapid ventricular response Current Visit: Yes Status: Acute Assessment & Plan: Currently rate controlled - Electrolytes wnl - Keep K>4, Mg>2 - Goal HR at rest <100 bpm - Continue sotalol BID - Start diltiazem 180 mg extended release daily - stop diltiazem gtt - Continue pradaxa for CHADS-VASC = 4 Code(s): I48.91 - UNSPECIFIED ATRIAL FIBRILLATION (2) Chest pain Current Visit: Yes Status: Acute Qualifiers: Assessment & Plan: No evidence of ACS - Currently chest pain free - continue to monitor Code(s): R07.9 - CHEST PAIN, UNSPECIFIED (3) Elevated brain natriuretic peptide (BNP) level Current Visit: No Status: Acute Assessment & Plan: No evidence of clinical heart failure No orthopnea or PND likely elevated 2/2 Afib and atrial stretch - continue to monitor Code(s): R79.89 - OTHER SPECIFIED ABNORMAL FINDINGS OF BLOOD CHEMISTRY - Encounter Encounter: "The entirety of this encounter was performed via Telemedicine using audio and visual "
[2024-10-15] MEDS: Cardizem CD PO SCH (11:48)
[2024-10-15] MEDS ORDERED: CHLORTHALIDONE PO SCH (12:00)
[2024-10-15] MEDS ORDERED: DIOVAN 80 MG PO SCH (12:00)
[2024-10-15] MEDS: Vitamin C 500 MG PO SCH (12:26)
--- NOTE | 2024-10-15 13:19 | PCM.NOTE ---
Date and Time: 10/15/24 1319 Subjective Assessment: Patient admitted with Afib with RVR and remained on diltiazem drip overnight. Cardiology was consulted this morning and recommended adding oral cardizem 180 daily however patient HR got into 50s and BP 90s after receiving her morning dose of Sotalol. Discussed with Dr. Mtz and he recommended not giving any diltiazem, continuing her sotalol and holding her valsartan and Chlorthalidone. Patient denied any complaints this morning and said she felt better. - Review of Systems Constitutional: No Fever, No Chills Eyes: No Symptoms Ears, Nose, & Throat: No Symptoms Respiratory: No Cough, No Short Of Breath Cardiac: No Chest Pain, No Edema, No Syncope Abdominal/Gastrointestinal: No Abdominal Pain, No Nausea, No Vomiting, No Diarrhea Genitourinary Symptoms: No Dysuria Musculoskeletal: No Back Pain, No Neck Pain Skin: No Rash Neurological: No Dizziness, No Focal Weakness, No Sensory Changes Psychological: No Symptoms Endocrine: No Symptoms Hematologic/Lymphatic: No Symptoms Immunological/Allergic: No Symptoms All Other Systems: Reviewed and Negative Objective Exam General Appearance: no apparent distress Neurologic Exam: alert, oriented x 3, cooperative Skin Exam: normal color, warm, dry Eye Exam: PERRL, EOMI, eyes nml inspection Ears, Nose, Throat Exam: normal ENT inspection, moist mucous membranes Neck Exam: normal inspection, non-tender, supple, full range of motion Respiratory Exam: normal breath sounds, lungs clear, No respiratory distress Cardiovascular Exam: normal heart sounds, No regular rate/rhythm Gastrointestinal/Abdomen Exam: soft, No tenderness, No mass Extremity Exam: normal inspection, normal range of motion, No swelling Pelvic Exam: deferred Rectal Exam: deferred Objective Data Vital Signs: Vital Signs - 24 hr Temp Pulse Pulse Resp BP BP Pulse Ox 10/15/24 11:43 58 L 17 87/41 10/15/24 11:38 63 12 87/41 97 10/15/24 11:35 70 14 102/37 98 10/15/24 11:30 97.3 F 64 22 92/39 97 10/15/24 11:09 98 10/15/24 11:00 68 25 H 105/62 97 10/15/24 10:30 75 15 128/60 98 10/15/24 10:00 72 16 120/57 98 10/15/24 09:30 77 13 121/71 98 10/15/24 09:00 76 19 125/96 98 10/15/24 08:30 89 23 159/74 10/15/24 08:00 75 19 137/89 10/15/24 07:30 73 15 137/72 98 10/15/24 07:01 85 17 131/80 99 10/15/24 06:30 84 22 117/64 98 10/15/24 06:00 78 21 136/68 99 10/15/24 05:31 81 23 128/64 96 10/15/24 05:00 86 14 146/80 97 10/15/24 04:30 86 13 153/73 97 10/15/24 04:01 87 14 136/78 98 10/15/24 04:00 97.7 F 10/15/24 03:44 82 10/15/24 03:30 90 14 105/71 10/15/24 03:09 82 15 129/72 99 10/15/24 02:30 64 17 81/50 99 10/15/24 02:00 61 12 103/58 99 10/15/24 01:30 67 14 111/63 99 10/15/24 01:00 76 18 110/60 98 10/15/24 00:30 80 19 137/92 98 10/15/24 00:01 83 10/15/24 00:00 83 12 108/51 98 10/14/24 23:30 82 17 117/79 98 10/14/24 23:00 92 H 17 111/81 99 10/14/24 22:36 101 H 18 116/87 100 10/14/24 22:30 102 H 19 116/87 98 10/14/24 22:00 103 H 17 108/81 97 10/14/24 21:49 113 H 10/14/24 21:30 111 H 24 124/93 98 10/14/24 21:27 97.9 F 115 H 18 116/91 98 10/14/24 20:49 127 H 22 128/80 10/14/24 20:45 128/80 10/14/24 20:30 108 H 21 105/81 97 10/14/24 20:15 122 H 26 H 98/80 10/14/24 20:00 104 H 19 112/77 98 10/14/24 19:45 114 H 17 114/80 97 10/14/24 19:30 98 H 22 108/87 97 10/14/24 19:15 101 H 20 116/70 98 10/14/24 19:00 87 20 106/75 99 10/14/24 18:45 94 H 21 100/65 99 10/14/24 18:30 107 H 17 100/70 98 10/14/24 18:19 99 10/14/24 18:15 120 H 22 118/75 97 10/14/24 18:08 128 H 20 123/85 99 10/14/24 18:00 112 H 10/14/24 17:59 97.5 F 113 H 22 88/69 99 Pain Assessment - Last Documented Pain Intensity 0 Pain Scale Used 0-10 Pain Scale Intake and Output: Intake & Output 10/13/24 10/14/24 10/15/24 10/16/24 11:59 11:59 11:59 11:59 Intake Total 384 Balance 384 Weight 55 kg Lab Results: Lab Results-Last 24 Hours 10/14/24 10/14/24 10/14/24 Range/Units 18:10 18:10 18:10 WBC 8.0 (3.98-10.04) x10^3/uL RBC 4.67 (3.93-5.22) x10^6/uL Hgb 14.2 (11.2-15.7) g/dL Hct 43.4 (34.1-44.9) % MCV 92.9 (79.4-94.8) fL MCH 30.4 (25.6-32.2) pg MCHC 32.7 (32.2-35.5) g/dL RDW 13.4 (11.7-14.4) % Plt Count 196 (182-369) x10^3/uL MPV 11.1 (9.4-12.3) fL Gran % 77.6 H (34.0-71.1) % Immature Gran % (Auto) 0.2 (0.001-0.429) % Nucleat RBC Rel Count 0.0 (0.00-0.2) % Eos # (Auto) 0.14 (0.04-0.36) x10^3/uL Immature Gran # (Auto) 0.02 (0.001-0.031) x10^3u/L Absolute Lymphs (auto) 1.03 L (1.18-3.74) x10^3/uL Absolute Monos (auto) 0.58 (0.24-0.86) x10^3/uL Absolute Nucleated RBC 0.00 (0.00-0.012) x10^3u/L Lymphocytes % 12.8 L (19.3-51.7) % Monocytes % 7.2 (4.7-12.5) % Eosinophils % 1.7 (0.7-5.8) % Basophils % 0.5 (0.1-1.2) % Absolute Granulocytes 6.23 H (1.56-6.13) x10^3/uL Basophils # 0.04 (0.01-0.08) x10^3/uL Sodium 141 (135-145) mmol/L Potassium 4.1 (3.5-5.1) mmol/L Chloride 106 (98-107) mmol/L Carbon Dioxide 24 (22-30) mmol/L Anion Gap 15.0 (5-15) MEQ/L BUN 33 H (7-17) mg/dL Creatinine 0.78 (0.52-1.04) mg/dL Estimated GFR 78.2 ML/MIN Glucose 103 (74-106) mg/dL Calcium 9.7 (8.4-10.2) mg/dL Magnesium 2.2 (1.6-2.3) mg/dL Total Bilirubin 0.70 (0.2-1.3) mg/dL AST 30 (14-36) U/L ALT 6 (0-35) U/L Alkaline Phosphatase 54 (38-126) U/L Troponin I < 0.012 (0.000-0.033) ng/mL NT-Pro-B Natriuret Pep 377 (<300) pg/mL Serum Total Protein 7.3 (6.3-8.2) g/dL Albumin 4.6 (3.5-5.0) g/dL TSH 3rd Generation (0.470-4.680) mIU/L 10/14/24 10/14/24 10/15/24 Range/Units 18:30 21:50 03:30 WBC (3.98-10.04) x10^3/uL RBC (3.93-5.22) x10^6/uL Hgb (11.2-15.7) g/dL Hct (34.1-44.9) % MCV (79.4-94.8) fL MCH (25.6-32.2) pg MCHC (32.2-35.5) g/dL RDW (11.7-14.4) % Plt Count (182-369) x10^3/uL MPV (9.4-12.3) fL Gran % (34.0-71.1) % Immature Gran % (Auto) (0.001-0.429) % Nucleat RBC Rel Count (0.00-0.2) % Eos # (Auto) (0.04-0.36) x10^3/uL Immature Gran # (Auto) (0.001-0.031) x10^3u/L Absolute Lymphs (auto) (1.18-3.74) x10^3/uL Absolute Monos (auto) (0.24-0.86) x10^3/uL Absolute Nucleated RBC (0.00-0.012) x10^3u/L Lymphocytes % (19.3-51.7) % Monocytes % (4.7-12.5) % Eosinophils % (0.7-5.8) % Basophils % (0.1-1.2) % Absolute Granulocytes (1.56-6.13) x10^3/uL Basophils # (0.01-0.08) x10^3/uL Sodium (135-145) mmol/L Potassium (3.5-5.1) mmol/L Chloride (98-107) mmol/L Carbon Dioxide (22-30) mmol/L Anion Gap (5-15) MEQ/L BUN (7-17) mg/dL Creatinine (0.52-1.04) mg/dL Estimated GFR ML/MIN Glucose (74-106) mg/dL Calcium (8.4-10.2) mg/dL Magnesium (1.6-2.3) mg/dL Total Bilirubin (0.2-1.3) mg/dL AST (14-36) U/L ALT (0-35) U/L Alkaline Phosphatase (38-126) U/L Troponin I < 0.012 < 0.012 (0.000-0.033) ng/mL NT-Pro-B Natriuret Pep (<300) pg/mL Serum Total Protein (6.3-8.2) g/dL Albumin (3.5-5.0) g/dL TSH 3rd Generation 1.145 (0.470-4.680) mIU/L 10/15/24 10/15/24 Range/Units 03:30 03:30 WBC 7.0 (3.98-10.04) x10^3/uL RBC 4.58 (3.93-5.22) x10^6/uL Hgb 14.0 (11.2-15.7) g/dL Hct 42.5 (34.1-44.9) % MCV 92.8 (79.4-94.8) fL MCH 30.6 (25.6-32.2) pg MCHC 32.9 (32.2-35.5) g/dL RDW 13.4 (11.7-14.4) % Plt Count 194 (182-369) x10^3/uL MPV 11.3 (9.4-12.3) fL Gran % (34.0-71.1) % Immature Gran % (Auto) (0.001-0.429) % Nucleat RBC Rel Count (0.00-0.2) % Eos # (Auto) (0.04-0.36) x10^3/uL Immature Gran # (Auto) (0.001-0.031) x10^3u/L Absolute Lymphs (auto) (1.18-3.74) x10^3/uL Absolute Monos (auto) (0.24-0.86) x10^3/uL Absolute Nucleated RBC (0.00-0.012) x10^3u/L Lymphocytes % (19.3-51.7) % Monocytes % (4.7-12.5) % Eosinophils % (0.7-5.8) % Basophils % (0.1-1.2) % Absolute Granulocytes (1.56-6.13) x10^3/uL Basophils # (0.01-0.08) x10^3/uL Sodium 140 (135-145) mmol/L Potassium 4.3 (3.5-5.1) mmol/L Chloride 107 (98-107) mmol/L Carbon Dioxide 24 (22-30) mmol/L Anion Gap 13.7 (5-15) MEQ/L BUN 28 H (7-17) mg/dL Creatinine 0.67 (0.52-1.04) mg/dL Estimated GFR 90.0 ML/MIN Glucose 97 (74-106) mg/dL Calcium 9.5 (8.4-10.2) mg/dL Magnesium (1.6-2.3) mg/dL Total Bilirubin 0.90 (0.2-1.3) mg/dL AST 31 (14-36) U/L ALT 15 (0-35) U/L Alkaline Phosphatase 49 (38-126) U/L Troponin I (0.000-0.033) ng/mL NT-Pro-B Natriuret Pep 2010 (<300) pg/mL Serum Total Protein 6.8 (6.3-8.2) g/dL Albumin 4.2 (3.5-5.0) g/dL TSH 3rd Generation (0.470-4.680) mIU/L Radiology Exams: Radiology Procedures Category Date Time Status CHEST 1 VIEW (PORTABLE) Stat Exams 10/14/24 18:11 Completed Assessment/Plan (1) Atrial fibrillation with rapid ventricular response Current Visit: Yes Status: Acute Assessment & Plan: -Patient on sotalol as outpatient however did not take an extra dose this time as she did not realize that chest pain and shortness of breath could be related to afib -On cardizem drip overnight with HR improving to 70s, dropped to 50s after taking morning dose of Sotalol with BP 90s. -Cardiology consulted. Initially recommended diltiazem 180 CD daily however recommended holding off given bradycardia and hypotension and just monitoring patient on sotalol with possible discharge tomorrow if patient remains stable. -QTc 527 yesterday evening but less than 500 on repeat EKG this morning. -Hold valsartan and Chlorthalidone given hypotension. Reasses at discharge. -Continue Pradaxa Code(s): I48.91 - UNSPECIFIED ATRIAL FIBRILLATION (2) Chest pain Current Visit: Yes Status: Resolved Qualifiers: Assessment & Plan: -likely secondary to rapid Afib. Now resolved. Trop negative x 3. Code(s): R07.9 - CHEST PAIN, UNSPECIFIED (3) Elevated brain natriuretic peptide (BNP) level Current Visit: No Status: Acute Assessment & Plan: -elevated BNP but no other signs of CHF. Will monitor for now. Likely related to Afib with RVR Code(s): R79.89 - OTHER SPECIFIED ABNORMAL FINDINGS OF BLOOD CHEMISTRY (4) HTN (hypertension) Current Visit: No Status: Chronic Qualifiers: Hypertension type: primary hypertension Qualified Code(s): I10 - Essential (primary) hypertension Assessment & Plan: -Given hypotension this morning, hold valsartan and chlorthalidone. Reasses tomorrow. Code(s): I10 - ESSENTIAL (PRIMARY) HYPERTENSION (5) Parkinson disease Current Visit: Yes Status: Chronic Assessment & Plan: -Continue Sinemet Code(s): G20.A1 - PARKINSON'S DIS W/O DYSKINESIA, W/O MENTION OF FLUCTUATIONS Telemedicine Encounter - Telemedicine Encounter Telemedicine Encounter: "The entirety of this encounter was performed via Telemedicine" This visit was performed using real-time audio and video connection between my location and thepatients locationwith the assistance of a surrogateat the patients location. Written or verbal consent was obtained from the patient/guardian to perform this visit usingnchrBidRazorlemedicine technology. Any patient questions regarding the telemedicine interaction were answered.
[2024-10-15] MEDS: Zocor 10MG PO SCH (20:19)
[2024-10-15] MEDS: Sinemet CR 50/200 MG PO SCH (21:08)
[2024-10-15] MEDS: Namenda 5 MG PO SCH (21:09)
[2024-10-15] MEDS ORDERED: Cozaar 50 MG PO SCH (22:00)
[2024-10-16 04:28] LABS: Hematocrit 38.7 % (34.1-44.9); Hemoglobin 12.5 g/dL (11.2-15.7); Mean Cell Volume 94.2 fL (79.4-94.8); Mean Corpuscular Hemoglobin 30.4 pg (25.6-32.2); Mean Corpuscular Hgb Concent. 32.3 g/dL (32.2-35.5); Mean Platelet Volume 11.4 fL (9.4-12.3); Platelet Count 174 x10^3/uL (182-369); Red Blood Count 4.11 x10^6/uL (3.93-5.22); Red Cell Distribution Width 13.4 % (11.7-14.4); White Blood Count 4.3 x10^3/uL (3.98-10.04)
[2024-10-16 04:49] LABS: Creatinine 1 0.62 mg/dL (0.52-1.04); EST GLOMERULAR FILTRATION RATE 91.7 ML/MIN; Potassium 3.8 mmol/L (3.5-5.1)
[2024-10-16 07:16] VITALS: RESP 16
[2024-10-16 08:36] VITALS: TEMP 97.9
--- NOTE | 2024-10-16 10:18 | PCM.DS ---
Discharge Summary Date of Admission: 10/14/24 21:03 Date of Discharge: 10/16/24 Admitting Physician: DI HERNANDEZ MD Consults: Consults on Case 10/15/24 09:01 Consult Cardiology ROUTINE Primary Care Provider: ANTHONY BHANDARI Allergies Allergies No Known Drug Allergies Allergy (Verified 10/14/24 18:00) Hospital Summary - Hospital Course Hospital Course: Patient admitted on 10/14/24 with Afib with RVR and remained on diltiazem drip overnight that night. Cardiology was consulted on 10/15/24 morning and recommended adding oral cardizem 180 daily however patient HR got into 50s and B P 90s after receiving her morning dose of Sotalol. Dr. Mtz ( cardiology) recommended not giving any diltiazem, continuing her sotalol and holding her valsartan and Chlorthalidone. This AM pt's HR 130's, AM dose of Sotalol gave early and HR decreased. Pt is wanting to d/c today. Advised to take HR and BP before taking BP meds and to hold if low. Pt to also take extra dose of Sotalol per her operations label clerk recommendations if HR elevated and to f/u OP with cardiology OP. She denies CP, SOB, abd pain, N/V/D. - Vitals & Intake/Output Vital Signs: Vital Signs Temperature 97.9 F 10/16/24 08:33 Pulse Rate 109 H 10/16/24 08:33 Respiratory Rate 16 10/16/24 08:33 Blood Pressure 119/68 10/16/24 08:33 O2 Sat by Pulse Oximetry 96 10/16/24 08:33 Intake & Output: Intake & Output 10/13/24 10/14/24 10/15/24 10/16/24 11:59 11:59 11:59 11:59 Intake Total 384 2036 Balance 384 2036 Weight 55 kg - Lab Result Diagrams: 10/16/24 04:25 10/16/24 04:25 Lab Results-Last 24 Hrs: Lab Results-Last 24 Hours 10/16/24 10/16/24 Range/Units 04:25 04:25 WBC 4.3 (3.98-10.04) x10^3/uL RBC 4.11 (3.93-5.22) x10^6/uL Hgb 12.5 (11.2-15.7) g/dL Hct 38.7 (34.1-44.9) % MCV 94.2 (79.4-94.8) fL MCH 30.4 (25.6-32.2) pg MCHC 32.3 (32.2-35.5) g/dL RDW 13.4 (11.7-14.4) % Plt Count 174 L (182-369) x10^3/uL MPV 11.4 (9.4-12.3) fL Sodium 141 (135-145) mmol/L Potassium 3.8 (3.5-5.1) mmol/L Chloride 110 H (98-107) mmol/L Carbon Dioxide 22 (22-30) mmol/L Anion Gap 13.0 (5-15) MEQ/L BUN 28 H (7-17) mg/dL Creatinine 0.62 (0.52-1.04) mg/dL Estimated GFR 91.7 ML/MIN Glucose 105 (74-106) mg/dL Calcium 9.0 (8.4-10.2) mg/dL - Radiology Exams Ordered Rad Exams-Entire Visit: Radiology Procedures Category Date Time Status CHEST 1 VIEW (PORTABLE) Stat Exams 10/14/24 18:11 Completed - Procedures and Test Procedures and Tests throughout Hospitalization: Therapy Orders & Screens 10/14/24 22:50 EKG PRN Comment: Diagnosis: chest pain/afib 10/15/24 11:41 EKG ROUTINE Comment: Diagnosis: chest pain/afib Discharge Exam General Appearance: no apparent distress, alert Neurologic Exam: alert, oriented x 3, cooperative, normal mood/affect, nml cerebellar function, sensation nml, No motor deficits Eye Exam: PERRL, EOMI, eyes nml inspection Ears, Nose, Throat Exam: normal ENT inspection, pharynx normal, moist mucous membranes Neck Exam: normal inspection, non-tender, supple, full range of motion Respiratory Exam: normal breath sounds, lungs clear, No respiratory distress Cardiovascular Exam: normal heart sounds, tachycardia, irregular Gastrointestinal/Abdomen Exam: soft, No tenderness, No mass Pelvic Exam: deferred Rectal Exam: deferred Back Exam: normal inspection, normal range of motion, No CVA tenderness, No vertebral tenderness Extremity Exam: normal inspection, normal range of motion Skin Exam: normal color, warm, dry Final Diagnosis/Problem List - Final Discharge Diagnosis/Problem (1) Atrial fibrillation with rapid ventricular response Current Visit: Yes Status: Acute Assessment & Plan: -Patient on sotalol as outpatient however did not take an extra dose this time as she did not realize that chest pain and shortness of breath could be related to a-fib -On cardizem drip 10/14 with HR improved to 70s, then dropped to 50s after taking morning dose of Sotalol with BP 90s. -Cardiology consulted 10/15. Initially recommended diltiazem 180 CD daily however recommended holding off given bradycardia and hypotension and just monitoring patient on sotalol with possible discharge tomorrow if patient remains stable. - 10/15 QTc 527 yesterday evening but less than 500 on repeat EKG -10/15 Held valsartan and Chlorthalidone given hypotension. -Continue Pradaxa 10/16 - HR 130's and improved after AM dose of Sotalol gave - Chlorthalidone stopped - Continue Valsartan if BP stable Code(s): I48.91 - UNSPECIFIED ATRIAL FIBRILLATION (2) Chest pain Current Visit: Yes Status: Resolved Assessment & Plan: - resolved - CBC, CMP reviewed - CXR reviewed Code(s): R07.9 - CHEST PAIN, UNSPECIFIED (3) Elevated brain natriuretic peptide (BNP) level Current Visit: No Status: Acute Assessment & Plan: - Likely related to Afib with RVR - BNP improved 2009 today - no edema or SOB - CXR does not show CHF Code(s): R79.89 - OTHER SPECIFIED ABNORMAL FINDINGS OF BLOOD CHEMISTRY (4) HTN (hypertension) Current Visit: No Status: Chronic Assessment & Plan: -10/15 hypotension in the morning, held valsartan and chlorthalidone. 10/16 - Stop chlorthalidone - Continue valsartan if BP stable Code(s): I10 - ESSENTIAL (PRIMARY) HYPERTENSION (5) Parkinson disease Current Visit: Yes Status: Chronic Assessment & Plan: -Continue Sinemet Code(s): G20.A1 - PARKINSON'S DIS W/O DYSKINESIA, W/O MENTION OF FLUCTUATIONS - Discharge Discharge Date: 10/16/24 Disposition: Home, Self-Care Condition: Stable Prescriptions: Continue Memantine HCl 5 mg [Namenda 5 MG] 5 mg PO HS Ascorbic Acid 500 mg [Vitamin C 500 MG] 500 mg PO DAILY Valsartan [Diovan] 320 mg PO DAILY Dabigatran Etexilate Mesylate [Pradaxa] 150 mg PO BID Sotalol HCl [Sotalol] 120 mg PO BID Carbidopa/Levodopa [Carbidopa-Levo ER 25-100 Tab] 1 tab PO HS Discontinued Chlorthalidone 25 mg PO DAILY Instructions: Atrial fibrillation - Discharge instructions Additional Instructions: Continue to take Betapace ( Sotalol) as prescribed by Cardiology. Make sure to check heart rate and blood pressure before taking to see if needed. Also Check blood pressure before taking Valsartan. Hold med if < 120/80, unless otherwise instructed by cardiology. Please make a follow up appointment with cardiology this week. Come back to the ER for any concerning symptoms. Follow up with: MAGALI PATRICIA MD [NON-STAFF PHY W/O PRIVILEGES] [facility] ANTHONY BHANDARI NP [Primary Care Provider] - 10/23/24 10:30 am Forms: Discharge Instructions
[2024-10-16 10:37] VITALS: BP 104/56; PULSE 97; O2SAT 95
== END 2024-10-16 11:24 | disposition home or self-care (01) ==
LOC: ED 17:58 → ICU 21:03
PROVIDERS: ADMIT Internal Medicine Nephrology; ATTEND Internal Medicine Nephrology
DX: I48.20 Chronic atrial fibrillation, unspecified (principal); R07.9 Chest pain, unspecified; I10 Essential (primary) hypertension; E78.5 Hyperlipidemia, unspecified; I25.2 Old myocardial infarction; I25.10 Atherosclerotic heart disease of native coronary artery without angina pectoris; Z85.3 Personal history of malignant neoplasm of breast; G20.A1 Parkinson's disease without dyskinesia, without mention of fluctuations; R79.89 Other specified abnormal findings of blood chemistry; Z79.899 Other long term (current) drug therapy
CPT/HCPCS: 36415; 71045; 80048; 80053; 83735; 83880; 84443; 84484; 85025; 85027; 93005; 93041; 93268; 94760; 96374; 99291; G0378; Q3014; 99285; A9270-GY

== ENCOUNTER 2024-12-08 18:18 | Observation (INO) | payer MEDICARE, BC ==
[2024-12-08] MEDS ORDERED: BABY ASPIRIN 81 MG CHEW ONE (19:01)
[2024-12-08] MEDS: BABY ASPIRIN 81 MG CHEW PO ONE (19:03)
[2024-12-08 19:15] LABS: BASOPHIL % 0.5 % (0.1-1.2); Basophil (Absolute #) 0.03 x10^3/uL (0.01-0.08); Eosinophil % 2.4 % (0.7-5.8); Eosinophil (Absolute #) 0.14 x10^3/uL (0.04-0.36); Hemoglobin 13.9 g/dL (11.2-15.7); IMMATURE GRAN # 0.01 x10^3u/L (0.001-0.031); IMMATURE GRAN % 0.2 % (0.001-0.429); Lymphocyte (Absolute #) 0.96 x10^3/uL (1.18-3.74); Lymphocytes % 16.6 % (19.3-51.7); Mean Cell Volume 94.8 fL (79.4-94.8); Mean Corpuscular Hgb Concent. 31.6 g/dL (32.2-35.5); Mean Platelet Volume 11.3 fL (9.4-12.3); Monocyte (Absolute #) 0.46 x10^3/uL (0.24-0.86); Monocytes % 7.9 % (4.7-12.5); Neutrophil % 72.4 % (34.0-71.1); Platelet Count 192 x10^3/uL (182-369); Red Blood Count 4.64 x10^6/uL (3.93-5.22); Red Cell Distribution Width 13.2 % (11.7-14.4); White Blood Count 5.8 x10^3/uL (3.98-10.04)
[2024-12-08 19:39] LABS: ALBUMIN 4.4 g/dL (3.5-5.0); ANION GAP 16.4 MEQ/L (5-15); BILIRUBIN,TOTAL 0.6 mg/dL (0.2-1.3); Calcium 9.3 mg/dL (8.4-10.2); Creatinine 1 0.57 mg/dL (0.52-1.04); EST GLOMERULAR FILTRATION RATE 93.5 ML/MIN; Potassium 4.1 mmol/L (3.5-5.1); Total Protein 6.7 g/dL (6.3-8.2)
[2024-12-08 19:49] LABS: INR 1.15 (0.8-3.0); PROTIME 12.4 SECONDS (9.4-12.5)
--- NOTE | 2024-12-08 20:00 | ERPHSYRPT ---
- History of Present Illness Time Seen by Provider: 12/08/24 18:35 Historian: patient, family Exam Limitations: no limitations Patient Subjective Stated Complaint: Pt states "I was having some problems with atrial fib and I was having chest pain and I got really tight and I took a nitro and then I started to get sick." Triage Nursing Assessment: Pt presented alert and oriented X 3, skin pwd. Pt able to speak in clear full sentences. PT resting comfortably on the bed. Pt in no apparent respiratory distress. Physician History: This is a 79-year-old white female patient of nurse practitioner Ara and farm technician Dr. Amato out of [place] and presents to the emergency department by gymnasium teacher service. Soon after, the patient's daughter arrived to provide additional, independent history. Patient has a chronic history of atrial fibrillation on Pradaxa. She also has a history of hypertension, Parkinson disease, dementia, hyperlipidemia, gastroesophageal reflux disease, CVA and coronary artery disease (coronary artery stents x 3). This morning, approxi-7 AM, she noticed generalized, nonradiating chest tightness with a measure of 2 out of 10. As the day went on it became more intense and she was worried and therefore she came into the emergency department for evaluation. Timing/Duration: today Activities at Onset: none Quality: tightness Location: other Chest Pain Radiation: no radiation Severity of Pain-Max: mild Severity of Pain-Current: mild Modifying Factors: Improves With: nothing Associated Symptoms: denies symptoms Prior Chest Pain/Cardiac Workup: cardiac cath, heart attack ([place] [facility] at the same time she had a stroke) Nitro Today/Relief: 0.4 mg x 1, provided at home, no relief Aspirin Treatment Today: 81 mg x 4, provided by ED Allergies/Adverse Reactions: No Known Drug Allergies Allergy (Verified 10/14/24 18:00) Home Medications: Memantine HCl 5 mg [Namenda 5 MG] 5 mg PO HS 12/07/12 [History] Ascorbic Acid 500 mg [Vitamin C 500 MG] 500 mg PO DAILY 09/26/23 [History] Valsartan [Diovan] 320 mg PO DAILY 11/07/23 [History] Dabigatran Etexilate Mesylate [Pradaxa] 150 mg PO BID 02/24/24 [History] Sotalol HCl [Sotalol] 120 mg PO BID 02/24/24 [History] Carbidopa/Levodopa [Carbidopa-Levo ER 25-100 Tab] 1 tab PO HS 10/15/24 [History] Chlorthalidone 25 mg PO DAILY 12/08/24 [History] Hx Tetanus, Diphtheria Vaccination/Date Given: No Hx Influenza Vaccination/Date Given: No Hx Pneumococcal Vaccination/Date Given: No Immunizations Up to Date: No Travel Risk - International Travel Have you traveled outside of the country in past 3 weeks: No - Emerging Infectious Disease Are you exhibiting symptoms associated with any current EIDs: No - Review of Systems Constitutional: No Symptoms Eyes: No Symptoms Ears, Nose, & Throat: No Symptoms Respiratory: No Symptoms Cardiac: Chest Pain Abdominal/Gastrointestinal: No Symptoms Genitourinary Symptoms: No Symptoms Musculoskeletal: No Symptoms Skin: No Symptoms Neurological: No Symptoms Psychological: No Symptoms Endocrine: No Symptoms Hematologic/Lymphatic: No Symptoms Immunological/Allergic: No Symptoms All Other Systems: Reviewed and Negative - Past Medical History Pertinent Past Medical History: Yes Neurological History: Stroke ENT History: No Pertinent History Cardiac History: Arrhythmia, Coronary Artery Disease, High Cholesterol, Hypertension, Myocardial Infarction (SC) Respiratory History: No Pertinent History Endocrine Medical History: No Pertinent History Musculoskeletal History: No Pertinent History GI Medical History: GERD History: No Pertinent History Psycho-Social History: No Pertinent History Female Reproductive Disorders: Breast Cancer Other Medical History: SC WITH CVA IN 2011; parkinsons. L side breast CA - Past Surgical History Past Surgical History: Yes Neuro Surgical History: No Pertinent History Cardiac: Cardiac Catheterization, Cardiac Stent Respiratory: No Pertinent History Gastrointestinal: No Pertinent History Genitourinary: No Pertinent History Musculoskeletal: No Pertinent History Female Surgical History: Hysterectomy, Tubal Ligation, Lumpectomy Other Surgical History: Cath in 2011. Cardiac stents x 3. hysterctomy with bladder tie up 07/07/2021 - Social History Smoking Status: Never smoker Exposure to second hand smoke: No Drug Use: none Patient Lives Alone: Yes - Social Determinants of Health Will the patient participate in the screening: Yes Do you worry about a steady place to live?: No Do you have any problems with any of the following?: No known problems In the past 12 months,have you had to go without utilities?: No Transportation Issues: No Has anyone in your support network made you feel unsafe?: No Have you or anyone in your house had to go without enough: No - Nursing Vital Signs Nursing Vital Signs: Initial Vital Signs Temperature 97.2 F 12/08/24 18:24 Pulse Rate 103 H 12/08/24 18:24 Respiratory Rate 20 12/08/24 18:24 Blood Pressure 122/82 12/08/24 18:24 O2 Sat by Pulse Oximetry 98 12/08/24 18:24 Pain Scale Pain Intensity 2 - Physical Exam General Appearance: no apparent distress, alert, anxiety, thin Eye Exam: PERRL/EOMI, eyes nml inspection Ears, Nose, Throat Exam: normal ENT inspection, moist mucous membranes Neck Exam: normal inspection, non-tender, supple, full range of motion Respiratory Exam: normal breath sounds, lungs clear, airway intact, No chest tenderness (Nearly resolved at the time of my evaluation of this patient), No respiratory distress Cardiovascular Exam: irregular Gastrointestinal/Abdomen Exam: soft, normal bowel sounds, No tenderness Pelvic Exam: not done Rectal Exam: not done Back Exam: normal inspection, normal range of motion, No CVA tenderness, No vertebral tenderness Extremity Exam: normal inspection, normal range of motion, pelvis stable Neurologic Exam: alert, oriented x 3, cooperative, metalizer II-XII nml as tested, nml cerebellar function, nml station & gait, sensation nml Skin Exam: normal color, warm, dry Lymphatic Exam: No adenopathy SpO2 Interpretation: normal SpO2: 98 O2 Delivery: Room Air - Course Nursing assessment & vital signs reviewed: Yes EKG Interpreted by Me: RATE (97), A-fib, Non-specific ST Changes, Other (No acute ischemia on today's twelve-lead EKG.) Ordered Tests: Active Orders 24 hr Category Date Time Status EKG-ER Only STAT Care 12/08/24 18:33 Active IV Insertion STAT Care 12/08/24 18:33 Active Pulse Oximetry (ED) STAT Care 12/08/24 18:33 Active CHEST 1 VIEW (PORTABLE) Stat Exams 12/08/24 18:33 Taken CBC W DIFF Stat Lab 12/08/24 19:10 Completed CMP Stat Lab 12/08/24 19:10 Completed NT PRO BNPII Stat Lab 12/08/24 19:10 Completed PROTIME WITH INR Stat Lab 12/08/24 19:00 Completed TROPONIN Q4H Lab 12/08/24 19:10 Completed TROPONIN Q4H Lab 12/08/24 21:00 Completed TROPONIN Q4H Lab 12/09/24 02:45 Ordered Medication Summary Discontinued Medications Generic Name Dose Route Start Last Admin Trade Name Adis PRN Reason Stop Dose Admin Aspirin 324 mg 12/08/24 18:33 12/08/24 19:03 Aspirin 81 Mg Tab.Chew PO 12/08/24 18:34 324 mg STAT ONE Administration Aspirin Confirm 12/08/24 19:01 Aspirin 81 Mg Tab.Chew Administered 12/08/24 19:02 Dose 324 mg .ROUTE .STK-MED ONE Furosemide 40 mg 12/08/24 20:26 12/08/24 20:30 Furosemide 40 Mg/4 Ml Vial IV 12/08/24 20:27 40 mg STAT ONE Administration Furosemide Confirm 12/08/24 20:29 Furosemide 40 Mg/4 Ml Vial Administered 12/08/24 20:30 Dose 40 mg .ROUTE .STK-MED ONE Lab/Rad Data: Laboratory Result Diagrams 12/08/24 19:10 12/08/24 19:10 Laboratory Results 12/08/24 12/08/24 12/08/24 Range/Units 21:00 19:10 19:10 WBC (3.98-10.04) x10^3/uL RBC (3.93-5.22) x10^6/uL Hgb (11.2-15.7) g/dL Hct (34.1-44.9) % MCV (79.4-94.8) fL MCH (25.6-32.2) pg MCHC (32.2-35.5) g/dL RDW (11.7-14.4) % Plt Count (182-369) x10^3/uL MPV (9.4-12.3) fL Gran % (34.0-71.1) % Immature Gran % (Auto) (0.001-0.429) % Nucleat RBC Rel Count (0.00-0.2) % Eos # (Auto) (0.04-0.36) x10^3/uL Immature Gran # (Auto) (0.001-0.031) x10^3u/L Absolute Lymphs (auto) (1.18-3.74) x10^3/uL Absolute Monos (auto) (0.24-0.86) x10^3/uL Absolute Nucleated RBC (0.00-0.012) x10^3u/L Lymphocytes % (19.3-51.7) % Monocytes % (4.7-12.5) % Eosinophils % (0.7-5.8) % Basophils % (0.1-1.2) % Absolute Granulocytes (1.56-6.13) x10^3/uL Basophils # (0.01-0.08) x10^3/uL PT (9.4-12.5) SECONDS INR (0.8-3.0) Sodium 143 (135-145) mmol/L Potassium 4.1 (3.5-5.1) mmol/L Chloride 111 H (98-107) mmol/L Carbon Dioxide 19 L (22-30) mmol/L Anion Gap 16.4 H (5-15) MEQ/L BUN 23 H (7-17) mg/dL Creatinine 0.57 (0.52-1.04) mg/dL Estimated GFR 93.5 ML/MIN Glucose 153 H (74-106) mg/dL Calcium 9.3 (8.4-10.2) mg/dL Total Bilirubin 0.60 (0.2-1.3) mg/dL AST 36 (14-36) U/L ALT 23 (0-35) U/L Alkaline Phosphatase 38 (38-126) U/L Troponin I < 0.012 < 0.012 (0.000-0.033) ng/mL NT-Pro-B Natriuret Pep 4150 (<300) pg/mL Serum Total Protein 6.7 (6.3-8.2) g/dL Albumin 4.4 (3.5-5.0) g/dL 12/08/24 12/08/24 Range/Units 19:10 19:00 WBC 5.8 (3.98-10.04) x10^3/uL RBC 4.64 (3.93-5.22) x10^6/uL Hgb 13.9 (11.2-15.7) g/dL Hct 44.0 (34.1-44.9) % MCV 94.8 (79.4-94.8) fL MCH 30.0 (25.6-32.2) pg MCHC 31.6 L (32.2-35.5) g/dL RDW 13.2 (11.7-14.4) % Plt Count 192 (182-369) x10^3/uL MPV 11.3 (9.4-12.3) fL Gran % 72.4 H (34.0-71.1) % Immature Gran % (Auto) 0.2 (0.001-0.429) % Nucleat RBC Rel Count 0.0 (0.00-0.2) % Eos # (Auto) 0.14 (0.04-0.36) x10^3/uL Immature Gran # (Auto) 0.01 (0.001-0.031) x10^3u/L Absolute Lymphs (auto) 0.96 L (1.18-3.74) x10^3/uL Absolute Monos (auto) 0.46 (0.24-0.86) x10^3/uL Absolute Nucleated RBC 0.00 (0.00-0.012) x10^3u/L Lymphocytes % 16.6 L (19.3-51.7) % Monocytes % 7.9 (4.7-12.5) % Eosinophils % 2.4 (0.7-5.8) % Basophils % 0.5 (0.1-1.2) % Absolute Granulocytes 4.20 (1.56-6.13) x10^3/uL Basophils # 0.03 (0.01-0.08) x10^3/uL PT 12.4 (9.4-12.5) SECONDS INR 1.15 (0.8-3.0) Sodium (135-145) mmol/L Potassium (3.5-5.1) mmol/L Chloride (98-107) mmol/L Carbon Dioxide (22-30) mmol/L Anion Gap (5-15) MEQ/L BUN (7-17) mg/dL Creatinine (0.52-1.04) mg/dL Estimated GFR ML/MIN Glucose (74-106) mg/dL Calcium (8.4-10.2) mg/dL Total Bilirubin (0.2-1.3) mg/dL AST (14-36) U/L ALT (0-35) U/L Alkaline Phosphatase (38-126) U/L Troponin I (0.000-0.033) ng/mL NT-Pro-B Natriuret Pep (<300) pg/mL Serum Total Protein (6.3-8.2) g/dL Albumin (3.5-5.0) g/dL - Progress Progress: improved, re-examined Air Movement: good Progress Note: 12/08/24 20:02 My medical decision making and the assignment of moderate complexity to this patient's medical issue today is based on review of the patient's past medical history, review the patient's medication list, review patient drug allergy list, history present illness and physical findings on examination. The workup in this patient includes placement of intravenous line, CBC, CMP, PT/INR, twelve- lead EKG, troponin level, BNP, chest x-ray. Differential diagnosis includes but is not limited to myocardial infarction, beth ctrolyte abnormalities, arrhythmia, pneumonia, CHF 12/08/24 22:49 I interpreted the patient's laboratory data results. Based on the laboratory data results, the patient does have evidence of congestive heart failure with an elevated BNP. Her troponin levels x 2 are normal. I interpreted the patient's repeat twelve-lead EKG performed at 2154 on 12/08/2024. There is been a change in her twelve-lead EKG and that she now has atrial fibrillation with RVR. She has borderline prolonged QT interval. Her acute G is 503. On the monitor, her heart rate is going up in the high 120s which she was not doing when she initially came into the emergency department. I feel more comfortable placing this patient in observation on a monitored bed. I spoke with Dr. Lund, our telehospitalist. I reviewed the patient past medical history, chief complaint and findings on our workup. He agrees that we should place this patient in observation. We will provide the patient with a single dose of Cardizem IV. We will avoid the beta-kimi since the patient took 3 doses today of her sotalol. Blood Culture(s) Obtained: No Antibiotics given: No Counseled pt/family regarding: lab results, rad results Medical Desision Making - Independent Historian Additional History obtained from: Family - Diagnostic Testing Diagnostic test were ordered, analyzed, and reviewed by me: Yes Radiological Interpretation: Interpreted by me, Teleradiologist Report - Risk of complications The pt has a high risk of morbidity or mortality based on: Decision regarding hospitilization or escalation of hosp level of care - Departure Departure Disposition: Observation Clinical Impression: Chest pain, Atrial fibrillation with RVR, Elevated brain natriuretic peptide (BNP) level Condition: Fair Critical Care Time: Yes Critical Care Time(excluding separately billable procedures): Critical 30-74 mins (45) Referrals: ANTHONY BHANDARI, MACHINE BILLER [Primary Care Provider] - Follow up/PCP as directed
[2024-12-08] MEDS ORDERED: Lasix 40 MG/4 ML ONE (20:29)
[2024-12-08] MEDS: Lasix 40 MG/4 ML IV ONE (20:30)
[2024-12-08] MEDS ORDERED: Cardizem IV 50 MG/10 ML IV ONE (22:59)
[2024-12-08] MEDS: Cardizem IV 50 MG/10 ML IV ONE (23:00)
[2024-12-09] MEDS ORDERED: TYLENOL 325 MG PO PRN (00:06)
[2024-12-09] MEDS ORDERED: Betapace 80 MG ONE (01:35)
--- NOTE | 2024-12-09 01:37 | PCM.HP ---
History of Present Illness - Chief Complaint Chief Complaint: palpitations Date: 12/09/24 History of Present Illness: 79-year-old woman with history of A-fib, CAD, hypertension, Parkinson's, and prior stroke, who presents with palpitations and chest tightness. Patient noted earlier today that she was having palpitations and faster heart rate, noting that her A-fib was "acting up". She developed substernal chest tightness associated with some dyspnea and diaphoresis but no nausea or numbness. She states this is similar to her prior episodes when her heart rate has been uncontrolled. She tried nitroglycerin without any relief. She took an extra dose of sotalol as per her baton twirler instruction, but when the rate did not improve, she came to the ED. Patient notes that she takes Lasix as needed, but had not felt that she needed it recently. Denies leg edema, PND, or orthopnea. Her chest tightness and dyspnea has fully resolved. In the ED, she continued to have heart rate in the 120s even after being given Lasix 40 IV x 1. Eventually was given diltiazem 15 mg IV x 1, and rate has been controlled in the 80s to 90s on the floor since then. - Review of Systems All Other Systems: Reviewed and Negative (except as per HPI) Medications & Allergies Home Medications: Home Medication List Memantine HCl 5 mg [Namenda 5 MG] 5 mg PO HS 12/07/12 [History Confirmed 12/08/24] Ascorbic Acid 500 mg [Vitamin C 500 MG] 500 mg PO DAILY 09/26/23 [History Confirmed 12/08/24] Valsartan [Diovan] 320 mg PO DAILY 11/07/23 [History Confirmed 12/08/24] Dabigatran Etexilate Mesylate [Pradaxa] 150 mg PO BID 02/24/24 [History Confirmed 12/08/24] Sotalol HCl [Sotalol] 120 mg PO BID 02/24/24 [History Confirmed 12/08/24] Carbidopa/Levodopa [Carbidopa-Levo ER 25-100 Tab] 1 tab PO HS 10/15/24 [History Confirmed 12/08/24] Chlorthalidone 25 mg PO DAILY 12/08/24 [History Confirmed 12/08/24] Allergies/Adverse Reactions: Allergies Allergy/AdvReac Type Severity Reaction Status Date / Time No Known Drug Allergies Allergy Verified 10/14/24 18:00 - Past Medical History Past Medical History: Yes Neurological History: Stroke ENT History: No Pertinent History Cardiac History: Arrhythmia, Coronary Artery Disease, High Cholesterol, Hype rtension, Myocardial Infarction ([place]) Respiratory History: No Pertinent History Endocrine Medical History: No Pertinent History Musculoskelatal History: No Pertinent History GI Medical History: No Pertinent History History: No Pertinent History Pyscho-Social History: No Pertinent History Reproductive Disorders: Breast Cancer Comment: [place] WITH CVA IN 2011; parkinsons. L side breast CA Lumpectomy and 6 months of chemo - Past Surgical History Past Surgical History: Yes Neuro Surgical History: No Pertinent History Cardiac History: Cardiac Catheterization, Cardiac Stent Respiratory Surgery: No Pertinent History GI Surgical History: No Pertinent History Genitourinary Surgical Hx: No Pertinent History Musculskeletal Surgical Hx: No Pertinent History Female Surgical History: Hysterectomy, Tubal Ligation, Lumpectomy Other Surgical History: Cath in 2011. Cardiac stents x 3. hysterctomy with bladder tie up 07/07/2021 Significant Family History: heart disease - Social History Smoking Status: Never smoker Exposure to second hand smoke: No Alcohol: None Drug Use: none - Social Determinants of Health Will the patient participate in the screening: Yes Do you worry about a steady place to live?: No Do you have any problems with any of the following?: No known problems In the past 12 months,have you had to go without utilities?: No Have you or anyone in your house had to go without enough: No Transportation Issues: No Has anyone in your support network made you feel unsafe?: No Does the patient want assistance with any of the above?: No - Physical Exam Vital Signs: Vital Signs - 24 hr Temp Pulse Pulse Resp BP BP Pulse Ox 12/09/24 00:20 97.5 F 89 16 115/61 97 12/09/24 00:02 80 14 101/67 97 12/08/24 23:58 82 17 101/67 96 12/08/24 23:50 75 15 106/67 97 12/08/24 23:40 69 18 95 12/08/24 23:31 68 16 97 12/08/24 23:15 72 21 120/74 97 12/08/24 23:00 124 H 16 122/101 98 12/08/24 22:57 98 12/08/24 22:45 118 H 15 147/99 97 12/08/24 22:30 113 H 17 132/96 97 12/08/24 22:27 122 H 19 164/120 99 12/08/24 22:15 134/88 12/08/24 22:00 136 H 21 119/101 97 12/08/24 21:45 119 H 18 113/91 97 12/08/24 21:30 125 H 24 126/79 97 12/08/24 21:16 118 H 18 175/98 97 12/08/24 21:00 135 H 18 147/116 97 12/08/24 20:50 106 H 17 142/111 97 12/08/24 20:49 106 H 16 161/112 98 12/08/24 20:48 103 H 18 12/08/24 20:30 128/75 12/08/24 20:15 113 H 16 144/96 97 12/08/24 20:00 118 H 21 132/90 97 12/08/24 19:45 102 H 14 164/97 98 12/08/24 18:44 97 12/08/24 18:24 97.2 F 103 H 98 H 20 122/82 98 Physical Exam GEN: Sitting up in bed in no acute distress. HENT: Normocephalic, atraumatic. Moist mucous membranes. EYES: Normal inspection, anicteric sclera, extraocular movements intact. NECK: Supple, full range of motion CV: Irregularly irregular rhythm, no murmurs, no gallops. No JVD or edema. PULM: Clear to auscultation bilaterally, no work of breathing. On room air. ABD: Nondistended, nontender. MSK: No joint effusions, full range of motion SKIN: No rashes, normal color. NEURO: Face symmetric, no focal motor or sensory deficits. PSYCH: Alert, oriented x 3, pleasant affect Results - Labs Lab/Micro Results: Lab Results-Last 24 Hours 12/08/24 12/08/24 12/08/24 Range/Units 19:00 19:10 19:10 WBC 5.8 (3.98-10.04) x10^3/uL RBC 4.64 (3.93-5.22) x10^6/uL Hgb 13.9 (11.2-15.7) g/dL Hct 44.0 (34.1-44.9) % MCV 94.8 (79.4-94.8) fL MCH 30.0 (25.6-32.2) pg MCHC 31.6 L (32.2-35.5) g/dL RDW 13.2 (11.7-14.4) % Plt Count 192 (182-369) x10^3/uL MPV 11.3 (9.4-12.3) fL Gran % 72.4 H (34.0-71.1) % Immature Gran % (Auto) 0.2 (0.001-0.429) % Nucleat RBC Rel Count 0.0 (0.00-0.2) % Eos # (Auto) 0.14 (0.04-0.36) x10^3/uL Immature Gran # (Auto) 0.01 (0.001-0.031) x10^3u/L Absolute Lymphs (auto) 0.96 L (1.18-3.74) x10^3/uL Absolute Monos (auto) 0.46 (0.24-0.86) x10^3/uL Absolute Nucleated RBC 0.00 (0.00-0.012) x10^3u/L Lymphocytes % 16.6 L (19.3-51.7) % Monocytes % 7.9 (4.7-12.5) % Eosinophils % 2.4 (0.7-5.8) % Basophils % 0.5 (0.1-1.2) % Absolute Granulocytes 4.20 (1.56-6.13) x10^3/uL Basophils # 0.03 (0.01-0.08) x10^3/uL PT 12.4 (9.4-12.5) SECONDS INR 1.15 (0.8-3.0) Sodium 143 (135-145) mmol/L Potassium 4.1 (3.5-5.1) mmol/L Chloride 111 H (98-107) mmol/L Carbon Dioxide 19 L (22-30) mmol/L Anion Gap 16.4 H (5-15) MEQ/L BUN 23 H (7-17) mg/dL Creatinine 0.57 (0.52-1.04) mg/dL Estimated GFR 93.5 ML/MIN Glucose 153 H (74-106) mg/dL Calcium 9.3 (8.4-10.2) mg/dL Total Bilirubin 0.60 (0.2-1.3) mg/dL AST 36 (14-36) U/L ALT 23 (0-35) U/L Alkaline Phosphatase 38 (38-126) U/L Troponin I (0.000-0.033) ng/mL NT-Pro-B Natriuret Pep 4150 (<300) pg/mL Serum Total Protein 6.7 (6.3-8.2) g/dL Albumin 4.4 (3.5-5.0) g/dL 12/08/24 12/08/24 Range/Units 19:10 21:00 WBC (3.98-10.04) x10^3/uL RBC (3.93-5.22) x10^6/uL Hgb (11.2-15.7) g/dL Hct (34.1-44.9) % MCV (79.4-94.8) fL MCH (25.6-32.2) pg MCHC (32.2-35.5) g/dL RDW (11.7-14.4) % Plt Count (182-369) x10^3/uL MPV (9.4-12.3) fL Gran % (34.0-71.1) % Immature Gran % (Auto) (0.001-0.429) % Nucleat RBC Rel Count (0.00-0.2) % Eos # (Auto) (0.04-0.36) x10^3/uL Immature Gran # (Auto) (0.001-0.031) x10^3u/L Absolute Lymphs (auto) (1.18-3.74) x10^3/uL Absolute Monos (auto) (0.24-0.86) x10^3/uL Absolute Nucleated RBC (0.00-0.012) x10^3u/L Lymphocytes % (19.3-51.7) % Monocytes % (4.7-12.5) % Eosinophils % (0.7-5.8) % Basophils % (0.1-1.2) % Absolute Granulocytes (1.56-6.13) x10^3/uL Basophils # (0.01-0.08) x10^3/uL PT (9.4-12.5) SECONDS INR (0.8-3.0) Sodium (135-145) mmol/L Potassium (3.5-5.1) mmol/L Chloride (98-107) mmol/L Carbon Dioxide (22-30) mmol/L Anion Gap (5-15) MEQ/L BUN (7-17) mg/dL Creatinine (0.52-1.04) mg/dL Estimated GFR ML/MIN Glucose (74-106) mg/dL Calcium (8.4-10.2) mg/dL Total Bilirubin (0.2-1.3) mg/dL AST (14-36) U/L ALT (0-35) U/L Alkaline Phosphatase (38-126) U/L Troponin I < 0.012 < 0.012 (0.000-0.033) ng/mL NT-Pro-B Natriuret Pep (<300) pg/mL Serum Total Protein (6.3-8.2) g/dL Albumin (3.5-5.0) g/dL - Radiology Impressions Radiology Exams & Impressions: Radiology Procedures Category Date Time Status CHEST 1 VIEW (PORTABLE) Stat Exams 12/08/24 18:33 Taken Chest x-ray no infiltrate, effusions, or edema. (Images personally reviewed) Assessment/Plan (1) Atrial fibrillation with rapid ventricular response Current Visit: Yes Status: Acute Assessment & Plan: 79-year-old woman with a history of A-fib, CAD, hypertension, Parkinson's, and CVA, here with A-fib with RVR. ## A-fib presenting in RVR. Did not respond to extra dose of sotalol at home. Trigger is unclear. Her chest tightness symptoms appear to be secondary to the heart rate rather than causing it. Possibly due to some fluid retention (see below). Currently rate controlled after getting extra dose of diltiazem in the ED. Resume home sotalol 120 mg BID Give extra dose now for dose that was "missed" this evening after coming to the hospital If heart rate remains controlled in the morning on her sotalol, can likely discharge to home Continue Pradaxa 150 mg BID ## Chest tightness patient has history of CAD with 3 prior stents placed. However, her symptoms here appear to be secondary to the A-fib. Patient had no relief with glycerin, but did have relief when her heart rate was controlled. Serial troponins have been negative to date. Will get 1 final troponin ## Reported diastolic heart failure patient apparently takes Lasix PRN. She has not taken any recently. She has no edema on exam or pulmonary edema on chest x-ray. However, her BNP is 4000, when she was 2000 most previously. Possibly she had some early volume overload that was causing the A-fib/RVR above. She was given Lasix 40 mg IV x 1 in the ED. No further diuresis tonight Will schedule furosemide 20 mg p.o. starting in the morning ## Parkinson disease Continue home Sinemet, memantine ## Hypertension blood pressure currently controlled Continue home valsartan 320 daily, chlorthalidone 25 daily CODE STATUS: Full code Prophylaxis: On therapeutic Pradaxa Diet: Low-sodium Dispo: Place in observation, expect patient will be able to discharge home tomorrow Code(s): I48.91 - UNSPECIFIED ATRIAL FIBRILLATION Telemedicine Encounter - Telemedicine Encounter Telemedicine Encounter: "The entirety of this encounter was performed via Telemedicine" This visit was performed using real-time audio and video connection between my location and thepatients locationwith the assistance of a surrogateat the patients location. Written or verbal consent was obtained from the patient/guardian to perform this visit usings[employer]La Mi[employer]medicine technology. Any patient questions regarding the telemedicine interaction were answered.
[2024-12-09 03:21] LABS: Absolute Neutrophil Ct (ANC) 4.72 x10^3/uL (1.56-6.13); BASOPHIL % 0.7 % (0.1-1.2); Basophil (Absolute #) 0.05 x10^3/uL (0.01-0.08); Eosinophil % 2.4 % (0.7-5.8); Eosinophil (Absolute #) 0.17 x10^3/uL (0.04-0.36); Hematocrit 40.3 % (34.1-44.9); Hemoglobin 12.8 g/dL (11.2-15.7); IMMATURE GRAN # 0.02 x10^3u/L (0.001-0.031); IMMATURE GRAN % 0.3 % (0.001-0.429); Lymphocyte (Absolute #) 1.39 x10^3/uL (1.18-3.74); Mean Cell Volume 94.6 fL (79.4-94.8); Mean Corpuscular Hgb Concent. 31.8 g/dL (32.2-35.5); Mean Platelet Volume 11.1 fL (9.4-12.3); Monocyte (Absolute #) 0.59 x10^3/uL (0.24-0.86); Monocytes % 8.5 % (4.7-12.5); Neutrophil % 68.1 % (34.0-71.1); Platelet Count 212 x10^3/uL (182-369); Red Blood Count 4.26 x10^6/uL (3.93-5.22); Red Cell Distribution Width 13.2 % (11.7-14.4); White Blood Count 6.9 x10^3/uL (3.98-10.04)
[2024-12-09 03:28] LABS: ANION GAP 13.7 MEQ/L (5-15); BILIRUBIN,TOTAL 0.6 mg/dL (0.2-1.3); Creatinine 1 0.63 mg/dL (0.52-1.04); EST GLOMERULAR FILTRATION RATE 91.3 ML/MIN; Potassium 3.9 mmol/L (3.5-5.1); Total Protein 6.4 g/dL (6.3-8.2)
--- NOTE | 2024-12-09 08:46 | XRAY ---
Indication: Chest pain. Comparison: October 14, 2024 Portable chest remains hyperinflated and clear. Heart not enlarged again with small hiatal hernia. Bony thorax intact again with osteopenia, mild degenerative changes, mild dextroscoliosis, and left axillary davey dissection. Impression: Continue nonacute chest with chronic features.
[2024-12-09 08:52] VITALS: RESP 18; O2SAT 95
[2024-12-09] MEDS: PRADAXA 75 MG PO SCH (09:04)
[2024-12-09] MEDS: Betapace 80 MG PO SCH (09:05)
[2024-12-09] MEDS: DIOVAN 80 MG PO SCH (09:06)
[2024-12-09] MEDS: Vitamin C 500 MG PO SCH (09:06)
[2024-12-09] MEDS: LASIX 20 MG PO SCH (09:15)
[2024-12-09] MEDS: CHLORTHALIDONE PO SCH (09:35)
[2024-12-09] MEDS ORDERED: DABIGATRAN ETEXILATE MESYLATE 150 MG PO SCH (10:00)
[2024-12-09] MEDS ORDERED: NON-FORMULARY ITEM (Valsartan [Diovan] 320 MG Tablet) PO SCH (10:00)
--- NOTE | 2024-12-09 11:15 | PCM.DS ---
Discharge Summary Date of Admission: 12/09/24 00:02 Date of Discharge: 12/09/24 Admitting Physician: ELIJAH JEFFRIES MD Primary Care Provider: ANTHONY BHANDARI Allergies Allergies No Known Drug Allergies Allergy (Verified 10/14/24 18:00) Hospital Summary - Hospital Course Hospital Course: 79-year-old woman with history of A-fib, CAD, hypertension, Parkinson's, and prior stroke, who presents with palpitations and chest tightness. Patient noted earlier today that she was having palpitations and faster heart rate, noting that her A-fib was "acting up". She developed substernal chest tightness associated with some dyspnea and diaphoresis but no nausea or numbness. She states this is similar to her prior episodes when her heart rate has been uncon trolled. She tried nitroglycerin without any relief. She took an extra dose of sotalol as per her folder and notcher instruction, but when the rate did not improve, she came to the ED. Patient notes that she takes Lasix as needed, but had not felt that she needed it recently. Denies leg edema, PND, or orthopnea. Her chest tightness and dyspnea has fully resolved. In the ED, she continued to have heart rate in the 120s even after being given Lasix 40 IV x 1. Eventually was given diltiazem 15 mg IV x 1, and rate has been controlled in the 80s to 90s on the floor since then. Troponin series WNL. Plan for follow up with her folder and notcher Dr. Charlie Shaikh. Patient agreeable to plan and stable for dc. Discharge Note Outpatient testing to order: Latest Assessment & Plan 79-year-old woman with a history of A-fib, CAD, hypertension, Parkinson's, and CVA, here with A-fib with RVR. ## A-fib presenting in RVR. Did not respond to extra dose of sotalol at home. Trigger is unclear. Her chest tightness symptoms appear to be secondary to the heart rate rather than causing it. Possibly due to some fluid retention (see below). Currently rate controlled after getting extra dose of diltiazem in the ED. Resume home sotalol 120 mg BID Give extra dose now for dose that was "missed" this evening after coming to the hospital If heart rate remains controlled in the morning on her sotalol, can likely discharge to home Continue Pradaxa 150 mg BID ## Chest tightness patient has history of CAD with 3 prior stents placed. However, her symptoms here appear to be secondary to the A-fib. Patient had no relief with glycerin, but did have relief when her heart rate was controlled. Serial troponins have been negative to date. Will get 1 final troponin ## Reported diastolic heart failure patient apparently takes Lasix PRN. She has not taken any recently. She has no edema on exam or pulmonary edema on chest x-ray. However, her BNP is 4000, when she was 2000 most previously. Possibly she had some early volume overload that was causing the A-fib/RVR above. She was given Lasix 40 mg IV x 1 in the ED. No further diuresis tonight Will schedule furosemide 20 mg p.o. starting in the morning ## Parkinson disease Continue home Sinemet, memantine ## Hypertension blood pressure currently controlled Continue home valsartan 320 daily, chlorthalidone 25 daily CODE STATUS: Full code Prophylaxis: On therapeutic Pradaxa Diet: Low-sodium Dispo: Place in observation, expect patient will be able to discharge home tomorrow I spent 35 minutes [id number] with the patient on the day of discharge performing discharge exam, discussing hospital stay and discharge instructions with patient and caregivers, preparation of discharge records, prescriptions & referral forms and addressing any questions/concerns the patient had as documented above. - Vitals & Intake/Output Vital Signs: Vital Signs Temperature 96.9 F 12/09/24 08:00 Pulse Rate 80 12/09/24 08:00 Respiratory Rate 18 12/09/24 08:00 Blood Pressure 144/81 12/09/24 08:00 O2 Sat by Pulse Oximetry 95 12/09/24 08:00 Intake & Output: Intake & Output 12/06/24 12/07/24 12/08/24 12/09/24 11:59 11:59 11:59 11:59 Weight 57.9 kg - Lab Result Diagrams: 12/09/24 03:05 12/09/24 03:05 Lab Results-Last 24 Hrs: Lab Results-Last 24 Hours 12/08/24 12/08/24 12/08/24 Range/Units 19:00 19:10 19:10 WBC 5.8 (3.98-10.04) x10^3/uL RBC 4.64 (3.93-5.22) x10^6/uL Hgb 13.9 (11.2-15.7) g/dL Hct 44.0 (34.1-44.9) % MCV 94.8 (79.4-94.8) fL MCH 30.0 (25.6-32.2) pg MCHC 31.6 L (32.2-35.5) g/dL RDW 13.2 (11.7-14.4) % Plt Count 192 (182-369) x10^3/uL MPV 11.3 (9.4-12.3) fL Gran % 72.4 H (34.0-71.1) % Immature Gran % (Auto) 0.2 (0.001-0.429) % Nucleat RBC Rel Count 0.0 (0.00-0.2) % Eos # (Auto) 0.14 (0.04-0.36) x10^3/uL Immature Gran # (Auto) 0.01 (0.001-0.031) x10^3u/L Absolute Lymphs (auto) 0.96 L (1.18-3.74) x10^3/uL Absolute Monos (auto) 0.46 (0.24-0.86) x10^3/uL Absolute Nucleated RBC 0.00 (0.00-0.012) x10^3u/L Lymphocytes % 16.6 L (19.3-51.7) % Monocytes % 7.9 (4.7-12.5) % Eosinophils % 2.4 (0.7-5.8) % Basophils % 0.5 (0.1-1.2) % Absolute Granulocytes 4.20 (1.56-6.13) x10^3/uL Basophils # 0.03 (0.01-0.08) x10^3/uL PT 12.4 (9.4-12.5) SECONDS INR 1.15 (0.8-3.0) Sodium 143 (135-145) mmol/L Potassium 4.1 (3.5-5.1) mmol/L Chloride 111 H (98-107) mmol/L Carbon Dioxide 19 L (22-30) mmol/L Anion Gap 16.4 H (5-15) MEQ/L BUN 23 H (7-17) mg/dL Creatinine 0.57 (0.52-1.04) mg/dL Estimated GFR 93.5 ML/MIN Glucose 153 H (74-106) mg/dL Calcium 9.3 (8.4-10.2) mg/dL Total Bilirubin 0.60 (0.2-1.3) mg/dL AST 36 (14-36) U/L ALT 23 (0-35) U/L Alkaline Phosphatase 38 (38-126) U/L Troponin I (0.000-0.033) ng/mL NT-Pro-B Natriuret Pep 4150 (<300) pg/mL Serum Total Protein 6.7 (6.3-8.2) g/dL Albumin 4.4 (3.5-5.0) g/dL 12/08/24 12/08/24 12/09/24 Range/Units 19:10 21:00 03:05 WBC (3.98-10.04) x10^3/uL RBC (3.93-5.22) x10^6/uL Hgb (11.2-15.7) g/dL Hct (34.1-44.9) % MCV (79.4-94.8) fL MCH (25.6-32.2) pg MCHC (32.2-35.5) g/dL RDW (11.7-14.4) % Plt Count (182-369) x10^3/uL MPV (9.4-12.3) fL Gran % (34.0-71.1) % Immature Gran % (Auto) (0.001-0.429) % Nucleat RBC Rel Count (0.00-0.2) % Eos # (Auto) (0.04-0.36) x10^3/uL Immature Gran # (Auto) (0.001-0.031) x10^3u/L Absolute Lymphs (auto) (1.18-3.74) x10^3/uL Absolute Monos (auto) (0.24-0.86) x10^3/uL Absolute Nucleated RBC (0.00-0.012) x10^3u/L Lymphocytes % (19.3-51.7) % Monocytes % (4.7-12.5) % Eosinophils % (0.7-5.8) % Basophils % (0.1-1.2) % Absolute Granulocytes (1.56-6.13) x10^3/uL Basophils # (0.01-0.08) x10^3/uL PT (9.4-12.5) SECONDS INR (0.8-3.0) Sodium (135-145) mmol/L Potassium (3.5-5.1) mmol/L Chloride (98-107) mmol/L Carbon Dioxide (22-30) mmol/L Anion Gap (5-15) MEQ/L BUN (7-17) mg/dL Creatinine (0.52-1.04) mg/dL Estimated GFR ML/MIN Glucose (74-106) mg/dL Calcium (8.4-10.2) mg/dL Total Bilirubin (0.2-1.3) mg/dL AST (14-36) U/L ALT (0-35) U/L Alkaline Phosphatase (38-126) U/L Troponin I < 0.012 < 0.012 < 0.012 (0.000-0.033) ng/mL NT-Pro-B Natriuret Pep (<300) pg/mL Serum Total Protein (6.3-8.2) g/dL Albumin (3.5-5.0) g/dL 12/09/24 12/09/24 Range/Units 03:05 03:05 WBC 6.9 (3.98-10.04) x10^3/uL RBC 4.26 (3.93-5.22) x10^6/uL Hgb 12.8 (11.2-15.7) g/dL Hct 40.3 (34.1-44.9) % MCV 94.6 (79.4-94.8) fL MCH 30.0 (25.6-32.2) pg MCHC 31.8 L (32.2-35.5) g/dL RDW 13.2 (11.7-14.4) % Plt Count 212 (182-369) x10^3/uL MPV 11.1 (9.4-12.3) fL Gran % 68.1 (34.0-71.1) % Immature Gran % (Auto) 0.3 (0.001-0.429) % Nucleat RBC Rel Count 0.0 (0.00-0.2) % Eos # (Auto) 0.17 (0.04-0.36) x10^3/uL Immature Gran # (Auto) 0.02 (0.001-0.031) x10^3u/L Absolute Lymphs (auto) 1.39 (1.18-3.74) x10^3/uL Absolute Monos (auto) 0.59 (0.24-0.86) x10^3/uL Absolute Nucleated RBC 0.00 (0.00-0.012) x10^3u/L Lymphocytes % 20.0 (19.3-51.7) % Monocytes % 8.5 (4.7-12.5) % Eosinophils % 2.4 (0.7-5.8) % Basophils % 0.7 (0.1-1.2) % Absolute Granulocytes 4.72 (1.56-6.13) x10^3/uL Basophils # 0.05 (0.01-0.08) x10^3/uL PT (9.4-12.5) SECONDS INR (0.8-3.0) Sodium 140 (135-145) mmol/L Potassium 3.9 (3.5-5.1) mmol/L Chloride 109 H (98-107) mmol/L Carbon Dioxide 21 L (22-30) mmol/L Anion Gap 13.7 (5-15) MEQ/L BUN 23 H (7-17) mg/dL Creatinine 0.63 (0.52-1.04) mg/dL Estimated GFR 91.3 ML/MIN Glucose 141 H (74-106) mg/dL Calcium 9.0 (8.4-10.2) mg/dL Total Bilirubin 0.60 (0.2-1.3) mg/dL AST 29 (14-36) U/L ALT 23 (0-35) U/L Alkaline Phosphatase 33 L (38-126) U/L Troponin I (0.000-0.033) ng/mL NT-Pro-B Natriuret Pep (<300) pg/mL Serum Total Protein 6.4 (6.3-8.2) g/dL Albumin 4.0 (3.5-5.0) g/dL - Radiology Exams Ordered Rad Exams-Entire Visit: Radiology Procedures Category Date Time Status CHEST 1 VIEW (PORTABLE) Stat Exams 12/08/24 18:33 Completed Discharge Exam General Appearance: no apparent distress Neurologic Exam: alert, oriented x 3, cooperative Eye Exam: PERRL Ears, Nose, Throat Exam: normal ENT inspection Neck Exam: normal inspection Respiratory Exam: normal breath sounds, lungs clear Cardiovascular Exam: irregular Gastrointestinal/Abdomen Exam: soft, normal bowel sounds Pelvic Exam: deferred Rectal Exam: deferred Back Exam: normal inspection Extremity Exam: normal inspection Final Diagnosis/Problem List - Final Discharge Diagnosis/Problem (1) Atrial fibrillation with rapid ventricular response Current Visit: Yes Status: Resolved Code(s): I48.91 - UNSPECIFIED ATRIAL FIBRILLATION (2) Diastolic heart failure Current Visit: Yes Status: Acute Code(s): I50.30 - UNSPECIFIED DIASTOLIC (CONGESTIVE) HEART FAILURE (3) Parkinson disease Current Visit: Yes Status: Acute Code(s): G20.A1 - PARKINSON'S DIS W/O DYSKINESIA, W/O MENTION OF FLUCTUATIONS (4) HTN (hypertension) Current Visit: Yes Status: Acute Code(s): I10 - ESSENTIAL (PRIMARY) HYPERTENSION (5) Chest pain Current Visit: Yes Status: Acute Code(s): R07.9 - CHEST PAIN, UNSPECIFIED - Discharge Discharge Date: 12/09/24 Disposition: Home, Self-Care Condition: Fair Prescriptions: Continue Memantine HCl 5 mg [Namenda 5 MG] 5 mg PO HS Ascorbic Acid 500 mg [Vitamin C 500 MG] 500 mg PO DAILY Valsartan [Diovan] 320 mg PO DAILY Dabigatran Etexilate Mesylate [Pradaxa] 150 mg PO BID Sotalol HCl [Sotalol] 120 mg PO BID Carbidopa/Levodopa [Carbidopa-Levo ER 25-100 Tab] 1 tab PO HS Chlorthalidone 25 mg PO DAILY Follow up with: MAGALI PATRICIA MD [NON-STAFF PHY W/O PRIVILEGES] - 12/14/24 3:15 pm ANTHONY BHANDARI NP [Primary Care Provider] - 12/16/24 10:45 am
[2024-12-09 12:11] VITALS: BP 117/72; PULSE 103; TEMP 97.1
[2024-12-09] MEDS ORDERED: Sinemet CR 50/200 MG PO SCH (22:00)
[2024-12-09] MEDS ORDERED: NON-FORMULARY ITEM (Carbidopa/Levodopa [Carbidopa-Levo Er 25-100 Tab] 1 EACH Tablet.Er) PO SCH (22:00)
[2024-12-09] MEDS ORDERED: Namenda 5 MG PO SCH (22:00)
== END 2024-12-09 12:52 | disposition home or self-care (01) ==
LOC: ED 18:18 → MED SURG 12-09 00:02
PROVIDERS: ADMIT Internal Medicine; ATTEND Internal Medicine
DX: I48.20 Chronic atrial fibrillation, unspecified (principal); R07.9 Chest pain, unspecified; I11.0 Hypertensive heart disease with heart failure; I50.30 Unspecified diastolic (congestive) heart failure; G20.A1 Parkinson's disease without dyskinesia, without mention of fluctuations; Z79.899 Other long term (current) drug therapy; Z86.73 Personal history of transient ischemic attack (TIA), and cerebral infarction without residual deficits; Z85.3 Personal history of malignant neoplasm of breast
CPT/HCPCS: 36415; 71045; 80053; 83880; 84484; 85025; 85610; 93005; 93268; 94760; 96374; 96375; 99291; G0378; Q3014; 99284; J1940; A9270-GY

== ENCOUNTER 2025-06-11 15:06 | Emergency (ER) | payer MEDICARE, BC ==
--- NOTE | 2025-06-11 15:08 | ERPHSYRPT ---
- History of Present Illness Time Seen by Provider: 06/11/25 15:08 Historian: patient, family Exam Limitations: no limitations Physician History: This is a 80-year-old white female patient brought into the emergency department by private vehicle accompanied by her daughter and is a patient of nurse practitioner Ara. Patient has had right sided abdominal pain that worsened over the 3 days. Today, she had associated vomiting, intermittent nausea and dry heaving. Patient states she still has her gallbladder and appendix in place. Patient has a history of dementia, Parkinson's disease, arrhythmia on Pradaxa, coronary disease (cardiac stent, hyperlipidemia, hypertension and history of CVA. She does not have chest pain at this time. She has no shortness of breath at this time. Timing/Duration: day(s) (3), worse Activities at Onset: none Quality: aching Abdominal Pain Onset Location: RUQ, RLQ Pain Radiation: no radiation Severity of Pain-Max: mild (To moderate) Severity of Pain-Current: mild (To moderate) Modifying Factors: Improves With: vomiting Associated Symptoms: loss of appetite, nausea, vomiting Previous symptoms: no prior history, no recent treatment Allergies/Adverse Reactions: No Known Drug Allergies Allergy (Verified 06/11/25 15:18) Home Medications: Memantine HCl 5 mg [Namenda 5 MG] 5 mg PO HS 12/07/12 [History] Ascorbic Acid 500 mg [Vitamin C 500 MG] 500 mg PO DAILY 09/26/23 [History] Valsartan [Diovan] 320 mg PO DAILY 11/07/23 [History] Dabigatran Etexilate Mesylate [Pradaxa] 150 mg PO BID 02/24/24 [History] Sotalol HCl [Sotalol] 120 mg PO BID 02/24/24 [History] Carbidopa/Levodopa [Carbidopa-Levo ER 25-100 Tab] 1 tab PO BID 10/15/24 [History] Chlorthalidone 25 mg PO DAILY 12/08/24 [History] Hx Tetanus, Diphtheria Vaccination/Date Given: No Hx Influenza Vaccination/Date Given: No Hx Pneumococcal Vaccination/Date Given: No Travel Risk - International Travel Have you traveled outside of the country in past 3 weeks: No - Emerging Infectious Disease Are you exhibiting symptoms associated with any current EIDs: No - Review of Systems Constitutional: No Symptoms Eyes: No Symptoms Ears, Nose, & Throat: No Symptoms Respiratory: No Symptoms Cardiac: No Symptoms Abdominal/Gastrointestinal: Abdominal Pain (Right side), Nausea, Vomiting, Appetite Changes Genitourinary Symptoms: No Symptoms Musculoskeletal: No Symptoms Skin: No Symptoms Neurological: No Symptoms Psychological: No Symptoms Endocrine: No Symptoms Hematologic/Lymphatic: No Symptoms Immunological/Allergic: No Symptoms All Other Systems: Reviewed and Negative - Past Medical History Pertinent Past Medical History: Yes Neurological History: Stroke ENT History: No Pertinent History Cardiac History: Arrhythmia, Coronary Artery Disease, High Cholesterol, Hypertension, Myocardial Infarction ([place]) Respiratory History: No Pertinent History Endocrine Medical History: No Pertinent History Musculoskeletal History: No Pertinent History GI Medical History: No Pertinent History History: No Pertinent History Psycho-Social History: No Pertinent History Female Reproductive Disorders: Breast Cancer Other Medical History: OK WITH CVA IN 2011; parkinsons. L side breast CA Lumpectomy and 6 months of chemo - Past Surgical History Past Surgical History: Yes Neuro Surgical History: No Pertinent History Cardiac: Cardiac Catheterization, Cardiac Stent Respiratory: No Pertinent History Gastrointestinal: No Pertinent History Genitourinary: No Pertinent History Musculoskeletal: No Pertinent History Female Surgical History: Hysterectomy, Tubal Ligation, Lumpectomy Other Surgical History: Cath in 2011. Cardiac stents x 3. hysterctomy with bladder tie up 07/07/2021 Significant Family History: heart disease - Social History Smoking Status: Never smoker Exposure to second hand smoke: No Drug Use: none - Social Determinants of Health Will the patient participate in the screening: Yes Do you worry about a steady place to live?: No In the past 12 months,have you had to go without utilities?: No Transportation Issues: No Has anyone in your support network made you feel unsafe?: No Have you or anyone in your house had to go w/o enough food: No - Nursing Vital Signs Nursing Vital Signs: Initial Vital Signs Respiratory Rate 18 06/11/25 15:06 O2 Sat by Pulse Oximetry 110 H 06/11/25 15:06 Pain Scale Pain Intensity 7 - Physical Exam General Appearance: no apparent distress, alert Eye Exam: PERRL/EOMI, eyes nml inspection Ears, Nose, Throat Exam: normal ENT inspection, moist mucous membranes Neck Exam: normal inspection, non-tender, supple, full range of motion Respiratory Exam: normal breath sounds, lungs clear, airway intact, No chest tenderness, No respiratory distress Cardiovascular Exam: regular rate/rhythm, normal heart sounds, normal peripheral pulses Gastrointestinal/Abdomen Exam: soft, normal bowel sounds, tenderness (Mild right side to palpation), guarding (Mild right side to palpation), No rebound Pelvic Exam: not done Rectal Exam: not done Back Exam: normal inspection, normal range of motion, No CVA tenderness, No vertebral tenderness Extremity Exam: normal inspection, normal range of motion, pelvis stable Neurologic Exam: alert, oriented x 3, cooperative, career guidance counselor II-XII nml as tested, nml cerebellar function, nml station & gait, sensation nml Skin Exam: normal color, warm, dry Lymphatic Exam: No adenopathy SpO2 Interpretation: normal O2 Delivery: Room Air - Course Nursing assessment & vital signs reviewed: Yes EKG Interpreted by Me: RATE, Sinus Tach, NORMAL AXIS, NORMAL INTERVALS, NORMAL QRS, Other (No acute ischemic changes. QTc is 442) Ordered Tests: Active Orders 24 hr Category Date Time Status EKG-ER Only STAT Care 06/11/25 15:34 Active IV Insertion STAT Care 06/11/25 15:34 Active ABDOMEN AND PELVIS W/0 CONTRAS [CT] Stat Exams 06/11/25 15:35 Completed AMYLASE Stat Lab 06/11/25 16:08 Completed CBC W DIFF Stat Lab 06/11/25 16:08 Completed CMP Stat Lab 06/11/25 16:08 Completed CULTURE,URINE Stat Lab 06/11/25 17:03 Received LIPASE Stat Lab 06/11/25 16:08 Completed TROPONIN Q4H Lab 06/11/25 16:08 Completed TROPONIN Q4H Lab 06/11/25 19:45 Ordered TROPONIN Q4H Lab 06/11/25 23:45 Ordered UA W/RFX UR CULTURE Stat Lab 06/11/25 17:03 Completed Medication Summary Generic Name Dose Route Start Last Admin Trade Name Freq PRN Reason Stop Dose Admin Sodium Chloride 1,000 mls @ 100 mls/hr 06/11/25 15:45 06/11/25 16:08 Sodium Chloride 0.9% 1000 Ml IV 07/11/25 15:44 100 mls/hr .Q10H PINO Administration Discontinued Medications Generic Name Dose Route Start Last Admin Trade Name Freq PRN Reason Stop Dose Admin Ondansetron HCl 4 mg 06/11/25 15:34 06/11/25 16:09 Ondansetron Hcl 4 Mg/2 Ml Vial IV 06/11/25 15:35 4 mg STAT ONE Administration Ondansetron HCl Confirm 06/11/25 16:07 Ondansetron Hcl 4 Mg/2 Ml Vial Administered 06/11/25 16:08 Dose 4 mg .ROUTE .STK-MED ONE Lab/Rad Data: Laboratory Result Diagrams 06/11/25 16:08 06/11/25 16:08 Laboratory Results 06/11/25 06/11/25 06/11/25 Range/Units 17:03 16:08 16:08 WBC (3.98-10.04) x10^3/uL RBC (3.93-5.22) x10^6/uL Hgb (11.2-15.7) g/dL Hct (34.1-44.9) % MCV (79.4-94.8) fL MCH (25.6-32.2) pg MCHC (32.2-35.5) g/dL RDW (11.7-14.4) % Plt Count (182-369) x10^3/uL MPV (9.4-12.3) fL Gran % (34.0-71.1) % Immature Gran % (Auto) (0.001-0.429) % Nucleat RBC Rel Count (0.00-0.2) % Eos # (Auto) (0.04-0.36) x10^3/uL Immature Gran # (Auto) (0.001-0.031) x10^3u/L Absolute Lymphs (auto) (1.18-3.74) x10^3/uL Absolute Monos (auto) (0.24-0.86) x10^3/uL Absolute Nucleated RBC (0.00-0.012) x10^3u/L Lymphocytes % (19.3-51.7) % Monocytes % (4.7-12.5) % Eosinophils % (0.7-5.8) % Basophils % (0.1-1.2) % Absolute Granulocytes (1.56-6.13) x10^3/uL Basophils # (0.01-0.08) x10^3/uL Sodium 139 (135-145) mmol/L Potassium 4.1 (3.5-5.1) mmol/L Chloride 103 (98-107) mmol/L Carbon Dioxide 26 (22-30) mmol/L Anion Gap 13.8 (5-15) MEQ/L BUN 23 H (7-17) mg/dL Creatinine 0.57 (0.52-1.04) mg/dL Estimated GFR 93.0 ML/MIN Glucose 123 H (74-106) mg/dL Calcium 10.2 (8.4-10.2) mg/dL Total Bilirubin 0.60 (0.2-1.3) mg/dL AST 29 (14-36) U/L ALT 14 (0-35) U/L Alkaline Phosphatase 46 (38-126) U/L Troponin I < 0.012 (0.000-0.033) ng/mL Serum Total Protein 6.8 (6.3-8.2) g/dL Albumin 4.2 (3.5-5.0) g/dL Amylase 51 (30-110) U/L Lipase 44 (23-300) U/L Urine Color Yellow (Yellow) Urine Appearance Cloudy A (Clear) Urine pH 5.5 (4.6-8.0) Ur Specific [place] 1.020 (1.005-1.030) Urine Protein 30 (Negative) Urine Glucose (UA) Negative (Negative) mg/dL Urine Ketones Negative (Negative) Urine Blood Large A (Negative) Urine Nitrite Negative (Negative) Urine Bilirubin Negative (Negative) Urine Urobilinogen 1.0 A (0.2) mg/dL Ur Leukocyte Esterase Trace A (Negative) U Hyaline Cast (Auto) NONE SEEN (0-2) /LPF Urine Microscopic RBC >100 A (0-5) /HPF Urine Microscopic WBC 0-2 (0-5) /HPF Ur Epithelial Cells None Seen (None Seen) /HPF Urine Bacteria None Seen (None Seen) /HPF Urine Culture Reflexed YES (NO) 06/11/25 Range/Units 16:08 WBC 9.6 (3.98-10.04) x10^3/uL RBC 4.17 (3.93-5.22) x10^6/uL Hgb 12.9 (11.2-15.7) g/dL Hct 39.2 (34.1-44.9) % MCV 94.0 (79.4-94.8) fL MCH 30.9 (25.6-32.2) pg MCHC 32.9 (32.2-35.5) g/dL RDW 13.0 (11.7-14.4) % Plt Count 180 L (182-369) x10^3/uL MPV 11.8 (9.4-12.3) fL Gran % 84.0 H (34.0-71.1) % Immature Gran % (Auto) 0.4 (0.001-0.429) % Nucleat RBC Rel Count 0.0 (0.00-0.2) % Eos # (Auto) 0.08 (0.04-0.36) x10^3/uL Immature Gran # (Auto) 0.04 H (0.001-0.031) x10^3u/L Absolute Lymphs (auto) 0.77 L (1.18-3.74) x10^3/uL Absolute Monos (auto) 0.62 (0.24-0.86) x10^3/uL Absolute Nucleated RBC 0.00 (0.00-0.012) x10^3u/L Lymphocytes % 8.1 L (19.3-51.7) % Monocytes % 6.5 (4.7-12.5) % Eosinophils % 0.8 (0.7-5.8) % Basophils % 0.2 (0.1-1.2) % Absolute Granulocytes 8.03 H (1.56-6.13) x10^3/uL Basophils # 0.02 (0.01-0.08) x10^3/uL Sodium (135-145) mmol/L Potassium (3.5-5.1) mmol/L Chloride (98-107) mmol/L Carbon Dioxide (22-30) mmol/L Anion Gap (5-15) MEQ/L BUN (7-17) mg/dL Creatinine (0.52-1.04) mg/dL Estimated GFR ML/MIN Glucose (74-106) mg/dL Calcium (8.4-10.2) mg/dL Total Bilirubin (0.2-1.3) mg/dL AST (14-36) U/L ALT (0-35) U/L Alkaline Phosphatase (38-126) U/L Troponin I (0.000-0.033) ng/mL Serum Total Protein (6.3-8.2) g/dL Albumin (3.5-5.0) g/dL Amylase (30-110) U/L Lipase (23-300) U/L Urine Color (Yellow) Urine Appearance (Clear) Urine pH (4.6-8.0) Ur Specific [place] (1.005-1.030) Urine Protein (Negative) Urine Glucose (UA) (Negative) mg/dL Urine Ketones (Negative) Urine Blood (Negative) Urine Nitrite (Negative) Urine Bilirubin (Negative) Urine Urobilinogen (0.2) mg/dL Ur Leukocyte Esterase (Negative) U Hyaline Cast (Auto) (0-2) /LPF Urine Microscopic RBC (0-5) /HPF Urine Microscopic WBC (0-5) /HPF Ur Epithelial Cells (None Seen) /HPF Urine Bacteria (None Seen) /HPF Urine Culture Reflexed (NO) - Progress Progress: improved, pain not gone completely, re-examined Progress Note: 06/11/25 15:51 My medical decision making and the assignment of moderate complexity of this patient's medical issue today is based on review of the patient's past medical history, review of patient medication list, review of patient drug allergy list, history present illness and physical findings on examination. The workup in this patient includes placement of intravenous line, low rate crystalloid infusion, CBC, CMP, amylase, lipase, urinalysis, twelve-lead EKG, troponin level, CT scan of the abdomen pelvis without contrast. Differential diagnosis includes but is not limited to cholecystitis, acute appendicitis, colitis, pancreatitis, myocardial infarction, arrhythmia, electrolyte abnormalities, urinary tract infection, dehydration 06/11/25 17:28 I interpreted the patient's laboratory data results. Based on the laboratory data results, the patient does have significant hematuria. CT scan of the abdomen pelvis without contrast was interpreted by the radiologist and I reviewed the impression. The impression states new right renal nonobstructing punctate calculus. The urinary bladder also shows a new punctate calculus adjacent to the UVJ. No acute findings. Counseled pt/family regarding: lab results, diagnosis, rad results Medical Desision Making - Independent Historian Additional History obtained from: Family - Diagnostic Testing Diagnostic test were ordered, analyzed, and reviewed by me: Yes Radiological Interpretation: Reviewed by me, Teleradiologist Report - Risk of complications Low Risk: Low risk of morbidity from additional dx testing or treatment - Departure Departure Disposition: Home Clinical Impression: Hematuria, Urinary bladder calculus Condition: Stable Critical Care Time: No Referrals: ANTHONY BHANDARI NP [Primary Care Provider, [facility]] - Follow up/PCP as directed Additional Instructions: Drink plenty of clear liquids before advancing your diet. May add Tylenol 650 mg orally every 4 hours while awake for pain control. Continue your other medications as prescribed. Call your primary care provider on 06/14/2025, to make arrangements for follow-up appointment for further evaluation and management.
[2025-06-11] MEDS ORDERED: Zofran 4 MG/2 ML VIAL ONE (16:07)
[2025-06-11] MEDS: Zofran 4 MG/2 ML VIAL IV ONE (16:09)
[2025-06-11 16:12] LABS: BASOPHIL % 0.2 % (0.1-1.2); Basophil (Absolute #) 0.02 x10^3/uL (0.01-0.08); Eosinophil (Absolute #) 0.08 x10^3/uL (0.04-0.36); Hematocrit 39.2 % (34.1-44.9); Hemoglobin 12.9 g/dL (11.2-15.7); IMMATURE GRAN # 0.04 x10^3u/L (0.001-0.031); IMMATURE GRAN % 0.4 % (0.001-0.429); Lymphocyte (Absolute #) 0.77 x10^3/uL (1.18-3.74); Mean Corpuscular Hemoglobin 30.9 pg (25.6-32.2); Mean Corpuscular Hgb Concent. 32.9 g/dL (32.2-35.5); Monocyte (Absolute #) 0.62 x10^3/uL (0.24-0.86); NUCLEATED RBC # 0.00 x10^3u/L (0.00-0.012); NUCLEATED RBC % 0.0 % (0.00-0.2); Platelet Count 180 x10^3/uL (182-369); Red Blood Count 4.17 x10^6/uL (3.93-5.22); White Blood Count 9.6 x10^3/uL (3.98-10.04)
[2025-06-11 16:26] LABS: Calcium 10.2 mg/dL (8.4-10.2); Carbon Dioxide 26.0 mmol/L (22-30); Creatinine 1 0.57 mg/dL (0.52-1.04); EST GLOMERULAR FILTRATION RATE 93.0 ML/MIN; Glucose 123.0 mg/dL (74-106); Potassium 4.1 mmol/L (3.5-5.1); SGOT/AST 29.0 U/L (14-36); SGPT/ALT 14.0 U/L (0-35); Total Protein 6.8 g/dL (6.3-8.2)
[2025-06-11 17:13] LABS: Glucose, Urine Negative (Negative); Protein,Urine Dip 30 (Negative); RBC >100 /HPF (0-5); WBC 0-2 /HPF (0-5)
--- NOTE | 2025-06-11 17:21 | XRAY ---
Indication: Right abdomen pain. Vomiting. Dry heaves. Multiple continuous axial images obtained through abdomen and pelvis without contrast. Comparison: July 20, 2021 Lung bases demonstrates stable 6 mm medial right lower lobe noncalcified nodule favored to be benign given stability over the years. No infiltrate or effusion. Heart not enlarged. Again moderate size hiatal hernia with partial intrathoracic stomach. Noncontrasted stomach and bowel loops appear nonobstructed with normal appendix. Again hysterectomy. Right lower renal calyx demonstrates new nonobstructing punctate calculus. Urinary bladder also demonstrates new punctate calculus adjacent to the right UVJ. Stable small left mid renal cortical cyst. No free fluid/air. Remaining liver, gallbladder, pancreas, spleen, adrenal glands, kidneys, ureters, and bladder are unremarkable for noncontrast exam. Again minimal aortoiliac calcification without AAA. 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 Impression: 1. New nonobstructed right renal and urinary bladder punctate calculus. 2. Chronic findings including benign right lower lobe noncalcified micronodule, hiatal hernia with partial intrathoracic stomach, left renal cyst, arteriosclerotic disease, and chronic bony findings. 3. No acute findings on this noncontrast exam.
[2025-06-11 17:33] VITALS: BP 133/90; PULSE 128; RESP 17; O2SAT 97
== END 2025-06-11 17:54 | disposition home or self-care (01) ==
LOC: ED 15:06
DX: N21.0 Calculus in bladder (principal); R31.9 Hematuria, unspecified; R11.2 Nausea with vomiting, unspecified; R10.9 Unspecified abdominal pain; I10 Essential (primary) hypertension; Z79.899 Other long term (current) drug therapy

== ENCOUNTER → 2025-06-11 | Emergency (ER) | payer MEDICARE, BC | LOC: ED 15:08 | DX: Z53.9 Procedure and treatment not carried out, unspecified reason (principal) ==